=== PATIENT | male | born 1955 | race Caucasian/White ===

== ENCOUNTER 2017-02-08 18:43 | Emergency (ER) | payer BC ==
[2017-02-08] MEDS ORDERED: hydrALAZINE HCL 20 MG/ML 1 ML VIAL IVP STA ×2 (19:14→20:10)
--- NOTE | 2017-02-08 19:25 | ED ---
General Adult HPI - General Chief complaint: Recheck/Abnormal Lab/Rx Stated complaint: Hypertension Time Seen by Provider: 02/08/17 18:45 Source: patient, RN notes reviewed Mode of arrival: ambulatory Limitations: no limitations - History of Present Illness Initial comments: This is a 61-year-old male who presents emergency Department completely asymptomatic. Patient states he has been noting over the last 3 days that his blood pressures been elevated. Patient states she took an extra Lopressor today and it lowered his blood pressure to systolic of 150s but it went back up today went to the urgent care the urgent care and sent him here because his blood pressure was 178 there. Patient denies any chest pain palpitations difficulty breathing or shortness of breath per patient denies any visual disturbance per patient denies any headache. Patient denies any numbness weakness. Patient denies any abdominal pain patient denies nausea vomiting diarrhea. Patient states he has no symptoms he is just here because he takes his blood pressure and a daily basis and he has noted that it is elevated - Related Data Home Medications Medication Instructions Recorded Confirmed Alfuzosin HCl [Uroxatral] 10 mg PO HS 02/08/17 02/08/17 Guaifen/Phenyleph/Acetaminophn 1 cap PO Q4H PRN 02/08/17 02/08/17 [Mucinex Sinus-Max Severe Cplt] Lisinopril-Hctz 20-25 mg 1 tab PO DAILY 02/08/17 02/08/17 [Zestoretic 20-25] Metoprolol Tartrate [Lopressor] 100 mg PO BID 02/08/17 02/08/17 Simvastatin [Zocor] 20 mg PO HS 02/08/17 02/08/17 guaiFENesin SYRUP 100MG/5ML 100 mg PO Q4H PRN 02/08/17 02/08/17 [Robitussin] Allergies Allergy/AdvReac Type Severity Reaction Status Date / Time No Known Allergies Allergy Verified 02/08/17 19:44 Review of Systems ROS Statement: Those systems with pertinent positive or pertinent negative responses have been documented in the HPI. ROS Other: All systems not noted in ROS Statement are negative. Past Medical History Past Medical History: Hypertension, Prostate Disorder History of Any Multi-Drug Resistant Organisms: None Reported Past Surgical History: Hernia Repair Past Psychological History: No Psychological Hx Reported Smoking Status: Current every day smoker Past Alcohol Use History: None Reported Past Drug Use History: None Reported General Exam - General Exam Comments Initial Comments: GENERAL: Patient is well-developed and well-nourished. Patient is nontoxic and well- hydrated and is in no acute distress. ENT: Neck is soft and supple. No significant lymphadenopathy is noted. Oropharynx is clear. Moist mucous membranes. Neck has full range of motion without eliciting any pain. EYES: The sclera were anicteric and conjunctiva were pink and moist. Extraocular movements were intact and pupils were equal round and reactive to light. Eyelids were unremarkable. PULMONARY: Unlabored respirations. Good breath sounds bilaterally. No audible rales rhonchi or wheezing was noted. CARDIOVASCULAR: There is a regular rate and rhythm without any murmurs gallops or rubs. ABDOMEN: Soft and nontender with normal bowel sounds. No palpable organomegaly was noted. There is no palpable pulsatile mass. SKIN: Skin is clear with no lesions or rashes and otherwise unremarkable. NEUROLOGIC: Patient is alert and oriented x3. Cranial nerves II through XII are grossly intact. Motor and sensory are also intact. Normal speech, volume and content. Symmetrical smile. MUSCULOSKELETAL: Normal extremities with adequate strength and full range of motion. No lower extremity swelling or edema. No calf tenderness. LYMPHATICS: No significant lymphadenopathy is noted PSYCHIATRIC: Normal psychiatric evaluation. Normal interpersonal interactions appears functionally intact in deals appropriately with others. No signs of depression. No signs of anxiety. Limitations: no limitations Course Vital Signs 02/08/17 02/08/17 02/08/17 18:46 19:25 20:20 Temperature 97.5 F L Pulse Rate 60 50 L 52 L Respiratory 18 16 16 Rate Blood Pressure 220/91 200/88 186/89 O2 Sat by Pulse 98 98 97 Oximetry 02/08/17 21:01 Temperature Pulse Rate 58 L Respiratory 16 Rate Blood Pressure 158/77 O2 Sat by Pulse 96 Oximetry Medical Decision Making - Medical Decision Making EKG shows sinus bradycardia at 40 bpm MI interval is 152 QRS is 96 Q-T intervals 4:30 QTC is 384. Patient's EKG shows no ST segment elevation or depression patient does have some T-wave inversions in lead 3 and aVF. The patient received 2 doses hydralazine 10 mg each. Patient also received Vasotec 1.25. Patient's blood pressure came down nicely he remained asymptomatic throughout his ED stay. Patient will follow-up with his primary medical care doctor. - Lab Data Result diagrams: 02/08/17 19:45 02/08/17 19:45 Lab Results 02/08/17 02/08/17 02/08/17 Range/Units 19:45 19:45 19:45 WBC 8.1 (3.8-10.6) k/uL RBC 4.71 (4.30-5.90) m/uL Hgb 15.4 (13.0-17.5) gm/dL Hct 45.0 (39.0-53.0) % MCV 95.7 (80.0-100.0) fL MCH 32.8 (25.0-35.0) pg MCHC 34.3 (31.0-37.0) g/dL RDW 15.4 (11.5-15.5) % Plt Count 148 L (150-450) k/uL Neutrophils % 50 % Lymphocytes % 40 % Monocytes % 5 % Eosinophils % 3 % Basophils % 1 % Neutrophils # 4.1 (1.3-7.7) k/uL Lymphocytes # 3.2 (1.0-4.8) k/uL Monocytes # 0.4 (0-1.0) k/uL Eosinophils # 0.2 (0-0.7) k/uL Basophils # 0.1 (0-0.2) k/uL PT (9.0-12.0) sec INR (<1.2) APTT (22.0-30.0) sec Sodium 137 (137-145) mmol/L Potassium 4.0 (3.5-5.1) mmol/L Chloride 102 (98-107) mmol/L Carbon Dioxide 28 (22-30) mmol/L Anion Gap 7 mmol/L BUN 17 (9-20) mg/dL Creatinine 0.95 (0.66-1.25) mg/dL Est GFR (MDRD) Af Amer >60 (>60 ml/min/1.73 sqM) Est GFR (MDRD) Non-Af >60 (>60 ml/min/1.73 sqM) Glucose 100 H (74-99) mg/dL Calcium 9.9 (8.4-10.2) mg/dL Magnesium 2.2 (1.6-2.3) mg/dL Total Bilirubin 0.3 (0.2-1.3) mg/dL AST 21 (17-59) U/L ALT 39 (21-72) U/L Alkaline Phosphatase 71 (38-126) U/L Total Creatine Kinase 56 (55-170) U/L CK-MB (CK-2) 0.9 (0.0-2.4) ng/mL CK-MB (CK-2) Rel Index 1.6 Troponin I <0.012 (0.000-0.034) ng/mL NT-Pro-B Natriuret Pep pg/mL Total Protein 6.8 (6.3-8.2) g/dL Albumin 4.2 (3.5-5.0) g/dL 02/08/17 02/08/17 Range/Units 19:45 19:45 WBC (3.8-10.6) k/uL RBC (4.30-5.90) m/uL Hgb (13.0-17.5) gm/dL Hct (39.0-53.0) % MCV (80.0-100.0) fL MCH (25.0-35.0) pg MCHC (31.0-37.0) g/dL RDW (11.5-15.5) % Plt Count (150-450) k/uL Neutrophils % % Lymphocytes % % Monocytes % % Eosinophils % % Basophils % % Neutrophils # (1.3-7.7) k/uL Lymphocytes # (1.0-4.8) k/uL Monocytes # (0-1.0) k/uL Eosinophils # (0-0.7) k/uL Basophils # (0-0.2) k/uL PT 10.5 (9.0-12.0) sec INR 1.1 (<1.2) APTT 24.6 (22.0-30.0) sec Sodium (137-145) mmol/L Potassium (3.5-5.1) mmol/L Chloride (98-107) mmol/L Carbon Dioxide (22-30) mmol/L Anion Gap mmol/L BUN (9-20) mg/dL Creatinine (0.66-1.25) mg/dL Est GFR (MDRD) Af Amer (>60 ml/min/1.73 sqM) Est GFR (MDRD) Non-Af (>60 ml/min/1.73 sqM) Glucose (74-99) mg/dL Calcium (8.4-10.2) mg/dL Magnesium (1.6-2.3) mg/dL Total Bilirubin (0.2-1.3) mg/dL AST (17-59) U/L ALT (21-72) U/L Alkaline Phosphatase (38-126) U/L Total Creatine Kinase (55-170) U/L CK-MB (CK-2) (0.0-2.4) ng/mL CK-MB (CK-2) Rel Index Troponin I (0.000-0.034) ng/mL NT-Pro-B Natriuret Pep 179 pg/mL Total Protein (6.3-8.2) g/dL Albumin (3.5-5.0) g/dL Disposition Clinical Impression: Hypertensive urgency Disposition: HOME SELF-CARE Condition: Good Instructions: Hypertension (ED) Additional Instructions: Patient should take an extra 20 mg of lisinopril in the morning and continue monitoring documented his blood pressure. Patient should follow-up with his primary medical care doctor as soon as possible to make any further adjustments to his medications patient should return to the hospital if patient is having any chest pain or difficulty breathing headache or blurred vision. Referrals: Nick Goodwin DO [Primary Care Provider] - 1-2 days Time of Disposition: 21:11
[2017-02-08 19:26] VITALS: RESP 16
[2017-02-08 19:54] LABS: Basophils # (A) 0.1 k/uL (0-0.2); Basophils % (A) 1 %; Eosinophils # (A) 0.2 k/uL (0-0.7); Eosinophils % (A) 3 %; HGB 15.4 gm/dL (13.0-17.5); Lymphocytes # (A) 3.2 k/uL (1.0-4.8); Lymphocytes % (A) 40 %; MCH 32.8 pg (25.0-35.0); MCHC 34.3 g/dL (31.0-37.0); MCV 95.7 fL (80.0-100.0); Mean Platelet Volume 8.6; Monocytes # (A) 0.4 k/uL (0-1.0); Monocytes % (A) 5 %; Neutrophils # (A) 4.1 k/uL (1.3-7.7); Neutrophils % (A) 50 %; Platelet Count 148 k/uL (150-450); RBC 4.71 m/uL (4.30-5.90); RDW 15.4 % (11.5-15.5); WBC 8.1 k/uL (3.8-10.6)
[2017-02-08 20:02] LABS: ALT 39 U/L (21-72); AST 21 U/L (17-59); Albumin 4.2 g/dL (3.5-5.0); Alkaline Phosphatase 71 U/L (38-126); Anion Gap 7 mmol/L; Blood Urea Nitrogen 17 mg/dL (9-20); Calcium 9.9 mg/dL (8.4-10.2); Carbon Dioxide 28 mmol/L (22-30); Chloride 102 mmol/L (98-107); Glucose 100 mg/dL (74-99); Magnesium 2.2 mg/dL (1.6-2.3); Sodium 137 mmol/L (137-145); Total Bilirubin 0.3 mg/dL (0.2-1.3); Total Protein 6.8 g/dL (6.3-8.2)
--- NOTE | 2017-02-08 20:02 | XR ---
EXAMINATION TYPE: XR chest 2V DATE OF EXAM: 02/08/2017 COMPARISON: NONE HISTORY: Chest pain TECHNIQUE: Frontal and lateral views of the chest are obtained. FINDINGS: There is no heart failure nor confluent pneumonic infiltrate. Heart and mediastinum are no rmal. There is no pleural effusion. There are chest leads. Bony thorax is intact. IMPRESSION: Normal chest
[2017-02-08 20:13] LABS: Creatine Kinase 56 U/L (55-170)
[2017-02-08 20:22] LABS: INR 1.1 (<1.2); Partial Thromboplastin Time 24.6 sec (22.0-30.0); Prothrombin Time 10.5 sec (9.0-12.0)
[2017-02-08 20:25] LABS: Creatine Kinase MB 0.9 ng/mL (0.0-2.4); Troponin I <0.012 ng/mL (0.000-0.034)
[2017-02-08] MEDS ORDERED: ENALAPRILAT 1.25 MG/ML 1 ML VIAL IVP STA (20:25)
[2017-02-08 21:31] VITALS: BP 145/77; PULSE 56; TEMP 97.3
== END 2017-02-08 21:31 | disposition home or self-care (01) ==
LOC: EC 18:43
DX: I16.0 Hypertensive urgency (principal); R00.1 Bradycardia, unspecified; N42.9 Disorder of prostate, unspecified; F17.200 Nicotine dependence, unspecified, uncomplicated; Z79.899 Other long term (current) drug therapy
CPT/HCPCS: 36415; 93005; 83880; 80053; 82550; 82553; 83735; 84484; 85025; 85610; 85730; 71020; 99283; 96374; 96375; 96376; J0360

== ENCOUNTER 2017-09-27 15:35 | Emergency (ER) | payer BC, OTHER ==
[2017-09-27 15:56] VITALS: TEMP 98.2
[2017-09-27] MEDS ORDERED: TOPICAL SKIN ADHESIVE 1 EACH AMP TOPICAL ONE (16:09)
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
[2017-09-27 17:22] VITALS: BP 139/65; PULSE 65; RESP 18
== END 2017-09-27 17:46 | disposition home or self-care (01) ==
LOC: EC 15:35
DX: S50.811A Abrasion of right forearm, initial encounter (principal); S00.31XA Abrasion of nose, initial encounter; S00.81XA Abrasion of other part of head, initial encounter; I10 Essential (primary) hypertension; N42.9 Disorder of prostate, unspecified; F17.200 Nicotine dependence, unspecified, uncomplicated; Z79.899 Other long term (current) drug therapy; V43.52XA Car driver injured in collision with other type car in traffic accident, initial encounter; Y92.410 Unspecified street and highway as the place of occurrence of the external cause
CPT/HCPCS: 70450; 72125; 99284

== ENCOUNTER 2018-07-25 13:10 | Emergency (ER) | payer BC, OTHER ==
[2018-07-25 13:19] VITALS: BP 188/94; PULSE 70; RESP 18; TEMP 98.2
--- NOTE | 2018-07-25 13:41 | XR ---
EXAMINATION TYPE: XR knee complete LT , 3 VIEWS DATE OF EXAM ORDERED: 07/25/2018 HISTORY: Pain. COMPARISON: None. FINDINGS: Joint spaces are reasonably well-maintained. No fracture or dislocation is seen. There is no knee joint effusion. There is some curvilinear calcification in the superficial soft tissues which may represent vascular calcification. IMPRESSION: NO ACUTE OSSEOUS LESION.
--- NOTE | 2018-07-25 13:41 | ED ---
Lower Extremity Injury HPI - General Chief Complaint: Extremity Injury, Lower Stated Complaint: Knee injury Time Seen by Provider: 07/25/18 13:20 Source: patient, RN notes reviewed Mode of arrival: ambulatory Limitations: no limitations - History of Present Illness Initial Comments: 62-year-old male presents emergency Department with chief complaint of left knee pain. Patient states he twisted it a few days ago after moving a ladder. Patient states that he she's had some discomfort in that knee. Patient reports she has some injury to the right knee and injections by his PCP which helped. Patient states he follow-up with his current PCP who does not do injections. Patient was given oral steroids. Patient states has not helped much. Patient denies any sensation of his knee given out. He is able to ambulate but states it's sore. Denies swelling, redness. Patient denies any paresthesias. Patient had vein stripping in the past. - Related Data Home Medications Medication Instructions Recorded Confirmed Alfuzosin HCl [Uroxatral] 10 mg PO HS 02/08/17 09/27/17 Guaifen/Phenyleph/Acetaminophn 1 cap PO Q4H PRN 02/08/17 09/27/17 [Mucinex Sinus-Max Severe Cplt] Lisinopril-Hctz 20-25 mg 1 tab PO DAILY 02/08/17 09/27/17 [Zestoretic 20-25] Metoprolol Tartrate [Lopressor] 100 mg PO BID 02/08/17 09/27/17 Simvastatin [Zocor] 20 mg PO HS 02/08/17 09/27/17 guaiFENesin SYRUP 100MG/5ML 100 mg PO Q4H PRN 02/08/17 09/27/17 [Robitussin] Previous Rx's Medication Instructions Recorded Cephalexin [Keflex] 500 mg PO Q8HR #30 cap 09/27/17 Ibuprofen [Motrin] 800 mg PO Q8HR PRN #30 tab 09/27/17 Ibuprofen [Motrin] 600 mg PO Q8HR PRN #30 tab 07/25/18 Allergies Allergy/AdvReac Type Severity Reaction Status Date / Time No Known Allergies Allergy Verified 07/25/18 13:19 Review of Systems ROS Statement: Those systems with pertinent positive or pertinent negative responses have been documented in the HPI. ROS Other: All systems not noted in ROS Statement are negative. Past Medical History Past Medical History: Hypertension, Prostate Disorder History of Any Multi-Drug Resistant Organisms: None Reported Past Surgical History: Hernia Repair Past Psychological History: No Psychological Hx Reported Smoking Status: Current every day smoker Past Alcohol Use History: None Reported Past Drug Use History: None Reported General Exam Limitations: no limitations General appearance: alert, in no apparent distress Head exam: Present: atraumatic, normocephalic, normal inspection Eye exam: Present: normal appearance, PERRL, EOMI. Absent: scleral icterus, conjunctival injection, periorbital swelling ENT exam: Present: normal exam, normal oropharynx, mucous membranes moist Neck exam: Present: normal inspection, full ROM. Absent: tenderness, meningismus, lymphadenopathy Respiratory exam: Present: normal lung sounds bilaterally. Absent: respiratory distress, wheezes, rales, rhonchi, stridor Cardiovascular Exam: Present: regular rate, normal rhythm, normal heart sounds. Absent: systolic murmur, diastolic murmur, rubs, gallop, clicks Extremities exam: Present: normal inspection, full ROM, tenderness (Mild tendern ess to left knee that is nonfocal), normal capillary refill. Absent: pedal edema, joint swelling, calf tenderness Skin exam: Present: warm, dry, intact, normal color. Absent: rash Course Vital Signs 07/25/18 13:16 Temperature 98.2 F Pulse Rate 70 Respiratory 18 Rate Blood Pressure 188/94 O2 Sat by Pulse 98 Oximetry Medical Decision Making - Medical Decision Making 8-year-old male presented for left knee injury. Patient's symptoms are consistent left knee sprain we discussed possible meniscus injury. Patient is requesting injections and I did not feel this is less at this time he may follow-up with orthopedics for this. Patient will be given pain medication return parameters were discussed. Disposition Clinical Impression: Left knee sprain Disposition: HOME SELF-CARE Condition: Stable Instructions (If sedation given, give patient instructions): Knee Sprain (ED) Additional Instructions: Please return to the Emergency Department if symptoms worsen or any other concerns. Prescriptions: Ibuprofen [Motrin] 600 mg PO Q8HR PRN #30 tab PRN Reason: Pain Is patient prescribed a controlled substance at d/c from ED?: No Referrals: Bess Nava MD [Primary Care Provider] - 1-2 days Jc Alexander DO [Medical Doctor] - 1-2 days Time of Disposition: 14:18
[2018-07-25] MEDS ORDERED: ACET/COD 300 MG/30 MG STARTER PACK 6 TAB BTL PO STA (14:19)
== END 2018-07-25 14:40 | disposition home or self-care (01) ==
LOC: EC 13:10
DX: S83.92XA Sprain of unspecified site of left knee, initial encounter (principal); I10 Essential (primary) hypertension; F17.200 Nicotine dependence, unspecified, uncomplicated; N42.9 Disorder of prostate, unspecified; Z79.899 Other long term (current) drug therapy; X50.1XXA Overexertion from prolonged static or awkward postures, initial encounter; Y92.009 Unspecified place in unspecified non-institutional (private) residence as the place of occurrence of the external cause
CPT/HCPCS: 99283

== ENCOUNTER 2020-12-12 14:11 | Inpatient (IN) | payer BC, OTHER ==
--- NOTE | 2020-12-12 14:26 | ED ---
General Adult HPI - General Stated complaint: COLEMAN/Abd normal ekg Time Seen by Provider: 12/12/20 14:11 Source: patient, RN notes reviewed, old records reviewed - History of Present Illness Initial comments: This is a 65-year-old male with a past medical history significant for COPD and chronic edema of the legs. Patient went to the urgent care a few days ago and they were treating him with amoxicillin for a sinus infection. Patient states the last couple days been short of breath and today he went and saw his primary medical care doctor and they were concerned because they did an EKG on the patient and they saw some abnormalities of the symptoms of the emergency department. Patient states he does feel little short of breath and he states it is a little bit worse with lying down. Patient states she's had no fevers or cough. Patient denies any chest pain or palpitations. Patient denies lightheadedness or dizziness. Patient denies any increased swelling to his legs he states is chronic and is unchanged. Patient denies any calf pain. - Related Data Home Medications Medication Instructions Recorded Confirmed Alfuzosin HCl [Uroxatral] 10 mg PO DAILY 02/08/17 12/12/20 Amoxicillin 500 mg PO TID 12/12/20 12/12/20 Carvedilol [Coreg] 25 mg PO BID 12/12/20 12/12/20 Fluticasone Nasal [place] [Flonase 1 spr EA NOSTRIL DAILY 12/12/20 12/12/20 Nasal [place]] Furosemide [Lasix] 40 mg PO DAILY 12/12/20 12/12/20 Ibuprofen [Motrin] 800 mg PO TID PRN 12/12/20 12/12/20 allopurinoL [Zyloprim] 100 mg PO DAILY 12/12/20 12/12/20 cloNIDine HCL 0.1 mg PO TID 12/12/20 12/12/20 lisinopriL [Zestril] 20 mg PO DAILY 12/12/20 12/12/20 Allergies Allergy/AdvReac Type Severity Reaction Status Date / Time No Known Allergies Allergy Verified 07/25/18 13:19 Review of Systems ROS Statement: Those systems with pertinent positive or pertinent negative responses have been documented in the HPI. ROS Other: All systems not noted in ROS Statement are negative. Past Medical History Past Medical History: Hypertension, Prostate Disorder History of Any Multi-Drug Resistant Organisms: None Reported Past Surgical History: Hernia Repair Past Psychological History: No Psychological Hx Reported Past Alcohol Use History: None Reported Past Drug Use History: None Reported General Exam - General Exam Comments Initial Comments: GENERAL: Patient is well-developed and well-nourished. Patient is nontoxic and well- hydrated and is in no acute distress. ENT: Neck is soft and supple. No significant lymphadenopathy is noted. Oropharynx is clear. Moist mucous membranes. Neck has full range of motion without eliciting any pain. EYES: The sclera were anicteric and conjunctiva were pink and moist. Extraocular movements were intact and pupils were equal round and reactive to light. Eyelids were unremarkable. PULMONARY: Unlabored respirations. Good breath sounds bilaterally. No audible rales rhonchi or wheezing was noted. CARDIOVASCULAR: There is a regular rate and rhythm without any murmurs gallops or rubs. ABDOMEN: Soft and nontender with normal bowel sounds. SKIN: Skin is clear with no lesions or rashes and otherwise unremarkable. NEUROLOGIC: Patient is alert and oriented x3. Cranial nerves II through XII are grossly intact. Motor and sensory are also intact. Normal speech, volume and content. Symmetrical smile. MUSCULOSKELETAL: Normal extremities with adequate strength and full range of motion. 2+ edema bilaterally LYMPHATICS: No significant lymphadenopathy is noted PSYCHIATRIC: Normal psychiatric evaluation. Course Vital Signs 12/12/20 12/12/20 14:13 14:30 Temperature 98.3 F Pulse Rate 67 66 Respiratory 18 18 Rate Blood Pressure 143/119 O2 Sat by Pulse 95 Oximetry Medical Decision Making - Medical Decision Making EKG shows normal sinus rhythm at 67 bpm [place] interval 264 QRS is 98 QT interval is 46 QTC is 429. Patient's EKG shows T-wave inversions in leads II, III, and F aVF as well as precordial leads V3 through V6. Patient also has Q waves inferiorly. She also has Q waves in V1 and V2 and V3 Chest x-ray showed bilateral pleural effusions and pulmonary edema. CT of the chest shows no pulmonary embolism and again show signs of pulmonary edema. Patient received Lasix Nitropaste to the emergency department. [facility] the patient and wrote admitting orders I continued Lasix Nitropaste on the f nicol. Patient also had an elevated troponin. - Lab Data Result diagrams: 12/12/20 14:24 12/12/20 14:24 Lab Results 12/12/20 12/12/20 12/12/20 Range/Units 14:24 14:24 14:24 WBC 10.0 (3.8-10.6) k/uL RBC 4.74 (4.30-5.90) m/uL Hgb 16.2 (13.0-17.5) gm/dL Hct 47.3 (39.0-53.0) % MCV 99.8 (80.0-100.0) fL MCH 34.1 (25.0-35.0) pg MCHC 34.2 (31.0-37.0) g/dL RDW 14.0 (11.5-15.5) % Plt Count 129 L (150-450) k/uL MPV 9.3 Neutrophils % 63 % Lymphocytes % 27 % Monocytes % 5 % Eosinophils % 2 % Basophils % 1 % Neutrophils # 6.3 (1.3-7.7) k/uL Lymphocytes # 2.7 (1.0-4.8) k/uL Monocytes # 0.5 (0-1.0) k/uL Eosinophils # 0.2 (0-0.7) k/uL Basophils # 0.1 (0-0.2) k/uL PT 11.6 (9.0-12.0) sec INR 1.1 (<1.2) APTT 25.1 (22.0-30.0) sec D-Dimer 0.64 H (<0.60) mg/L FEU Sodium 138 (137-145) mmol/L Potassium 4.2 (3.5-5.1) mmol/L Chloride 107 (98-107) mmol/L Carbon Dioxide 22 (22-30) mmol/L Anion Gap 9 mmol/L BUN 14 (9-20) mg/dL Creatinine 0.88 (0.66-1.25) mg/dL Est GFR (CKD-EPI)AfAm >90 (>60 ml/min/1.73 sqM) Est GFR (CKD-EPI)NonAf >90 (>60 ml/min/1.73 sqM) Glucose 99 (74-99) mg/dL Plasma Lactic Acid Cheikh (0.7-2.0) mmol/L Calcium 9.9 (8.4-10.2) mg/dL Total Bilirubin 1.0 (0.2-1.3) mg/dL AST 25 (17-59) U/L ALT 27 (4-49) U/L Alkaline Phosphatase 66 (38-126) U/L Troponin I (0.000-0.034) ng/mL NT-Pro-B Natriuret Pep pg/mL Total Protein 7.3 (6.3-8.2) g/dL Albumin 4.6 (3.5-5.0) g/dL Coronavirus (PCR) (Not Detectd) 12/12/20 12/12/20 12/12/20 Range/Units 14:24 14:24 14:24 WBC (3.8-10.6) k/uL RBC (4.30-5.90) m/uL Hgb (13.0-17.5) gm/dL Hct (39.0-53.0) % MCV (80.0-100.0) fL MCH (25.0-35.0) pg MCHC (31.0-37.0) g/dL RDW (11.5-15.5) % Plt Count (150-450) k/uL MPV Neutrophils % % Lymphocytes % % Monocytes % % Eosinophils % % Basophils % % Neutrophils # (1.3-7.7) k/uL Lymphocytes # (1.0-4.8) k/uL Monocytes # (0-1.0) k/uL Eosinophils # (0-0.7) k/uL Basophils # (0-0.2) k/uL PT (9.0-12.0) sec INR (<1.2) APTT (22.0-30.0) sec D-Dimer (<0.60) mg/L FEU Sodium (137-145) mmol/L Potassium (3.5-5.1) mmol/L Chloride (98-107) mmol/L Carbon Dioxide (22-30) mmol/L Anion Gap mmol/L BUN (9-20) mg/dL Creatinine (0.66-1.25) mg/dL Est GFR (CKD-EPI)AfAm (>60 ml/min/1.73 sqM) Est GFR (CKD-EPI)NonAf (>60 ml/min/1.73 sqM) Glucose (74-99) mg/dL Plasma Lactic Acid Cheikh 1.5 (0.7-2.0) mmol/L Calcium (8.4-10.2) mg/dL Total Bilirubin (0.2-1.3) mg/dL AST (17-59) U/L ALT (4-49) U/L Alkaline Phosphatase (38-126) U/L Troponin I 0.043 H* (0.000-0.034) ng/mL NT-Pro-B Natriuret Pep 5310 pg/mL Total Protein (6.3-8.2) g/dL Albumin (3.5-5.0) g/dL Coronavirus (PCR) (Not Detectd) 12/12/20 Range/Units 14:30 WBC (3.8-10.6) k/uL RBC (4.30-5.90) m/uL Hgb (13.0-17.5) gm/dL Hct (39.0-53.0) % MCV (80.0-100.0) fL MCH (25.0-35.0) pg MCHC (31.0-37.0) g/dL RDW (11.5-15.5) % Plt Count (150-450) k/uL MPV Neutrophils % % Lymphocytes % % Monocytes % % Eosinophils % % Basophils % % Neutrophils # (1.3-7.7) k/uL Lymphocytes # (1.0-4.8) k/uL Monocytes # (0-1.0) k/uL Eosinophils # (0-0.7) k/uL Basophils # (0-0.2) k/uL PT (9.0-12.0) sec INR (<1.2) APTT (22.0-30.0) sec D-Dimer (<0.60) mg/L FEU Sodium (137-145) mmol/L Potassium (3.5-5.1) mmol/L Chloride (98-107) mmol/L Carbon Dioxide (22-30) mmol/L Anion Gap mmol/L BUN (9-20) mg/dL Creatinine (0.66-1.25) mg/dL Est GFR (CKD-EPI)AfAm (>60 ml/min/1.73 sqM) Est GFR (CKD-EPI)NonAf (>60 ml/min/1.73 sqM) Glucose (74-99) mg/dL Plasma Lactic Acid Cheikh (0.7-2.0) mmol/L Calcium (8.4-10.2) mg/dL Total Bilirubin (0.2-1.3) mg/dL AST (17-59) U/L ALT (4-49) U/L Alkaline Phosphatase (38-126) U/L Troponin I (0.000-0.034) ng/mL NT-Pro-B Natriuret Pep pg/mL Total Protein (6.3-8.2) g/dL Albumin (3.5-5.0) g/dL Coronavirus (PCR) Not Detected (Not Detectd) Critical Care Time Critical Care Time: Yes Total Critical Care Time: 35 Disposition Clinical Impression: Acute pulmonary edema Disposition: ADMITTED IP TO THIS HOSP Referrals: Bess Nava MD [Primary Care Provider] - 1-2 days Time of Disposition: 16:48
[2020-12-12 14:47] LABS: Basophils # (A) 0.1 k/uL (0-0.2); Basophils % (A) 1 %; Eosinophils # (A) 0.2 k/uL (0-0.7); Eosinophils % (A) 2 %; HCT 47.3 % (39.0-53.0); HGB 16.2 gm/dL (13.0-17.5); Lymphocytes # (A) 2.7 k/uL (1.0-4.8); Lymphocytes % (A) 27 %; MCH 34.1 pg (25.0-35.0); MCHC 34.2 g/dL (31.0-37.0); MCV 99.8 fL (80.0-100.0); Mean Platelet Volume 9.3; Monocytes # (A) 0.5 k/uL (0-1.0); Monocytes % (A) 5 %; Neutrophils # (A) 6.3 k/uL (1.3-7.7); Neutrophils % (A) 63 %; Platelet Count 129 k/uL (150-450); RBC 4.74 m/uL (4.30-5.90)
[2020-12-12 15:02] LABS: INR 1.1 (<1.2); Partial Thromboplastin Time 25.1 sec (22.0-30.0); Prothrombin Time 11.6 sec (9.0-12.0)
[2020-12-12 15:05] LABS: ALT 27 U/L (4-49); AST 25 U/L (17-59); African American GFR (CKD) >90 (>60 ml/min/1.73 sqM); Albumin 4.6 g/dL (3.5-5.0); Alkaline Phosphatase 66 U/L (38-126); Anion Gap 9 mmol/L; Blood Urea Nitrogen 14 mg/dL (9-20); Calcium 9.9 mg/dL (8.4-10.2); Carbon Dioxide 22 mmol/L (22-30); Chloride 107 mmol/L (98-107); Glucose 99 mg/dL (74-99); Non-African American GFR(CKD) >90 (>60 ml/min/1.73 sqM); Potassium 4.2 mmol/L (3.5-5.1); Sodium 138 mmol/L (137-145); Total Protein 7.3 g/dL (6.3-8.2)
--- NOTE | 2020-12-12 15:12 | XR ---
EXAMINATION TYPE: XR chest 2V DATE OF EXAM: 12/12/2020 COMPARISON: Chest x-ray February 08, 2017. HISTORY: Difficulty in breathing. TECHNIQUE: Frontal and lateral views of the chest are obtained. FINDINGS: There are low lung volumes with mild cardiomegaly and mild to moderate interstitial edema along with small bilateral pleural effusions on current study. Underlying scoliosis is redemonstrate d. IMPRESSION: Findings consistent with CHF exacerbation as detailed above. Correlate clinically.
--- NOTE | 2020-12-12 16:30 | CT ---
EXAMINATION TYPE: CT chest angio for PE DATE OF EXAM: 12/12/2020 COMPARISON: Chest x-ray earlier today. HISTORY: Difficulty breathing, elevated d-dimer CT DLP: 852.9 mGycm Automated exposure control for dose reduction was used. CONTRAST: CTA Chest for pulmonary embolism performed with with IV Contrast, patient injected with 100 mL of Iso anju 370. MIP Images are created on CT scanner and reviewed FINDINGS: LUNGS: Mild to moderate underlying emphysematous change is present. There are small to tiny bilateral pleural effusions. Respiratory motion artifact degradation. Mild bibasilar linear scarring and/or at electasis. No suspicious focal consolidation. MEDIASTINUM: There is satisfactory enhancement of the pulmonary artery and its branches, there is no CT evidence for pulmonary embolism. Enlarged main pulmonary artery of 3.7 cm consistent with underlyi ng pulmonary artery hypertension. Moderate to severe three-vessel coronary artery calcification. The re are prominent and slightly enlarged bilateral hilar and subcarinal lymph nodes. No pericardial e ffusion is seen. Mild cardiomegaly. Moderate left ventricular dilatation. OTHER: Slight scoliotic curvature with mild to moderate multilevel spurring in the spine. IMPRESSION: 1. No CT evidence for acute pulmonary embolism. 2. Mild cardiomegaly with small to tiny bilateral pleural effusions. Correlate for underlying CHF exa cerbation. Underlying pulmonary artery hypertension noted. Nonspecific thoracic adenopathy. Consider follow-up.
[2020-12-12] MEDS ORDERED: FUROSEMIDE 10 MG/ML 4 ML VIAL IV STA (16:45)
[2020-12-12] MEDS ORDERED: NITROGLYCERIN OINT 1 INCH/GM PACKET TOPICAL STA (16:46)
[2020-12-12] MEDS ORDERED: ENALAPRILAT 1.25 MG/ML 1 ML VIAL IVP STA (16:54)
[2020-12-12] MEDS: NITROGLYCERIN OINT 1 INCH/GM PACKET TOPICAL SCH (23:15)
[2020-12-13] MEDS: FUROSEMIDE 10 MG/ML 4 ML VIAL IV SCH ×3 (01:53→17:05)
[2020-12-13] MEDS: NITROGLYCERIN OINT 1 INCH/GM PACKET TOPICAL SCH (10:42)
[2020-12-13] MEDS: cloNIDine HCL 0.1 MG TAB PO SCH ×3 (10:42→20:17)
[2020-12-13] MEDS: carvediloL 12.5 MG TAB PO SCH ×2 (10:42→20:17)
[2020-12-13] MEDS: lisinopriL 20 MG TAB PO SCH (10:42)
--- NOTE | 2020-12-13 13:06 | P.CRDCN ---
History of Present Illness Consult date: 12/13/20 History of present illness: HISTORY OF PRESENT ILLNESS: This is a 65-year-old male with a past medical history significant for hypertension. Patient follows with a Dr. Gary out of [place]. We have been asked to see the patient in consultation for congestive heart failure. Patient examined at the bedside. Patient presented to the hospital with a chief complaint of shortness of breath. He states he has been feeling short of breath for approximately one week. He also reports increased lower extremity edema. He states he is having a hard time laying flat in bed at home. He denies any chest pain or pressure. The patient states he saw his regular wire winder about a month ago and had an EKG performed at that time which he states was normal. He does report a history of hypertension and states him and his wire winder has had difficulty controlling his blood pressure. EKG reveals sinus mechanism with diffuse T-wave inversions, new from 2017 Chest xray findings consistent with CHF exacerbation Chest CT: Negative for pulmonary embolism Laboratory data: WBC 10.0. Hemoglobin 16.2. Platelet 129. D-dimer 0.64. Sodium 138. Potassium 4.2. BUN 14. Creatinine 0.88. Lactic acid 1.5. ProBNP 5310. Troponin 0.043. 0.053. 0.054. Current home cardiac medications include lisinopril 20 mg daily, clonidine 0.1 mg 3 times a day, Lasix 40 mg daily, carvedilol 25 mg twice a day REVIEW OF SYSTEMS: At the time of my exam: CONSTITUTIONAL: Denies fever or chills. HEENT: Denies blurred vision, vision changes, or eye pain. Denies hemoptysis CARDIOVASCULAR: Denies chest pain. Denies orthopnea. Denies PND. Denies palpitations RESPIRATORY: + shortness of breath. GASTROINTESTINAL: Denies abdominal pain. Denies nausea or vomiting. HEMATOLOGIC: Denies bleeding disorders. GENITOURINARY: Denies any blood in urine. SKIN: Denies pruitis. Denies rash. PHYSICAL EXAM: VITAL SIGNS: Reviewed. GENERAL: Well-developed in no acute distress. HEENT: Head is normocephalic. Pupils are equal, round. Sclerae anicteric. Mucous membranes of the mouth are moist. Neck supple. No JVD or thyromegaly LUNGS: Respirations even and unlabored. Lungs diminished to auscultation bilaterally. HEART: Regular rate and rhythm. S1 and S2 heard. ABDOMEN: Soft. Nondistended. Nontender. EXTREMITIES: Normal range of motion. No clubbing or cyanosis. Peripheral pulses intact. Bilateral lower extremity edema noted NEUROLOGIC: Awake and alert. Oriented x 3. ASSESSMENT: Shortness of breath Acute congestive heart failure, type unknown, echo pending Hypertension Abnormal troponins, not suggestive of acute coronary syndrome EKG changes, patient without complaints of chest pain/pressure PLAN: Obtain 2-D echo to assess cardiac structure and function Resume home cardiac medications Monitor blood pressure Continue IV Lasix Monitor kidney function Daily weights Accurate I&O Further recommendations pending patient's course Nurse practitioner note has been reviewed by physician. Signing provider agrees with the documented findings, assessment, and plan of care. Past Medical History Past Medical History: Hypertension, Prostate Disorder History of Any Multi-Drug Resistant Organisms: None Reported Past Surgical History: Hernia Repair Past Psychological History: No Psychological Hx Reported Past Alcohol Use History: None Reported Past Drug Use History: None Reported Medications and Allergies Home Medications Medication Instructions Recorded Confirmed Type Alfuzosin HCl [Uroxatral] 10 mg PO DAILY 02/08/17 12/12/20 History Amoxicillin 500 mg PO TID 12/12/20 12/12/20 History Carvedilol [Coreg] 25 mg PO BID 12/12/20 12/12/20 History Fluticasone Nasal [place] [Flonase 1 spr EA NOSTRIL DAILY 12/12/20 12/12/20 History Nasal [place]] Furosemide [Lasix] 40 mg PO DAILY 12/12/20 12/12/20 History Ibuprofen [Motrin] 800 mg PO TID PRN 12/12/20 12/12/20 History allopurinoL [Zyloprim] 100 mg PO DAILY 12/12/20 12/12/20 History cloNIDine HCL 0.1 mg PO TID 12/12/20 12/12/20 History lisinopriL [Zestril] 20 mg PO DAILY 12/12/20 12/12/20 History Allergies Allergy/AdvReac Type Severity Reaction Status Date / Time No Known Allergies Allergy Verified 07/25/18 13:19 Physical Exam Vitals: Vital Signs Temp Pulse Resp BP Pulse Ox 12/13/20 06:42 65 18 154/74 98 12/13/20 04:45 98.5 F 57 L 18 163/81 96 12/13/20 01:54 59 L 18 150/72 95 12/12/20 23:00 59 L 18 147/66 94 L 12/12/20 21:00 62 18 156/77 95 12/12/20 18:20 74 18 157/86 97 12/12/20 14:30 66 18 12/12/20 14:13 98.3 F 67 18 143/119 95 Results 12/12/20 14:24 12/12/20 14:24 Cardiac Enzymes 12/12/20 12/12/20 12/12/20 Range/Units 14:24 14:24 17:44 AST 25 (17-59) U/L Troponin I 0.043 H* 0.053 H* (0.000-0.034) ng/mL 12/12/20 Range/Units 21:30 AST (17-59) U/L Troponin I 0.054 H* (0.000-0.034) ng/mL Coagulation 12/12/20 Range/Units 14:24 PT 11.6 (9.0-12.0) sec APTT 25.1 (22.0-30.0) sec CBC 12/12/20 Range/Units 14:24 WBC 10.0 (3.8-10.6) k/uL RBC 4.74 (4.30-5.90) m/uL Hgb 16.2 (13.0-17.5) gm/dL Hct 47.3 (39.0-53.0) % Plt Count 129 L (150-450) k/uL Comprehensive Metabolic Panel 12/12/20 Range/Units 14:24 Sodium 138 (137-145) mmol/L Potassium 4.2 (3.5-5.1) mmol/L Chloride 107 (98-107) mmol/L Carbon Dioxide 22 (22-30) mmol/L BUN 14 (9-20) mg/dL Creatinine 0.88 (0.66-1.25) mg/dL Glucose 99 (74-99) mg/dL Calcium 9.9 (8.4-10.2) mg/dL AST 25 (17-59) U/L ALT 27 (4-49) U/L Alkaline Phosphatase 66 (38-126) U/L Total Protein 7.3 (6.3-8.2) g/dL Albumin 4.6 (3.5-5.0) g/dL Current Medications Generic Name Dose Route Start Last Admin Trade Name Arleyq PRN Reason Stop Dose Admin Furosemide 40 mg 12/13/20 01:00 12/13/20 01:53 Furosemide 10 Mg/Ml 4 Ml Vial IV 40 mg Q8H [facility] Administration Nitroglycerin 1 inch 12/12/20 22:00 12/12/20 23:15 Nitroglycerin Oint 1 Inch/Gm Packet TOPICAL Not Given QID [facility] 12/12/20 14:24 12/12/20 14:24
--- NOTE | 2020-12-13 15:23 | P.HPIM ---
History of Present Illness Patient given with compensative shortness of breath and lower extremity edema. Patient doesn't have any clear JVD patient is obese patient appears to have chronic edema in bilateral lower extremities. Echocardiac exam is being up and cardiology evaluated the patient patient denied any chest pain EKG showed a diffuse T-wave inversions which aren't new from 2017. Primary doctors send him to ER because of these EKG changes. CT of the chest is negative for pulmonary embolism. Patient denied any significant orthopnea paroxysmal nocturnal dyspnea. Patient chest x-ray and CT angios did show some mild pulmonary edema. The shortness of breath is subacute to chronic. Pedal edema IV is to be chronic. Patient had a sleep study in the past doesn't have any sleep apnea REVIEW OF SYSTEMS: CONSTITUTIONAL: No fever, no malaise, no fatigue. HEENT: No recent visual problems or hearing problems. Denied any sore throat. CARDIOVASCULAR: No orthopnea, PND, no palpitations, no syncope. PULMONARY: No shortness of breath, no cough, no hemoptysis. GASTROINTESTINAL: No diarrhea, no nausea, no vomiting, no abdominal pain. NEUROLOGICAL: No headaches, no weakness, no numbness. HEMATOLOGICAL: Denies any bleeding or petechiae. GENITOURINARY: Denies any burning micturition, frequency, or urgency. MUSCULOSKELETAL/RHEUMATOLOGICAL: Denies any joint pain, swelling, or any muscle pain. ENDOCRINE: Denies any polyuria or polydipsia. The rest of the 14-point review of systems is negative. PHYSICAL EXAMINATION: GENERAL: The patient is alert and oriented x3, not in any acute distress. Well developed, well nourished. HEENT: Pupils are round and equally reacting to light. EOMI. No scleral icterus. No conjunctival pallor. Normocephalic, atraumatic. No pharyngeal erythema. No thyromegaly. CARDIOVASCULAR: S1 and S2 present. No murmurs, rubs, or gallops. PULMONARY: Chest is clear to auscultation, no wheezing or crackles. ABDOMEN: Soft, nontender, nondistended, normoactive bowel sounds. No palpable organomegaly. MUSCULOSKELETAL: No joint swelling or deformity. EXTREMITIES: No cyanosis, clubbing, bilateral lower extremity edema mostly appears to be chronic with chronic venous stasis and venous stasis dermatosis NEUROLOGICAL: Gross neurological examination did not reveal any focal deficits. SKIN: No rashes. Assessment and plan Shortness of breath: Possibility of congestive heart failure and/or pulmonary hy pertension: Echocardiac remiss pending. Patient will be can you done IV Lasix -Chronic venous stasis. Mildly elevated troponins cardiology evaluated the patient in January not believe these are suggestive of acute coronary syndromes. -Obesity -Hypertension -Benign prostatic hypertrophy DVT prophylaxis: Lovenox Past Medical History Past Medical History: Hypertension, Prostate Disorder History of Any Multi-Drug Resistant Organisms: None Reported Past Surgical History: Hernia Repair Past Psychological History: No Psychological Hx Reported Past Alcohol Use History: None Reported Past Drug Use History: None Reported Medications and Allergies Home Medications Medication Instructions Recorded Confirmed Type Alfuzosin HCl [Uroxatral] 10 mg PO DAILY 02/08/17 12/12/20 History Amoxicillin 500 mg PO TID 12/12/20 12/12/20 History Carvedilol [Coreg] 25 mg PO BID 12/12/20 12/12/20 History Fluticasone Nasal [place] [Flonase 1 spr EA NOSTRIL DAILY 12/12/20 12/12/20 History Nasal [place]] Furosemide [Lasix] 40 mg PO DAILY 12/12/20 12/12/20 History Ibuprofen [Motrin] 800 mg PO TID PRN 12/12/20 12/12/20 History allopurinoL [Zyloprim] 100 mg PO DAILY 12/12/20 12/12/20 History cloNIDine HCL 0.1 mg PO TID 12/12/20 12/12/20 History lisinopriL [Zestril] 20 mg PO DAILY 12/12/20 12/12/20 History Allergies Allergy/AdvReac Type Severity Reaction Status Date / Time No Known Allergies Allergy Verified 07/25/18 13:19 Physical Exam Vitals: Vital Signs Temp Pulse Resp BP Pulse Ox 12/13/20 13:10 53 L 16 143/70 95 12/13/20 11:00 67 14 165/83 12/13/20 10:48 165/83 12/13/20 10:42 59 L 18 146/73 98 12/13/20 10:30 64 14 146/73 12/13/20 10:00 57 L 13 153/86 95 12/13/20 09:30 70 19 153/86 94 L 12/13/20 09:00 57 L 20 144/77 96 12/13/20 08:30 55 L 11 L 144/77 97 12/13/20 08:00 51 L 17 141/63 96 12/13/20 07:30 51 L 15 141/63 93 L 12/13/20 07:00 51 L 6 L 154/74 98 12/13/20 06:42 65 18 154/74 98 12/13/20 04:45 98.5 F 57 L 18 163/81 96 12/13/20 01:54 59 L 18 150/72 95 12/12/20 23:00 59 L 18 147/66 94 L 12/12/20 21:00 62 18 156/77 95 12/12/20 18:20 74 18 157/86 97 Results CBC & Chem 7: 12/12/20 14:24 12/12/20 14:24 Labs: Abnormal Lab Results - Last 24 Hours (Table) 12/12/20 12/12/20 12/12/20 Range/Units 14:24 17:44 21:30 Troponin I 0.043 H* 0.053 H* 0.054 H* (0.000-0.034) ng/mL
[2020-12-14 08:37] LABS: Calcium 9.6 mg/dL (8.4-10.2); Potassium 3.7 mmol/L (3.5-5.1)
[2020-12-14] MEDS: ENOXAPARIN 40 MG/0.4 ML SYRINGE SQ SCH (09:01)
[2020-12-14] MEDS: lisinopriL 20 MG TAB PO SCH (09:01)
[2020-12-14] MEDS: carvediloL 12.5 MG TAB PO SCH (09:01)
[2020-12-14] MEDS: cloNIDine HCL 0.1 MG TAB PO SCH ×3 (09:01→20:54)
[2020-12-14] MEDS: FUROSEMIDE 10 MG/ML 4 ML VIAL IV SCH ×2 (09:01)
--- NOTE | 2020-12-14 10:00 | ECHOF ---
Referral Reason:Abnormal EKG- VO per Dr Amador MEASUREMENTS -------- HEIGHT: 182.9 cm WEIGHT: 127.0 kg BP: RVIDd: 3.4 cm (< 3.3) IVSd: 1.4 cm (0.6 - 1.1) LVIDd: 5.3 cm (3.9 - 5.3) LVPWd: 1.4 cm (0.6 - 1.1) IVSs: 1.7 cm LVIDs: 4.3 cm LVPWs: 1.7 cm LA Diam: 4.6 cm (2.7 - 3.8) LAESV Index (A-L): 36.37 ml/m Ao Diam: 3.2 cm (2.0 - 3.7) AV Cusp: 1.8 cm (1.5 - 2.6) LA Diam: 4.3 cm (2.7 - 3.8) MV EXCURSION: 21.171 mm (> 18.000) MV EF SLOPE: 49 mm/s (70 - 150) EPSS: 1.7 cm MV E Get: 0.84 m/s MV DecT: 282 ms MV A Get: 0.81 m/s MV E/A Ratio: 1.04 RAP: 5.00 mmHg RVSP: 25.68 mmHg FINDINGS -------- Sinus rhythm. This was a techncally difficult study with suboptimal views, , Lumason utilized for enhancement of im ages. The left ventricular size is normal. There is moderate concentric left ventricular hypertrophy. O verall left ventricular systolic function is moderately impaired with, an EF between 35 - 40 %. Inf erior Hypokinesis The right ventricle is normal in size. LA is moderately dilated 34-39 ml/m2 The right atrial size is normal. There is mild aortic valve sclerosis. There is no evidence of aortic regurgitation. Mild mitral regurgitation is present. Mild tricuspid regurgitation present. Right ventricular systolic pressure is normal at < 35 mmHg. There is no pulmonic regurgitation present. The aortic root size is normal. Echo free space represents a pericardial fat pad. CONCLUSIONS -------- 1. This was a techncally difficult study with suboptimal views, , Lumason utilized for enhancement of images. 2. The left ventricular size is normal. 3. There is moderate concentric left ventricular hypertrophy. 4. Overall left ventricular systolic function is moderately impaired with, an EF between 35 - 40 %. 5. Inferior Hypokinesis 6. The right ventricle is normal in size. 7. LA is moderately dilated 34-39 ml/m2 8. The right atrial size is normal. 9. There is mild aortic valve sclerosis. 10. Mild mitral regurgitation is present. 11. Mild tricuspid regurgitation present. 12. There is no pulmonic regurgitation present. 13. The aortic root size is normal. 14. Echo free space represents a pericardial fat pad. VENEER LAYER: Ines Mota RDCS
[2020-12-14 11:44] VITALS: BMI 34.4
[2020-12-14] MEDS ORDERED: ALPRAZolam 0.5 MG TAB PO PRN (11:57)
[2020-12-14] MEDS ORDERED: NITROGLYCERIN SL TABS 0.4 MG TAB SUBLINGUAL PRN (11:57)
[2020-12-14] MEDS ORDERED: ALPRAZolam 0.25 MG TAB PO PRN (11:57)
--- NOTE | 2020-12-14 12:00 | P.PN ---
Subjective Progress Note Date: 12/14/20 Patient given with compensative shortness of breath and lower extremity edema. Patient doesn't have any clear JVD patient is obese patient appears to have chronic edema in bilateral lower extremities. Echocardiac exam is being up and cardiology evaluated the patient patient denied any chest pain EKG showed a diffuse T-wave inversions which aren't new from 2017. Primary doctors send him to ER because of these EKG changes. CT of the chest is negative for pulmonary embolism. Patient denied any significant orthopnea paroxysmal nocturnal dyspnea. Patient chest x-ray and CT angios did show some mild pulmonary edema. The shortness of breath is subacute to chronic. Pedal edema IV is to be chronic . Patient had a sleep study in the past doesn't have any sleep apnea 12/14/2020 Patient is seen and evaluated and follow-up this morning currently sitting up in the chair states that shortness of breath is much improved and his lower extremity swelling is almost back to baseline. Patient states she does follow with a electrical systems engineer out of [facility] and unsure of the name. Patient follows with nurse practitioner Tess Almazan out of Dr. Lyle's office. Patient continues on IV Lasix every 8 hours with cardiology following. 2-D echo was done. Labs: Sodium is 139, potassium is 3.7, UN is 18, creatinine is 1.09 Review of systems: Constitutional: No reports of fatigue, fever, or chills Cardiovascular: No reports of chest pain or palpitations Respiratory: No reports of shortness of breath or cough GI: No reports of nausea, vomiting, or diarrhea : No reports of dysuria or retention Neurovascular: No reports of weakness or numbness All medications have been reviewed Active Medications Carvedilol (Carvedilol 12.5 Mg Tab) 25 mg PO BID [facility] Last Admin: 12/14/20 09:01 Dose: 25 mg Documented by: Clonidine (Clonidine Hcl 0.1 Mg Tab) 0.1 mg PO TID [facility] Last Admin: 12/14/20 09:01 Dose: 0.1 mg Documented by: Enoxaparin Sodium (Enoxaparin 40 Mg/0.4 Ml Syringe) 40 mg SQ DAILY [facility] Last Admin: 12/14/20 09:01 Dose: 40 mg Documented by: Furosemide (Furosemide 40 Mg Tab) 40 mg PO DAILY [facility] Lisinopril (Lisinopril 20 Mg Tab) 20 mg PO DAILY [facility] Last Admin: 12/14/20 09:01 Dose: 20 mg Documented by: PHYSICAL EXAMINATION: GENERAL: The patient is alert and oriented x3, not in any acute distress. Well developed, well nourished. HEENT: Pupils are round and equally reacting to light. EOMI. No scleral icterus. No conjunctival pallor. Normocephalic, atraumatic. No pharyngeal erythema. No thyromegaly. CARDIOVASCULAR: S1 and S2 present. No murmurs, rubs, or gallops. PULMONARY: Chest is clear to auscultation, no wheezing or crackles. ABDOMEN: Soft, nontender, nondistended, normoactive bowel sounds. No palpable organomegaly. MUSCULOSKELETAL: No joint swelling or deformity. EXTREMITIES: No cyanosis, clubbing, bilateral lower extremity edema mostly appears to be chronic with chronic venous stasis and venous stasis dermatosis NEUROLOGICAL: Gross neurological examination did not reveal any focal deficits. SKIN: No rashes. Assessment and plan: -Shortness of breath: Possibility of congestive heart failure and/or pulmonary hypertension: Cardiology following and patient was maintained on IV Lasix -Acute congestive heart failure with systolic dysfunction, EF is 35-40% on echo -Chronic venous stasis. -Mildly elevated troponins, acute coronary syndromes ruled out. Cardio following -Obesity -Hypertension -Benign prostatic hypertrophy -DVT prophylaxis: Lovenox Plan: Recommend continue with Lasix and overall improvement in lower extremity swelling and encourage the patient to elevate lower extremities while at rest. Patient did have 2-D echo done showing moderate concentric left ventricular hypertrophy with overall LV systolic function is moderately impaired with an EF of 35-40% with inferior hypokinesis, mild mitral and tricuspid regurgitation present, no pulmonic regurgitation present. Plan is for transition to oral Lasix. Objective - Vital Signs Vital signs: Vital Signs Temp 98.4 F 12/14/20 08:00 Pulse 62 12/14/20 08:00 Resp 16 12/14/20 08:00 BP 151/84 12/14/20 08:00 Pulse Ox 94 L 12/14/20 08:00 Intake & Output 12/13/20 12/14/20 12/14/20 18:59 06:59 18:59 Intake Total 784 Output Total 2400 Balance -1616 Weight 115 kg Intake: IV 47 Invasive Line 1 47 Oral 737 Output: Urine 2400 Other: Voiding Method Urinal # Voids 2 - Labs CBC & Chem 7: 12/12/20 14:24 12/14/20 07:59
--- NOTE | 2020-12-14 13:09 | P.PN ---
Subjective Progress Note Date: 12/14/20 HISTORY OF PRESENT ILLNESS: This is a 65-year-old male with a past medical history significant for hypertension. Patient follows with a Dr. Gary out of [place]. We have been asked to see the patient in consultation for congestive heart failure. Patient examined at the bedside. Patient presented to the hospital with a chief complaint of shortness of breath. He states he has been feeling short of breath for approximately one week. He also reports increased lower extremity edema. He states he is having a hard time laying flat in bed at home. He denies any chest pain or pressure. The patient states he saw his regular cotton dispatcher about a month ago and had an EKG performed at that time which he states was normal. He does report a history of hypertension and states him and his cotton dispatcher has had difficulty controlling his blood pressure. EKG reveals sinus mechanism with diffuse T-wave inversions, new from 2016 Chest xray findings consistent with CHF exacerbation Chest CT: Negative for pulmonary embolism Laboratory data: WBC 10.0. Hemoglobin 16.2. Platelet 129. D-dimer 0.64. Sodium 138. Potassium 4.2. BUN 14. Creatinine 0.88. Lactic acid 1.5. ProBNP 5310. Troponin 0.043. 0.053. 0.054. Current home cardiac medications include lisinopril 20 mg daily, clonidine 0.1 mg 3 times a day, Lasix 40 mg daily, carvedilol 25 mg twice a day 12/14/2020 Patient examined this morning. He is sitting up in the chair. Patient states his shortness of breath has significantly improved. He currently denies any shortness of breath at rest. He states he has not been up and doing much to see if his stress of breath with exertion has resolved. He denies chest pain or pressure. He remains on IV Lasix every 8 hours. Fluid balance over the last 24 hours is -1600 mL. Echocardiogram completed reveals ejection fraction 35-40%, inferior hypokinesis, mild mitral regurgitation, and mild tricuspid regurgitation PHYSICAL EXAM: VITAL SIGNS: Reviewed. GENERAL: Well-developed in no acute distress. HEENT: Head is normocephalic. Pupils are equal, round. Sclerae anicteric. Mucous membranes of the mouth are moist. Neck supple. No JVD or thyromegaly LUNGS: Respirations even and unlabored. Lungs diminished to auscultation bilaterally. HEART: Regular rate and rhythm. S1 and S2 heard. ABDOMEN: Soft. Nondistended. Nontender. EXTREMITIES: Normal range of motion. No clubbing or cyanosis. Peripheral pulses intact. Bilateral lower extremity edema noted, improved from yesterday NEUROLOGIC: Awake and alert. Oriented x 3. ASSESSMENT: Shortness of breath Acute systolic congestive heart failure, EF 35% Hypertension Abnormal troponins, not suggestive of acute coronary syndrome EKG changes, patient without complaints of chest pain/pressure PLAN: Discontinue IV Lasix Begin oral Lasix 40 mg daily Aspirin 81 mg daily Continue carvedilol, clonidine, and lisinopril Check lipid panel Patient to undergo cardiac catheterization tomorrow with Dr. Garner secondary to abnormal echo findings Further recommendations pending patient's course Nurse practitioner note has been reviewed by physician. Signing provider agrees with the documented findings, assessment, and plan of care. Objective - Vital Signs Vital signs: Vital Signs Temp 98.4 F 12/14/20 08:00 Pulse 59 L 12/14/20 12:00 Resp 18 12/14/20 12:00 BP 135/71 12/14/20 12:00 Pulse Ox 95 12/14/20 12:00 Intake & Output 12/13/20 12/14/20 12/14/20 18:59 06:59 18:59 Intake Total 784 360 Output Total 2400 Balance -1616 360 Weight 115 kg 115 kg Intake: IV 47 Invasive Line 1 47 Oral 737 360 Output: Urine 2400 Other: Voiding Method Urinal # Voids 2 - Labs CBC & Chem 7: 12/12/20 14:24 12/14/20 07:59 Labs: Abnormal Lab Results - Last 24 Hours (Table) 12/14/20 Range/Units 07:59 Glucose 125 H (74-99) mg/dL
[2020-12-14] MEDS: ASPIRIN 81 MG PO SCH (15:52)
[2020-12-14 19:34] LABS: Chol/HDL Ratio 7.37 Ratio; HDL Cholesterol 25.1 mg/dL (40.00-60.00); LDL Cholesterol,Calculated 109.3 mg/dL (0.0-131.0); VLDL Calculation 50.6 mg/dL (5.00-40.00)
[2020-12-15] MEDS: carvediloL 12.5 MG TAB PO SCH ×2 (00:10→10:00)
[2020-12-15] MEDS: SODIUM CHLORIDE 0.9% 1,000 ML in EMPTY BAG 1 BAG IV SCH ×3 (05:42→11:00)
[2020-12-15] MEDS: lisinopriL 20 MG TAB PO SCH (06:42)
[2020-12-15] MEDS: cloNIDine HCL 0.1 MG TAB PO SCH (06:42)
[2020-12-15] MEDS: ASPIRIN 81 MG PO SCH (06:43)
[2020-12-15] MEDS: ENOXAPARIN 40 MG/0.4 ML SYRINGE SQ SCH (06:43)
[2020-12-15] MEDS ORDERED: ASPIRIN 325 MG TAB PO ONE (07:00)
[2020-12-15] MEDS ORDERED: ATORVASTATIN 80 MG TAB PO ONE (07:00)
[2020-12-15] MEDS ORDERED: HEPARIN SODIUM,PORCINE 10,000 UNIT in SODIUM CHLORIDE 0.9% 1,000 ML IRRIGATION PRN (07:00)
[2020-12-15] MEDS ORDERED: HEPARIN SODIUM,PORCINE 2,500 UNIT in SODIUM CHLORIDE 0.9% 250 ML IRRIGATION PRN (07:00)
[2020-12-15] MEDS ORDERED: HEPARIN SODIUM 1,000 UN/ML (10ML VL) ONE (08:58)
[2020-12-15] MEDS ORDERED: VERAPAMIL 2.5 MG/ML 2 ML AMP ONE (08:58)
[2020-12-15] MEDS ORDERED: fentaNYL (PF) 50 MCG/ML 2 ML AMP ONE (08:58)
[2020-12-15] MEDS ORDERED: LIDOCAINE 1% INJ 10MG/ML (20 ML MDV) ONE (08:58)
[2020-12-15] MEDS ORDERED: FUROSEMIDE 40 MG TAB PO SCH (09:00)
[2020-12-15] MEDS ORDERED: IV FLUID CONTINUATION 1,000 ML IV ONE (09:00)
[2020-12-15] MEDS ORDERED: MIDAZOLAM 2 MG/2 ML VIAL IV ONE (09:05)
[2020-12-15] MEDS ORDERED: LIDOCAINE 1% INJ 10MG/ML (20 ML MDV) SQ ONE (09:05)
[2020-12-15] MEDS ORDERED: fentaNYL (PF) 50 MCG/ML 2 ML AMP IV ONE (09:05)
[2020-12-15] MEDS ORDERED: VERAPAMIL SYRINGE (5 MG/10 ML) INTRAARTER ONE (09:10)
[2020-12-15] MEDS ORDERED: HEPARIN SODIUM 1,000 UN/ML (10ML VL) IV ONE (09:13)
[2020-12-15] MEDS ORDERED: IOPAMIDOL-370 125ML BTL INJ ONE (09:25)
[2020-12-15 10:00] VITALS: RESP 18; TEMP 97.8
--- NOTE | 2020-12-15 10:59 | P.GSCN ---
History of Present Illness Consult date: 12/15/20 Reason for Consult: Coronary artery disease Requesting physician: José Garner History of present illness: This is a 65-year-old gentleman who follows on an outpatient basis with Dr. Lyle for primary care. He has a previous medical history of hypertension, hyperlipidemia, BPH, obesity, questionable COPD with recent tobacco cessation approximately 6 months ago, previously smoked 1 pack per day for 40 years, lower extremity chronic edema with previous history of varicose veins in bilateral laser surgery, remote history of pneumonia, and family history of coronary artery disease with both parents having undergone CABG. Apparently for the last week or so the patient reports increasing shortness of breath, worse with laying down. Eventually he sought treatment at his primary care office, an EKG was completed demonstrating ST changes and the patient was recommended to report to [facility] emergency room for evaluation and treatment. EKG demonstrated ST depression in leads 2, 3, aVF, and V3 through V6. BNP on admission was 5310, troponins were mildly elevated at 0.04-0.05. Chest x-ray demonstrated pulmonary congestion. The patient was admitted for evaluation and treatment for acute heart failure. Transthoracic echocardiogram was completed demonstrating impaired left ventricular systolic function with EF 35-40%, inferior wall hypokinesis, mild mitral regurgitation as well as mild tricuspid regurgitation. He was recommended to undergo heart catheterization which was completed today and which demonstrated triple-vessel coronary artery disease. The patient reports no chest pain at any time, although he does admit to occasional heartburn. Consultation was placed to cardiothoracic surgery for surgical revascularization recommendations Review of Systems Review of systems was completed and was negative except as noted - Cardiovascular Reports as per HPI, Reports dyspnea on exertion, Reports leg edema, Reports shortness of breath Past Medical History Past Medical History: Hypertension, Prostate Disorder Additional Past Medical History / Comment(s): Chronic lower extremity edema, varicose veins, BPH History of Any Multi-Drug Resistant Organisms: None Reported Past Surgical History: Appendectomy, Hernia Repair, Tonsillectomy Past Psychological History: No Psychological Hx Reported Smoking Status: Former smoker Past Alcohol Use History: None Reported Past Drug Use History: None Reported Additional History: Quit smoking a prostate 6 months ago; previously smoked 1 pack per day for 40 years - Past Family History Mother Family Medical History: Coronary Artery Disease (CAD), Diabetes Mellitus Additional Family Medical History / Comment(s): Underwent CABG Father Family Medical History: Cancer, Congestive Heart Failure (CHF), Coronary Artery Disease (CAD) Additional Family Medical History / Comment(s): Underwent CABG; had lung cancer Medications and Allergies Home Medications Medication Instructions Recorded Confirmed Type Alfuzosin HCl [Uroxatral] 10 mg PO DAILY 02/08/17 12/12/20 History Amoxicillin 500 mg PO TID 12/12/20 12/12/20 History Carvedilol [Coreg] 25 mg PO BID 12/12/20 12/12/20 History Fluticasone Nasal [place] [Flonase 1 spr EA NOSTRIL DAILY 12/12/20 12/12/20 History Nasal [place]] Furosemide [Lasix] 40 mg PO DAILY 12/12/20 12/12/20 History Ibuprofen [Motrin] 800 mg PO TID PRN 12/12/20 12/12/20 History allopurinoL [Zyloprim] 100 mg PO DAILY 12/12/20 12/12/20 History cloNIDine HCL 0.1 mg PO TID 12/12/20 12/12/20 History lisinopriL [Zestril] 20 mg PO DAILY 12/12/20 12/12/20 History Allergies Allergy/AdvReac Type Severity Reaction Status Date / Time No Known Allergies Allergy Verified 07/25/18 13:19 Surgical - Exam Vital Signs Temp Pulse Resp BP Pulse Ox 98.3 F 67 18 143/119 95 12/12/20 14:13 12/12/20 14:13 12/12/20 14:13 12/12/20 14:13 12/12/20 14:13 CONSTITUTIONAL: Awake and alert, appears comfortable, cooperative, well- developed, well-nourished, no pain, no acute distress EYES: Pupils equal, round, reactive to light, normal ocular movement ENT: Moist mucous membranes without oral lesions present NECK: No masses, no bruits, trachea midline RESPIRATORY: Lungs sounds diminished to auscultation bilaterally. Respirations even, nonlabored. Currently on room air with oxygen saturation 96%. Strong cough. No chest wall deformities. No clubbing or cyanosis present CARDIOVASCULAR: S1, S2 present. Regular rate and rhythm, sinus rhythm on telemetry. Palpable peripheral pulses bilaterally. Trace bilateral lower extremity edema present, left greater than right. No calf pain or tenderness noted. Left radial Dung's test less than 8 seconds. GASTROINTESTINAL: Abdomen soft, nontender, nondistended without masses or organomegaly noted. There is no rebound or guarding present. Active bowel sounds present 4 quadrants. GENITOURINARY: Deferred INTEGUMENTARY: Skin is warm and dry with evidence of good perfusion. Ruddiness/evidence of venous insufficiency present to bilateral lower extremities NEUROLOGIC: Cranial nerves II through XII intact, normal coordination, no obvious motor or sensory deficits, speech is normal MUSKULOSKELETAL: Able to move all extremities, strength equal bilaterally, normal posture PSYCHIATRIC: Alert and oriented to person place and time, appropriate affect, intact judgment and insight Results - Labs 12/12/20 14:24 12/14/20 07:59 Abnormal Lab Results - Last 24 Hours (Table) 12/14/20 Range/Units 07:59 Triglycerides 253.00 H (0.00-149.00) mg/dL VLDL Cholesterol, Calc 50.60 H (5.00-40.00) mg/dL HDL Cholesterol 25.10 L (40.00-60.00) mg/dL Diabetes panel 12/14/20 Range/Units 07:59 Triglycerides 253.00 H (0.00-149.00) mg/dL HDL Cholesterol 25.10 L (40.00-60.00) mg/dL - Imaging Chest x-ray: report reviewed, image reviewed CT scan - chest: report reviewed, image reviewed EKG: image reviewed Additional studies: Heart catheterization films reviewed Assessment and Plan Assessment: 1. Triple-vessel coronary artery disease 2. Acute systolic heart failure this admission 3. Shortness of breath secondary to above 4. History of hypertension 5. Hyperlipidemia 6. BPH 7. Obesity 8. Questionable COPD with recent tobacco cessation approximately 6 months ago, previously smoked 1 pack per day for 40 years 9. Lower extremity chronic edema with previous history of varicose veins in bilateral laser surgery 10. Remote history of pneumonia 11. Family history of coronary artery disease with both parents having undergone CABG 12. Remains unvaccinated against Covid Plan: The patient was seen and examined at the bedside, currently he has no chest pain and states he has no shortness of breath, states he feels significantly improved since initiation of diuretics. Chart/diagnostics were reviewed. The case was discussed in detail with Dr. Bond. The case was discussed in detail with Dr. Garner. The usual perioperative course of open-heart surgery was discussed in detail with the patient, risks and benefits were reviewed, all questions were answered. The patient states he is agreeable to what ever treatment plan we feel is appropriate. Preoperative testing was initiated. At this time we recommend continuing aspirin, statin, beta alejandro therapy as well as diuresis and heart failure management. We will make follow-up appointment for Dr. Bond on an outpatient basis to discuss surgical revascularization versus PCI for coronary artery disease. More recommendations to follow. Thank you Dr. Garner for this consult. We look forward to working with you in the care of your patient Time with Patient: Greater than 30
[2020-12-15 12:01] LABS: Basophils # (A) 0.1 k/uL (0-0.2); Basophils % (A) 1 %; Eosinophils # (A) 0.2 k/uL (0-0.7); Eosinophils % (A) 2 %; HCT 49.6 % (39.0-53.0); HGB 16.6 gm/dL (13.0-17.5); Lymphocytes # (A) 2.7 k/uL (1.0-4.8); Lymphocytes % (A) 38 %; MCH 33.2 pg (25.0-35.0); MCHC 33.5 g/dL (31.0-37.0); MCV 99.3 fL (80.0-100.0); Mean Platelet Volume 9.1; Monocytes # (A) 0.3 k/uL (0-1.0); Monocytes % (A) 4 %; Neutrophils # (A) 3.9 k/uL (1.3-7.7); Neutrophils % (A) 53 %; Platelet Count 157 k/uL (150-450); WBC 7.3 k/uL (3.8-10.6)
--- NOTE | 2020-12-15 12:01 | US ---
EXAMINATION TYPE: US carotid duplex BILAT DATE OF EXAM: 12/15/2020 COMPARISON: NONE CLINICAL HISTORY: preop cardiac surgery. Exam done portable EXAM MEASUREMENTS: RIGHT: Peak Systolic Velocity (PSV) cm/sec ----- Right CCA: 84.9 ----- Right ICA: 97.0 ----- Right ECA: 122.0 ICA/CCA ratio: 1.1 RIGHT: End Diastole cm/sec ----- Right CCA: 16.7 ----- Right ICA: 30.3 ----- Right ECA: 8.9 LEFT: Peak Systolic Velocity (PSV) cm/sec ----- Left CCA: 82.9 ----- Left ICA: 74.0 ----- Left ECA: 109.0 ICA/CCA ratio: 0.9 LEFT: End Diastole cm/sec ----- Left CCA: 16.6 ----- Left ICA: 20.4 ----- Left ECA: 1.9 VERTEBRALS (direction of flow): Right Vertebral: Antegrade Left Vertebral: Antegrade Rhythm: Normal Mild atherosclerotic changes IMPRESSION: No significant hemodynamic stenosis bilaterally. Criteria for Assigning % of Stenosis / Diameter reduction (Estimation based on the indirect measurements of the internal carotid artery velocities (ICA PSV). 1. Normal (no stenosis)=ICA PSV < 125 cm/s: ratio < 2.0: ICA EDV<40 cm/s. 2. Less than 50% stenosis=ICA PSV < 125 cm/s: ratio < 2.0: ICA EDV<40 cm/s. 3. 50 to 69% stenosis=ICA PSV of 125 to 230 cm/s: ration 2.0 ? 4.0: ICA EDV 40-100 cm/s. 4. Greater than 70% stenosis to near occlusion= ICA PSV > 230 cm/s: ratio > 4.0: ICA EDV > 100 cm/s. 5. Near occlusion= ICA PSV velocities may be low or undetectable: variable ratio and ICA EDV. 6. Total occlusion=unable to detect flow.
[2020-12-15 12:21] LABS: ALT 30 U/L (4-49); AST 34 U/L (17-59); African American GFR (CKD) >90 (>60 ml/min/1.73 sqM); Albumin 4.3 g/dL (3.5-5.0); Alkaline Phosphatase 59 U/L (38-126); Anion Gap 9 mmol/L; Blood Urea Nitrogen 18 mg/dL (9-20); Calcium 9.6 mg/dL (8.4-10.2); Carbon Dioxide 24 mmol/L (22-30); Chloride 103 mmol/L (98-107); Glucose 105 mg/dL (74-99); Magnesium 2.5 mg/dL (1.6-2.3); Non-African American GFR(CKD) 89 (>60 ml/min/1.73 sqM); Potassium 3.8 mmol/L (3.5-5.1); Sodium 136 mmol/L (137-145); Total Bilirubin 1.3 mg/dL (0.2-1.3)
[2020-12-15 12:53] VITALS: BP 144/79; PULSE 54
[2020-12-15 13:33] LABS: Appearance,Urine Clear (Clear); Bilirubin,Urine Negative (Negative); Blood,Urine Negative (Negative); Color,Urine Light Yellow; Glucose,Urine (UA) Negative (Negative); Ketones,Urine Negative (Negative); Leukocyte Esterase,Urine Negative (Negative); Nitrite,Urine Negative (Negative); Protein,Urine Negative (Negative); Specific Gravity,Urine 1.018 (1.001-1.035); Urobilinogen,Urine <2.0 mg/dL (<2.0)
--- NOTE | 2020-12-15 19:19 | P.CARDCATH ---
Description of Procedure: PROCEDURES PERFORMED: Left heart catheterization, bilateral coronary angiography INDICATION: Cardiomyopathy HISTORY: Patient is a pleasant 65-year-old male with history of hypertension who has been having increased dyspnea over the last 1 week and was found to have new onset cardiomyopathy and therefore heart catheterization was recommended. CONSENT:I have discussed the risks, benefits and alternative therapies for the above-mentioned procedure and for both sedation/analgesia as well as necessary blood product administration, if indicated, as they pertain to this patient. The patient has indicated understanding and acceptance of the risks and procedures discussed. PROCEDURE: After the risks, benefits and alternatives of the above mentioned procedure explained in detail with the patient, informed consent was obtained. Patient was taken to the catheterization lab and prepped and draped in usual f ashion. 1% lidocaine was used to anesthetize the right radial artery. A 6- [place] sheath was placed in the right radial artery using modified Seldinger technique. Left coronary angiography was performed with a 5-[place] JL 3.5 catheter and right coronary angiography was performed with a 5-[place] JR5 catheter in various views. A 5-[place] FR5 catheter was inserted into the left ventricle and pressure measurements were obtained. The right radial sheath was removed and a TR band was placed with hemostasis achieved. The patient tolerated the procedure well. Patient was transported back to the post catheterization holding area in stable condition. Conscious Sedation: Patient was monitored under the direct supervision of vision of myself for conscious sedation using Versed and fentanyl for a total duration of 20 minutes HEMODYNAMICS: Ao: 149/61 LV: 148/1 LVEDP 15 SELECTIVE CORONARY ARTERIOGRAPHY: LEFT MAIN: The left main is a large caliber vessel which bifurcates into the LAD and circumflex. There is no significant stenosis. LEFT ANTERIOR DESCENDING CORONARY ARTERY: LAD is a large caliber vessel which wraps around to the apex. There is a mid LAD 90% stenosis as well as a proximal moderate caliber diagonal branch with 95% stenosis. There are left to right collaterals. LEFT CIRCUMFLEX CORONARY ARTERY: Left circumflex is a moderate caliber vessel with diffuse proximal to mid 30-50% stenosis. RIGHT CORONARY ARTERY: The right coronary artery is a large caliber vessel which gives off a PDA and PLV branch and is the dominant vessel. There is 100% mid RCA stenosis. FINAL IMPRESSION: 1. CAD as described above with 100% RCA with left to right collaterals, 90% mid LAD, 95% moderate caliber diagonal 1 stenosis, 30-50% circumflex stenosis 2. Normal left sided filling pressures PLAN: 1. Aggressive risk factor modification per most recent ACC/AHA guidelines. 2. Evaluate for possible CABG
[2020-12-15 20:46] LABS: Chol/HDL Ratio 7.38 Ratio
--- NOTE | 2020-12-16 11:54 | P.DS ---
Providers Date of admission: 12/12/20 16:48 Expected date of discharge: 12/15/20 Attending physician: Jakob Bishop Consults: 12/12/20 16:48 Consult Physician Routine Consulting Provider: [facility] Consult Reason/Comments: Acute pulmonary edema Do you want consulting provider notified?: Yes 12/15/20 09:36 Consult Physician Routine Consulting Provider: Maximino Emery Consult Reason/Comments: re: possible CABG Do you want consulting provider notified?: Yes Primary care physician: Bess Nava Hospital Course: Final diagnosis -Shortness of breath: Possibility of congestive heart failure and/or pulmonary hypertension -Acute congestive heart failure with systolic dysfunction, EF is 35-40% on echo -CAD with 100% RCA, 90% LAD -Chronic venous stasis. -Mildly elevated troponins, acute coronary syndromes ruled out -Obesity -Hypertension -Benign prostatic hypertrophy -DVT prophylaxis Discharge disposition Patient is being discharged in a stable condition with guarded prognosis to home. Patient will follow-up with Dr. Nava upon discharge. Patient will also be following up with cardiothoracic Dr. Bond and cardiology Dr. Garner on discharge as scheduled. Patient to continue with current medication regimen as prescribed. Total time taken is greater than 35 minutes. Hospital course Patient given with compensative shortness of breath and lower extremity edema. Patient doesn't have any clear JVD patient is obese patient appears to have chronic edema in bilateral lower extremities. Echocardiac exam is being up and cardiology evaluated the patient patient denied any chest pain EKG showed a diffuse T-wave inversions which aren't new from 2017. Primary doctors send him to ER because of these EKG changes. CT of the chest is negative for pulmonary embolism. Patient denied any significant orthopnea paroxysmal nocturnal dyspnea. Patient chest x-ray and CT angios did show some mild pulmonary edema. The shortness of breath is subacute to chronic. Pedal edema IV is to be chronic. Patient had a sleep study in the past doesn't have any sleep apnea 12/14/2020 Patient is seen and evaluated and follow-up this morning currently sitting up in the chair states that shortness of breath is much improved and his lower extremity swelling is almost back to baseline. Patient states she does follow with a quality tester out of [facility] and unsure of the name. Patient follows with nurse practitioner Tess Almazan out of Dr. Nava's office. Patient continues on IV Lasix every 8 hours with cardiology following. 2-D echo was done. 12/15/2020 Patient has been seen and evaluated this morning and follow-up feeling much better and denies any chest pain or further shortness of breath. Patient had an abnormal echo and underwent cardiac catheterization and will need close follow up with cardiology and CT surgery. Appointments have been made. Patient will continue on Lasix 40mg daily and follow cardiac HF diet. Cardiac surgery pre-op screening has begun and will undergo possible bypass. Currently no reports of chest pain, shortness of breath, or palpitations. Patient is afebrile. No reports of nausea or vomiting and patient is tolerating diet. Patient will be discharged home today. Guarded prognosis. Patient is sitting up in the bed comfortably, no acute distress, awake alert and oriented. HEENT: Normocephalic. Neck is supple. Pupils reactive. Nostrils clear. Oral cavity is moist. Neck reveals no JVD, carotid bruits, or thyromegaly. CHEST EXAMINATION: Trachea is central. Symmetrical expansion. No rhonchi or wheezing. Lung ramirez clear to auscultation and percussion. CARDIAC: Normal S1, S2 with no gallops. No murmurs ABDOMEN: Soft. Bowel sounds normal. No organomegaly. No abdominal bruits. Extremities: reveal no edema. No clubbing or cyanosis Neurologically awake, alert, oriented x3 with well-coordinated movements. No focal deficits noted Skin: No rash or skin lesions. Psychiatric: Cooperative. Non-suicidal Musculoskeletal: No joint swelling or deformity. Normal range of motion. Please refer to medication reconciliation sheet for a list of medications. Patient Condition at Discharge: Stable Plan - Discharge Summary New Discharge Prescriptions: New Aspirin 81 mg PO DAILY 30 Days #30 tab Continue Alfuzosin HCl [Uroxatral] 10 mg PO DAILY Ibuprofen [Motrin] 800 mg PO TID PRN PRN Reason: Pain Fluticasone Nasal [place] [Flonase Nasal Stirum] 1 spr EA NOSTRIL DAILY Furosemide [Lasix] 40 mg PO DAILY Carvedilol [Coreg] 25 mg PO BID cloNIDine HCL 0.1 mg PO TID allopurinoL [Zyloprim] 100 mg PO DAILY lisinopriL [Zestril] 20 mg PO DAILY Discontinued Amoxicillin 500 mg PO TID Discharge Medication List Alfuzosin HCl [Uroxatral] 10 mg PO DAILY 02/08/17 [History] Carvedilol [Coreg] 25 mg PO BID 12/12/20 [History] Fluticasone Nasal [place] [Flonase Nasal [place]] 1 spr EA NOSTRIL DAILY 12/12/20 [History] Furosemide [Lasix] 40 mg PO DAILY 12/12/20 [History] Ibuprofen [Motrin] 800 mg PO TID PRN 12/12/20 [History] allopurinoL [Zyloprim] 100 mg PO DAILY 12/12/20 [History] cloNIDine HCL 0.1 mg PO TID 12/12/20 [History] lisinopriL [Zestril] 20 mg PO DAILY 12/12/20 [History] Aspirin 81 mg PO DAILY 30 Days #30 tab 12/15/20 [Rx] Follow up Appointment(s)/Referral(s): Bonilla Bond MD [STAFF PHYSICIAN] - 12/22/20 11:15 am Jsoé Garner DO [STAFF PHYSICIAN] - 12/22/20 9:00 am Bess Nava MD [Primary Care Provider] - 1-2 days Patient Instructions/Handouts: Chest Pain (DC), Heart Catheterization (DC) Activity/Diet/Wound Care/Special Instructions: Activity Limited until follow-up Follow-up with cardiology and cardiothoracic as scheduled Primary care provider in the outpatient setting Continue taking medications as prescribed Continue heart healthy diet Discharge Disposition: HOME SELF-CARE
--- NOTE | 2020-12-18 08:53 | CDI ---
Documentation Clarification Form Date: 12/18/2020 08:09:00 AM From: Medina Valiente Admit Date: 12/12/2020 10:32:00 PM Patient Name: Bianka Nam Visit Number: [id number] Discharge Date: 12/15/2020 12:24:00 PM ATTENTION: The Clinical Documentation Specialists (CDI) and [facility] Coding Staff appreciate your assistance in clarifying documentation. Please respond to the clarification below the line at the bottom and electronically sign. The CDI & [facility] Coding staff will review the response and follow-up if needed. Please note: Queries are made part of the Legal Health Record. If you have any questions, please contact the author of this message via ITS. Dr. Kiran Blake Rhabdomyolysis is documented throughout the chart. Patient was getting out of bed and ended up falling on the ground around 4:45 am and ended up lying on the floor until 8:15 am. Please clarify if patient's rhabdomyolysis is due to trauma or not. Additional clarification regarding the type of rhabdomyolysis is requested. History/Risk Factors: Fall Clinical Indicators: CK 821 Treatment:,1500 mL of IV fluids, decrease to 75 mLh Please clarify the type of rhabdomyolysis, if known: [ ] Traumatic rhabdomyolysis due to fall [ ] Traumatic rhabdomyolysis due to prolonged immobility [ ] Non traumatic rhabdomyolysis due to medication (please specify) [ ] Non traumatic rhabdomyolysis due to infection (please specify) [ ] Other, please specify [ ] Unable to Determine MTDD
== END 2020-12-15 14:57 | disposition home or self-care (01) | DRG 286 ==
LOC: EC 14:11 → 3SCARD 16:48
PROVIDERS: ADMIT Internal Medicine; ATTEND Internal Medicine
PROC: B2111ZZ Fluoroscopy of Multiple Coronary Arteries using Low Osmolar Contrast (ICD-10-PCS; 2020-12-15)
PROC: 4A023N7 Measurement of Cardiac Sampling and Pressure, Left Heart, Percutaneous Approach (ICD-10-PCS; principal; 2020-12-15 09:00)
DX: I11.0 Hypertensive heart disease with heart failure (principal); I50.21 Acute systolic (congestive) heart failure; E66.9 Obesity, unspecified; Z68.34 Body mass index [BMI] 34.0-34.9, adult; E78.5 Hyperlipidemia, unspecified; I25.10 Atherosclerotic heart disease of native coronary artery without angina pectoris; I25.82 Chronic total occlusion of coronary artery; I87.8 Other specified disorders of veins; J44.9 Chronic obstructive pulmonary disease, unspecified; N40.0 Benign prostatic hyperplasia without lower urinary tract symptoms; R77.8 Other specified abnormalities of plasma proteins; Z87.01 Personal history of pneumonia (recurrent); I08.1 Rheumatic disorders of both mitral and tricuspid valves; Z90.89 Acquired absence of other organs; Z20.822 Contact with and (suspected) exposure to COVID-19; I42.9 Cardiomyopathy, unspecified; Z98.890 Other specified postprocedural states; Z79.899 Other long term (current) drug therapy; Z80.1 Family history of malignant neoplasm of trachea, bronchus and lung; Z82.49 Family history of ischemic heart disease and other diseases of the circulatory system; Z83.3 Family history of diabetes mellitus; Z87.891 Personal history of nicotine dependence; Z90.49 Acquired absence of other specified parts of digestive tract
CPT/HCPCS: 36415; 71046; 71275; 80048; 80053; 80061; 81003; 83036; 83605; 83735; 83880; 84443; 84484; 85025; 85379; 85610; 85730; 87070; 87635; 93005; 93306; 93458; 93880; 93970; 94150; 99291

== ENCOUNTER → 2021-01-16 | Outpatient (CLI) | payer BC ==
[2021-01-16 10:02] LABS: HCT 42.6 % (39.0-53.0); HGB 15.6 gm/dL (13.0-17.5); Hyperchromasia Slight; MCH 34.3 pg (25.0-35.0); MCHC 36.5 g/dL (31.0-37.0); Mean Platelet Volume 9.1; Platelet Count 121 k/uL (150-450); RBC 4.54 m/uL (4.30-5.90); RDW 14.4 % (11.5-15.5); WBC 5.4 k/uL (3.8-10.6)
[2021-01-16 10:14] LABS: INR 1.1 (<1.2); Prothrombin Time 11.2 sec (9.0-12.0)
[2021-01-16 10:19] LABS: Albumin 4.3 g/dL (3.5-5.0); Calcium 9.8 mg/dL (8.4-10.2); Total Bilirubin 0.5 mg/dL (0.2-1.3)
[2021-01-16 10:50] LABS: MCV 93.8 fL (80.0-100.0)
--- NOTE | 2021-01-16 10:50 | P.PN ---
Progress Note - Text Progress Note Date: 01/16/21 5 m walk test completed with the patient with time 1: 2.14 seconds, time 2: 2.34 seconds, time 3: 2.56 seconds. An STS risk score was calculated and discussed with the patient.
[2021-01-16 15:57] LABS: Hepatitis B Core IgM Nonreactive (Nonreactive); Hepatitis B Surface Antigen Nonreactive (Nonreactive); Hepatitis C IgG Antibody Nonreactive (Nonreactive)
[2021-01-17 14:35] LABS: Hepatitis A Antibody IgM Nonreactive (Nonreactive)
== END | disposition home or self-care (01) ==
LOC: LABPAT 08:29
PROVIDERS: ATTEND Surgery
DX: Z20.822 Contact with and (suspected) exposure to COVID-19 (principal); I25.10 Atherosclerotic heart disease of native coronary artery without angina pectoris
CPT/HCPCS: 80053; 80074; 85027; 85610; 85730; 87070; 36415; U0003; C9803

== ENCOUNTER 2021-01-22 05:40 | Inpatient (IN) | payer BC, OTHER ==
[~2021-01-22 05:40] MED LIST: ALBUMIN HUMAN 25% 50 ML IV ONE; ALBUMIN HUMAN 5% 500 ML IVPB ONE; ASPIRIN 325 MG TAB PO ONE; ATORVASTATIN 10 MG TAB PO ONE; CALCIUM CHLORIDE 100 MG/ML 10 ML SYRINGE IV ONE; CHLORHEXIDINE GLUCONATE 15 ML CUP MUCOUS MEM ONE; CLEVIDIPINE BUTYRATE 25 MG in EMPTY BAG 1 BAG IV ONE; DILTIAZEM 125 MG in SODIUM CHLORIDE 0.9% 100 ML IV ONE; ELECTROLYTE-A SOLUTION 1,000 ML with POTASSIUM CHLORIDE 100 MEQ, MAGNESIUM SULFATE 16 M... IV ONE; ELECTROLYTE-A SOLUTION 1,000 ML with POTASSIUM CHLORIDE 40 MEQ, MAGNESIUM SULFATE 16 ME... IV ONE; HEPARIN SODIUM 1,000 UN/ML (10ML VL) IV ONE; HEPARIN SODIUM,PORCINE 5,000 UNIT in SODIUM CHLORIDE 0.9% 500 ML 500 ML IV ONE; INSULIN REGULAR 100 UNIT in SODIUM CHLORIDE 0.9% 100 ML IV ONE; LACTATED RINGERS 1,000 ML IV ONE; MAGNESIUM SULFATE 16.24 MEQ in EMPTY SYRINGE 1 SYR IV ONE; MANNITOL 25% 12.5 GM/50 ML VIAL IV ONE; METOPROLOL TARTRATE 12.5 MG TAB PO ONE; NITROGLYCERIN SL TABS 0.4 MG TAB SUBLINGUAL ONE; NITROGLYCERIN-D5W PMX 25 MG/250 ML BTL IV ONE; NITROGLYCERIN-D5W PMX 50 MG in DEXTROSE/WATER 1 250ML.BAG IV ONE; NOREPINEPHRINE 4 MG in SODIUM CHLORIDE 0.9% 250 ML IV ONE; PAPAVERINE 360 MG in SODIUM CHLORIDE 0.9% 90 ML IV ONE; PHENYLEPHRINE 10 MG/ML VIAL IV ONE; PHENYLEPHRINE 40 MG in SODIUM CHLORIDE 0.9% 250 ML IV ONE; PROTAMINE SULFATE 10 MG/ML 25 ML VIAL IV ONE; PROTAMINE SULFATE 250 MG in EMPTY BAG 1 BAG IV ONE; SODIUM BICARB 8.4% 50 ML SYR (1 MEQ/ML) IV ONE; SODIUM CHLORIDE 0.9% 1,000 ML IV ONE; TRANEXAMIC ACID 2,000 MG in SODIUM CHLORIDE 0.9% 80 ML IV ONE; propofoL 1,000 MG/100 ML VIAL IV ONE
[2021-01-22] MEDS ORDERED: MUPIROCIN 2% OINT 22 GM TUBE NASAL ONE (06:00)
[2021-01-22] MEDS ORDERED: ONDANSETRON 4 MG/2 ML VIAL IVP ONE (06:05)
[2021-01-22] MEDS ORDERED: DEXAMETHASONE SOD PHOSPHATE 4 MG/ML 1 ML VIAL IV ONE (06:05)
[2021-01-22] MEDS ORDERED: LIDOCAINE 1% (10MG/ML) FOR IV START INTRADERMA PRN (06:05)
[2021-01-22] MEDS ORDERED: LACTATED RINGERS 1,000 ML IV SCH (06:05)
[2021-01-22 06:36] LABS: Glucose,Whole Blood 114 mg/dL (75-99)
[2021-01-22] MEDS ORDERED: SODIUM CHLORIDE 0.9% 250 ML BAG ONE (08:06)
[2021-01-22] MEDS ORDERED: HEPARIN SODIUM,PORCINE 10,000 UNIT/ML 1 ML VIAL ONE (08:06)
[2021-01-22] MEDS ORDERED: PROTAMINE SULFATE 10 MG/ML 25 ML VIAL IV ONE (08:06)
[2021-01-22] MEDS ORDERED: MIDAZOLAM 2 MG/2 ML VIAL ONE (08:06)
[2021-01-22] MEDS ORDERED: fentaNYL (PF) 50 MCG/ML 50 ML VIAL ONE (08:06)
[2021-01-22] MEDS ORDERED: VECURONIUM 10 MG VIAL IV ONE (08:06)
[2021-01-22] MEDS ORDERED: CALCIUM CHLORIDE 100 MG/ML 10 ML SYRINGE ONE (08:06)
[2021-01-22] MEDS ORDERED: MAGNESIUM SULFATE 4 MEQ/ML 10ML VIAL ONE (08:06)
[2021-01-22] MEDS ORDERED: WATER FOR INJECTION, STERILE 10 ML VIAL IV ONE (08:06)
[2021-01-22] MEDS ORDERED: INSULIN REGULAR 100 UNIT/ML VIAL (IV) ONE (08:06)
[2021-01-22] MEDS ORDERED: SODIUM CHLORIDE 0.9% IRRIG 1,000 ML BTL IRRIGATION ONE (08:06)
[2021-01-22] MEDS ORDERED: TRANEXAMIC ACID 1,000 MG/10 ML VIAL ONE (08:06)
[2021-01-22] MEDS ORDERED: ELECTROLYTE-R (PH 7.4) 1,000 ML IV.SOLN IV ONE (08:06)
[2021-01-22] MEDS ORDERED: PROPOFOL 10 MG/ML 20 ML VIAL IV ONE (08:06)
[2021-01-22] MEDS ORDERED: PHENYLEPHRINE-0.9% NACL SYG 1,000 MCG/10 ML SYRINGE ONE (08:06)
[2021-01-22] MEDS ORDERED: NITROGLYCERIN-D5W PMX 50 MG/250 ML BOTTLE IV ONE (08:06)
[2021-01-22] MEDS ORDERED: LIDOCAINE 2% SYG (PF) 100 MG/5 ML ONE (08:06)
[2021-01-22] MEDS: ceFAZolin 1,000 MG in SODIUM CHLORIDE 0.9% IRRIGATIO 1,000 ML IRRIGATION ONE ×2 (09:57→15:02)
[2021-01-22] MEDS ORDERED: MORPHINE SULFATE 2 MG/ML SYRINGE IVP PRN (14:40)
[2021-01-22] MEDS ORDERED: CLEVIDIPINE BUTYRATE 25 MG in EMPTY BAG 1 BAG IV SCH (14:40)
[2021-01-22] MEDS ORDERED: NITROGLYCERIN-D5W PMX 50 MG in DEXTROSE/WATER 1 250ML.BAG IV SCH (14:40)
[2021-01-22] MEDS ORDERED: BENZOCAINE/MENTHOL LOZENG 1 EACH LOZENGE MUCOUS MEM PRN (14:40)
[2021-01-22] MEDS ORDERED: Phosphorus Replacement Protoco 1 EACH MISC MISCELLANE PRN (14:40)
[2021-01-22] MEDS ORDERED: Potassium Replacement Protocol 1 EACH MISC MISCELLANE PRN (14:40)
[2021-01-22] MEDS ORDERED: IPRATROPIUM-ALBUTEROL 3 ML NEB INHALATION PRN (14:40)
[2021-01-22] MEDS ORDERED: AMIODARONE 450 MG in DEXTROSE 5% IN WATER 250 ML IV PRN ×2 (14:40)
[2021-01-22] MEDS ORDERED: Magnesium Replacement Protocol 1 EACH MISC MISCELLANE PRN (14:40)
[2021-01-22] MEDS ORDERED: DEXMEDETOMIDINE/0.9% NACL(PMX) 400 MCG in EMPTY BAG 1 BAG IV SCH (14:40)
[2021-01-22] MEDS ORDERED: hydrALAZINE HCL 20 MG/ML 1 ML VIAL IVP PRN (14:40)
[2021-01-22] MEDS ORDERED: DILTIAZEM 125 MG in SODIUM CHLORIDE 0.9% 100 ML IV SCH (14:40)
[2021-01-22] MEDS ORDERED: AMIODARONE 360 MG in DEXTROSE 5% IN WATER 200 ML IV PRN ×2 (14:40)
[2021-01-22] MEDS ORDERED: ONDANSETRON 4 MG/2 ML VIAL IVP PRN (14:40)
[2021-01-22] MEDS ORDERED: METOCLOPRAMIDE 5 MG/ML 2 ML VIAL IVP PRN (14:40)
[2021-01-22] MEDS: NOREPINEPHRINE 4 MG in SODIUM CHLORIDE 0.9% 250 ML IV SCH (15:15)
[2021-01-22] MEDS: SODIUM CHLORIDE 0.9% 1,000 ML IV SCH (15:30)
[2021-01-22] MEDS: MILRINONE-D5W PMX 20 MG in DEXTROSE/WATER 1 100ML.BAG IV SCH ×2 (15:45→23:07)
[2021-01-22 15:55] LABS: Glucose,Whole Blood 157 mg/dL (75-99)
[2021-01-22 16:08] LABS: Basophils # (A) 0.1 k/uL (0-0.2); Basophils % (A) 1 %; Eosinophils % (A) 0 %; HCT 32.4 % (39.0-53.0); Lymphocytes # (A) 1.1 k/uL (1.0-4.8); Lymphocytes % (A) 11 %; MCH 33.7 pg (25.0-35.0); MCHC 34.7 g/dL (31.0-37.0); MCV 96.9 fL (80.0-100.0); Mean Platelet Volume 10.8; Monocytes # (A) 0.6 k/uL (0-1.0); Monocytes % (A) 5 %; Neutrophils # (A) 8.6 k/uL (1.3-7.7); Neutrophils % (A) 82 %; RBC 3.35 m/uL (4.30-5.90); WBC 10.5 k/uL (3.8-10.6)
[2021-01-22 16:10] LABS: HGB 11.3 gm/dL (13.0-17.5); Ionized Calcium 5.1 mg/dL (4.5-5.3); Platelet Count 92 k/uL (150-450)
--- NOTE | 2021-01-22 16:11 | XR ---
EXAMINATION TYPE: XR chest 1V portable DATE OF EXAM: 01/22/2021 Comparison: 12/12/2020 Clinical History: 65-year-old male Post Operative Cardiac Surgery Findings: ET tube is satisfactory. Mediastinal drains. Left IJ [place] catheter. This appears to be looped pr obably at the right main pulmonary artery. Basilar left-sided chest tube. No appreciable pneumothorax . Some patchy retrocardiac opacity. Mild interstitial prominence, improved from 12/12/2020. NG tube sa tisfactory. Impression: Interstitial prominence is improved from 12/12/2020. There may be residual mild pulmonary vascular con gestion. Patchy retrocardiac atelectasis.
[2021-01-22 16:20] LABS: ALT 25 U/L (4-49); AST 45 U/L (17-59); African American GFR (CKD) >90 (>60 ml/min/1.73 sqM); Albumin 2.7 g/dL (3.5-5.0); Alkaline Phosphatase 39 U/L (38-126); Anion Gap 5 mmol/L; Blood Urea Nitrogen 18 mg/dL (9-20); Calcium 7.8 mg/dL (8.4-10.2); Carbon Dioxide 25 mmol/L (22-30); Chloride 106 mmol/L (98-107); Glucose 140 mg/dL (74-99); INR 1.1 (<1.2); Magnesium 2.7 mg/dL (1.6-2.3); Non-African American GFR(CKD) 86 (>60 ml/min/1.73 sqM); Potassium 4.5 mmol/L (3.5-5.1); Sodium 136 mmol/L (137-145); Total Bilirubin 1.2 mg/dL (0.2-1.3); Total Protein 4.7 g/dL (6.3-8.2)
[2021-01-22] MEDS: INSULIN REGULAR 100 UNIT in SODIUM CHLORIDE 0.9% 100 ML IV SCH (16:29)
[2021-01-22 16:31] LABS: ABG Base Excess -0.6 mmol/L; ABG HCO3 26 mmol/L (21-25); ABG PCO2 51 mmHg (35-45); ABG PH 7.31 (7.35-7.45); ABG PO2 208 mmHg (83-108); ABG TCO2 27 mmol/L (19-24)
[2021-01-22] MEDS: HEPARIN SODIUM,PORCINE/PF 5,000 UNIT/0.5 ML SYRINGE SQ SCH ×2 (16:31→23:39)
[2021-01-22] MEDS: ALBUMIN HUMAN 5% 250 ML in EMPTY BAG 1 BAG IVPB PRN (16:40)
[2021-01-22 17:08] LABS: Glucose,Whole Blood 165 mg/dL (75-99)
[2021-01-22] MEDS: IPRATROPIUM-ALBUTEROL 3 ML NEB INHALATION SCH ×2 (17:15→20:20)
[2021-01-22 17:58] LABS: Glucose,Whole Blood 161 mg/dL (75-99)
[2021-01-22 18:09] LABS: Basophils % (A) 0 %; Eosinophils % (A) 0 %; HCT 33.1 % (39.0-53.0); Lymphocytes # (A) 0.9 k/uL (1.0-4.8); Lymphocytes % (A) 9 %; MCH 34.4 pg (25.0-35.0); MCHC 35.2 g/dL (31.0-37.0); MCV 97.6 fL (80.0-100.0); Mean Platelet Volume 9.4; Monocytes # (A) 0.5 k/uL (0-1.0); Monocytes % (A) 5 %; Neutrophils # (A) 8.5 k/uL (1.3-7.7); Neutrophils % (A) 85 %; Platelet Count 102 k/uL (150-450); RBC 3.39 m/uL (4.30-5.90)
[2021-01-22 18:20] LABS: HGB 11.6 gm/dL (13.0-17.5)
--- NOTE | 2021-01-22 18:21 | P.CNPUL ---
History of Present Illness Consult date: 01/22/21 Requesting physician: Bonilla Bond Reason for consult: other Chief complaint: Status post bypass grafting, postop day #0. History of present illness: Pulmonary/critical care consultation dated 01/22/2021. 65-year-old male that I'm asked to see, in room 265. The patient is postop day #0, status post three-vessel bypass grafting. The surgery was done by Dr. Bond. Currently, the patient is on the ventilator. He is on the volume assist control mode, rate of 16, tidal volume 500, FiO2 percent, PEEP of 10. Initial blood gases showed a pO2 of 208, pCO2 of 51, and a pH is 7.31. Those bl ood gases were done on a rate of 12, PEEP of 10, and 100% FiO2. I increased her rate up to 16. Currently, the patient's on saline at 50 mL an hour, a nitroglycerin drip at 5 mcg/m, norepinephrine at 2 mcg/m, propofol at 40 mcg/kg/m, insulin at 4 units per hour, and Primacor 0.3 mcg/kg/m. The patient's chest x-ray is currently pending. Lab data includes a white count 10.5, hemoglobin 11.3, hematocrit 32.4, and a platelet count of 92,000. PT was 12, INR 1.1, and PTT was 26. Sodium 136, potassium 4.5, chlorides 106, CO2 25, anion gap 5, BUN 18, and creatinine 0.94. The patient's magnesium was 2.7. The patient's chest x-ray show some pulmonary vascular congestion and post surgical changes. In addition to coronary artery disease, the patient's past medical history appears to include hypertension, and gout. Review of Systems REVIEW OF SYSTEMS: Could not be obtained, as the patient is currently sedated and on the ventilator. CONSTITUTIONAL: [Negative.] NEUROLOGIC: [ Negative.] HEENT: [ Negative.] CARDIAC: [Negative.] PULMONARY: [Negative.] GI: [Negative.] : [Negative.] RHEUMATOLOGIC: [ Negative.] IMMUNOLOGIC: [ Negative.] ENDOCRINE: [Negative. ] DERMATOLOGIC: [Negative.] Past Medical History Past Medical History: Heart Failure, Hearing Disorder / Deafness, Hypertension, Myocardial Infarction ([place]), Prostate Disorder Additional Past Medical History / Comment(s): Chronic lower extremity edema-much improved, varicose veins, BPH Last Myocardial Infarction Date:: unk History of Any Multi-Drug Resistant Organisms: None Reported Past Surgical History: Appendectomy, Hernia Repair, Tonsillectomy Additional Past Surgical History / Comment(s): inguinal hernia repair, umbilical hernia repair x2 w/mesh Past Anesthesia/Blood Transfusion Reactions: No Reported Reaction Smoking Status: Former smoker - Past Family History Mother Family Medical History: Coronary Artery Disease (CAD), Diabetes Mellitus Additional Family Medical History / Comment(s): Underwent CABG Father Family Medical History: Cancer, Congestive Heart Failure (CHF), Coronary Artery Disease (CAD) Additional Family Medical History / Comment(s): Underwent CABG; had lung cancer Medications and Allergies Home Medications Medication Instructions Recorded Confirmed Type Alfuzosin HCl [Uroxatral] 10 mg PO HS 02/08/17 01/22/21 History Carvedilol [Coreg] 25 mg PO BID 12/12/20 01/22/21 History Fluticasone Nasal [place] [Flonase 1 spr EA NOSTRIL DAILY PRN 12/12/20 01/22/21 History Nasal [place]] Furosemide [Lasix] 40 mg PO DAILY 12/12/20 01/22/21 History Ibuprofen [Motrin] 800 mg PO TID PRN 12/12/20 01/22/21 History allopurinoL [Zyloprim] 100 mg PO DAILY 12/12/20 01/22/21 History lisinopriL [Zestril] 40 mg PO DAILY 12/12/20 01/22/21 History Aspirin 81 mg PO DAILY 30 Days #30 tab 12/15/20 01/22/21 Rx Multivitamins, Thera [Multivitamin 1 tab PO DAILY 01/16/21 01/22/21 History (formulary)] Spironolactone [Aldactone] 25 mg PO DAILY 01/16/21 01/22/21 History Allergies Allergy/AdvReac Type Severity Reaction Status Date / Time No Known Allergies Allergy Verified 01/22/21 06:11 Physical Exam Osteopathic Statement: *. No significant issues noted on an osteopathic str uctural exam other than those noted in the History and Physical/Consult. Vitals: Vital Signs Temp Pulse Pulse Pulse Resp BP BP 01/22/21 17:28 80 23 01/22/21 17:16 80 18 01/22/21 17:00 80 17 01/22/21 16:45 80 17 01/22/21 16:30 80 16 01/22/21 16:15 80 15 01/22/21 16:00 84 84 18 01/22/21 15:55 36.4 F L 80 16 01/22/21 06:44 96.9 F L 76 18 128/77 145/84 Pulse Ox 01/22/21 17:28 01/22/21 17:16 01/22/21 17:00 100 01/22/21 16:45 100 01/22/21 16:30 100 01/22/21 16:15 100 01/22/21 16:00 100 01/22/21 15:55 100 01/22/21 06:44 98 Intake and Output 01/22/21 01/22/21 01/22/21 06:59 14:59 22:59 Intake Total 200 103 435.334 Output Total 3565 Balance 200 103 -3129.666 Intake: IV 200 103 354.0 Albumin Human 5% 250 ml 250 In Empty Bag 1 bag @ 250 mls/hr IVPB Q1HR PRN Rx#: [id number] Nitroglycerin-D5w Pmx 50 3.0 mg In Dextrose/Water 1 250ml.bag @ 5 MCG/MIN 1.5 mls/hr IV .Q24H AKASH Rx#: [id number] Sodium Chloride 0.9% 1, 100 000 ml @ 50 mls/hr IV . Q20H AKASH Rx#:[id number] Intake, IV Titration 81.334 Amount Insulin Regular 100 unit 4.410 In Sodium Chloride 0.9% 100 ml @ Per Protocol IV .Q0M AKASH Rx#:[id number] Norepinephrine 4 mg In 21.324 Sodium Chloride 0.9% 250 ml @ 0.05 MCG/KG/MIN 21. 184 mls/hr IV .Q12H AKASH Rx#:[id number] propofoL 1,000 mg In 55.600 Empty Bag 1 bag @ Titrate IV .Q0M AKASH Rx#: [id number] Output: Chest Tube Drainage 310 Chest Tube Bilateral 150 Mediastinal Chest Tube Left Lateral 160 Chest Urine 755 Estimated Blood Loss 2500 Other: Voiding Method Indwelling Catheter Weight 111.2 kg ABP, PAP, CO, CI - Last 8 Hours Arterial Blood Pressure 94/48 Arterial Blood Pressure 98/46 Arterial Blood Pressure 119/52 Arterial Blood Pressure 137/57 Arterial Blood Pressure 127/51 Pulmonary Artery Pressure 23/12 Pulmonary Artery Pressure 23/12 Pulmonary Artery Pressure 25/12 Pulmonary Artery Pressure 28/13 Pulmonary Artery Pressure 49/14 Cardiac Output 5.3 Cardiac Output 7.2 Cardiac Index 2.3 Cardiac Index 3.1 No acute distress, currently sedated on propofol, with an orally placed endotracheal tube and NG tube. HEENT examination is grossly unremarkable. Neck supple. Full range of motion. No adenopathy thyromegaly or neck vein distention. Cardiovascular examination reveals regular rhythm rate. S1-S2 normal. No S3 or S4. No discernible murmur noted. Heart rate 80 bpm. Lungs reveal scattered bilateral rhonchi. No wheezes or crackles. Abdomen soft, without bowel sounds. Extremities are intact. No cyanosis clubbing or edema. Skin is without rash or lesion. Neurologic examination could not be assessed as the patient's currently sedated. Results - Laboratory Findings CBC and BMP: 01/22/21 15:55 01/22/21 15:55 ABG ABG pH 7.31 (7.35-7.45) L 01/22/21 16:28 ABG pCO2 51 mmHg (35-45) H 01/22/21 16:28 ABG pO2 208 mmHg (83-108) H 01/22/21 16:28 ABG O2 Saturation 100.0 % (94-97) H 01/22/21 16:28 PT/INR, D-dimer PT 12.0 sec (9.0-12.0) 01/22/21 15:55 INR 1.1 (<1.2) 01/22/21 15:55 Abnormal lab findings: Abnormal Labs 01/16/21 01/22/21 01/22/21 09:00 06:35 15:54 RBC Hgb Hct Plt Count Neutrophils # ABG pH ABG pCO2 ABG pO2 ABG HCO3 ABG Total CO2 ABG O2 Saturation Sodium Glucose POC Glucose (mg/dL) 114 H 157 H Calcium Magnesium Total Protein Albumin Crossmatch See Detail 01/22/21 01/22/21 01/22/21 15:55 15:55 16:28 RBC 3.35 L Hgb 11.3 L D Hct 32.4 L Plt Count 92 L Neutrophils # 8.6 H ABG pH 7.31 L ABG pCO2 51 H ABG pO2 208 H ABG HCO3 26 H ABG Total CO2 27 H ABG O2 Saturation 100.0 H Sodium 136 L Glucose 140 H POC Glucose (mg/dL) Calcium 7.8 L Magnesium 2.7 H Total Protein 4.7 L Albumin 2.7 L Crossmatch 01/22/21 01/22/21 17:07 17:56 RBC Hgb Hct Plt Count Neutrophils # ABG pH ABG pCO2 ABG pO2 ABG HCO3 ABG Total CO2 ABG O2 Saturation Sodium Glucose POC Glucose (mg/dL) 165 H 161 H Calcium Magnesium Total Protein Albumin Crossmatch - Diagnostic Findings Chest x-ray: image reviewed Assessment and Plan Assessment: Postop day #0, status post three-vessel bypass grafting. Postoperative ventilator management. History of hypertension. History of gout. Plan: Plan dated 01/22/2021. The patient remains on multiple drips including nitroglycerin, norepinephrine, propofol, insulin, and Primacor. The patient's vent settings are appropriate. The rate was increased from 12 up to 16. The patient's FiO2 was dropped from 100% down to 60%. Additional recommendations and suggestions are forthcoming. Hopefully, the patient can be extubated in rapid fashion, within the next 6 hours or so. We will continue to follow make recommendations where appropriate. Prognosis is guarded. Time with Patient: Greater than 30
--- NOTE | 2021-01-22 18:29 | CONS ---
CONSULTATION DATE OF SERVICE: 01/22/2021 REASON FOR CONSULTATION: Advice regarding hypertension and multiple medical issues, requested by Cardiothoracic Surgery. HISTORY OF PRESENT ILLNESS: This 65-year-old gentleman with a past medical history of CHF, possible cardiomyopathy, hypertension, history of myocardial infarction, being followed by Dr. Bess Nava in the outpatient setting, was admitted to the hospital and medically treated. The patient had 100% RCA and 90% LAD. Patient underwent CAD, CABG by Dr. Bond today. The patient is currently mechanically ventilated and sedated, unable to provide any history. Most of the history is taken from my discussion with staff and review of the chart at this time. The blood sugars have been 114. Patient does not have any previous history of diabetes mellitus. Chest tubes and pacemaker are in place. The patient is on 100% FiO2. Dr. Chavez is monitoring the patient vent-menendez. PAST MEDICAL HISTORY: History of CAD, congestive heart failure, ischemic cardiomyopathy, hypertension. Ejection fraction is about 35% to 40% on the previous 2D echo. HOME MEDICATIONS: Reviewed. They include lisinopril, zyloprim, Aldactone, multivitamin, Motrin, Lasix, Flonase, Coreg, aspirin, uro. ALLERGIES: NONE. Family history, social history, review of systems could not be taken because the patient is mechanically ventilated and sedated. PHYSICAL EXAMINATION: Patient is mechanically ventilated and settings are noted. Pulse 80, blood pressure 137/57, respiration 15, temperature normal, pulse ox 100% on mechanical ventilation. HEENT: Conjunctivae normal. NECK: No jugular venous distention. CARDIOVASCULAR: S1, S2 muffled. RESPIRATION: Breath sounds diminished at the bases. A few scattered rhonchi. ABDOMEN: Soft, nontender. NERVOUS SYSTEM: Mechanically ventilated and sedated. SKIN: No ulcer, rash, bleeding. JOINTS: No active deforming arthropathy. LABS: WBC 10.2, hemoglobin 11.3. ABGs noted. Sodium 136. ASSESSMENT: 1. Coronary artery disease, status post coronary artery bypass grafting. 2. History of ischemic cardiomyopathy. 3. History of chronic congestive heart failure with chronic systolic dysfunction, ejection fraction 35% to 40%. 4. History of chronic venostasis. 5. History of hearing defects. 6. Hypertension. 7. History of myocardial infarction. 8. History of prostate disorder. 9. History of benign prostatic hypertrophy. 10.History of hernia surgery. 11.History of gout. 12.History of appendectomy. 13.History of nicotine dependence. 14.FULL CODE. RECOMMENDATIONS AND DISCUSSION: In this 65-year-old gentleman who presented after surgery, at this time I recommend to continue the current medications, continue the mechanical ventilation. Otherwise, monitor the blood pressure with pressor support. Hemoglobin is stable at 11.3. I would also recommend initiating the home medications once the patient is p.o. Will continue to monitor. Blood sugar has been found to be normal. It was 157. If the sugar is elevated, Accu-Cheks before meals and at bedtime and scale may be initiated. Otherwise, we will follow the patient closely with you and patient may be asked to follow up with Dr. Bess Nava closely after discharge. Thank you, Dr. Bond, for letting us participate in the care of this patient. MMNEILL / ADDISONN: [id number] / MTDD
--- NOTE | 2021-01-22 18:35 | CONS ---
CONSULTATION Mr. Pitts is a 65-year-old male who presented today to undergo coronary artery bypass grafting by Dr. Bond. He was in the hospital in early December with acute pulmonary edema, was found to have evidence of cardiomyopathy. By echocardiography his ejection fraction was 35% to 40% with mild mitral and tricuspid regurgitation. Subsequently he underwent cardiac catheterization by Dr. Garner and was found to have 100% RCA occlusion with [id number] collaterals, 90% mid LAD, 95% moderate first diagonal branch and 50% in the circumflex. He underwent a COONEY to the LAD and diagonal branch and radial to the obtuse marginal branch. He is intubated and sedated on Primacor and IV nitroglycerin. The patient is paced, underlying sinus mechanism. There is no evidence of malignant arrhythmia. On admission he was on Zestril, aldactone 25 mg daily, Lasix, Coreg 25 mg twice a day, aspirin and Uroxatral. Review of systems could not be obtained at this time. Past medical history is remarkable for the history of coronary artery disease, as noted, history of hypertension, hyperlipidemia and history of cardiomyopathy. PHYSICAL EXAMINATION: He is a 65-year-old male, intubated, sedated. Blood pressure 119/50 with a heart rate in the 80s. PA pressure 25/12. HEAD: Normocephalic. Eyes sclerae anicteric. Neck with IJ and [place] on the left internal jugular noted. Lungs clear to auscultation anteriorly. HEART: Regular rate and rhythm. S1, S2. No S3. No rub appreciated. Abdomen soft. Hypoactive bowel sounds. No organomegaly. Extremities: Stan wrapping in place. LAB DATA: Lab data revealed a BUN and creatinine of 18 and 0.94, pH 7.31, pCO2 of 51, PO2 of 208, hemoglobin of 11.3. IMPRESSION: 1. Status post coronary artery bypass grafting. 2. Ischemic cardiomyopathy. 3. Hypertension. 4. Hyperlipidemia. RECOMMENDATIONS: From the cardiac standpoint, will continue the present care, hopefully being able to wean and extubate soon, and I will re-initiate treatment with his STAN inhibitor and Aldactone as well as his beta alejandro and statin. Depending on his progress, further recommendations will be made. Thank you for this consult. Will follow with you. MMODL / IJN: [id number] /
[2021-01-22] MEDS: ACETAMINOPHEN IV (For NPO) 1,000 MG in EMPTY BAG 1 BAG IVPB SCH ×2 (18:42→23:38)
[2021-01-22 18:55] LABS: ABG Base Excess -0.4 mmol/L; ABG HCO3 25 mmol/L (21-25); ABG Oxygen Saturation 99.3 % (94-97); ABG PCO2 44 mmHg (35-45); ABG PH 7.36 (7.35-7.45); ABG PO2 128 mmHg (83-108); ABG TCO2 26 mmol/L (19-24)
[2021-01-22 19:03] LABS: Allen Test Performed? no
[2021-01-22 19:06] LABS: Glucose,Whole Blood 149 mg/dL (75-99)
[2021-01-22 19:36] LABS: HCT 30.5 % (39.0-53.0); MCH 34.7 pg (25.0-35.0); MCV 96.3 fL (80.0-100.0); Mean Platelet Volume 10.9; RBC 3.17 m/uL (4.30-5.90); RDW 14.9 % (11.5-15.5)
[2021-01-22 19:59] LABS: Platelet Count 89 k/uL (150-450)
[2021-01-22 20:08] LABS: Glucose,Whole Blood 148 mg/dL (75-99)
--- NOTE | 2021-01-22 20:53 | OP ---
OPERATIVE REPORT DATE OF SURGERY: 01/22/2021 SURGEON: Dr. Bonilla Bond. ASSISTANTS: 1. CHAVEZ Perez. 2. Jaxson Tobin, Nurse Practitioner. PREOPERATIVE DIAGNOSES: 1. Triple-vessel coronary artery disease. 2. Totally occluded right coronary artery. 3. Previous inferior myocardial infarction with moderate left ventricular dysfunction. 4. Congestive heart failure. 5. Hypertension. 6. Hyperlipidemia. 7. Obesity. 8. Ex-smoker up to 6 months ago. 9. Status post laser ablation of both greater saphenous veins. POSTOPERATIVE DIAGNOSES: 1. Triple-vessel coronary artery disease. 2. Totally occluded right coronary artery. 3. Previous inferior myocardial infarction with moderate left ventricular dysfunction. 4. Congestive heart failure. 5. Hypertension. 6. Hyperlipidemia. 7. Obesity. 8. Ex-smoker up to 6 months ago. 9. Status post laser ablation of both greater saphenous veins. PROCEDURE: 1. All arterial triple coronary artery bypass grafting using the left internal mammary artery in a sequential fashion to the diagonal artery, [id number], then to the left anterior descending artery, end-to-side, left radial artery from the aorta to the first obtuse marginal artery. 2. Exclusion of the left atrial appendage using a 35 mm AtriClip. 3. Endoscopic harvesting of the left radial artery. 4. Intraoperative transesophageal echocardiogram and epiaortic scanning. 5. Intraoperative graft flow measurements using the Well[employer]ive system. INDICATION FOR SURGERY: The patient is a 65-year-old gentleman with the above comorbidities who was worked up as an outpatient with sinus symptoms of congestive heart failure. He had a recent admission for that, and a 2D echo showed ejection fraction estimated at 35% to 40% with severe inferior wall hypokinesia and mild mitral valve regurgitation. He underwent cardiac catheterization that showed a totally occluded collateralized right coronary artery and significant disease proximally of the left system. Patient had stopped smoking around 6 months ago. He was brought in today for elective coronary artery bypass surgery. He had previous laser ablation of both lower extremity greater saphenous veins, and we will be using his left internal mammary artery as well as his left radial artery for bypasses. There are no plans to bypass his totally occluded collateralized right coronary artery with old inferior wall [place], especially in view of the paucity of conduits. The STS risk was discussed with him. He understood it and agreed to proceed. DESCRIPTION OF THE PROCEDURE: With the patient in supine position, right internal jugular Sabin-Elver catheter and right radial arterial line were placed. His cardiac index was 2.5. Pressure was 35/17. Subsequently he was brought to the operating room, where general endotracheal anesthesia was induced uneventfully. Grant catheter was inserted. Patient received 2 grams of cefazolin intravenously. The chest, abdomen, both lower extremities and the left upper extremity were prepped and draped using ChloraPrep. Ioban was used to cover the skin. Transesophageal echocardiogram confirmed the preoperative finding of moderate left ventricular dysfunction and mild to moderate mitral valve regurgitation despite high mean arterial pressure as we were performing the ASHLEY. Midline sternotomy was performed and the bone was profusely bleeding. Ostene was used and no bone wax was used. The left hemisternum was elevated and the left internal mammary artery was harvested in a somewhat skeletonized fashion. The left pleura was intentionally opened in this process and was drained with a 19-Turkish Amado drain. The right pleura remained intact. Patient was given 5000 units of heparin and the mammary artery was clipped distally and transected. It had an excellent pulsatile flow in it and was around 2 mm in diameter. In the same setting, the left radial artery was exposed at the wrist and a clamping trial revealed preserved signal in the left index O2 saturation probe. Subsequently the radial artery was harvested endoscopically. Forearm incisions were closed over a Amado drain. The radial artery was prepared by incising the fascia all along its volar aspect and clipping all its branches. It was of excellent quality, around 2.5 mm in diameter. Sheldon retractor was placed. Mediastinal fat was transected between 2 ties and epiaortic scanning confirmed what was seen on CT scan, which was a small plaque in the posterior aspect of the mid ascending aorta. All clamping will be superior to that plaque, although that plaque is not protruding. Pericardium was opened in an inverted T-fashion and a pericardial cradle was created. Findings included a normal soft aorta except for that plaque in the mid aspect of the posterior wall. The heart was fatty and mildly enlarged. After systemic heparinization, after placement of respective pledgeted pursestrings, aortic cannulation in the proximal arch with a 21-Turkish Soft flow cannula and venous cannulation via the right atrial appendage with a 29/37, three-stage cannula was performed. Antegrade as well as retrograde cardioplegia catheters were placed. Cardiopulmonary bypass was initiated, and with the heart empty and beating, we looked at the target. The LAD was totally intramyocardial. I used the epiaortic scanning to identify the LAD, which appeared to be again intramyocardial, and the spot was marked. I was able to dissect right into it, helped by the epiaortic ultrasound, and the intramyocardial segment was evidently very soft and around 1.5 mm in diameter. The diagonal artery was readily identified and was marked. Looking at the mid lateral wall, the first obtuse marginal artery was also readily identified. The inferior wall appeared to be with old fibrotic changes pointing to an old myocardial infarction, and as mentioned above, there would be no plans to bypass the right coronary system. Aorta was clamped higher than that posterior wall plaque and myocardial protection was achieved with initial dose of one liter of antegrade cold blood cardioplegia followed by 500 mL of retrograde cold blood cardioplegia. All subsequent doses were given at 15- to 20-minute intervals. We started by excluding the left atrial appendage by deploying a 35 mm AtriClip at its base. The first distal anastomosis was between the radial artery and the 1.7 mm in diameter thin-walled obtuse marginal artery using Prolene 7-0 in continuous fashion. The second distal anastomosis was between the left internal mammary artery and the diagonal artery in a [id number] parallel fashion using running Prolene 7-0. I placed a 1 mm shunt in the diagonal artery which was retrieved before completing the anastomosis. The third and last distal anastomosis was between the end of the left internal mammary artery and the intramyocardial distal left anterior descending artery which was around 1.5 mm in diameter and thin-walled. A 1 mm shunt was inserted and the anastomosis was completed in an end-to-side fashion using Prolene 7-0 in a continuous fashion. Shunt was removed evidently before completing the anastomosis. The mammary vein was affixed proximal to the first qggm-qs-sdea anastomosis to the epicardium using Prolene 6-0. With that, rewarming was started as we punched out a 4 mm button of the ascending aorta and completed the single proximal anastomosis of the radial artery to the aorta using Prolene 7-0 in a continuous fashion. The patient was half loaded with Primacor. De-airing maneuvers were followed before unclamping the aorta after around 50 minutes of reperfusion. He regained initially a slow junctional rhythm. Two monopolar atrial pacing wires were affixed to the respective pursestrings of the right atrium and then one ventricular pacing wire was driven via the inferior aspect of the right ventricle. We established AV pacing and were able to come off bypass on 0.3 mcg/kg per minute of Primacor and low-dose Levophed. The index initially was around 2.1, then improved to around 2.6. PA pressures were 40/20. ASHLEY showed improved left ventricular function and mild mitral valve regurgitation. With that, all pump suckers were stopped. Then test-dose followed by full-dose protamine was given. Decannulation followed. The venous cannulation site as well as the antegrade cardioplegia site required reinforcement with pledgeted Prolene. Two 19- Turkish Amado drains were left substernally. After ensuring adequate hemostasis and hemodynamics and after correct sponge, instrument and needle counts, the sternum was closed using 5 [id number] pineal cables after interposing Fibrillar between the sternal edges. Thorough irrigation with cefazolin followed. The rest of the closure was treated in layers. Skin glue was applied. The patient did not receive any blood bank product but received 400 mL of Cell Saver blood. He was transferred to the ICU, atrially paced at 80 with first-degree AV block as well as a mean arterial pressure of 72, PA pressure of 30/15 and cardiac index of 2.8 on low-dose Primacor and Levophed. MMODL / IJN: [id number] /
[2021-01-22 21:05] LABS: Glucose,Whole Blood 139 mg/dL (75-99)
[2021-01-22 22:06] LABS: Glucose,Whole Blood 138 mg/dL (75-99)
[2021-01-22 23:03] LABS: Glucose,Whole Blood 144 mg/dL (75-99)
[2021-01-23 00:10] LABS: Glucose,Whole Blood 141 mg/dL (75-99)
[2021-01-23] MEDS: HYDROcodone/APAP 5-325MG 1 EACH TAB PO PRN ×4 (01:01→21:00)
[2021-01-23 01:08] LABS: Glucose,Whole Blood 141 mg/dL (75-99)
[2021-01-23 02:11] LABS: Glucose,Whole Blood 135 mg/dL (75-99)
[2021-01-23 03:02] LABS: Glucose,Whole Blood 133 mg/dL (75-99)
[2021-01-23] MEDS: NOREPINEPHRINE 4 MG in SODIUM CHLORIDE 0.9% 250 ML IV SCH (03:20)
[2021-01-23 03:56] LABS: Glucose,Whole Blood 129 mg/dL (75-99)
[2021-01-23 04:09] LABS: Basophils % (A) 0 %; Eosinophils % (A) 0 %; HCT 28.6 % (39.0-53.0); HGB 10.2 gm/dL (13.0-17.5); Lymphocytes % (A) 12 %; MCH 33.8 pg (25.0-35.0); MCHC 35.5 g/dL (31.0-37.0); MCV 95.1 fL (80.0-100.0); Mean Platelet Volume 11.3; Monocytes # (A) 0.4 k/uL (0-1.0); Monocytes % (A) 6 %; Neutrophils # (A) 6.5 k/uL (1.3-7.7); Neutrophils % (A) 81 %; RBC 3.01 m/uL (4.30-5.90); RDW 14.2 % (11.5-15.5)
[2021-01-23 04:11] LABS: Platelet Count 90 k/uL (150-450)
[2021-01-23 04:15] LABS: Ionized Calcium 4.9 mg/dL (4.5-5.3)
[2021-01-23 04:27] LABS: ALT 23 U/L (4-49); AST 50 U/L (17-59); African American GFR (CKD) >90 (>60 ml/min/1.73 sqM); Albumin 2.8 g/dL (3.5-5.0); Alkaline Phosphatase 44 U/L (38-126); Blood Urea Nitrogen 15 mg/dL (9-20); Carbon Dioxide 24 mmol/L (22-30); Glucose 124 mg/dL (74-99); Magnesium 2.5 mg/dL (1.6-2.3); Non-African American GFR(CKD) >90 (>60 ml/min/1.73 sqM); Total Bilirubin 0.8 mg/dL (0.2-1.3); Total Protein 4.8 g/dL (6.3-8.2)
[2021-01-23 04:48] LABS: Anion Gap 5 mmol/L; Chloride 106 mmol/L (98-107); Potassium 4.1 mmol/L (3.5-5.1); Sodium 135 mmol/L (137-145)
[2021-01-23] MEDS: ALBUMIN HUMAN 5% 250 ML in EMPTY BAG 1 BAG IVPB PRN ×6 (05:22→19:56)
[2021-01-23 05:26] LABS: Glucose,Whole Blood 135 mg/dL (75-99)
[2021-01-23] MEDS: MILRINONE-D5W PMX 20 MG in DEXTROSE/WATER 1 100ML.BAG IV SCH (05:43)
[2021-01-23 07:00] LABS: Glucose,Whole Blood 133 mg/dL (75-99)
[2021-01-23] MEDS: IPRATROPIUM-ALBUTEROL 3 ML NEB INHALATION SCH ×4 (07:34→20:44)
--- NOTE | 2021-01-23 08:08 | XR ---
EXAMINATION TYPE: XR chest 1V portable DATE OF EXAM: 01/23/2021 COMPARISON: 01/22/2021 HISTORY: Postop TECHNIQUE: Single frontal view of the chest is obtained. FINDINGS: ET and NG tube have been removed. [place]-Elver catheter stable. Bilateral areas of infiltrate and small effusion are stable. Limited inspiration. Postsurgical changes. Heart size stable. No siza ble pneumothorax. IMPRESSION: 1. Postoperative change with bilateral infiltrate and small effusion stable.
--- NOTE | 2021-01-23 08:37 | P.PN ---
Subjective Progress Note Date: 01/23/21 Principal diagnosis: Triple-vessel coronary artery disease with totally occluded right coronary artery. Previous medical history of inferior wall myocardial infarction with moderate left ventricular dysfunction, chronic systolic congestive heart failure, hypertension, hyperlipidemia, obesity, previous tobacco dependence, mild restrictive lung disease, lower extremity chronic edema with laser ablation of both greater saphenous veins, BPH, remote history of pneumonia, family history of coronary artery disease, preoperative thrombocytopenia, incomplete vaccination against Covid with first dose Moderna vaccine 01/02/21 POD #1 all arterial triple coronary artery bypass grafting using the left internal mammary artery in a sequential fashion to the diagonal artery side to s caryn, then to the left anterior descending artery end-to-side, left radial artery from the aorta to the first obtuse marginal artery, exclusion of the left atrial appendage using a 35 mm AtriClip, endoscopic harvesting of the left radial artery, intraoperative transesophageal echocardiogram and epi-aortic scanning, intraoperative graft flow measurements using the [employer] system Postoperative acute blood loss anemia and thrombocytopenia, expected given hemodilution and preoperative thrombocytopenia The patient was seen and examined this morning sitting up in a recliner in the intensive care unit in no acute distress. He was successfully extubated last night at 19:07. He does complain of post surgical chest pain which he states is controlled on current medication regimen, denies shortness of breath. Remains atrially paced on telemetry for blood pressure support, underlying rhythm sinus in the low 60s. Currently on low-dose Primacor, has been off Levophed since yesterday evening. Left internal jugular [place] Luz/Cordis, right radial arterial line, mediastinal/left pleural chest tubes all remain present. No new concerns. Objective - Vital Signs Vital signs: Vital Signs Temp 98.4 F 01/22/21 20:00 Pulse 82 01/23/21 07:35 Resp 16 01/23/21 07:35 BP 102/51 01/23/21 07:00 Pulse Ox 95 01/23/21 07:00 Intake & Output 01/22/21 01/23/21 01/23/21 18:59 06:59 18:59 Intake Total 027.839 3491.336 300 Output Total 3685 1095 70 Balance -3090.554 188.336 230 Weight 115.5 kg Intake: IV 512.0 1105 300 Albumin Human 5% 250 ml 250 500 250 In Empty Bag 1 bag @ 250 mls/hr IVPB Q1HR PRN Rx#: [id number] Nitroglycerin-D5w Pmx 50 8.0 5 mg In Dextrose/Water 1 250ml.bag @ 5 MCG/MIN 1.5 mls/hr IV .Q24H AKASH Rx#: [id number] Sodium Chloride 0.9% 1, 150 600 50 000 ml @ 50 mls/hr IV . Q20H AKASH Rx#:[id number] Intake, IV Titration 82.446 178.336 Amount Insulin Regular 100 unit 4.410 38.557 In Sodium Chloride 0.9% 100 ml @ Per Protocol IV .Q0M AKASH Rx#:[id number] Milrinone-D5w Pmx 20 mg 139.779 In Dextrose/Water 1 100ml .bag @ 0.3 MCG/KG/MIN 10. 008 mls/hr IV .Q10H AKASH Rx#:[id number] Norepinephrine 4 mg In 21.324 Sodium Chloride 0.9% 250 ml @ 0.05 MCG/KG/MIN 21. 184 mls/hr IV .Q12H AKASH Rx#:[id number] propofoL 1,000 mg In 56.712 Empty Bag 1 bag @ Titrate IV .Q0M AKASH Rx#: [id number] Output: Chest Tube Drainage 350 325 40 Chest Tube Bilateral 180 210 10 Mediastinal Chest Tube Left Lateral 170 115 30 Chest Drainage 30 Left Arm 30 Urine 835 740 30 Estimated Blood Loss 2500 Other: Voiding Method Indwelling Catheter Indwelling Catheter ABP, PAP, CO, CI - Last Documented Arterial Blood Pressure 96/35 Pulmonary Artery Pressure 22/12 Cardiac Output 5.6 Cardiac Index 2.4 - Exam CONSTITUTIONAL: Appears comfortable, cooperative, no acute distress RESPIRATORY: Lungs sounds diminished bilaterally. Respirations even, nonlabored. Currently on room air with oxygen saturation 95%. Able to achieve 1000 mL on incentive spirometry. Strong productive cough. CARDIOVASCULAR: S1, S2 present. Regular rate and rhythm, atrially paced on telemetry at 80 bpm, underlying rhythm sinus in the 60s. Sternum stable. Palpable peripheral pulses bilaterally. Trace bilateral lower extremity edema present. No calf pain or tenderness noted. Heart hugger in place with patient demonstrating appropriate use. Antiembolism stockings, SCDs present. GASTROINTESTINAL: Abdomen soft, nontender, nondistended. Hypoactive bowel sounds present 4 quadrants. Tolerating clear liquid diet. Denies flatus GENITOURINARY: Grant present draining clear, yellow urine. Output overnight 40-60 mL per hour INTEGUMENTARY: Skin is warm and dry with evidence of good perfusion. Anterior chest incision well approximated and covered with dry intact dressing. Left radial artery harvest site well approximated without redness, CHOCO drain present with minimal drainage. NEUROLOGIC: Cranial nerves II through XII intact MUSKULOSKELETAL: Able to move all extremities, strength equal bilaterally PSYCHIATRIC: Alert and oriented to person place and time, appropriate affect, intact judgment and insight INVASIVE LINES AND TUBES: Mediastinal/left pleural chest tubes present and connected to wall suction, no air leaks present. Mediastinal tube with 110 mL serosanguineous drainage overnight, 410 mL since surgery. Left pleural chest tube with 130 mL serosanguineous drainage overnight, 310 mL since surgery. A/V epicardial pacemaker wires present, connected to generator, AAI mode with rate 80 bpm. left internal jugular [place] Luz/Cordis, right radial arterial line present. Last CO/CI 5.6/2.4, PA 29/12, CVP 3-5. - Allied health notes Allied health notes reviewed: nursing - Labs CBC & Chem 7: 01/23/21 03:55 01/23/21 03:55 Labs: Abnormal Lab Results - Last 24 Hours (Table) 01/16/21 01/22/21 01/22/21 Range/Units 09:00 12:47 15:54 RBC 3.39 L (4.30-5.90) m/uL Hgb 11.6 L D (13.0-17.5) gm/dL Hct 33.1 L (39.0-53.0) % Plt Count 102 L (150-450) k/uL Neutrophils # 8.5 H (1.3-7.7) k/uL Lymphocytes # 0.9 L (1.0-4.8) k/uL ABG pH (7.35-7.45) ABG pCO2 (35-45) mmHg ABG pO2 (83-108) mmHg ABG HCO3 (21-25) mmol/L ABG Total CO2 (19-24) mmol/L ABG O2 Saturation (94-97) % Sodium (137-145) mmol/L Glucose (74-99) mg/dL POC Glucose (mg/dL) 157 H (75-99) mg/dL Calcium (8.4-10.2) mg/dL Magnesium (1.6-2.3) mg/dL Total Protein (6.3-8.2) g/dL Albumin (3.5-5.0) g/dL Crossmatch See Detail 01/22/21 01/22/21 01/22/21 Range/Units 15:55 15:55 16:28 RBC 3.35 L (4.30-5.90) m/uL Hgb 11.3 L (13.0-17.5) gm/dL Hct 32.4 L (39.0-53.0) % Plt Count 92 L (150-450) k/uL Neutrophils # 8.6 H (1.3-7.7) k/uL Lymphocytes # (1.0-4.8) k/uL ABG pH 7.31 L (7.35-7.45) ABG pCO2 51 H (35-45) mmHg ABG pO2 208 H (83-108) mmHg ABG HCO3 26 H (21-25) mmol/L ABG Total CO2 27 H (19-24) mmol/L ABG O2 Saturation 100.0 H (94-97) % Sodium 136 L (137-145) mmol/L Glucose 140 H (74-99) mg/dL POC Glucose (mg/dL) (75-99) mg/dL Calcium 7.8 L (8.4-10.2) mg/dL Magnesium 2.7 H (1.6-2.3) mg/dL Total Protein 4.7 L (6.3-8.2) g/dL Albumin 2.7 L (3.5-5.0) g/dL Crossmatch 01/22/21 01/22/21 01/22/21 Range/Units 17:07 17:56 18:46 RBC (4.30-5.90) m/uL Hgb (13.0-17.5) gm/dL Hct (39.0-53.0) % Plt Count (150-450) k/uL Neutrophils # (1.3-7.7) k/uL Lymphocytes # (1.0-4.8) k/uL ABG pH (7.35-7.45) ABG pCO2 (35-45) mmHg ABG pO2 128 H (83-108) mmHg ABG HCO3 (21-25) mmol/L ABG Total CO2 26 H (19-24) mmol/L ABG O2 Saturation 99.3 H (94-97) % Sodium (137-145) mmol/L Glucose (74-99) mg/dL POC Glucose (mg/dL) 165 H 161 H (75-99) mg/dL Calcium (8.4-10.2) mg/dL Magnesium (1.6-2.3) mg/dL Total Protein (6.3-8.2) g/dL Albumin (3.5-5.0) g/dL Crossmatch 01/22/21 01/22/21 01/22/21 Range/Units 18:55 19:30 20:01 RBC 3.17 L (4.30-5.90) m/uL Hgb 11.0 L (13.0-17.5) gm/dL Hct 30.5 L (39.0-53.0) % Plt Count 89 L (150-450) k/uL Neutrophils # (1.3-7.7) k/uL Lymphocytes # (1.0-4.8) k/uL ABG pH (7.35-7.45) ABG pCO2 (35-45) mmHg ABG pO2 (83-108) mmHg ABG HCO3 (21-25) mmol/L ABG Total CO2 (19-24) mmol/L ABG O2 Saturation (94-97) % Sodium (137-145) mmol/L Glucose (74-99) mg/dL POC Glucose (mg/dL) 149 H 148 H (75-99) mg/dL Calcium (8.4-10.2) mg/dL Magnesium (1.6-2.3) mg/dL Total Protein (6.3-8.2) g/dL Albumin (3.5-5.0) g/dL Crossmatch 01/22/21 01/22/21 01/22/21 Range/Units 21:04 22:04 22:54 RBC (4.30-5.90) m/uL Hgb (13.0-17.5) gm/dL Hct (39.0-53.0) % Plt Count (150-450) k/uL Neutrophils # (1.3-7.7) k/uL Lymphocytes # (1.0-4.8) k/uL ABG pH (7.35-7.45) ABG pCO2 (35-45) mmHg ABG pO2 (83-108) mmHg ABG HCO3 (21-25) mmol/L ABG Total CO2 (19-24) mmol/L ABG O2 Saturation (94-97) % Sodium (137-145) mmol/L Glucose (74-99) mg/dL POC Glucose (mg/dL) 139 H 138 H 144 H (75-99) mg/dL Calcium (8.4-10.2) mg/dL Magnesium (1.6-2.3) mg/dL Total Protein (6.3-8.2) g/dL Albumin (3.5-5.0) g/dL Crossmatch 01/23/21 01/23/21 01/23/21 Range/Units 00:08 01:06 02:09 RBC (4.30-5.90) m/uL Hgb (13.0-17.5) gm/dL Hct (39.0-53.0) % Plt Count (150-450) k/uL Neutrophils # (1.3-7.7) k/uL Lymphocytes # (1.0-4.8) k/uL ABG pH (7.35-7.45) ABG pCO2 (35-45) mmHg ABG pO2 (83-108) mmHg ABG HCO3 (21-25) mmol/L ABG Total CO2 (19-24) mmol/L ABG O2 Saturation (94-97) % Sodium (137-145) mmol/L Glucose (74-99) mg/dL POC Glucose (mg/dL) 141 H 141 H 135 H (75-99) mg/dL Calcium (8.4-10.2) mg/dL Magnesium (1.6-2.3) mg/dL Total Protein (6.3-8.2) g/dL Albumin (3.5-5.0) g/dL Crossmatch 01/23/21 01/23/21 01/23/21 Range/Units 03:00 03:54 03:55 RBC 3.01 L (4.30-5.90) m/uL Hgb 10.2 L (13.0-17.5) gm/dL Hct 28.6 L (39.0-53.0) % Plt Count 90 L (150-450) k/uL Neutrophils # (1.3-7.7) k/uL Lymphocytes # (1.0-4.8) k/uL ABG pH (7.35-7.45) ABG pCO2 (35-45) mmHg ABG pO2 (83-108) mmHg ABG HCO3 (21-25) mmol/L ABG Total CO2 (19-24) mmol/L ABG O2 Saturation (94-97) % Sodium (137-145) mmol/L Glucose (74-99) mg/dL POC Glucose (mg/dL) 133 H 129 H (75-99) mg/dL Calcium (8.4-10.2) mg/dL Magnesium (1.6-2.3) mg/dL Total Protein (6.3-8.2) g/dL Albumin (3.5-5.0) g/dL Crossmatch 01/23/21 01/23/21 01/23/21 Range/Units 03:55 05:25 06:58 RBC (4.30-5.90) m/uL Hgb (13.0-17.5) gm/dL Hct (39.0-53.0) % Plt Count (150-450) k/uL Neutrophils # (1.3-7.7) k/uL Lymphocytes # (1.0-4.8) k/uL ABG pH (7.35-7.45) ABG pCO2 (35-45) mmHg ABG pO2 (83-108) mmHg ABG HCO3 (21-25) mmol/L ABG Total CO2 (19-24) mmol/L ABG O2 Saturation (94-97) % Sodium 135 L (137-145) mmol/L Glucose 124 H (74-99) mg/dL POC Glucose (mg/dL) 135 H 133 H (75-99) mg/dL Calcium 8.0 L (8.4-10.2) mg/dL Magnesium 2.5 H (1.6-2.3) mg/dL Total Protein 4.8 L (6.3-8.2) g/dL Albumin 2.8 L (3.5-5.0) g/dL Crossmatch - Imaging and Cardiology Chest x-ray: report reviewed, image reviewed Assessment and Plan Assessment: 1. Triple-vessel coronary artery disease with totally occluded right coronary artery, status post three-vessel all arterial CABG 2. History of inferior wall myocardial infarction with moderate left ventricular dysfunction 3. Chronic systolic congestive heart failure, preoperative EF 40% 4. History of hypertension 5. Hyperlipidemia, cholesterol 180, LDL 100 6. Obesity 7. Previous tobacco dependence 8. Mild restrictive lung disease, preoperative FEV1 60% of predicted 9. Lower extremity chronic edema with laser ablation of both greater saphenous veins 10. BPH, on alfuzosin outpatient 11. Remote history of pneumonia 12. Family history of coronary artery disease 13. Preoperative thrombocytopenia 14. Incomplete vaccination against Covid with first dose Moderna vaccine 01/02/21 15. Postoperative acute blood loss anemia and thrombocytopenia, expected Plan: 1. Continue aspirin, statin, Plavix, low-dose beta alejandro therapy. D iscontinue IV nitro. 2. Will wean IV Primacor. Will discontinue [place] Luz once Primacor is off. Connect Cordis to continue CVP monitoring. No calcium channel alejandro until off Primacor 3. Encourage incentive spirometry use 10 times every hour while awake. Bronchodilators per pulmonology 4. Increase activity, ambulate as tolerated. PT/OT/cardiac rehab consulted 5. Will monitor daily labs and x-rays. Electrolyte replacement per protocol. Will give 1 g calcium gluconate over 2 hours today. No Lasix today 6. Insulin drip per primary care service. Patient is not diabetic, preoperative hemoglobin A1c 5.5%, patient will need tight blood sugar control to prevent infection and promote sternal healing 7. Continue to atrially pace patient at 80 bpm for now 8. Pain control current medication regimen. No Toradol secondary to thrombocytopenia 9. Continue mediastinal/left pleural chest tubes for another 24 hours 10. Continue Grant catheter for another 24 hours for strict accurate intake and output. Daily weights 11. Will discontinue CHOCO drain 12. More recommendations to follow as patient progresses Time with Patient: Greater than 30
[2021-01-23] MEDS ORDERED: CALCIUM GLUCONATE 1 GM in SODIUM CHLORIDE 0.9% 100 ML IVPB ONE (09:00)
[2021-01-23] MEDS ORDERED: bisacodyL 10 MG SUPP RECTAL PRN (09:00)
[2021-01-23] MEDS ORDERED: METOPROLOL TARTRATE 12.5 MG TAB PO SCH (09:00)
[2021-01-23] MEDS ORDERED: PANTOPRAZOLE 40 MG/10 ML VIAL IVP SCH (09:00)
[2021-01-23] MEDS ORDERED: ASPIRIN 325 MG TAB PO SCH (09:00)
[2021-01-23] MEDS ORDERED: MAGNESIUM HYDROXIDE 2,400 MG/10 ML CUP PO PRN (09:00)
[2021-01-23 09:03] LABS: Glucose,Whole Blood 125 mg/dL (75-99)
--- NOTE | 2021-01-23 09:49 | P.PN ---
Subjective Progress Note Date: 01/23/21 Principal diagnosis: Coronary artery disease, status post coronary artery bypass grafting 65-year-old male in room 265. The patient is postop day #0, status post three- vessel bypass grafting. The surgery was done by Dr. Bond. Currently, the patient is on the ventilator. He is on the volume assist control mode, rate of 16, tidal volume 500, FiO2 percent, PEEP of 10. Initial blood gases showed a pO2 of 208, pCO2 of 51, and a pH is 7.31. Those blood gases were done on a rate of 12, PEEP of 10, and 100% FiO2. I increased her rate up to 16. Currently, the patient's on saline at 50 mL an hour, a nitroglycerin drip at 5 mcg/m, norepinephrine at 2 mcg/m, propofol at 40 mcg/kg/m, insulin at 4 units per hour, and Primacor 0.3 mcg/kg/m. The patient's chest x-ray is currently pending. Lab data includes a white count 10.5, hemoglobin 11.3, hematocrit 32.4, and a plat elet count of 92,000. PT was 12, INR 1.1, and PTT was 26. Sodium 136, potassium 4.5, chlorides 106, CO2 25, anion gap 5, BUN 18, and creatinine 0.94. The patient's magnesium was 2.7. The patient's chest x-ray show some pulmonary vascular congestion and post surgical changes. In addition to coronary artery disease, the patient's past medical history appears to include hypertension, and gout. The patient is seen today 01/23/2021 in follow-up in the intensive care unit. He did undergo coronary artery bypass grafting utilizing a COONEY sequentially to the LAD and diagonal artery, left radial artery to the first obtuse marginal artery. Postoperative day #1. He was successfully extubated 3 hours and 20 minutes following surgery. He is currently sitting up in a chair at the bedside. Awake and alert in no acute distress. He is maintaining good O2 saturation in low 90s on 3 L/m per nasal cannula. His 0.9 normal saline at 40 ML's per hour. Insulin drip at 3 units per hour. He is still on Primacor at 0.2 mcg/kg/m. Cardiac output 5.6. Cardiac index 2.4. PA pressure 20/12. White count 8.0. Hemoglobin 10.2. Platelet count 90,000. Sodium 135. Potassium 4.1. Creatinine 0.83. Glucose 129. AST is 50. ALT 23. Albumin 2.8. Chest x-ray reveals bilateral infiltrates and small effusions. Mediastinal chest tubes 2 with 110 mL serosanguineous drainage overnight, left pleural chest tube in place with 130 ML serosanguineous drainage overnight. He is working well with the in [employer]ve spirometer. Left IJ [place] catheter in place. Right radial arterial line in place. He remains on DuoNeb inhalations. Heparin for DVT prophylaxis. Objective - Vital Signs Vital signs: Vital Signs Temp 37.3 F L 01/23/21 08:00 Pulse 80 01/23/21 08:00 Resp 23 01/23/21 08:00 BP 102/51 01/23/21 08:00 Pulse Ox 97 01/23/21 08:00 Intake & Output 01/22/21 01/23/21 01/23/21 18:59 06:59 18:59 Intake Total 060.203 1274.336 350 Output Total 3685 1095 140 Balance -3090.554 188.336 210 Weight 115.5 kg Intake: IV 512.0 1105 350 Albumin Human 5% 250 ml 250 500 250 In Empty Bag 1 bag @ 250 mls/hr IVPB Q1HR PRN Rx#: [id number] Nitroglycerin-D5w Pmx 50 8.0 5 mg In Dextrose/Water 1 250ml.bag @ 5 MCG/MIN 1.5 mls/hr IV .Q24H AKASH Rx#: [id number] Sodium Chloride 0.9% 1, 150 600 100 000 ml @ 50 mls/hr IV . Q20H AKASH Rx#:[id number] Intake, IV Titration 82.446 178.336 Amount Insulin Regular 100 unit 4.410 38.557 In Sodium Chloride 0.9% 100 ml @ Per Protocol IV .Q0M AKASH Rx#:[id number] Milrinone-D5w Pmx 20 mg 139.779 In Dextrose/Water 1 100ml .bag @ 0.15 MCG/KG/MIN 5. 004 mls/hr IV .Q20H AKASH Rx#:[id number] Norepinephrine 4 mg In 21.324 Sodium Chloride 0.9% 250 ml @ 0.05 MCG/KG/MIN 21. 184 mls/hr IV .Q12H AKASH Rx#:[id number] propofoL 1,000 mg In 56.712 Empty Bag 1 bag @ Titrate IV .Q0M AKASH Rx#: [id number] Output: Chest Tube Drainage 350 325 70 Chest Tube Bilateral 180 210 20 Mediastinal Chest Tube Left Lateral 170 115 50 Chest Drainage 30 Left Arm 30 Urine 835 740 70 Estimated Blood Loss 2500 Other: Voiding Method Indwelling Catheter Indwelling Catheter ABP, PAP, CO, CI - Last Documented Arterial Blood Pressure 101/37 Pulmonary Artery Pressure 20/12 Cardiac Output 5.6 Cardiac Index 2.4 - Exam GENERAL EXAM: Alert, very pleasant 65-year-old gentleman, on 3 L nasal cannula, comfortable in no apparent distress. HEAD: Normocephalic. EYES: Normal reaction of pupils, equal size. NOSE: Clear with pink turbinates. THROAT: No erythema or exudates. NECK: IJ [place] catheter in place. No masses, no JVD. CHEST: Sternal dressing dry and intact. Heart however in place. Mediastinal chest tubes and left pleural chest tube in place LUNGS: Equal air entry with crackles in bilateral bases. CVS: S1 and S2 normal with no audible murmur, regular rhythm. ABDOMEN: No hepatosplenomegaly, normal bowel sounds, no guarding or rigidity. SPINE: No scoliosis or deformity SKIN: No rashes CENTRAL NERVOUS SYSTEM: Alert and oriented 3. No focal deficits, tone is normal in all 4 extremities. EXTREMITIES: Right radial arterial line in place. There is peripheral edema. No clubbing, no cyanosis. Peripheral pulses are intact. - Labs CBC & Chem 7: 01/23/21 03:55 01/23/21 03:55 Labs: Abnormal Lab Results - Last 24 Hours (Table) 01/16/21 01/22/21 01/22/21 Range/Units 09:00 12:47 15:54 RBC 3.39 L (4.30-5.90) m/uL Hgb 11.6 L D (13.0-17.5) gm/dL Hct 33.1 L (39.0-53.0) % Plt Count 102 L (150-450) k/uL Neutrophils # 8.5 H (1.3-7.7) k/uL Lymphocytes # 0.9 L (1.0-4.8) k/uL ABG pH (7.35-7.45) ABG pCO2 (35-45) mmHg ABG pO2 (83-108) mmHg ABG HCO3 (21-25) mmol/L ABG Total CO2 (19-24) mmol/L ABG O2 Saturation (94-97) % Sodium (137-145) mmol/L Glucose (74-99) mg/dL POC Glucose (mg/dL) 157 H (75-99) mg/dL Calcium (8.4-10.2) mg/dL Magnesium (1.6-2.3) mg/dL Total Protein (6.3-8.2) g/dL Albumin (3.5-5.0) g/dL Crossmatch See Detail 01/22/21 01/22/21 01/22/21 Range/Units 15:55 15:55 16:28 RBC 3.35 L (4.30-5.90) m/uL Hgb 11.3 L (13.0-17.5) gm/dL Hct 32.4 L (39.0-53.0) % Plt Count 92 L (150-450) k/uL Neutrophils # 8.6 H (1.3-7.7) k/uL Lymphocytes # (1.0-4.8) k/uL ABG pH 7.31 L (7.35-7.45) ABG pCO2 51 H (35-45) mmHg ABG pO2 208 H (83-108) mmHg ABG HCO3 26 H (21-25) mmol/L ABG Total CO2 27 H (19-24) mmol/L ABG O2 Saturation 100.0 H (94-97) % Sodium 136 L (137-145) mmol/L Glucose 140 H (74-99) mg/dL POC Glucose (mg/dL) (75-99) mg/dL Calcium 7.8 L (8.4-10.2) mg/dL Magnesium 2.7 H (1.6-2.3) mg/dL Total Protein 4.7 L (6.3-8.2) g/dL Albumin 2.7 L (3.5-5.0) g/dL Crossmatch 01/22/21 01/22/21 01/22/21 Range/Units 17:07 17:56 18:46 RBC (4.30-5.90) m/uL Hgb (13.0-17.5) gm/dL Hct (39.0-53.0) % Plt Count (150-450) k/uL Neutrophils # (1.3-7.7) k/uL Lymphocytes # (1.0-4.8) k/uL ABG pH (7.35-7.45) ABG pCO2 (35-45) mmHg ABG pO2 128 H (83-108) mmHg ABG HCO3 (21-25) mmol/L ABG Total CO2 26 H (19-24) mmol/L ABG O2 Saturation 99.3 H (94-97) % Sodium (137-145) mmol/L Glucose (74-99) mg/dL POC Glucose (mg/dL) 165 H 161 H (75-99) mg/dL Calcium (8.4-10.2) mg/dL Magnesium (1.6-2.3) mg/dL Total Protein (6.3-8.2) g/dL Albumin (3.5-5.0) g/dL Crossmatch 01/22/21 01/22/21 01/22/21 Range/Units 18:55 19:30 20:01 RBC 3.17 L (4.30-5.90) m/uL Hgb 11.0 L (13.0-17.5) gm/dL Hct 30.5 L (39.0-53.0) % Plt Count 89 L (150-450) k/uL Neutrophils # (1.3-7.7) k/uL Lymphocytes # (1.0-4.8) k/uL ABG pH (7.35-7.45) ABG pCO2 (35-45) mmHg ABG pO2 (83-108) mmHg ABG HCO3 (21-25) mmol/L ABG Total CO2 (19-24) mmol/L ABG O2 Saturation (94-97) % Sodium (137-145) mmol/L Glucose (74-99) mg/dL POC Glucose (mg/dL) 149 H 148 H (75-99) mg/dL Calcium (8.4-10.2) mg/dL Magnesium (1.6-2.3) mg/dL Total Protein (6.3-8.2) g/dL Albumin (3.5-5.0) g/dL Crossmatch 01/22/21 01/22/21 01/22/21 Range/Units 21:04 22:04 22:54 RBC (4.30-5.90) m/uL Hgb (13.0-17.5) gm/dL Hct (39.0-53.0) % Plt Count (150-450) k/uL Neutrophils # (1.3-7.7) k/uL Lymphocytes # (1.0-4.8) k/uL ABG pH (7.35-7.45) ABG pCO2 (35-45) mmHg ABG pO2 (83-108) mmHg ABG HCO3 (21-25) mmol/L ABG Total CO2 (19-24) mmol/L ABG O2 Saturation (94-97) % Sodium (137-145) mmol/L Glucose (74-99) mg/dL POC Glucose (mg/dL) 139 H 138 H 144 H (75-99) mg/dL Calcium (8.4-10.2) mg/dL Magnesium (1.6-2.3) mg/dL Total Protein (6.3-8.2) g/dL Albumin (3.5-5.0) g/dL Crossmatch 01/23/21 01/23/21 01/23/21 Range/Units 00:08 01:06 02:09 RBC (4.30-5.90) m/uL Hgb (13.0-17.5) gm/dL Hct (39.0-53.0) % Plt Count (150-450) k/uL Neutrophils # (1.3-7.7) k/uL Lymphocytes # (1.0-4.8) k/uL ABG pH (7.35-7.45) ABG pCO2 (35-45) mmHg ABG pO2 (83-108) mmHg ABG HCO3 (21-25) mmol/L ABG Total CO2 (19-24) mmol/L ABG O2 Saturation (94-97) % Sodium (137-145) mmol/L Glucose (74-99) mg/dL POC Glucose (mg/dL) 141 H 141 H 135 H (75-99) mg/dL Calcium (8.4-10.2) mg/dL Magnesium (1.6-2.3) mg/dL Total Protein (6.3-8.2) g/dL Albumin (3.5-5.0) g/dL Crossmatch 01/23/21 01/23/21 01/23/21 Range/Units 03:00 03:54 03:55 RBC 3.01 L (4.30-5.90) m/uL Hgb 10.2 L (13.0-17.5) gm/dL Hct 28.6 L (39.0-53.0) % Plt Count 90 L (150-450) k/uL Neutrophils # (1.3-7.7) k/uL Lymphocytes # (1.0-4.8) k/uL ABG pH (7.35-7.45) ABG pCO2 (35-45) mmHg ABG pO2 (83-108) mmHg ABG HCO3 (21-25) mmol/L ABG Total CO2 (19-24) mmol/L ABG O2 Saturation (94-97) % Sodium (137-145) mmol/L Glucose (74-99) mg/dL POC Glucose (mg/dL) 133 H 129 H (75-99) mg/dL Calcium (8.4-10.2) mg/dL Magnesium (1.6-2.3) mg/dL Total Protein (6.3-8.2) g/dL Albumin (3.5-5.0) g/dL Crossmatch 01/23/21 01/23/21 01/23/21 Range/Units 03:55 05:25 06:58 RBC (4.30-5.90) m/uL Hgb (13.0-17.5) gm/dL Hct (39.0-53.0) % Plt Count (150-450) k/uL Neutrophils # (1.3-7.7) k/uL Lymphocytes # (1.0-4.8) k/uL ABG pH (7.35-7.45) ABG pCO2 (35-45) mmHg ABG pO2 (83-108) mmHg ABG HCO3 (21-25) mmol/L ABG Total CO2 (19-24) mmol/L ABG O2 Saturation (94-97) % Sodium 135 L (137-145) mmol/L Glucose 124 H (74-99) mg/dL POC Glucose (mg/dL) 135 H 133 H (75-99) mg/dL Calcium 8.0 L (8.4-10.2) mg/dL Magnesium 2.5 H (1.6-2.3) mg/dL Total Protein 4.8 L (6.3-8.2) g/dL Albumin 2.8 L (3.5-5.0) g/dL Crossmatch 01/23/21 Range/Units 09:02 RBC (4.30-5.90) m/uL Hgb (13.0-17.5) gm/dL Hct (39.0-53.0) % Plt Count (150-450) k/uL Neutrophils # (1.3-7.7) k/uL Lymphocytes # (1.0-4.8) k/uL ABG pH (7.35-7.45) ABG pCO2 (35-45) mmHg ABG pO2 (83-108) mmHg ABG HCO3 (21-25) mmol/L ABG Total CO2 (19-24) mmol/L ABG O2 Saturation (94-97) % Sodium (137-145) mmol/L Glucose (74-99) mg/dL POC Glucose (mg/dL) 125 H (75-99) mg/dL Calcium (8.4-10.2) mg/dL Magnesium (1.6-2.3) mg/dL Total Protein (6.3-8.2) g/dL Albumin (3.5-5.0) g/dL Crossmatch Assessment and Plan Assessment: 1 Coronary artery disease status post coronary artery bypass grafting 3 utilizing a COONEY sequentially to the LAD and diagonal, left radial artery to the first obtuse marginal. Postoperative day #1 2 Previous history of myocardial infarction with moderate left ventricular systolic dysfunction 3 History of systolic congestive heart failure 4 Hypertension 5 Hyperlipidemia 6 Obesity 7 History of chronic tobacco dependence up to 6 months ago Plan: The patient was seen and evaluated Chest x-ray and labs reviewed Encourage increased use of the incentive spirometer Titrate the FiO2 as tolerated Increase his activity as tolerated Titrate the insulin drip and Primacor as tolerated Follow-up chest x-ray in the a.m. We will continue to follow and make further recommendations based on his clinical status I, the cosigning physician, performed a history & physical examination of the patient. Lungs sounds with crackles in the posterior bases. Maintaining good O2 saturations in the 90s on 3 liters per minute per nasal cannula. I discussed the assessment and plan of care with my nurse practitioner, Shalini Gordon. I attest to the above note as dictated by her.
[2021-01-23] MEDS: ASPIRIN 81 MG PO SCH (09:52)
[2021-01-23] MEDS: ATORVASTATIN 40 MG TAB PO SCH (09:52)
[2021-01-23] MEDS: HEPARIN SODIUM,PORCINE/PF 5,000 UNIT/0.5 ML SYRINGE SQ SCH ×2 (09:52→16:44)
[2021-01-23] MEDS: CLOPIDOGREL 75 MG TAB PO SCH (09:52)
[2021-01-23] MEDS: MULTIVITAMINS, THERA 1 EACH TAB PO SCH (09:52)
[2021-01-23] MEDS: carvediloL 3.125 MG TAB PO SCH ×2 (09:55→17:36)
[2021-01-23 11:22] LABS: Glucose,Whole Blood 124 mg/dL (75-99)
[2021-01-23] MEDS ORDERED: amLODIPine 2.5 MG TAB PO SCH (11:45)
--- NOTE | 2021-01-23 11:46 | PN ---
PROGRESS NOTE Mr. Pitts is a 65-year-old male who underwent coronary artery bypass grafting yesterday. He is extubated, sitting up in the chair, in sinus mechanism with underlying sinus bradycardia, being paced. Hemodynamically there is no evidence of malignant arrhythmia. He has good urine output. He continues to be on aspirin once a day, Lipitor 40 mg daily, Plavix 75 mg daily, metoprolol tartrate 12.5 mg twice a day. PHYSICAL EXAMINATION: Blood pressure is running in the low 100s with a heart rate in the 70s. Lungs with mild crackles at the bases. HEART: Regular rate and rhythm. S1, S2. No S3, with a rub appreciated. No gallop. Abdomen soft, non-tender. Positive bowel sounds. Extremities: Stan wrapping in place. Extremities: No significant edema. LAB DATA: Lab data revealed a hemoglobin 10.2, BUN and creatinine of 15 and 0.83, potassium 4.1. IMPRESSION: 1. Status post coronary bypass grafting, stable. 2. Sinus bradycardia, being paced. 3. History of cardiomyopathy. RECOMMENDATIONS: From the cardiac standpoint, will continue present therapy, increase his activity gradually depending on his blood pressure, then I will add his STAN inhibitor. Depending on his progress, further recommendations will be made. MMODL / IJN: [id number] /
[2021-01-23 12:51] LABS: Glucose,Whole Blood 136 mg/dL (75-99)
[2021-01-23 13:41] VITALS: BMI 34.5
[2021-01-23 14:05] LABS: Glucose,Whole Blood 128 mg/dL (75-99)
--- NOTE | 2021-01-23 14:38 | P.PN ---
Subjective Progress Note Date: 01/23/21 This is a pleasant 65-year-old male who was recently admitted with coronary artery disease and underwent coronary artery bypass grafting with Dr. Bond. Patient continues to be closely monitored in the ICU and continues with chest tubes and pacemaker in place. Patient was successfully extubated yesterday and maintained on 3 L of oxygen via nasal cannula. Incentive spirometer at the bedside and instructed and encouraged the patient to use at least 10 times every hour while awake. Patient also continues on insulin drip per protocol and once tolerating more diet we'll transition to sliding scale and Accu-Cheks. Patient also continues on amiodarone and cardiology following closely as well. Patient is currently sitting up in the chair and will continue to work with physical therapy daily. Heart hugger noted. Review of systems: Constitutional: reports of fatigue, no reports of fever, or chills Cardiovascular:reports of chest wall pain and tenderness Respiratory: reports of mild shortness of breath and dry cough GI: No reports of nausea, vomiting, or diarrhea : No reports of dysuria or retention, currently with indwelling Grant catheter Neurovascular: Reports of generalized weakness All medications have been reviewed Active Medications Hydrocodone Bitart/Acetaminophen (Hydrocodone/Apap 5-325mg 1 Each Tab) 2 each PO Q4HR PRN PRN Reason: Severe Pain Last Admin: 01/23/21 11:03 Dose: 2 each Documented by: Hydrocodone Bitart/Acetaminophen (Hydrocodone/Apap 5-325mg 1 Each Tab) 1 each PO Q4HR PRN PRN Reason: Moderate Pain Albuterol/Ipratropium (Ipratropium-Albuterol 3 Ml Neb) 3 ml INHALATION RT-Q2H PRN PRN Reason: Shortness Of Breath Or Wheezing Albuterol/Ipratropium (Ipratropium-Albuterol 3 Ml Neb) 3 ml INHALATION RT-QID [facility] Last Admin: 01/23/21 11:29 Dose: 3 ml Documented by: Amlodipine Besylate (Amlodipine 2.5 Mg Tab) 2.5 mg PO DAILY [facility] Last Admin: 01/23/21 12:41 Dose: 2.5 mg Documented by: Aspirin (Aspirin 81 Mg) 81 mg PO DAILY [facility] Last Admin: 01/23/21 09:52 Dose: 81 mg Documented by: Atorvastatin Calcium (Atorvastatin 40 Mg Tab) 40 mg PO DAILY [facility] Last Admin: 01/23/21 09:52 Dose: 40 mg Documented by: Benzocaine/Menthol (Benzocaine/Menthol Lozeng 1 Each Lozenge) 1 each MUCOUS MEM Q2H PRN PRN Reason: Sore Throat Bisacodyl (Bisacodyl 10 Mg Supp) 10 mg RECTAL DAILY PRN PRN Reason: Constipation Carvedilol (Carvedilol 3.125 Mg Tab) 3.125 mg PO BID-W/MEALS [facility] Last Admin: 01/23/21 09:55 Dose: 3.125 mg Documented by: Clopidogrel Bisulfate (Clopidogrel 75 Mg Tab) 75 mg PO DAILY [facility] Last Admin: 01/23/21 09:52 Dose: 75 mg Documented by: Heparin Sodium (Porcine) (Heparin Sodium,Porcine/Pf 5,000 Unit/0.5 Ml Syringe) 5,000 unit SQ Q8HR [facility] Last Admin: 01/23/21 09:52 Dose: 5,000 unit Documented by: Amiodarone HCl 150 mg/ (Dextrose/Water) 103 mls @ 618 mls/hr IV .Q10M PRN; Protocol PRN Reason: A.FIB/FLUTTER Amiodarone HCl 360 mg/ (Dextrose/Water) 207.2 mls @ 34.533 mls/hr IV .Q6H PRN; Protocol PRN Reason: A.FIB/FLUTTER Amiodarone HCl 450 mg/ (Dextrose/Water) 250 mls @ 16.667 mls/hr IV .Q15H PRN; Protocol PRN Reason: A.FIB/FLUTTER Albumin Human 250 ml/ IV (Solution) 250 mls @ 250 mls/hr IVPB Q1HR PRN; Protocol PRN Reason: For Volume Stop: 01/24/21 14:41 Last Admin: 01/23/21 07:09 Dose: 250 mls/hr Documented by: Insulin Human Regular 100 unit (/ Sodium Chloride) 101 mls @ 0 mls/hr IV .Q0M [facility]; Protocol Last Titration: 01/23/21 03:59 Dose: 3 unit/hr, 3.03 mls/hr Documented by: Sodium Chloride (Saline 0.9%) 1,000 mls @ 20 mls/hr IV .Q24H [facility] Last Admin: 01/22/21 15:30 Dose: 50 mls/hr Documented by: Magnesium Hydroxide (Magnesium Hydroxide 2,400 Mg/10 Ml Cup) 2,400 mg PO BID PRN PRN Reason: Constipation Metoclopramide HCl (Metoclopramide 5 Mg/Ml 2 Ml Vial) 10 mg IVP Q4H PRN PRN Reason: Nausea And Vomiting Miscellaneous Information (Potassium Replacement Protocol 1 Each Misc) 1 each MISCELLANE DAILY PRN; Protocol PRN Reason: Per Protocol Miscellaneous Information (Magnesium Replacement Protocol 1 Each Misc) 1 each MISCELLANE DAILY PRN; Protocol PRN Reason: Per Protocol Miscellaneous Information (Phosphorus Replacement Protoco 1 Each Misc) 1 each MISCELLANE DAILY PRN; Protocol PRN Reason: Per Protocol Multivitamins (Multivitamins, Thera 1 Each Tab) 1 each PO DAILY [facility] Last Admin: 01/23/21 09:52 Dose: 1 each Documented by: Ondansetron HCl (Ondansetron 4 Mg/2 Ml Vial) 4 mg IVP Q6HR PRN PRN Reason: Nausea And Vomiting Last Admin: 01/23/21 02:00 Dose: 4 mg Documented by: Pantoprazole Sodium (Pantoprazole 40 Mg Tablet) 40 mg PO AC-BRKFST [facility] Senna/Docusate Sodium (Sennosides-Docusate Sodium 1 Each Tab) 2 each PO HS [facility] Sodium Chloride (Sodium Chloride 0.9% Flush 10 Ml Syringe) 10 ml IV BID [facility] Last Admin: 01/23/21 09:56 Dose: 10 ml Documented by: Physical Exam: Gen: This is a 65-year-old male currently sitting up in the chair awake, alert and oriented 3, well-developed, well-nourished. Pulse is 80, respirations are 23, blood pressure is 102/51, arterial blood pressure is 101/37, oxygen is 97% on 3 L via nasal cannula HEENT: Head is atraumatic, normocephalic. Pupils equal, round. Sclerae is anicteric. NECK: Supple. No JVD. No lymphadenopathy. No thyromegaly. LUNGS: Diminished breath sounds with some scattered rhonchi noted, no wheezing noted. No intercostal retractions noted HEART: S1, S2 are muffled ABDOMEN: Soft. Obese. Bowel sounds are present. No masses. No tenderness. EXTREMITIES: No pedal edema. No calf tenderness. Bilateral SCDs noted NEUROLOGICAL: Patient is awake, alert and oriented x3. Cranial nerves 2 through 12 are grossly intact. Diffusely weak Assessment: Coronary artery disease, status post coronary artery bypass grafting History of ischemic cardiomyopathy History of chronic congestive heart failure with chronic systolic dysfunction, EF 35-40% History of chronic venostasis History of hearing defects hypertension history of myocardial infarction History of prostate disorder History of benign prostatic hypertrophy history of hernia repair surgery History of gout History of appendectomy history of nicotine dependence Full code Plan: reCommend to continue current medications, management, and symptomatic treatment. Patient continues on insulin drip per protocol and recommend continuing with Accu-Cheks and sliding scale once transitioned off insulin drip. Patient is tolerating diet although prefers soup and soft meals. Patient denies any history of diabetes and states there is a strong familial history of this, most recent hemoglobin A1c is 5.5. Patient states he feels exhausted and will continue working with physical therapy. Patient currently sitting up in the chair and encourage the patient to elevate lower extremities while at rest. Encourage increase activity as tolerated and also strongly encouraged incentive spirometer use at least 10 times every hour while awake. Recommend repeat labs in the morning and will continue to follow along closely. Due to multiple complex medical issues, prognosis is guarded. Thank you for this consultation. Objective - Vital Signs Vital signs: Vital Signs Temp 37.3 F L 01/23/21 08:00 Pulse 80 01/23/21 09:00 Resp 21 01/23/21 09:00 BP 102/51 01/23/21 09:00 Pulse Ox 95 01/23/21 09:00 Intake & Output 01/22/21 01/23/21 01/23/21 18:59 06:59 18:59 Intake Total 173.834 0558.336 400 Output Total 3685 1095 180 Balance -3090.554 188.336 220 Weight 115.5 kg Intake: IV 512.0 1105 400 Albumin Human 5% 250 ml 250 500 250 In Empty Bag 1 bag @ 250 mls/hr IVPB Q1HR PRN Rx#: [id number] Nitroglycerin-D5w Pmx 50 8.0 5 mg In Dextrose/Water 1 250ml.bag @ 5 MCG/MIN 1.5 mls/hr IV .Q24H [facility] Rx#: [id number] Sodium Chloride 0.9% 1, 150 600 150 000 ml @ 50 mls/hr IV . Q20H [facility] Rx#:[id number] Intake, IV Titration 82.446 178.336 Amount Insulin Regular 100 unit 4.410 38.557 In Sodium Chloride 0.9% 100 ml @ Per Protocol IV .Q0M [facility] Rx#:[id number] Milrinone-D5w Pmx 20 mg 139.779 In Dextrose/Water 1 100ml .bag @ 0.15 MCG/KG/MIN 5. 004 mls/hr IV .Q20H [facility] Rx#:[id number] Norepinephrine 4 mg In 21.324 Sodium Chloride 0.9% 250 ml @ 0.05 MCG/KG/MIN 21. 184 mls/hr IV .Q12H [facility] Rx#:[id number] propofoL 1,000 mg In 56.712 Empty Bag 1 bag @ Titrate IV .Q0M [facility] Rx#: [id number] Output: Chest Tube Drainage 350 325 110 Chest Tube Bilateral 180 210 40 Mediastinal Chest Tube Left Lateral 170 115 70 Chest Drainage 30 Left Arm 30 Urine 835 740 70 Estimated Blood Loss 2500 Other: Voiding Method Indwelling Catheter Indwelling Catheter ABP, PAP, CO, CI - Last Documented Arterial Blood Pressure 101/37 Pulmonary Artery Pressure 20/12 Cardiac Output 5.6 Cardiac Index 2.4 - Labs CBC & Chem 7: 01/23/21 03:55 01/23/21 03:55 Labs: Abnormal Lab Results - Last 24 Hours (Table) 01/16/21 01/22/21 01/22/21 Range/Units 09:00 12:47 15:54 RBC 3.39 L (4.30-5.90) m/uL Hgb 11.6 L D (13.0-17.5) gm/dL Hct 33.1 L (39.0-53.0) % Plt Count 102 L (150-450) k/uL Neutrophils # 8.5 H (1.3-7.7) k/uL Lymphocytes # 0.9 L (1.0-4.8) k/uL ABG pH (7.35-7.45) ABG pCO2 (35-45) mmHg ABG pO2 (83-108) mmHg ABG HCO3 (21-25) mmol/L ABG Total CO2 (19-24) mmol/L ABG O2 Saturation (94-97) % Sodium (137-145) mmol/L Glucose (74-99) mg/dL POC Glucose (mg/dL) 157 H (75-99) mg/dL Calcium (8.4-10.2) mg/dL Magnesium (1.6-2.3) mg/dL Total Protein (6.3-8.2) g/dL Albumin (3.5-5.0) g/dL Crossmatch See Detail 01/22/21 01/22/21 01/22/21 Range/Units 15:55 15:55 16:28 RBC 3.35 L (4.30-5.90) m/uL Hgb 11.3 L (13.0-17.5) gm/dL Hct 32.4 L (39.0-53.0) % Plt Count 92 L (150-450) k/uL Neutrophils # 8.6 H (1.3-7.7) k/uL Lymphocytes # (1.0-4.8) k/uL ABG pH 7.31 L (7.35-7.45) ABG pCO2 51 H (35-45) mmHg ABG pO2 208 H (83-108) mmHg ABG HCO3 26 H (21-25) mmol/L ABG Total CO2 27 H (19-24) mmol/L ABG O2 Saturation 100.0 H (94-97) % Sodium 136 L (137-145) mmol/L Glucose 140 H (74-99) mg/dL POC Glucose (mg/dL) (75-99) mg/dL Calcium 7.8 L (8.4-10.2) mg/dL Magnesium 2.7 H (1.6-2.3) mg/dL Total Protein 4.7 L (6.3-8.2) g/dL Albumin 2.7 L (3.5-5.0) g/dL Crossmatch 01/22/21 01/22/21 01/22/21 Range/Units 17:07 17:56 18:46 RBC (4.30-5.90) m/uL Hgb (13.0-17.5) gm/dL Hct (39.0-53.0) % Plt Count (150-450) k/uL Neutrophils # (1.3-7.7) k/uL Lymphocytes # (1.0-4.8) k/uL ABG pH (7.35-7.45) ABG pCO2 (35-45) mmHg ABG pO2 128 H (83-108) mmHg ABG HCO3 (21-25) mmol/L ABG Total CO2 26 H (19-24) mmol/L ABG O2 Saturation 99.3 H (94-97) % Sodium (137-145) mmol/L Glucose (74-99) mg/dL POC Glucose (mg/dL) 165 H 161 H (75-99) mg/dL Calcium (8.4-10.2) mg/dL Magnesium (1.6-2.3) mg/dL Total Protein (6.3-8.2) g/dL Albumin (3.5-5.0) g/dL Crossmatch 01/22/21 01/22/21 01/22/21 Range/Units 18:55 19:30 20:01 RBC 3.17 L (4.30-5.90) m/uL Hgb 11.0 L (13.0-17.5) gm/dL Hct 30.5 L (39.0-53.0) % Plt Count 89 L (150-450) k/uL Neutrophils # (1.3-7.7) k/uL Lymphocytes # (1.0-4.8) k/uL ABG pH (7.35-7.45) ABG pCO2 (35-45) mmHg ABG pO2 (83-108) mmHg ABG HCO3 (21-25) mmol/L ABG Total CO2 (19-24) mmol/L ABG O2 Saturation (94-97) % Sodium (137-145) mmol/L Glucose (74-99) mg/dL POC Glucose (mg/dL) 149 H 148 H (75-99) mg/dL Calcium (8.4-10.2) mg/dL Magnesium (1.6-2.3) mg/dL Total Protein (6.3-8.2) g/dL Albumin (3.5-5.0) g/dL Crossmatch 01/22/21 01/22/21 01/22/21 Range/Units 21:04 22:04 22:54 RBC (4.30-5.90) m/uL Hgb (13.0-17.5) gm/dL Hct (39.0-53.0) % Plt Count (150-450) k/uL Neutrophils # (1.3-7.7) k/uL Lymphocytes # (1.0-4.8) k/uL ABG pH (7.35-7.45) ABG pCO2 (35-45) mmHg ABG pO2 (83-108) mmHg ABG HCO3 (21-25) mmol/L ABG Total CO2 (19-24) mmol/L ABG O2 Saturation (94-97) % Sodium (137-145) mmol/L Glucose (74-99) mg/dL POC Glucose (mg/dL) 139 H 138 H 144 H (75-99) mg/dL Calcium (8.4-10.2) mg/dL Magnesium (1.6-2.3) mg/dL Total Protein (6.3-8.2) g/dL Albumin (3.5-5.0) g/dL Crossmatch 01/23/21 01/23/21 01/23/21 Range/Units 00:08 01:06 02:09 RBC (4.30-5.90) m/uL Hgb (13.0-17.5) gm/dL Hct (39.0-53.0) % Plt Count (150-450) k/uL Neutrophils # (1.3-7.7) k/uL Lymphocytes # (1.0-4.8) k/uL ABG pH (7.35-7.45) ABG pCO2 (35-45) mmHg ABG pO2 (83-108) mmHg ABG HCO3 (21-25) mmol/L ABG Total CO2 (19-24) mmol/L ABG O2 Saturation (94-97) % Sodium (137-145) mmol/L Glucose (74-99) mg/dL POC Glucose (mg/dL) 141 H 141 H 135 H (75-99) mg/dL Calcium (8.4-10.2) mg/dL Magnesium (1.6-2.3) mg/dL Total Protein (6.3-8.2) g/dL Albumin (3.5-5.0) g/dL Crossmatch 01/23/21 01/23/21 01/23/21 Range/Units 03:00 03:54 03:55 RBC 3.01 L (4.30-5.90) m/uL Hgb 10.2 L (13.0-17.5) gm/dL Hct 28.6 L (39.0-53.0) % Plt Count 90 L (150-450) k/uL Neutrophils # (1.3-7.7) k/uL Lymphocytes # (1.0-4.8) k/uL ABG pH (7.35-7.45) ABG pCO2 (35-45) mmHg ABG pO2 (83-108) mmHg ABG HCO3 (21-25) mmol/L ABG Total CO2 (19-24) mmol/L ABG O2 Saturation (94-97) % Sodium (137-145) mmol/L Glucose (74-99) mg/dL POC Glucose (mg/dL) 133 H 129 H (75-99) mg/dL Calcium (8.4-10.2) mg/dL Magnesium (1.6-2.3) mg/dL Total Protein (6.3-8.2) g/dL Albumin (3.5-5.0) g/dL Crossmatch 01/23/21 01/23/21 01/23/21 Range/Units 03:55 05:25 06:58 RBC (4.30-5.90) m/uL Hgb (13.0-17.5) gm/dL Hct (39.0-53.0) % Plt Count (150-450) k/uL Neutrophils # (1.3-7.7) k/uL Lymphocytes # (1.0-4.8) k/uL ABG pH (7.35-7.45) ABG pCO2 (35-45) mmHg ABG pO2 (83-108) mmHg ABG HCO3 (21-25) mmol/L ABG Total CO2 (19-24) mmol/L ABG O2 Saturation (94-97) % Sodium 135 L (137-145) mmol/L Glucose 124 H (74-99) mg/dL POC Glucose (mg/dL) 135 H 133 H (75-99) mg/dL Calcium 8.0 L (8.4-10.2) mg/dL Magnesium 2.5 H (1.6-2.3) mg/dL Total Protein 4.8 L (6.3-8.2) g/dL Albumin 2.8 L (3.5-5.0) g/dL Crossmatch 01/23/21 Range/Units 09:02 RBC (4.30-5.90) m/uL Hgb (13.0-17.5) gm/dL Hct (39.0-53.0) % Plt Count (150-450) k/uL Neutrophils # (1.3-7.7) k/uL Lymphocytes # (1.0-4.8) k/uL ABG pH (7.35-7.45) ABG pCO2 (35-45) mmHg ABG pO2 (83-108) mmHg ABG HCO3 (21-25) mmol/L ABG Total CO2 (19-24) mmol/L ABG O2 Saturation (94-97) % Sodium (137-145) mmol/L Glucose (74-99) mg/dL POC Glucose (mg/dL) 125 H (75-99) mg/dL Calcium (8.4-10.2) mg/dL Magnesium (1.6-2.3) mg/dL Total Protein (6.3-8.2) g/dL Albumin (3.5-5.0) g/dL Crossmatch
[2021-01-23] MEDS: INSULIN REGULAR 100 UNIT in SODIUM CHLORIDE 0.9% 100 ML IV SCH (15:10)
[2021-01-23 16:47] LABS: Glucose,Whole Blood 133 mg/dL (75-99)
[2021-01-23] MEDS: DEXTROSE 5% IN WATER 100 ML with AMIODARONE 150 MG IV PRN ×4 (17:17→19:57)
[2021-01-23 18:37] LABS: Glucose,Whole Blood 182 mg/dL (75-99)
[2021-01-23 19:26] LABS: Glucose,Whole Blood 173 mg/dL (75-99)
[2021-01-23] MEDS ORDERED: DIGOXIN 250 MCG/ML 2 ML AMP IVP STA (20:04)
[2021-01-23] MEDS ORDERED: PHENYLEPHRINE 40 MG in SODIUM CHLORIDE 0.9% 250 ML IV SCH (20:15)
[2021-01-23] MEDS: SENNOSIDES-DOCUSATE SODIUM 1 EACH TAB PO SCH (20:37)
[2021-01-23 20:50] LABS: Glucose,Whole Blood 166 mg/dL (75-99)
[2021-01-23 22:04] LABS: Glucose,Whole Blood 147 mg/dL (75-99)
[2021-01-23 22:59] LABS: Glucose,Whole Blood 140 mg/dL (75-99)
[2021-01-24 00:12] LABS: Glucose,Whole Blood 128 mg/dL (75-99)
[2021-01-24] MEDS: HEPARIN SODIUM,PORCINE/PF 5,000 UNIT/0.5 ML SYRINGE SQ SCH ×3 (00:54→17:00)
[2021-01-24 01:09] LABS: Glucose,Whole Blood 124 mg/dL (75-99)
[2021-01-24 02:09] LABS: Glucose,Whole Blood 124 mg/dL (75-99)
[2021-01-24 03:04] LABS: Glucose,Whole Blood 130 mg/dL (75-99)
[2021-01-24 04:01] LABS: Glucose,Whole Blood 126 mg/dL (75-99)
[2021-01-24 04:17] LABS: Basophils % (A) 0 %; Eosinophils % (A) 0 %; HCT 27.5 % (39.0-53.0); HGB 9.9 gm/dL (13.0-17.5); Lymphocytes # (A) 1.3 k/uL (1.0-4.8); Lymphocytes % (A) 13 %; MCH 34.4 pg (25.0-35.0); MCHC 35.8 g/dL (31.0-37.0); Monocytes # (A) 0.6 k/uL (0-1.0); Monocytes % (A) 6 %; Neutrophils % (A) 79 %; RBC 2.86 m/uL (4.30-5.90); RDW 14.8 % (11.5-15.5); WBC 10.1 k/uL (3.8-10.6)
[2021-01-24 04:20] LABS: Platelet Count 91 k/uL (150-450)
[2021-01-24] MEDS: SODIUM CHLORIDE 0.9% 1,000 ML IV SCH (04:33)
[2021-01-24 04:53] LABS: Ionized Calcium 4.8 mg/dL (4.5-5.3)
[2021-01-24 05:02] LABS: ALT 70 U/L (4-49); AST 123 U/L (17-59); African American GFR (CKD) >90 (>60 ml/min/1.73 sqM); Albumin 3.7 g/dL (3.5-5.0); Alkaline Phosphatase 36 U/L (38-126); Anion Gap 8 mmol/L; Blood Urea Nitrogen 20 mg/dL (9-20); Calcium 8.5 mg/dL (8.4-10.2); Carbon Dioxide 21 mmol/L (22-30); Chloride 102 mmol/L (98-107); Glucose 121 mg/dL (74-99); Non-African American GFR(CKD) 80 (>60 ml/min/1.73 sqM); Sodium 131 mmol/L (137-145); Total Bilirubin 1.3 mg/dL (0.2-1.3); Total Protein 5.7 g/dL (6.3-8.2)
[2021-01-24 05:07] LABS: Glucose,Whole Blood 123 mg/dL (75-99)
[2021-01-24] MEDS: HYDROcodone/APAP 5-325MG 1 EACH TAB PO PRN (05:46)
[2021-01-24 06:20] LABS: Glucose,Whole Blood 125 mg/dL (75-99)
--- NOTE | 2021-01-24 07:00 | XR ---
EXAMINATION TYPE: XR chest 1V portable DATE OF EXAM: 01/24/2021 CLINICAL HISTORY: Postoperative cardiac surgery. TECHNIQUE: Single AP portable semiupright view of the chest is obtained. COMPARISON: Chest x-ray from one day earlier and older studies. FINDINGS: Interval removal of left internal jugular [place] catheter. Cordis sheath remains presen t. Persistent left basilar chest tube. There are 2 mediastinal drainage catheters redemonstrated. Ove rlying sternal wires and mediastinal clips along with left atrial appendage clip all redemonstrated. Persistent low lung volumes with increasing central vascular congestion and bibasilar opacities. Back ground cardiomegaly. No visualized pneumothorax. Osseous structures are intact. IMPRESSION: Worsening central vascular congestion and likely small to tiny bilateral pleural effusion s on background low lung volumes.
[2021-01-24 07:24] LABS: Glucose,Whole Blood 116 mg/dL (75-99)
[2021-01-24] MEDS: PANTOPRAZOLE 40 MG TABLET PO SCH (07:41)
--- NOTE | 2021-01-24 07:55 | P.PN ---
Subjective Progress Note Date: 01/24/21 Principal diagnosis: Triple-vessel coronary artery disease with totally occluded right coronary artery. Previous medical history of inferior wall myocardial infarction with moderate left ventricular dysfunction, chronic systolic congestive heart failure, hypertension, hyperlipidemia, obesity, previous tobacco dependence, mild restrictive lung disease, lower extremity chronic edema with laser ablation of both greater saphenous veins, BPH, remote history of pneumonia, family history of coronary artery disease, preoperative thrombocytopenia, incomplete vaccination against Covid with first dose Moderna vaccine 01/02/21 POD #2 all arterial triple coronary artery bypass grafting using the left internal mammary artery in a sequential fashion to the diagonal artery side to s caryn, then to the left anterior descending artery end-to-side, left radial artery from the aorta to the first obtuse marginal artery, exclusion of the left atrial appendage using a 35 mm AtriClip, endoscopic harvesting of the left radial artery, intraoperative transesophageal echocardiogram and epi-aortic scanning, intraoperative graft flow measurements using the [employer] system Postoperative acute blood loss anemia and thrombocytopenia, expected given hemodilution and preoperative thrombocytopenia Postoperative atrial fibrillation, known common occurrence after open heart surgery The patient was seen and examined this morning sitting up in a recliner in the intensive care unit in no acute distress. States post surgical pain is controlled on current medication regimen, denies shortness of breath. Currently in NSR, went into afib RVR yesterday with hypotension, received fluid bolus, a miodarone, IV digoxin and started on IV henrik. Currently normotensive off henrik. Left internal jugular Cordis, right radial arterial line, mediastinal/left pleural chest tubes all remain present. Ambulated in the hallway yesterday without difficulty Objective - Vital Signs Vital signs: Vital Signs Temp 98.4 F 01/24/21 04:00 Pulse 75 01/24/21 07:30 Resp 25 H 01/24/21 07:30 BP 122/64 01/24/21 07:30 Pulse Ox 96 01/24/21 07:30 Intake & Output 01/23/21 01/24/21 01/24/21 18:59 06:59 18:59 Intake Total 3610.133 4540.372 57.692 Output Total 565 478 65 Balance 1048.156 910.372 -7.308 Weight 115.5 kg 117.4 kg Intake: IV 1020 1267.4 52.6 Albumin Human 5% 250 ml 500 500 In Empty Bag 1 bag @ 250 mls/hr IVPB Q1HR PRN Rx#: [id number] Amiodarone 0.5mg 116.2 16.6 Amiodarone 1mg 133.2 Amiodarone Bolus 150 Calcium Gluconate 1 gm In 100 Sodium Chloride 0.9% 100 ml @ 100 mls/hr IVPB ONCE ONE Rx#:[id number] Pressure bag 48 6 Sodium Chloride 0.9% 1, 420 320 30 000 ml @ 20 mls/hr IV . Q24H [facility] Rx#:[id number] Intake, IV Titration 93.156 120.972 5.092 Amount Insulin Regular 100 unit 43.227 70.659 5.092 In Sodium Chloride 0.9% 100 ml @ Per Protocol IV .Q0M [facility] Rx#:[id number] Milrinone-D5w Pmx 20 mg 49.929 In Dextrose/Water 1 100ml .bag @ 0.15 MCG/KG/MIN 5. 004 mls/hr IV .Q20H [facility] Rx#:[id number] Phenylephrine 40 mg In 50.313 Sodium Chloride 0.9% 250 ml @ 0.1 MCG/KG/MIN 4.401 mls/hr IV .Q24H [facility] Rx#: [id number] Oral 500 Output: Chest Tube Drainage 290 130 50 Chest Tube Bilateral 130 70 10 Mediastinal Chest Tube Left Lateral 160 60 40 Chest Urine 275 348 15 Other: Voiding Method Indwelling Catheter Indwelling Catheter ABP, PAP, CO, CI - Last Documented Arterial Blood Pressure 124/53 Pulmonary Artery Pressure 22/16 Cardiac Output 4.9 Cardiac Index 2.1 - Exam CONSTITUTIONAL: Appears comfortable, cooperative, no acute distress RESPIRATORY: Lungs sounds diminished bilaterally. Respirations even, nonlabored. Currently on 4LPM NC with oxygen saturation 95%. Able to achieve 750 mL on incentive spirometry. Strong productive cough. CARDIOVASCULAR: S1, S2 present. Regular rate and rhythm, sinus rhythm on telemetry. Sternum stable. Palpable peripheral pulses bilaterally. Trace bilateral lower extremity edema present. No calf pain or tenderness noted. Heart hugger in place with patient demonstrating appropriate use. Antiembolism stockings, SCDs present. GASTROINTESTINAL: Abdomen soft, nontender, nondistended. Active bowel sounds present 4 quadrants. Tolerating diet. Denies flatus GENITOURINARY: Grant present draining clear, yellow urine. Output overnight 25-50 mL per hour INTEGUMENTARY: Skin is warm and dry with evidence of good perfusion. Anterior chest incision well approximated and covered with dry intact dressing. Left radial artery harvest site well approximated without redness or drainage. NEUROLOGIC: Cranial nerves II through XII intact MUSKULOSKELETAL: Able to move all extremities, strength equal bilaterally PSYCHIATRIC: Alert and oriented to person place and time, appropriate affect, intact judgment and insight INVASIVE LINES AND TUBES: Mediastinal/left pleural chest tubes present and connected to wall suction, no air leaks present. Mediastinal tube with 50 mL serosanguineous drainage overnight, 180 mL in the last 24 hours. Left pleural chest tube with 50 mL serosanguineous drainage overnight, 200 mL since surgery. A/V epicardial pacemaker wires present, connected to generator, AAI mode with backup rate 50 bpm. left internal jugular Cordis, right radial arterial line present. - Allied health notes Allied health notes reviewed: nursing - Labs CBC & Chem 7: 01/24/21 03:57 01/24/21 03:57 Labs: Abnormal Lab Results - Last 24 Hours (Table) 01/23/21 01/23/21 01/23/21 Range/Units 09:02 11:18 12:48 RBC (4.30-5.90) m/uL Hgb (13.0-17.5) gm/dL Hct (39.0-53.0) % Plt Count (150-450) k/uL Neutrophils # (1.3-7.7) k/uL Sodium (137-145) mmol/L Carbon Dioxide (22-30) mmol/L Glucose (74-99) mg/dL POC Glucose (mg/dL) 125 H 124 H 136 H (75-99) mg/dL AST (17-59) U/L ALT (4-49) U/L Alkaline Phosphatase (38-126) U/L Total Protein (6.3-8.2) g/dL 01/23/21 01/23/21 01/23/21 Range/Units 14:02 16:46 18:36 RBC (4.30-5.90) m/uL Hgb (13.0-17.5) gm/dL Hct (39.0-53.0) % Plt Count (150-450) k/uL Neutrophils # (1.3-7.7) k/uL Sodium (137-145) mmol/L Carbon Dioxide (22-30) mmol/L Glucose (74-99) mg/dL POC Glucose (mg/dL) 128 H 133 H 182 H (75-99) mg/dL AST (17-59) U/L ALT (4-49) U/L Alkaline Phosphatase (38-126) U/L Total Protein (6.3-8.2) g/dL 01/23/21 01/23/21 01/23/21 Range/Units 19:25 20:47 22:03 RBC (4.30-5.90) m/uL Hgb (13.0-17.5) gm/dL Hct (39.0-53.0) % Plt Count (150-450) k/uL Neutrophils # (1.3-7.7) k/uL Sodium (137-145) mmol/L Carbon Dioxide (22-30) mmol/L Glucose (74-99) mg/dL POC Glucose (mg/dL) 173 H 166 H 147 H (75-99) mg/dL AST (17-59) U/L ALT (4-49) U/L Alkaline Phosphatase (38-126) U/L Total Protein (6.3-8.2) g/dL 01/23/21 01/24/21 01/24/21 Range/Units 22:56 00:10 01:07 RBC (4.30-5.90) m/uL Hgb (13.0-17.5) gm/dL Hct (39.0-53.0) % Plt Count (150-450) k/uL Neutrophils # (1.3-7.7) k/uL Sodium (137-145) mmol/L Carbon Dioxide (22-30) mmol/L Glucose (74-99) mg/dL POC Glucose (mg/dL) 140 H 128 H 124 H (75-99) mg/dL AST (17-59) U/L ALT (4-49) U/L Alkaline Phosphatase (38-126) U/L Total Protein (6.3-8.2) g/dL 01/24/21 01/24/21 01/24/21 Range/Units 02:07 03:01 03:57 RBC 2.86 L (4.30-5.90) m/uL Hgb 9.9 L (13.0-17.5) gm/dL Hct 27.5 L (39.0-53.0) % Plt Count 91 L (150-450) k/uL Neutrophils # 8.0 H (1.3-7.7) k/uL Sodium (137-145) mmol/L Carbon Dioxide (22-30) mmol/L Glucose (74-99) mg/dL POC Glucose (mg/dL) 124 H 130 H (75-99) mg/dL AST (17-59) U/L ALT (4-49) U/L Alkaline Phosphatase (38-126) U/L Total Protein (6.3-8.2) g/dL 01/24/21 01/24/21 01/24/21 Range/Units 03:57 03:57 05:05 RBC (4.30-5.90) m/uL Hgb (13.0-17.5) gm/dL Hct (39.0-53.0) % Plt Count (150-450) k/uL Neutrophils # (1.3-7.7) k/uL Sodium 131 L (137-145) mmol/L Carbon Dioxide 21 L (22-30) mmol/L Glucose 121 H (74-99) mg/dL POC Glucose (mg/dL) 126 H 123 H (75-99) mg/dL AST 123 H (17-59) U/L ALT 70 H (4-49) U/L Alkaline Phosphatase 36 L (38-126) U/L Total Protein 5.7 L (6.3-8.2) g/dL 01/24/21 01/24/21 Range/Units 06:17 07:19 RBC (4.30-5.90) m/uL Hgb (13.0-17.5) gm/dL Hct (39.0-53.0) % Plt Count (150-450) k/uL Neutrophils # (1.3-7.7) k/uL Sodium (137-145) mmol/L Carbon Dioxide (22-30) mmol/L Glucose (74-99) mg/dL POC Glucose (mg/dL) 125 H 116 H (75-99) mg/dL AST (17-59) U/L ALT (4-49) U/L Alkaline Phosphatase (38-126) U/L Total Protein (6.3-8.2) g/dL - Imaging and Cardiology Chest x-ray: image reviewed Assessment and Plan Assessment: 1. Triple-vessel coronary artery disease with totally occluded right coronary artery, status post three-vessel all arterial CABG 2. History of inferior wall myocardial infarction with moderate left ventricular dysfunction 3. Chronic systolic congestive heart failure, preoperative EF 40% 4. History of hypertension 5. Hyperlipidemia, cholesterol 180, LDL 100 6. Obesity 7. Previous tobacco dependence 8. Mild restrictive lung disease, preoperative FEV1 60% of predicted 9. Lower extremity chronic edema with laser ablation of both greater saphenous veins 10. BPH, on alfuzosin outpatient 11. Remote history of pneumonia 12. Family history of coronary artery disease 13. Preoperative thrombocytopenia 14. Incomplete vaccination against Covid with first dose Moderna vaccine 01/02/21 15. Postoperative acute blood loss anemia and thrombocytopenia, expected 16. Postoperative atrial fibrillation, expected Plan: 1. Continue aspirin, statin, Plavix, low-dose beta alejandro therapy. Will switch beta alejandro to lopressor with hold parameters. Continue low dose calcium channel alejandro for radial artery spasm prophylaxis 2. Continue amiodarone for afib prophylaxis, will transition to oral. No anticoagulation unless in going in and out of afib 3. Wean oxygen as tolerated. Encourage incentive spirometry use 10 times every hour while awake. Bronchodilators per pulmonology 4. Increase activity, ambulate as tolerated. PT/OT/cardiac rehab following 5. Will monitor daily labs and x-rays. Electrolyte replacement per protocol. No lasix today 6. Insulin drip per primary care service. Patient is not diabetic, preoperative hemoglobin A1c 5.5%, patient will need tight blood sugar control to prevent infection and promote sternal healing 7. Pain control current medication regimen. No Toradol secondary to thrombocytopenia 8. Will discontinue mediastinal chest tube, leave left pleural chest tubes for another 24 hours 9. Discontinue Grant catheter, may bladder scan and straight cath for >300 mL residual 10. Discontinue cordis, arterial line 11. Strict accurate intake and output. Daily weights 12. More recommendations to follow as patient progresses Time with Patient: Greater than 30
[2021-01-24] MEDS: IPRATROPIUM-ALBUTEROL 3 ML NEB INHALATION SCH ×4 (08:06→19:22)
[2021-01-24 08:43] LABS: Glucose,Whole Blood 135 mg/dL (75-99)
[2021-01-24] MEDS ORDERED: AMIODARONE 200 MG TAB PO SCH (09:00)
[2021-01-24] MEDS: ASPIRIN 81 MG PO SCH (09:47)
[2021-01-24] MEDS: ATORVASTATIN 40 MG TAB PO SCH (09:47)
[2021-01-24] MEDS: CLOPIDOGREL 75 MG TAB PO SCH (09:48)
[2021-01-24] MEDS: MULTIVITAMINS, THERA 1 EACH TAB PO SCH (09:48)
[2021-01-24] MEDS: METOPROLOL TARTRATE 12.5 MG TAB PO SCH ×2 (09:48→22:05)
[2021-01-24] MEDS ORDERED: ACETAMINOPHEN TAB 325 MG TAB PO PRN (09:59)
--- NOTE | 2021-01-24 10:50 | PN ---
PROGRESS NOTE Mr. Pitts is a 65-year-old male who underwent coronary artery bypass grafting. He has a history of ischemic cardiomyopathy. He is feeling reasonably well this morning. He has chest soreness. He had an episode of atrial fibrillation, but he is back in sinus mechanism. Hemodynamically he is stable. He is not requiring vasopressor. He was given IV amiodarone. He continues to be on Norvasc 2.5 mg daily, aspirin once a day, Coreg 3.125 mg twice a day, Plavix 75 mg daily. PHYSICAL EXAMINATION: Blood pressure 122/60 with a heart rate in the 70s. Lungs clear. Heart: Regular rate and rhythm. S1, S2. No S3. No rub. Abdomen soft, non-tender. Extremities show Stan wrapping in place. LAB DATA: Lab data revealed a BUN and creatinine of 20 and 1.0, potassium 4.0, hemoglobin of 9.9. IMPRESSION: 1. Status post coronary artery bypass grafting. 2. Ischemic cardiomyopathy. 3. Paroxysmal atrial fibrillation; back in sinus mechanism. 4. Hyperlipidemia. RECOMMENDATIONS: From the cardiac standpoint, we will continue present therapy. Continue to increase his level of activity. Continue incentive spirometry. If he has further episodes of atrial fibrillation, then he may be a candidate for anticoagulation. Depending on his blood pressure, the dose of his beta alejandro will be adjusted, and if his pressure is stable, then I will add an STAN inhibitor because of the prior cardiomyopathy. MMODL / IJN: [id number] /
[2021-01-24] MEDS: AMIODARONE 200 MG TAB PO SCH ×2 (11:23→22:08)
[2021-01-24 11:57] LABS: Glucose,Whole Blood 104 mg/dL (75-99)
--- NOTE | 2021-01-24 12:04 | P.PN ---
Subjective Progress Note Date: 01/24/21 Principal diagnosis: Coronary artery disease, status post coronary artery bypass grafting 65-year-old male in room 265. The patient is postop day #0, status post three- vessel bypass grafting. The surgery was done by Dr. Bond. Currently, the patient is on the ventilator. He is on the volume assist control mode, rate of 16, tidal volume 500, FiO2 percent, PEEP of 10. Initial blood gases showed a pO2 of 208, pCO2 of 51, and a pH is 7.31. Those blood gases were done on a rate of 12, PEEP of 10, and 100% FiO2. I increased her rate up to 16. Currently, the patient's on saline at 50 mL an hour, a nitroglycerin drip at 5 mcg/m, norepinephrine at 2 mcg/m, propofol at 40 mcg/kg/m, insulin at 4 units per hour, and Primacor 0.3 mcg/kg/m. The patient's chest x-ray is currently pending. Lab data includes a white count 10.5, hemoglobin 11.3, hematocrit 32.4, and a plat elet count of 92,000. PT was 12, INR 1.1, and PTT was 26. Sodium 136, potassium 4.5, chlorides 106, CO2 25, anion gap 5, BUN 18, and creatinine 0.94. The patient's magnesium was 2.7. The patient's chest x-ray show some pulmonary vascular congestion and post surgical changes. In addition to coronary artery disease, the patient's past medical history appears to include hypertension, and gout. The patient is seen today 01/23/2021 in follow-up in the intensive care unit. He did undergo coronary artery bypass grafting utilizing a COONEY sequentially to the LAD and diagonal artery, left radial artery to the first obtuse marginal artery. Postoperative day #1. He was successfully extubated 3 hours and 20 minutes following surgery. He is currently sitting up in a chair at the bedside. Awake and alert in no acute distress. He is maintaining good O2 saturation in low 90s on 3 L/m per nasal cannula. His 0.9 normal saline at 40 ML's per hour. Insulin drip at 3 units per hour. He is still on Primacor at 0.2 mcg/kg/m. Cardiac output 5.6. Cardiac index 2.4. PA pressure 20/12. White count 8.0. Hemoglobin 10.2. Platelet count 90,000. Sodium 135. Potassium 4.1. Creatinine 0.83. Glucose 129. AST is 50. ALT 23. Albumin 2.8. Chest x-ray reveals bilateral infiltrates and small effusions. Mediastinal chest tubes 2 with 110 mL serosanguineous drainage overnight, left pleural chest tube in place with 130 ML serosanguineous drainage overnight. He is working well with the in centive spirometer. Left IJ [place] catheter in place. Right radial arterial line in place. He remains on DuoNeb inhalations. Heparin for DVT prophylaxis. The patient is seen today 01/24/2021 in follow-up in the intensive care unit. This is postoperative day #2. He is currently sitting up in a recliner at the bedside. Awake and alert in no acute distress. No worsening shortness of breat h, cough or congestion. He is maintaining good O2 saturations in the 90s on 3 L/m per nasal cannula. He did have an episode of atrial fibrillation with a rapid ventricular response and hypotension and is currently on amiodarone drip at 0.5 mg/m. Robbi-Synephrine is off. Currently in normal sinus rhythm. He is on a insulin drip at 5 units per hour. Normal saline at 20 ML's per hour. Chest x-ray reveals worsening central vascular congestion and tiny bilateral pleural effusions. He remains on bronchodilators. Working well with the incentive spirometer. Heparin for DVT prophylaxis. Mediastinal chest tubes removed. Left pleural chest tube remains in place. White count 10.1. Hemoglobin 9.9. Platelets 91,000. Sodium 131. Potassium 4.0. Bicarb 21. Creatinine 1.0. Glucose 121. AST 123. ALT 70. Albumin 3.7. Objective - Vital Signs Vital signs: Vital Signs Temp 99.1 F 01/24/21 08:00 Pulse 75 01/24/21 09:00 Resp 16 01/24/21 09:00 BP 111/61 01/24/21 09:00 Pulse Ox 95 01/24/21 09:00 Intake & Output 01/23/21 01/24/21 01/24/21 18:59 06:59 18:59 Intake Total 1669.892 4122.372 765.692 Output Total 565 478 195 Balance 1048.156 910.372 570.692 Weight 115.5 kg 117.4 kg Intake: IV 1020 1267.4 160.6 Albumin Human 5% 250 ml 500 500 In Empty Bag 1 bag @ 250 mls/hr IVPB Q1HR PRN Rx#: [id number] Amiodarone 0.5mg 116.2 16.6 Amiodarone 1mg 133.2 Amiodarone Bolus 150 Calcium Gluconate 1 gm In 100 Sodium Chloride 0.9% 100 ml @ 100 mls/hr IVPB ONCE ONE Rx#:[id number] Pressure bag 48 24 Sodium Chloride 0.9% 1, 420 320 120 000 ml @ 20 mls/hr IV . Q24H [facility] Rx#:[id number] Intake, IV Titration 93.156 120.972 5.092 Amount Insulin Regular 100 unit 43.227 70.659 5.092 In Sodium Chloride 0.9% 100 ml @ Per Protocol IV .Q0M [facility] Rx#:[id number] Milrinone-D5w Pmx 20 mg 49.929 In Dextrose/Water 1 100ml .bag @ 0.15 MCG/KG/MIN 5. 004 mls/hr IV .Q20H [facility] Rx#:[id number] Phenylephrine 40 mg In 50.313 Sodium Chloride 0.9% 250 ml @ 0.1 MCG/KG/MIN 4.401 mls/hr IV .Q24H [facility] Rx#: [id number] Oral 500 600 Output: Chest Tube Drainage 290 130 90 Chest Tube Bilateral 130 70 10 Mediastinal Chest Tube Left Lateral 160 60 80 Chest Urine 275 348 105 Other: Voiding Method Indwelling Catheter Indwelling Catheter Indwelling Catheter ABP, PAP, CO, CI - Last Documented Arterial Blood Pressure 101/36 Pulmonary Artery Pressure 22/16 Cardiac Output 4.9 Cardiac Index 2.1 - Exam GENERAL EXAM: Alert, very pleasant 65-year-old gentleman, on 3 L nasal cannula, up in a recliner, comfortable in no apparent distress. HEAD: Normocephalic. EYES: Normal reaction of pupils, equal size. NOSE: Clear with pink turbinates. THROAT: No erythema or exudates. NECK: IJ [place] catheter in place. No masses, no JVD. CHEST: Sternal dressing dry and intact. Heart however in place. Mediastinal chest tubes removed and left pleural chest tube in place LUNGS: Equal air entry with crackles in bilateral bases. CVS: S1 and S2 normal with no audible murmur, regular rhythm. ABDOMEN: No hepatosplenomegaly, normal bowel sounds, no guarding or rigidity. SPINE: No scoliosis or deformity SKIN: No rashes CENTRAL NERVOUS SYSTEM: Alert and oriented 3. No focal deficits, tone is normal in all 4 extremities. EXTREMITIES: Right radial arterial line in place. There is peripheral edema. No clubbing, no cyanosis. Peripheral pulses are intact. - Labs CBC & Chem 7: 01/24/21 03:57 01/24/21 03:57 Labs: Abnormal Lab Results - Last 24 Hours (Table) 01/23/21 01/23/21 01/23/21 Range/Units 12:48 14:02 16:46 RBC (4.30-5.90) m/uL Hgb (13.0-17.5) gm/dL Hct (39.0-53.0) % Plt Count (150-450) k/uL Neutrophils # (1.3-7.7) k/uL Sodium (137-145) mmol/L Carbon Dioxide (22-30) mmol/L Glucose (74-99) mg/dL POC Glucose (mg/dL) 136 H 128 H 133 H (75-99) mg/dL AST (17-59) U/L ALT (4-49) U/L Alkaline Phosphatase (38-126) U/L Total Protein (6.3-8.2) g/dL 01/23/21 01/23/21 01/23/21 Range/Units 18:36 19:25 20:47 RBC (4.30-5.90) m/uL Hgb (13.0-17.5) gm/dL Hct (39.0-53.0) % Plt Count (150-450) k/uL Neutrophils # (1.3-7.7) k/uL Sodium (137-145) mmol/L Carbon Dioxide (22-30) mmol/L Glucose (74-99) mg/dL POC Glucose (mg/dL) 182 H 173 H 166 H (75-99) mg/dL AST (17-59) U/L ALT (4-49) U/L Alkaline Phosphatase (38-126) U/L Total Protein (6.3-8.2) g/dL 01/23/21 01/23/21 01/24/21 Range/Units 22:03 22:56 00:10 RBC (4.30-5.90) m/uL Hgb (13.0-17.5) gm/dL Hct (39.0-53.0) % Plt Count (150-450) k/uL Neutrophils # (1.3-7.7) k/uL Sodium (137-145) mmol/L Carbon Dioxide (22-30) mmol/L Glucose (74-99) mg/dL POC Glucose (mg/dL) 147 H 140 H 128 H (75-99) mg/dL AST (17-59) U/L ALT (4-49) U/L Alkaline Phosphatase (38-126) U/L Total Protein (6.3-8.2) g/dL 01/24/21 01/24/21 01/24/21 Range/Units 01:07 02:07 03:01 RBC (4.30-5.90) m/uL Hgb (13.0-17.5) gm/dL Hct (39.0-53.0) % Plt Count (150-450) k/uL Neutrophils # (1.3-7.7) k/uL Sodium (137-145) mmol/L Carbon Dioxide (22-30) mmol/L Glucose (74-99) mg/dL POC Glucose (mg/dL) 124 H 124 H 130 H (75-99) mg/dL AST (17-59) U/L ALT (4-49) U/L Alkaline Phosphatase (38-126) U/L Total Protein (6.3-8.2) g/dL 01/24/21 01/24/21 01/24/21 Range/Units 03:57 03:57 03:57 RBC 2.86 L (4.30-5.90) m/uL Hgb 9.9 L (13.0-17.5) gm/dL Hct 27.5 L (39.0-53.0) % Plt Count 91 L (150-450) k/uL Neutrophils # 8.0 H (1.3-7.7) k/uL Sodium 131 L (137-145) mmol/L Carbon Dioxide 21 L (22-30) mmol/L Glucose 121 H (74-99) mg/dL POC Glucose (mg/dL) 126 H (75-99) mg/dL AST 123 H (17-59) U/L ALT 70 H (4-49) U/L Alkaline Phosphatase 36 L (38-126) U/L Total Protein 5.7 L (6.3-8.2) g/dL 01/24/21 01/24/21 01/24/21 Range/Units 05:05 06:17 07:19 RBC (4.30-5.90) m/uL Hgb (13.0-17.5) gm/dL Hct (39.0-53.0) % Plt Count (150-450) k/uL Neutrophils # (1.3-7.7) k/uL Sodium (137-145) mmol/L Carbon Dioxide (22-30) mmol/L Glucose (74-99) mg/dL POC Glucose (mg/dL) 123 H 125 H 116 H (75-99) mg/dL AST (17-59) U/L ALT (4-49) U/L Alkaline Phosphatase (38-126) U/L Total Protein (6.3-8.2) g/dL 01/24/21 01/24/21 Range/Units 08:42 11:56 RBC (4.30-5.90) m/uL Hgb (13.0-17.5) gm/dL Hct (39.0-53.0) % Plt Count (150-450) k/uL Neutrophils # (1.3-7.7) k/uL Sodium (137-145) mmol/L Carbon Dioxide (22-30) mmol/L Glucose (74-99) mg/dL POC Glucose (mg/dL) 135 H 104 H (75-99) mg/dL AST (17-59) U/L ALT (4-49) U/L Alkaline Phosphatase (38-126) U/L Total Protein (6.3-8.2) g/dL Assessment and Plan Assessment: 1 Coronary artery disease status post coronary artery bypass grafting 3 utilizing a COONEY sequentially to the LAD and diagonal, left radial artery to the first obtuse marginal. Postoperative day #2 2 Previous history of myocardial infarction with moderate left ventricular systolic dysfunction 3 History of systolic congestive heart failure 4 Hypertension 5 Hyperlipidemia 6 Obesity 7 History of chronic tobacco dependence up to 6 months ago 8 Episode of atrial fibrillation with rapid ventricular response, on amiodarone drip, currently in sinus rhythm Plan: The patient was seen and evaluated Chest x-ray and labs reviewed Encourage increased use of the incentive spirometer Titrate the FiO2 as tolerated Continue amiodarone drip for now Titrate the insulin drip as needed Increase his activity as tolerated Follow-up chest x-ray in the a.m. We will continue to follow I, the cosigning physician, performed a history & physical examination of the patient. Lungs sounds with crackles in the posterior bases. Maintaining good O2 saturations in the 90s on 3 liters per minute per nasal cannula. I discussed the assessment and plan of care with my nurse practitioner, Shalini Gordon. I attest to the above note as dictated by her.
[2021-01-24 12:24] LABS: Glucose,Whole Blood 109 mg/dL (75-99)
[2021-01-24] MEDS: amLODIPine 2.5 MG TAB PO SCH (13:00)
[2021-01-24 17:20] LABS: Glucose,Whole Blood 123 mg/dL (75-99)
[2021-01-24] MEDS: INSULIN ASPART (NovoLOG) 100 UNIT/ML VIAL SQ SCH ×2 (19:24→22:04)
[2021-01-24 20:52] LABS: Glucose,Whole Blood 129 mg/dL (75-99)
--- NOTE | 2021-01-24 22:02 | P.PN ---
Subjective Progress Note Date: 01/24/21 This is a pleasant 65-year-old male who was recently admitted with coronary artery disease and underwent coronary artery bypass grafting with Dr. Bond. Patient continues to be closely monitored in the ICU and continues with chest tubes and pacemaker in place. Patient was successfully extubated yesterday and maintained on 3 L of oxygen via nasal cannula. Incentive spirometer at the bedside and instructed and encouraged the patient to use at least 10 times every hour while awake. Patient also continues on insulin drip per protocol and once tolerating more diet we'll transition to sliding scale and Accu-Cheks. Patient also continues on amiodarone and cardiology following closely as well. Patient is currently sitting up in the chair and will continue to work with physical therapy daily. Heart hugger noted. 01/24/2021 Patient is seen and evaluated in follow-up this morning and is being closely monitored in the ICU. Patient continues with cordis and chest tube. Patient has been transitioned to oral amiodarone and cardiology following closely. Patient continues on 3L via NC and continues with some shortness of breath with exertion. Patient also currently receiving breathing inhalational treatments. Insulin drip has been discontinued and patient will continue on sliding scale as needed. Patient denies any worsening chest pain, shortness of breath. Patient is afebrile. Labs: WBC is 10.1, hemoglobin is 9.9, platelets are 91, sodium is 131, potassium is 4.0, BUN is 20, creatinine is 1.00, calcium is 8.5, total bilirubin is 1.3, AST is 123, ALT is 70 Review of systems: Constitutional: reports of fatigue, no reports of fever, or chills Cardiovascular:reports of chest wall pain and tenderness Respiratory: reports of mild shortness of breath and dry cough GI: No reports of nausea, vomiting, or diarrhea : No reports of dysuria or retention, currently with indwelling Grant catheter Neurovascular: Reports of generalized weakness, but states walked in the halls today All medications have been reviewed Active Medications Acetaminophen (Acetaminophen Tab 325 Mg Tab) 650 mg PO Q4HR PRN PRN Reason: Fever and/ or Pain Hydrocodone Bitart/Acetaminophen (Hydrocodone/Apap 5-325mg 1 Each Tab) 2 each PO Q4HR PRN PRN Reason: Severe Pain Last Admin: 01/24/21 05:46 Dose: 2 each Documented by: Hydrocodone Bitart/Acetaminophen (Hydrocodone/Apap 5-325mg 1 Each Tab) 1 each PO Q4HR PRN PRN Reason: Moderate Pain Albuterol/Ipratropium (Ipratropium-Albuterol 3 Ml Neb) 3 ml INHALATION RT-Q2H PRN PRN Reason: Shortness Of Breath Or Wheezing Albuterol/Ipratropium (Ipratropium-Albuterol 3 Ml Neb) 3 ml INHALATION RT-QID [facility] Last Admin: 01/24/21 15:39 Dose: 3 ml Documented by: Amiodarone HCl (Amiodarone 200 Mg Tab) 400 mg PO BID@1000,2200 [facility] Last Admin: 01/24/21 11:23 Dose: 400 mg Documented by: Amlodipine Besylate (Amlodipine 2.5 Mg Tab) 2.5 mg PO DAILY@1200 [facility] Aspirin (Aspirin 81 Mg) 81 mg PO DAILY [facility] Last Admin: 01/24/21 09:47 Dose: 81 mg Documented by: Atorvastatin Calcium (Atorvastatin 40 Mg Tab) 40 mg PO DAILY [facility] Last Admin: 01/24/21 09:47 Dose: 40 mg Documented by: Benzocaine/Menthol (Benzocaine/Menthol Lozeng 1 Each Lozenge) 1 each MUCOUS MEM Q2H PRN PRN Reason: Sore Throat Bisacodyl (Bisacodyl 10 Mg Supp) 10 mg RECTAL DAILY PRN PRN Reason: Constipation Clopidogrel Bisulfate (Clopidogrel 75 Mg Tab) 75 mg PO DAILY [facility] Last Admin: 01/24/21 09:48 Dose: 75 mg Documented by: Heparin Sodium (Porcine) (Heparin Sodium,Porcine/Pf 5,000 Unit/0.5 Ml Syringe) 5,000 unit SQ Q8HR [facility] Last Admin: 01/24/21 09:42 Dose: 5,000 unit Documented by: Amiodarone HCl 150 mg/ (Dextrose/Water) 103 mls @ 618 mls/hr IV .Q10M PRN; Protocol PRN Reason: A.FIB/FLUTTER Last Admin: 01/23/21 19:57 Dose: 618 mls/hr Documented by: Amiodarone HCl 450 mg/ (Dextrose/Water) 250 mls @ 16.667 mls/hr IV .Q15H PRN; Protocol PRN Reason: A.FIB/FLUTTER Insulin Human Regular 100 unit (/ Sodium Chloride) 101 mls @ 0 mls/hr IV .Q0M [facility]; Protocol Last Titration: 01/24/21 07:23 Dose: 5 unit/hr, 5.05 mls/hr Documented by: Magnesium Hydroxide (Magnesium Hydroxide 2,400 Mg/10 Ml Cup) 2,400 mg PO BID PRN PRN Reason: Constipation Metoclopramide HCl (Metoclopramide 5 Mg/Ml 2 Ml Vial) 10 mg IVP Q4H PRN PRN Reason: Nausea And Vomiting Metoprolol Tartrate (Metoprolol Tartrate 12.5 Mg Tab) 12.5 mg PO BID [facility] Last Admin: 01/24/21 09:48 Dose: 12.5 mg Documented by: Miscellaneous Information (Potassium Replacement Protocol 1 Each Misc) 1 each MISCELLANE DAILY PRN; Protocol PRN Reason: Per Protocol Miscellaneous Information (Magnesium Replacement Protocol 1 Each Misc) 1 each MISCELLANE DAILY PRN; Protocol PRN Reason: Per Protocol Miscellaneous Information (Phosphorus Replacement Protoco 1 Each Misc) 1 each MISCELLANE DAILY PRN; Protocol PRN Reason: Per Protocol Multivitamins (Multivitamins, Thera 1 Each Tab) 1 each PO DAILY [facility] Last Admin: 01/24/21 09:48 Dose: 1 each Documented by: Ondansetron HCl (Ondansetron 4 Mg/2 Ml Vial) 4 mg IVP Q6HR PRN PRN Reason: Nausea And Vomiting Last Admin: 01/23/21 02:00 Dose: 4 mg Documented by: Pantoprazole Sodium (Pantoprazole 40 Mg Tablet) 40 mg PO -BRKFST [facility] Last Admin: 01/24/21 07:41 Dose: 40 mg Documented by: Senna/Docusate Sodium (Sennosides-Docusate Sodium 1 Each Tab) 2 each PO HS [facility] Last Admin: 01/23/21 20:37 Dose: 2 each Documented by: Sodium Chloride (Sodium Chloride 0.9% Flush 10 Ml Syringe) 10 ml IV BID [facility] Last Admin: 01/24/21 11:19 Dose: Not Given Documented by: Tamsulosin HCl (Tamsulosin 0.4 Mg Cap.Er.24h) 0.4 mg PO [facility] Physical Exam: Gen: This is a 65-year-old male currently sitting up in the chair awake, alert and oriented 3, well-developed, well-nourished. Temp is 99.1F Pulse is 71, respirations are 23, blood pressure is 118/66, arterial blood pressure is 120/50, oxygen is 96% on 4 L via nasal cannula HEENT: Head is atraumatic, normocephalic. Pupils equal, round. Sclerae is anicteric. NECK: Supple. No JVD. No lymphadenopathy. No thyromegaly. LUNGS: Diminished breath sounds with some scattered rhonchi noted, no wheezing noted. No intercostal retractions noted HEART: S1, S2 are muffled ABDOMEN: Soft. Obese. Bowel sounds are present. No masses. No tenderness. EXTREMITIES: No pedal edema. No calf tenderness. Bilateral SCDs noted NEUROLOGICAL: Patient is awake, alert and oriented x3. Cranial nerves 2 through 12 are grossly intact. Diffusely weak Assessment: Coronary artery disease, status post coronary artery bypass grafting History of ischemic cardiomyopathy History of chronic congestive heart failure with chronic systolic dysfunction, EF 35-40% History of chronic venostasis History of hearing defects mild hyponatremia hypertension history of myocardial infarction History of prostate disorder History of benign prostatic hypertrophy history of hernia repair surgery History of gout History of appendectomy history of nicotine dependence Full code Plan: Recommend to continue current medications, management, and symptomatic treatment. Patient continues on sliding scale as needed and insulin drip has been discontinued. Patient is tolerating diet with no reported nausea or vomiting. Patient states he feels exhausted and will continue working with physical therapy and was able to walk the halls today. Patient currently sitting up in the chair and encouraged the patient to elevate lower extremities while at rest. Encourage increase activity as tolerated and also strongly encouraged incentive spirometer use at least 10 times every hour while awake. Recommend repeat labs in the morning and will continue to follow along closely. Due to multiple complex medical issues, prognosis is guarded. Thank you for this consultation. Objective - Vital Signs Vital signs: Vital Signs Temp 99.1 F 01/24/21 08:00 Pulse 84 01/24/21 08:20 Resp 19 01/24/21 08:15 BP 119/64 01/24/21 08:15 Pulse Ox 95 01/24/21 08:15 Intake & Output 01/23/21 01/24/21 01/24/21 18:59 06:59 18:59 Intake Total 6990.211 9226.372 333.692 Output Total 565 478 85 Balance 1048.156 910.372 248.692 Weight 115.5 kg 117.4 kg Intake: IV 1020 1267.4 88.6 Albumin Human 5% 250 ml 500 500 In Empty Bag 1 bag @ 250 mls/hr IVPB Q1HR PRN Rx#: [id number] Amiodarone 0.5mg 116.2 16.6 Amiodarone 1mg 133.2 Amiodarone Bolus 150 Calcium Gluconate 1 gm In 100 Sodium Chloride 0.9% 100 ml @ 100 mls/hr IVPB ONCE ONE Rx#:[id number] Pressure bag 48 12 Sodium Chloride 0.9% 1, 420 320 60 000 ml @ 20 mls/hr IV . Q24H [facility] Rx#:[id number] Intake, IV Titration 93.156 120.972 5.092 Amount Insulin Regular 100 unit 43.227 70.659 5.092 In Sodium Chloride 0.9% 100 ml @ Per Protocol IV .Q0M [facility] Rx#:[id number] Milrinone-D5w Pmx 20 mg 49.929 In Dextrose/Water 1 100ml .bag @ 0.15 MCG/KG/MIN 5. 004 mls/hr IV .Q20H [facility] Rx#:[id number] Phenylephrine 40 mg In 50.313 Sodium Chloride 0.9% 250 ml @ 0.1 MCG/KG/MIN 4.401 mls/hr IV .Q24H [facility] Rx#: [id number] Oral 500 240 Output: Chest Tube Drainage 290 130 50 Chest Tube Bilateral 130 70 10 Mediastinal Chest Tube Left Lateral 160 60 40 Chest Urine 275 348 35 Other: Voiding Method Indwelling Catheter Indwelling Catheter ABP, PAP, CO, CI - Last Documented Arterial Blood Pressure 84/57 Pulmonary Artery Pressure 22/16 Cardiac Output 4.9 Cardiac Index 2.1 - Labs CBC & Chem 7: 01/24/21 03:57 01/24/21 03:57 Labs: Abnormal Lab Results - Last 24 Hours (Table) 01/23/21 01/23/21 01/23/21 Range/Units 09:02 11:18 12:48 RBC (4.30-5.90) m/uL Hgb (13.0-17.5) gm/dL Hct (39.0-53.0) % Plt Count (150-450) k/uL Neutrophils # (1.3-7.7) k/uL Sodium (137-145) mmol/L Carbon Dioxide (22-30) mmol/L Glucose (74-99) mg/dL POC Glucose (mg/dL) 125 H 124 H 136 H (75-99) mg/dL AST (17-59) U/L ALT (4-49) U/L Alkaline Phosphatase (38-126) U/L Total Protein (6.3-8.2) g/dL 01/23/21 01/23/21 01/23/21 Range/Units 14:02 16:46 18:36 RBC (4.30-5.90) m/uL Hgb (13.0-17.5) gm/dL Hct (39.0-53.0) % Plt Count (150-450) k/uL Neutrophils # (1.3-7.7) k/uL Sodium (137-145) mmol/L Carbon Dioxide (22-30) mmol/L Glucose (74-99) mg/dL POC Glucose (mg/dL) 128 H 133 H 182 H (75-99) mg/dL AST (17-59) U/L ALT (4-49) U/L Alkaline Phosphatase (38-126) U/L Total Protein (6.3-8.2) g/dL 01/23/21 01/23/21 01/23/21 Range/Units 19:25 20:47 22:03 RBC (4.30-5.90) m/uL Hgb (13.0-17.5) gm/dL Hct (39.0-53.0) % Plt Count (150-450) k/uL Neutrophils # (1.3-7.7) k/uL Sodium (137-145) mmol/L Carbon Dioxide (22-30) mmol/L Glucose (74-99) mg/dL POC Glucose (mg/dL) 173 H 166 H 147 H (75-99) mg/dL AST (17-59) U/L ALT (4-49) U/L Alkaline Phosphatase (38-126) U/L Total Protein (6.3-8.2) g/dL 01/23/21 01/24/21 01/24/21 Range/Units 22:56 00:10 01:07 RBC (4.30-5.90) m/uL Hgb (13.0-17.5) gm/dL Hct (39.0-53.0) % Plt Count (150-450) k/uL Neutrophils # (1.3-7.7) k/uL Sodium (137-145) mmol/L Carbon Dioxide (22-30) mmol/L Glucose (74-99) mg/dL POC Glucose (mg/dL) 140 H 128 H 124 H (75-99) mg/dL AST (17-59) U/L ALT (4-49) U/L Alkaline Phosphatase (38-126) U/L Total Protein (6.3-8.2) g/dL 01/24/21 01/24/21 01/24/21 Range/Units 02:07 03:01 03:57 RBC 2.86 L (4.30-5.90) m/uL Hgb 9.9 L (13.0-17.5) gm/dL Hct 27.5 L (39.0-53.0) % Plt Count 91 L (150-450) k/uL Neutrophils # 8.0 H (1.3-7.7) k/uL Sodium (137-145) mmol/L Carbon Dioxide (22-30) mmol/L Glucose (74-99) mg/dL POC Glucose (mg/dL) 124 H 130 H (75-99) mg/dL AST (17-59) U/L ALT (4-49) U/L Alkaline Phosphatase (38-126) U/L Total Protein (6.3-8.2) g/dL 01/24/21 01/24/21 01/24/21 Range/Units 03:57 03:57 05:05 RBC (4.30-5.90) m/uL Hgb (13.0-17.5) gm/dL Hct (39.0-53.0) % Plt Count (150-450) k/uL Neutrophils # (1.3-7.7) k/uL Sodium 131 L (137-145) mmol/L Carbon Dioxide 21 L (22-30) mmol/L Glucose 121 H (74-99) mg/dL POC Glucose (mg/dL) 126 H 123 H (75-99) mg/dL AST 123 H (17-59) U/L ALT 70 H (4-49) U/L Alkaline Phosphatase 36 L (38-126) U/L Total Protein 5.7 L (6.3-8.2) g/dL 01/24/21 01/24/21 01/24/21 Range/Units 06:17 07:19 08:42 RBC (4.30-5.90) m/uL Hgb (13.0-17.5) gm/dL Hct (39.0-53.0) % Plt Count (150-450) k/uL Neutrophils # (1.3-7.7) k/uL Sodium (137-145) mmol/L Carbon Dioxide (22-30) mmol/L Glucose (74-99) mg/dL POC Glucose (mg/dL) 125 H 116 H 135 H (75-99) mg/dL AST (17-59) U/L ALT (4-49) U/L Alkaline Phosphatase (38-126) U/L Total Protein (6.3-8.2) g/dL
[2021-01-24] MEDS: SENNOSIDES-DOCUSATE SODIUM 1 EACH TAB PO SCH (22:06)
[2021-01-24] MEDS: TAMSULOSIN 0.4 MG CAP.ER.24H PO SCH (22:06)
[2021-01-25] MEDS: HEPARIN SODIUM,PORCINE/PF 5,000 UNIT/0.5 ML SYRINGE SQ SCH ×3 (00:27→17:55)
[2021-01-25] MEDS: HYDROcodone/APAP 5-325MG 1 EACH TAB PO PRN ×3 (00:31→21:46)
[2021-01-25 04:07] LABS: Basophils % (A) 0 %; Eosinophils % (A) 0 %; HCT 26.1 % (39.0-53.0); HGB 9.2 gm/dL (13.0-17.5); Lymphocytes # (A) 2.5 k/uL (1.0-4.8); Lymphocytes % (A) 24 %; MCH 34.2 pg (25.0-35.0); MCHC 35.3 g/dL (31.0-37.0); MCV 96.9 fL (80.0-100.0); Monocytes # (A) 0.5 k/uL (0-1.0); Monocytes % (A) 5 %; Neutrophils # (A) 7.2 k/uL (1.3-7.7); Neutrophils % (A) 69 %; Platelet Count 94 k/uL (150-450); RBC 2.69 m/uL (4.30-5.90); RDW 14.9 % (11.5-15.5); WBC 10.4 k/uL (3.8-10.6)
[2021-01-25 04:19] LABS: ALT 70 U/L (4-49); AST 90 U/L (17-59); African American GFR (CKD) >90 (>60 ml/min/1.73 sqM); Albumin 3.2 g/dL (3.5-5.0); Alkaline Phosphatase 45 U/L (38-126); Anion Gap 8 mmol/L; Blood Urea Nitrogen 17 mg/dL (9-20); Calcium 8.4 mg/dL (8.4-10.2); Carbon Dioxide 22 mmol/L (22-30); Chloride 101 mmol/L (98-107); Glucose 130 mg/dL (74-99); Non-African American GFR(CKD) 83 (>60 ml/min/1.73 sqM); Sodium 131 mmol/L (137-145); Total Bilirubin 1.2 mg/dL (0.2-1.3); Total Protein 5.4 g/dL (6.3-8.2)
[2021-01-25 06:00] LABS: Glucose,Whole Blood 134 mg/dL (75-99)
--- NOTE | 2021-01-25 07:01 | XR ---
EXAMINATION TYPE: XR chest 1V portable DATE OF EXAM: 01/25/2021 CLINICAL HISTORY: Difficulty breathing progress study. Postopen cardiac surgery. TECHNIQUE: Single AP portable upright view of the chest is obtained. COMPARISON: Chest x-ray from one day earlier and older studies. FINDINGS: Interval removal of left internal jugular Cordis sheath. Persistent left basilar chest tub e. Interval removal of mediastinal drainage catheters. Overlying sternal wires and mediastinal clips along with left atrial appendage clip are all redemonstrated. Persistent low lung volumes with central vascular congestion and bibasilar opacities. Background card iomegaly. No visualized pneumothorax. Underlying scoliotic curvature noted. IMPRESSION: Mild central vascular congestion and cardiomegaly with bibasilar acute infiltrate and/or atelectasis on background low lung volumes all redemonstrated. No significant change from one day ear lier.
[2021-01-25] MEDS: MULTIVITAMINS, THERA 1 EACH TAB PO SCH (09:06)
[2021-01-25] MEDS: CLOPIDOGREL 75 MG TAB PO SCH (09:06)
[2021-01-25] MEDS: PANTOPRAZOLE 40 MG TABLET PO SCH (09:06)
[2021-01-25] MEDS: ATORVASTATIN 40 MG TAB PO SCH (09:06)
[2021-01-25] MEDS: METOPROLOL TARTRATE 12.5 MG TAB PO SCH (09:06)
[2021-01-25] MEDS: ASPIRIN 81 MG PO SCH (09:06)
[2021-01-25] MEDS: AMIODARONE 200 MG TAB PO SCH ×2 (09:06→21:44)
[2021-01-25] MEDS: IPRATROPIUM-ALBUTEROL 3 ML NEB INHALATION SCH ×4 (09:09→20:29)
--- NOTE | 2021-01-25 09:59 | P.PN ---
Subjective Progress Note Date: 01/25/21 Principal diagnosis: Coronary artery disease, status post coronary artery bypass grafting 65-year-old male in room 265. The patient is postop day #0, status post three- vessel bypass grafting. The surgery was done by Dr. Bond. Currently, the patient is on the ventilator. He is on the volume assist control mode, rate of 16, tidal volume 500, FiO2 percent, PEEP of 10. Initial blood gases showed a pO2 of 208, pCO2 of 51, and a pH is 7.31. Those blood gases were done on a rate of 12, PEEP of 10, and 100% FiO2. I increased her rate up to 16. Currently, the patient's on saline at 50 mL an hour, a nitroglycerin drip at 5 mcg/m, norepinephrine at 2 mcg/m, propofol at 40 mcg/kg/m, insulin at 4 units per hour, and Primacor 0.3 mcg/kg/m. The patient's chest x-ray is currently pending. Lab data includes a white count 10.5, hemoglobin 11.3, hematocrit 32.4, and a plat elet count of 92,000. PT was 12, INR 1.1, and PTT was 26. Sodium 136, potassium 4.5, chlorides 106, CO2 25, anion gap 5, BUN 18, and creatinine 0.94. The patient's magnesium was 2.7. The patient's chest x-ray show some pulmonary vascular congestion and post surgical changes. In addition to coronary artery disease, the patient's past medical history appears to include hypertension, and gout. The patient is seen today 01/23/2021 in follow-up in the intensive care unit. He did undergo coronary artery bypass grafting utilizing a COONEY sequentially to the LAD and diagonal artery, left radial artery to the first obtuse marginal artery. Postoperative day #1. He was successfully extubated 3 hours and 20 minutes following surgery. He is currently sitting up in a chair at the bedside. Awake and alert in no acute distress. He is maintaining good O2 saturation in low 90s on 3 L/m per nasal cannula. His 0.9 normal saline at 40 ML's per hour. Insulin drip at 3 units per hour. He is still on Primacor at 0.2 mcg/kg/m. Cardiac output 5.6. Cardiac index 2.4. PA pressure 20/12. White count 8.0. Hemoglobin 10.2. Platelet count 90,000. Sodium 135. Potassium 4.1. Creatinine 0.83. Glucose 129. AST is 50. ALT 23. Albumin 2.8. Chest x-ray reveals bilateral infiltrates and small effusions. Mediastinal chest tubes 2 with 110 mL serosanguineous drainage overnight, left pleural chest tube in place with 130 ML serosanguineous drainage overnight. He is working well with the in centive spirometer. Left IJ [place] catheter in place. Right radial arterial line in place. He remains on DuoNeb inhalations. Heparin for DVT prophylaxis. The patient is seen today 01/24/2021 in follow-up in the intensive care unit. This is postoperative day #2. He is currently sitting up in a recliner at the bedside. Awake and alert in no acute distress. No worsening shortness of breat h, cough or congestion. He is maintaining good O2 saturations in the 90s on 3 L/m per nasal cannula. He did have an episode of atrial fibrillation with a rapid ventricular response and hypotension and is currently on amiodarone drip at 0.5 mg/m. Robbi-Synephrine is off. Currently in normal sinus rhythm. He is on a insulin drip at 5 units per hour. Normal saline at 20 ML's per hour. Chest x-ray reveals worsening central vascular congestion and tiny bilateral pleural effusions. He remains on bronchodilators. Working well with the incentive spirometer. Heparin for DVT prophylaxis. Mediastinal chest tubes removed. Left pleural chest tube remains in place. White count 10.1. Hemoglobin 9.9. Platelets 91,000. Sodium 131. Potassium 4.0. Bicarb 21. Creatinine 1.0. Glucose 121. AST 123. ALT 70. Albumin 3.7. The patient is seen today 01/25/2021 in follow-up in the intensive care unit. Postoperative day #3. He is awake and alert in no acute distress. Currently sitting up in a recliner. He is on 2 L nasal cannula to maintain O2 saturations in the 90s. He was 89% on room air. Chest x-ray continues to show mild central vascular congestion and cardiomegaly with bibasilar infiltrates/atelectasis. Going about 750 MLS on his incentive spirometer. Left-sided chest tube remains in place. He's currently in normal sinus rhythm. White count 10.4. Hemoglobin 9.2. Platelet count 94,000. Sodium 131 potassium 4.0. Creatinine 0.97. Glucose 1:30. AST 90. ALT 70. He is continued on DuoNeb inhalations heparin for DVT prophylaxis. Remains on oral amiodarone and beta blockers. Objective - Vital Signs Vital signs: Vital Signs Temp 98.2 F 01/25/21 04:00 Pulse 77 01/25/21 07:00 Resp 21 01/25/21 07:00 BP 124/69 01/25/21 07:00 Pulse Ox 93 L 01/25/21 07:00 Intake & Output 01/24/21 01/25/21 01/25/21 18:59 06:59 18:59 Intake Total 1178.692 850 Output Total 640 1015 20 Balance 538.692 -165 -20 Weight 117.7 kg Intake: IV 183.6 Amiodarone 0.5mg 16.6 Pressure bag 27 Sodium Chloride 0.9% 1, 140 000 ml @ 20 mls/hr IV . Q24H [facility] Rx#:[id number] Intake, IV Titration 5.092 Amount Insulin Regular 100 unit 5.092 In Sodium Chloride 0.9% 100 ml @ Per Protocol IV .Q0M [facility] Rx#:[id number] Oral 990 850 Output: Chest Tube Drainage 250 130 20 Chest Tube Bilateral 10 Mediastinal Chest Tube Left Lateral 240 130 20 Chest Urine 390 885 0 Other: Voiding Method Indwelling Catheter Urinal ABP, PAP, CO, CI - Last Documented Arterial Blood Pressure 101/36 Pulmonary Artery Pressure 22/16 Cardiac Output 4.9 Cardiac Index 2.1 - Exam GENERAL EXAM: Alert, very pleasant 65-year-old gentleman, on 2 L nasal cannula, up in a recliner, comfortable in no apparent distress. HEAD: Normocephalic. EYES: Normal reaction of pupils, equal size. NOSE: Clear with pink turbinates. THROAT: No erythema or exudates. NECK: IJ [place]-Elver catheter in place. No masses, no JVD. CHEST: Sternal dressing dry and intact. Heart hugger in place. Mediastinal chest tubes removed and left pleural chest tube in place LUNGS: Equal air entry with crackles in bilateral bases. CVS: S1 and S2 normal with no audible murmur, regular rhythm. ABDOMEN: No hepatosplenomegaly, normal bowel sounds, no guarding or rigidity. SPINE: No scoliosis or deformity SKIN: No rashes CENTRAL NERVOUS SYSTEM: Alert and oriented 3. No focal deficits, tone is normal in all 4 extremities. EXTREMITIES:There is peripheral edema. No clubbing, no cyanosis. Peripheral pulses are intact. - Labs CBC & Chem 7: 01/25/21 03:42 01/25/21 03:42 Labs: Abnormal Lab Results - Last 24 Hours (Table) 01/24/21 01/24/21 01/24/21 Range/Units 11:56 12:23 17:19 RBC (4.30-5.90) m/uL Hgb (13.0-17.5) gm/dL Hct (39.0-53.0) % Plt Count (150-450) k/uL Sodium (137-145) mmol/L Glucose (74-99) mg/dL POC Glucose (mg/dL) 104 H 109 H 123 H (75-99) mg/dL AST (17-59) U/L ALT (4-49) U/L Total Protein (6.3-8.2) g/dL Albumin (3.5-5.0) g/dL 01/24/21 01/25/21 01/25/21 Range/Units 20:50 03:42 03:42 RBC 2.69 L (4.30-5.90) m/uL Hgb 9.2 L (13.0-17.5) gm/dL Hct 26.1 L (39.0-53.0) % Plt Count 94 L (150-450) k/uL Sodium 131 L (137-145) mmol/L Glucose 130 H (74-99) mg/dL POC Glucose (mg/dL) 129 H (75-99) mg/dL AST 90 H (17-59) U/L ALT 70 H (4-49) U/L Total Protein 5.4 L (6.3-8.2) g/dL Albumin 3.2 L (3.5-5.0) g/dL 01/25/21 Range/Units 05:58 RBC (4.30-5.90) m/uL Hgb (13.0-17.5) gm/dL Hct (39.0-53.0) % Plt Count (150-450) k/uL Sodium (137-145) mmol/L Glucose (74-99) mg/dL POC Glucose (mg/dL) 134 H (75-99) mg/dL AST (17-59) U/L ALT (4-49) U/L Total Protein (6.3-8.2) g/dL Albumin (3.5-5.0) g/dL Assessment and Plan Assessment: 1 Coronary artery disease status post coronary artery bypass grafting 3 utilizing a COONEY sequentially to the LAD and diagonal, left radial artery to the first obtuse marginal. Postoperative day #3 2 Previous history of myocardial infarction with moderate left ventricular systolic dysfunction 3 History of systolic congestive heart failure 4 Hypertension 5 Hyperlipidemia 6 Obesity 7 History of chronic tobacco dependence up to 6 months ago 8 Episode of atrial fibrillation with rapid ventricular response, on amiodarone drip, currently in sinus rhythm Plan: The patient was seen and evaluated Chest x-ray and labs reviewed Encourage increased use of the incentive spirometer Titrate the FiO2 as tolerated Increase his activity as tolerated Follow-up chest x-ray in the a.m. We will continue to follow I, the cosigning physician, performed a history & physical examination of the patient. Lungs sounds with crackles in the posterior bases. Maintaining good O2 saturations in the 90s on 2 liters per minute per nasal cannula. I discussed the assessment and plan of care with my nurse practitioner, Shalini Gordon. I attest to the above note as dictated by her.
[2021-01-25] MEDS: INSULIN ASPART (NovoLOG) 100 UNIT/ML VIAL SQ SCH ×4 (10:06→21:43)
[2021-01-25] MEDS ORDERED: METOPROLOL TARTRATE 12.5 MG TAB PO STA (10:08)
[2021-01-25] MEDS ORDERED: FUROSEMIDE 10 MG/ML 2 ML VIAL IV STA (10:13)
--- NOTE | 2021-01-25 10:23 | P.PN ---
Subjective Progress Note Date: 01/25/21 Principal diagnosis: Triple-vessel coronary artery disease with totally occluded right coronary artery. Past medical history significant for inferior wall myocardial infarction with moderate left ventricular dysfunction, chronic systolic congestive heart failure, hypertension, hyperlipidemia, obesity, past history of tobacco dependence, mild restrictive lung disease, lower extremity chronic edema with laser ablation of both greater saphenous veins, BPH, remote history of pneumonia, family history of coronary artery disease, preoperative thrombocytopenia with platelets preoperatively 121, incomplete vaccination against Covid-19 with first dose Moderna vaccine 01/02/21 POD #3 all arterial triple coronary artery bypass grafting using the left internal mammary artery in a sequential fashion to the diagonal artery side to side, then to the left anterior descending artery end-to-side, left radial artery from the aorta to the first obtuse marginal artery, exclusion of the left atrial appendage using a 35 mm AtriClip, endoscopic harvesting of the left radial artery, intraoperative transesophageal echocardiogram and epi-aortic scanning, intraoperative graft flow measurements using the [employer] system Postoperative acute blood loss anemia and thrombocytopenia, expected given hemodilution and preoperative thrombocytopenia. Postoperative atrial fibrillation, known common occurrence after open heart surgery. The patient was seen in follow-up today 01/25/2021 at his bedside in the intensive care unit. Currently he is sitting up to the bedside chair, is awake, alert and oriented 3 and is in no acute apparent distress. He denies any complaints of shortness of breath at this time although is complaining of some surgical type pain to his left chest tube insertion site with taking a deep breath. Bedside telemetry showing normal sinus rhythm heart rate 79 BPM. No further reported episodes of atrial fibrillation. Oxygen saturations are 95% on 2 L nasal cannula and he is achieving 750 mL on his incentive spirometry with encouragement. Left pleural chest tube remains in place to low continuous wall suction -20 cm H2O. No air leak is present. Draining thin serosanguineous drainage with 60 mL output in the last 8 hours and 340 mL output in the last 24 hours. Atrial and ventricular epicardial pacemaker wires remain in place and are grounded. The patient reports he has been up ambulating in the intensive care unit hallway with minimal assistance from nursing and physical therapy staff. He remains afebrile the last 24 hours. His Grant catheter was discontinued yesterday and his urine output has been 885 mL output in the last 8 hours. Objective - Vital Signs Vital signs: Vital Signs Temp 98.2 F 01/25/21 04:00 Pulse 77 01/25/21 07:00 Resp 21 01/25/21 07:00 BP 124/69 01/25/21 07:00 Pulse Ox 93 L 01/25/21 07:00 Intake & Output 01/24/21 01/25/21 01/25/21 18:59 06:59 18:59 Intake Total 1178.692 850 Output Total 640 1015 20 Balance 538.692 -165 -20 Weight 117.7 kg Intake: IV 183.6 Amiodarone 0.5mg 16.6 Pressure bag 27 Sodium Chloride 0.9% 1, 140 000 ml @ 20 mls/hr IV . Q24H [facility] Rx#:[id number] Intake, IV Titration 5.092 Amount Insulin Regular 100 unit 5.092 In Sodium Chloride 0.9% 100 ml @ Per Protocol IV .Q0M [facility] Rx#:[id number] Oral 990 850 Output: Chest Tube Drainage 250 130 20 Chest Tube Bilateral 10 Mediastinal Chest Tube Left Lateral 240 130 20 Chest Urine 390 885 0 Other: Voiding Method Indwelling Catheter Urinal ABP, PAP, CO, CI - Last Documented Arterial Blood Pressure 101/36 Pulmonary Artery Pressure 22/16 Cardiac Output 4.9 Cardiac Index 2.1 - Exam CONSTITUTIONAL: Sitting up to the bedside chair in the intensive care unit, appears comfortable, cooperative, no apparent acute distress. HEENT: Neck is supple, no JVD, no lymphadenopathy. RESPIRATORY: Lungs sounds essentially clear throughout, diminished to his bilateral bases. Respirations are symmetrical and nonlabored. Currently on 2 L nasal cannula with oxygen saturations 95%. Able to achieve 750 mL on his incentive spirometry. Strong cough. CARDIOVASCULAR: Regular rhythm and rate. S1 and S2 present, negative for S3, gallop or murmur. Sternum is stable. Palpable peripheral pulses bilaterally, +1 edema to his bilateral lower extremities. No calf pain or tenderness noted. Heart hugger in place with patient demonstrating appropriate use. Knee-high JEAN hose and sequential compression devices in place to his bilateral lower extremities. GASTROINTESTINAL: Abdomen soft, nontender, nondistended. Active bowel sounds present 4 quadrants. Tolerating diet. Denies passing any flatus. No guarding or rigidity. GENITOURINARY: Continues to void. Urine Output 885 mL in the last 8 hours. INTEGUMENTARY: Skin is warm and dry with no evidence of clubbing or cyanosis. Midline sternal incision clean dry and well approximated, covered with dry intact dressing. Left arm radial artery harvest sites clean, dry and appr oximated. No drainage or redness is present. NEUROLOGIC: Cranial nerves II through XII intact. No focal deficits. MUSKULOSKELETAL: Able to move all extremities, strength equal bilaterally, generalized weakness. PSYCHIATRIC: Alert and oriented to person place and time, appropriate affect, intact judgment and insight. INVASIVE LINES AND TUBES: Left pleural chest tube present and connected to low continuous wall suction -20 cm H2O, no air leak present. Left pleural tube with 60 mL of thin serosanguineous drainage in the last 8 hours, 340 mL output in the last 24 hours. Atrial and ventricular epicardial pacemaker wires present and are grounded. - Allied health notes Allied health notes reviewed: nursing - Labs CBC & Chem 7: 01/25/21 03:42 01/25/21 03:42 Labs: Abnormal Lab Results - Last 24 Hours (Table) 01/24/21 01/24/21 01/24/21 Range/Units 08:42 11:56 12:23 RBC (4.30-5.90) m/uL Hgb (13.0-17.5) gm/dL Hct (39.0-53.0) % Plt Count (150-450) k/uL Sodium (137-145) mmol/L Glucose (74-99) mg/dL POC Glucose (mg/dL) 135 H 104 H 109 H (75-99) mg/dL AST (17-59) U/L ALT (4-49) U/L Total Protein (6.3-8.2) g/dL Albumin (3.5-5.0) g/dL 01/24/21 01/24/21 01/25/21 Range/Units 17:19 20:50 03:42 RBC 2.69 L (4.30-5.90) m/uL Hgb 9.2 L (13.0-17.5) gm/dL Hct 26.1 L (39.0-53.0) % Plt Count 94 L (150-450) k/uL Sodium (137-145) mmol/L Glucose (74-99) mg/dL POC Glucose (mg/dL) 123 H 129 H (75-99) mg/dL AST (17-59) U/L ALT (4-49) U/L Total Protein (6.3-8.2) g/dL Albumin (3.5-5.0) g/dL 01/25/21 01/25/21 Range/Units 03:42 05:58 RBC (4.30-5.90) m/uL Hgb (13.0-17.5) gm/dL Hct (39.0-53.0) % Plt Count (150-450) k/uL Sodium 131 L (137-145) mmol/L Glucose 130 H (74-99) mg/dL POC Glucose (mg/dL) 134 H (75-99) mg/dL AST 90 H (17-59) U/L ALT 70 H (4-49) U/L Total Protein 5.4 L (6.3-8.2) g/dL Albumin 3.2 L (3.5-5.0) g/dL - Imaging and Cardiology Chest x-ray: report reviewed, image reviewed Assessment and Plan Assessment: 1. Triple-vessel coronary artery disease with totally occluded right coronary artery, status post three-vessel all arterial CABG 2. History of inferior wall myocardial infarction with moderate left ventricular dysfunction 3. Chronic systolic congestive heart failure, preoperative EF 35-40% 4. History of hypertension 5. Hyperlipidemia, cholesterol 180, LDL 100 6. Obesity 7. Previous tobacco dependence 8. Mild restrictive lung disease, preoperative FEV1 60% of predicted 9. Lower extremity chronic edema with laser ablation of both greater saphenous veins 10. BPH, on alfuzosin as an outpatient 11. Remote history of pneumonia 12. Family history of coronary artery disease 13. Preoperative thrombocytopenia with platelets of 121 14. Incomplete vaccination against Covid with first dose Moderna vaccine 01/02/21 15. Postoperative acute blood loss anemia and thrombocytopenia, expected 16. Postoperative atrial fibrillation, expected Plan: 1. Continue aspirin, statin, Plavix, beta alejandro. Will increase metoprolol tartrate to 25 mg by mouth twice a day. Continue amlodipine 2.5 mg by mouth daily at noon for radial artery spasm prophylaxis. 2. Continue amiodarone 400 mg by mouth twice a day for atrial fibrillation prophylaxis. No anticoagulation unless in going in and out of afib 3. Wean oxygen as tolerated. Encourage incentive spirometry use 10 times every hour while awake. Bronchodilators per pulmonology/critical care management. 4. Increase activity, ambulate as tolerated. PT/OT/cardiac rehab following. 5. Will monitor daily labs and chest x-rays. Electrolyte replacement per protocol. Lasix 20 mg IV 1 now. 6. Insulin management per primary care service. Patient is not diabetic, preoperative hemoglobin A1c 5.5%, patient will need tight blood sugar control to prevent infection and promote sternal healing. 7. Pain control current medication regimen. No Toradol secondary to thrombocytopenia 8. Will discontinue left pleural chest tube. 9. Continue to monitor strict accurate I's and O's, may bladder scan and straight cath for >300 mL residual. 10. Keep atrial and ventricular epicardial pacemaker wires in place and grounded. 11. Continue daily weights. 12. More recommendations to follow based on patient's clinical course. Time with Patient: Greater than 30
--- NOTE | 2021-01-25 11:30 | PN ---
PROGRESS NOTE Mr. Pitts is a 65-year-old male, status post coronary artery bypass grafting. He is doing well this morning. He is feeling better. He continues to be in sinus mechanism. He has no evidence of malignant arrhythmia or recurrent atrial fibrillation. He is using his incentive spirometry and ambulating. He denies any dizziness or palpitations. He continues to be on amiodarone 400 mg twice a day, amlodipine 2.5 mg daily, aspirin once a day, Lipitor 40 mg daily, Plavix 75 mg daily, metoprolol tartrate 12.5 mg twice a day in addition to Flomax 0.4 mg daily. Blood pressure 124/60 with a heart in 70s. Lungs with mild decrease in breath sounds at the bases. No wheezes. HEART: Regular rate and rhythm. S1, S2. No S3. early systolic murmur. No rub. Abdomen soft, nontender. EXTREMITIES: Stan wrapping in place. Chest x-ray revealed an effusion with no significant infiltrate. Lab data revealed BUN and creatinine of 17 and 0.97, IMPRESSION: 1. Status post coronary bypass grafting, stable. 2. Paroxysmal atrial fibrillation, back in sinus mechanism. 3. Prior history of ischemic cardiomyopathy, back in sinus mechanism. 4. Hyperlipidemia. RECOMMENDATIONS: From the cardiac standpoint, I will initiate treatment with a low dose of STAN inhibitor because of his cardiomyopathy. Increase his level of activity. Depending on his progress, further recommendations will be made. MMNEILL / MARY: [id number] / MTDD
[2021-01-25] MEDS: amLODIPine 2.5 MG TAB PO SCH (11:58)
[2021-01-25 12:01] LABS: Glucose,Whole Blood 137 mg/dL (75-99)
--- NOTE | 2021-01-25 16:46 | P.PN ---
Subjective Progress Note Date: 01/25/21 This is a pleasant 65-year-old male who was recently admitted with coronary artery disease and underwent coronary artery bypass grafting with Dr. Bond. Patient continues to be closely monitored in the ICU and continues with chest tubes and pacemaker in place. Patient was successfully extubated yesterday and maintained on 3 L of oxygen via nasal cannula. Incentive spirometer at the bedside and instructed and encouraged the patient to use at least 10 times every hour while awake. Patient also continues on insulin drip per protocol and once tolerating more diet we'll transition to sliding scale and Accu-Cheks. Patient also continues on amiodarone and cardiology following closely as well. Patient is currently sitting up in the chair and will continue to work with physical therapy daily. Heart hugger noted. 01/24/2021 Patient is seen and evaluated in follow-up this morning and is being closely monitored in the ICU. Patient continues with cordis and chest tube. Patient has been transitioned to oral amiodarone and cardiology following closely. Patient continues on 3L via NC and continues with some shortness of breath with exertion. Patient also currently receiving breathing inhalational treatments. Insulin drip has been discontinued and patient will continue on sliding scale as needed. Patient denies any worsening chest pain, shortness of breath. Patient is afebrile. 01/25/2021 Patient is seen this morning in follow-up continues to be closely monitored in the ICU and chest tubes have been removed. Patient has continued to work with physical therapy and being closely followed by cardiothoracic surgery along with cardiology. Chest x-ray today shows mild central vascular congestion and cardiomegaly with by basilar acute infiltrate and/or atelectasis on background low lung volumes all redemonstrated with no significant change from one day previously. Continue to encourage incentive spirometer and increased activity as tolerated. Patient reports to tolerating diet with no reports of nausea or vomiting noted. Labs: WBC is 10.4, hemoglobin is 9.2, platelets are 94, sodium is 131, potassium is 4.0, BUN is 17, creatinine is 0.97, calcium is 8.4, total bilirubin is 1.2, AST is 90, ALT is 70 Review of systems: Constitutional: No reports of fatigue, no reports of fever, or chills Cardiovascular: reports of chest wall pain and tenderness Respiratory: reports of mild shortness of breath and dry cough although feels is improved GI: No reports of nausea, vomiting, or diarrhea : No reports of dysuria or retention Neurovascular: Reports of generalized weakness, but states walked in the halls again today All medications have been reviewed Active Medications Acetaminophen (Acetaminophen Tab 325 Mg Tab) 650 mg PO Q4HR PRN PRN Reason: Fever and/ or Pain Hydrocodone Bitart/Acetaminophen (Hydrocodone/Apap 5-325mg 1 Each Tab) 2 each PO Q4HR PRN PRN Reason: Severe Pain Last Admin: 01/25/21 09:12 Dose: 2 each Documented by: Hydrocodone Bitart/Acetaminophen (Hydrocodone/Apap 5-325mg 1 Each Tab) 1 each PO Q4HR PRN PRN Reason: Moderate Pain Last Admin: 01/25/21 00:31 Dose: 1 each Documented by: Albuterol/Ipratropium (Ipratropium-Albuterol 3 Ml Neb) 3 ml INHALATION RT-Q2H PRN PRN Reason: Shortness Of Breath Or Wheezing Albuterol/Ipratropium (Ipratropium-Albuterol 3 Ml Neb) 3 ml INHALATION RT-QID [facility] Last Admin: 01/25/21 14:43 Dose: Not Given Documented by: Amiodarone HCl (Amiodarone 200 Mg Tab) 400 mg PO BID@1000,2200 [facility] Last Admin: 01/25/21 09:06 Dose: 400 mg Documented by: Amlodipine Besylate (Amlodipine 2.5 Mg Tab) 2.5 mg PO DAILY@1200 [facility] Last Admin: 01/25/21 11:58 Dose: 2.5 mg Documented by: Aspirin (Aspirin 81 Mg) 81 mg PO DAILY [facility] Last Admin: 01/25/21 09:06 Dose: 81 mg Documented by: Atorvastatin Calcium (Atorvastatin 40 Mg Tab) 40 mg PO DAILY [facility] Last Admin: 01/25/21 09:06 Dose: 40 mg Documented by: Benzocaine/Menthol (Benzocaine/Menthol Lozeng 1 Each Lozenge) 1 each MUCOUS MEM Q2H PRN PRN Reason: Sore Throat Bisacodyl (Bisacodyl 10 Mg Supp) 10 mg RECTAL DAILY PRN PRN Reason: Constipation Clopidogrel Bisulfate (Clopidogrel 75 Mg Tab) 75 mg PO DAILY [facility] Last Admin: 01/25/21 09:06 Dose: 75 mg Documented by: Heparin Sodium (Porcine) (Heparin Sodium,Porcine/Pf 5,000 Unit/0.5 Ml Syringe) 5,000 unit SQ Q8HR [facility] Last Admin: 01/25/21 09:06 Dose: 5,000 unit Documented by: Amiodarone HCl 150 mg/ (Dextrose/Water) 103 mls @ 618 mls/hr IV .Q10M PRN; Protocol PRN Reason: A.FIB/FLUTTER Last Admin: 01/23/21 19:57 Dose: 618 mls/hr Documented by: Amiodarone HCl 450 mg/ (Dextrose/Water) 250 mls @ 16.667 mls/hr IV .Q15H PRN; Protocol PRN Reason: A.FIB/FLUTTER Insulin Aspart (Insulin Aspart (Novolog) 100 Unit/Ml Vial) 0 unit SQ ACHS [facility]; Protocol Last Admin: 01/25/21 12:35 Dose: 1 unit Documented by: Lisinopril (Lisinopril 2.5 Mg Tab) 2.5 mg PO DAILY [facility] Last Admin: 01/25/21 09:06 Dose: 2.5 mg Documented by: Magnesium Hydroxide (Magnesium Hydroxide 2,400 Mg/10 Ml Cup) 2,400 mg PO BID PRN PRN Reason: Constipation Metoclopramide HCl (Metoclopramide 5 Mg/Ml 2 Ml Vial) 10 mg IVP Q4H PRN PRN Reason: Nausea And Vomiting Metoprolol Tartrate (Metoprolol Tartrate 25 Mg Tab) 25 mg PO BID [facility] Miscellaneous Information (Potassium Replacement Protocol 1 Each Misc) 1 each MISCELLANE DAILY PRN; Protocol PRN Reason: Per Protocol Miscellaneous Information (Magnesium Replacement Protocol 1 Each Misc) 1 each MISCELLANE DAILY PRN; Protocol PRN Reason: Per Protocol Miscellaneous Information (Phosphorus Replacement Protoco 1 Each Misc) 1 each MISCELLANE DAILY PRN; Protocol PRN Reason: Per Protocol Multivitamins (Multivitamins, Thera 1 Each Tab) 1 each PO DAILY [facility] Last Admin: 01/25/21 09:06 Dose: 1 each Documented by: Ondansetron HCl (Ondansetron 4 Mg/2 Ml Vial) 4 mg IVP Q6HR PRN PRN Reason: Nausea And Vomiting Last Admin: 01/23/21 02:00 Dose: 4 mg Documented by: Pantoprazole Sodium (Pantoprazole 40 Mg Tablet) 40 mg PO AC-BRKFST [facility] Last Admin: 01/25/21 09:06 Dose: 40 mg Documented by: Senna/Docusate Sodium (Sennosides-Docusate Sodium 1 Each Tab) 2 each PO [facility] Last Admin: 01/24/21 22:06 Dose: 2 each Documented by: Sodium Chloride (Sodium Chloride 0.9% Flush 10 Ml Syringe) 10 ml IV BID [facility] Last Admin: 01/25/21 09:07 Dose: 10 ml Documented by: Tamsulosin HCl (Tamsulosin 0.4 Mg Cap.Er.24h) 0.4 mg PO [facility] Last Admin: 01/24/21 22:06 Dose: 0.4 mg Documented by: Physical Exam: Gen: This is a 65-year-old male currently sitting up in the chair awake, alert and oriented 3, well-developed, well-nourished. Temp is 99.1F Pulse is 77, respirations are 29, blood pressure is 121/61, oxygen is 96% on 2 L via nasal cannula HEENT: Head is atraumatic, normocephalic. Pupils equal, round. Sclerae is anicteric. NECK: Supple. No JVD. No lymphadenopathy. No thyromegaly. LUNGS: Diminished breath sounds with some scattered rhonchi noted, no wheezing noted. No intercostal retractions noted HEART: S1, S2 are muffled ABDOMEN: Soft. Obese. Bowel sounds are present. No masses. No tenderness. EXTREMITIES: No pedal edema. No calf tenderness. Bilateral SCDs noted NEUROLOGICAL: Patient is awake, alert and oriented x3. Cranial nerves 2 through 12 are grossly intact. Diffusely weak Assessment: Coronary artery disease, status post coronary artery bypass grafting History of ischemic cardiomyopathy History of chronic congestive heart failure with chronic systolic dysfunction, EF 35-40% History of chronic venostasis History of hearing defects mild hyponatremia hypertension history of myocardial infarction History of prostate disorder History of benign prostatic hypertrophy history of hernia repair surgery History of gout History of appendectomy history of nicotine dependence Full code Plan: Recommend to continue current medications, management, and symptomatic treatment. Patient continues on sliding scale as needed and recommend continue with Accu-Cheks before meals and at bedtime. Patient is tolerating diet with no reported nausea or vomiting. Patient working with physical therapy again today and feels is improving slowly daily. Patient currently on 2-3 L of oxygen via nasal cannula and denies any worsening shortness of breath. Encourage increase activity as tolerated and also strongly encouraged incentive spirometer use at least 10 times every hour while awake. Recommend repeat labs in the morning and will continue to follow along closely. Due to multiple complex medical issues, prognosis is guarded. Thank you for this consultation. Objective - Vital Signs Vital signs: Vital Signs Temp 98.2 F 01/25/21 04:00 Pulse 77 01/25/21 07:00 Resp 21 01/25/21 07:00 BP 124/69 01/25/21 07:00 Pulse Ox 93 L 01/25/21 07:00 Intake & Output 01/24/21 01/25/21 01/25/21 18:59 06:59 18:59 Intake Total 1178.692 850 Output Total 640 1015 20 Balance 538.692 -165 -20 Weight 117.7 kg Intake: IV 183.6 Amiodarone 0.5mg 16.6 Pressure bag 27 Sodium Chloride 0.9% 1, 140 000 ml @ 20 mls/hr IV . Q24H [facility] Rx#:[id number] Intake, IV Titration 5.092 Amount Insulin Regular 100 unit 5.092 In Sodium Chloride 0.9% 100 ml @ Per Protocol IV .Q0M [facility] Rx#:[id number] Oral 990 850 Output: Chest Tube Drainage 250 130 20 Chest Tube Bilateral 10 Mediastinal Chest Tube Left Lateral 240 130 20 Chest Urine 390 885 0 Other: Voiding Method Indwelling Catheter Urinal ABP, PAP, CO, CI - Last Documented Arterial Blood Pressure 101/36 Pulmonary Artery Pressure 22/16 Cardiac Output 4.9 Cardiac Index 2.1 - Labs CBC & Chem 7: 01/25/21 03:42 01/25/21 03:42 Labs: Abnormal Lab Results - Last 24 Hours (Table) 01/24/21 01/24/21 01/24/21 Range/Units 11:56 12:23 17:19 RBC (4.30-5.90) m/uL Hgb (13.0-17.5) gm/dL Hct (39.0-53.0) % Plt Count (150-450) k/uL Sodium (137-145) mmol/L Glucose (74-99) mg/dL POC Glucose (mg/dL) 104 H 109 H 123 H (75-99) mg/dL AST (17-59) U/L ALT (4-49) U/L Total Protein (6.3-8.2) g/dL Albumin (3.5-5.0) g/dL 01/24/21 01/25/21 01/25/21 Range/Units 20:50 03:42 03:42 RBC 2.69 L (4.30-5.90) m/uL Hgb 9.2 L (13.0-17.5) gm/dL Hct 26.1 L (39.0-53.0) % Plt Count 94 L (150-450) k/uL Sodium 131 L (137-145) mmol/L Glucose 130 H (74-99) mg/dL POC Glucose (mg/dL) 129 H (75-99) mg/dL AST 90 H (17-59) U/L ALT 70 H (4-49) U/L Total Protein 5.4 L (6.3-8.2) g/dL Albumin 3.2 L (3.5-5.0) g/dL 01/25/21 Range/Units 05:58 RBC (4.30-5.90) m/uL Hgb (13.0-17.5) gm/dL Hct (39.0-53.0) % Plt Count (150-450) k/uL Sodium (137-145) mmol/L Glucose (74-99) mg/dL POC Glucose (mg/dL) 134 H (75-99) mg/dL AST (17-59) U/L ALT (4-49) U/L Total Protein (6.3-8.2) g/dL Albumin (3.5-5.0) g/dL
[2021-01-25 17:55] LABS: Glucose,Whole Blood 121 mg/dL (75-99)
[2021-01-25 21:16] LABS: Glucose,Whole Blood 117 mg/dL (75-99)
[2021-01-25] MEDS: SENNOSIDES-DOCUSATE SODIUM 1 EACH TAB PO SCH (21:43)
[2021-01-25] MEDS: METOPROLOL TARTRATE 25 MG TAB PO SCH (21:44)
[2021-01-25] MEDS: TAMSULOSIN 0.4 MG CAP.ER.24H PO SCH (21:44)
[2021-01-26] MEDS: HEPARIN SODIUM,PORCINE/PF 5,000 UNIT/0.5 ML SYRINGE SQ SCH ×2 (00:03→09:19)
[2021-01-26 05:47] LABS: Glucose,Whole Blood 106 mg/dL (75-99)
[2021-01-26] MEDS: INSULIN ASPART (NovoLOG) 100 UNIT/ML VIAL SQ SCH ×2 (05:49→12:32)
[2021-01-26] MEDS: PANTOPRAZOLE 40 MG TABLET PO SCH (05:53)
[2021-01-26] MEDS: IPRATROPIUM-ALBUTEROL 3 ML NEB INHALATION SCH ×2 (07:18→12:06)
--- NOTE | 2021-01-26 08:19 | XR ---
EXAMINATION TYPE: XR chest 2V DATE OF EXAM: 01/26/2021 COMPARISON: Chest x-ray from yesterday. Chest tube removal. HISTORY: Postop cardiac surgery. TECHNIQUE: Frontal and lateral views of the chest are obtained. FINDINGS: Interval removal of left basilar chest tube. No pneumothorax seen. Overlying sternal wires and mediastinal clips along with left atrial appendage clip are all redemonst rated. Improved inspiration. Central vascular congestion and left greater than right bibasilar opacities red emonstrated. Background cardiomegaly. No visualized pneumothorax. Small left pleural effusion. Underl denny scoliotic curvature noted. IMPRESSION: No pneumothorax after left basilar chest tube removal. Other findings fairly stable.
[2021-01-26 08:53] LABS: HCT 26.7 % (39.0-53.0); HGB 9.2 gm/dL (13.0-17.5); MCH 34.1 pg (25.0-35.0); MCHC 34.5 g/dL (31.0-37.0); MCV 98.8 fL (80.0-100.0); Macrocytosis Slight; Mean Platelet Volume 10.6; Platelet Count 122 k/uL (150-450); Poikilocytosis Slight; RBC 2.71 m/uL (4.30-5.90); RDW 15.2 % (11.5-15.5); WBC 8.1 k/uL (3.8-10.6)
[2021-01-26] MEDS ORDERED: lisinopriL 5 MG TAB PO SCH (09:00)
[2021-01-26 09:09] LABS: ALT 94 U/L (4-49); AST 72 U/L (17-59); African American GFR (CKD) >90 (>60 ml/min/1.73 sqM); Albumin 3.3 g/dL (3.5-5.0); Alkaline Phosphatase 63 U/L (38-126); Anion Gap 10 mmol/L; Blood Urea Nitrogen 22 mg/dL (9-20); Calcium 8.3 mg/dL (8.4-10.2); Carbon Dioxide 24 mmol/L (22-30); Chloride 99 mmol/L (98-107); Glucose 109 mg/dL (74-99); Non-African American GFR(CKD) 81 (>60 ml/min/1.73 sqM); Potassium 3.9 mmol/L (3.5-5.1); Sodium 133 mmol/L (137-145); Total Bilirubin 0.9 mg/dL (0.2-1.3); Total Protein 5.6 g/dL (6.3-8.2)
--- NOTE | 2021-01-26 09:13 | PN ---
PROGRESS NOTE Mr. Pitts is a 65-year-old male who presented to undergo coronary bypass grafting. He is doing well this morning. He maintains sinus mechanism. He is ambulating. He is denying any chest pain. He denies any dizziness or palpitations. He denies any nausea. He is using his incentive spirometry and feeling well overall. He continues to be on amiodarone 400 mg twice a day, amlodipine 2.5 mg daily, aspirin once a day, Plavix 75 mg daily, lisinopril 2.5 mg daily, metoprolol tartrate 25 mg twice a day and Flomax 0.4 mg daily. PHYSICAL EXAMINATION: Blood pressure 124/70 with a heart rate in the 70s. Lungs: Clear. Heart: Regular rate and rhythm S1, S2. No S3, with systolic murmur. No diastolic murmur. Abdomen: Soft, nontender. Extremities: Stan wrapping in place. LAB DATA: None available today. IMPRESSION: 1. Status post coronary artery bypass grafting, stable with no evidence of recurrent ischemia. 2. Paroxysmal atrial fibrillation remains in sinus mechanism. 3. Ischemic cardiomyopathy preoperatively. 4. History of hypertension. 5. Hyperlipidemia. RECOMMENDATIONS: I will increase the dose of his STAN inhibitor. Continue rest of his medical regimen. I would expect he should be able to be discharged home soon and followed as an outpatient and depending on his progress, the dose of his beta alejandro and STAN inhibitor will be further adjusted. MMNEILL / ADDISONN: [id number] /
[2021-01-26] MEDS: MULTIVITAMINS, THERA 1 EACH TAB PO SCH (09:19)
[2021-01-26] MEDS: ASPIRIN 81 MG PO SCH (09:19)
[2021-01-26] MEDS: METOPROLOL TARTRATE 25 MG TAB PO SCH (09:19)
[2021-01-26] MEDS: ATORVASTATIN 40 MG TAB PO SCH (09:19)
[2021-01-26] MEDS: CLOPIDOGREL 75 MG TAB PO SCH (09:19)
[2021-01-26] MEDS: AMIODARONE 200 MG TAB PO SCH (09:19)
[2021-01-26] MEDS ORDERED: POTASSIUM CHLORIDE ER 20 MEQ TAB.ER PO ONE (09:58)
[2021-01-26] MEDS ORDERED: FUROSEMIDE 10 MG/ML 2 ML VIAL IV STA (09:58)
[2021-01-26 11:53] LABS: Glucose,Whole Blood 158 mg/dL (75-99)
[2021-01-26] MEDS ORDERED: amLODIPine 5 MG TAB PO SCH (12:00)
[2021-01-26 12:08] VITALS: RESP 16
--- NOTE | 2021-01-26 12:12 | P.PN ---
Subjective Progress Note Date: 01/26/21 Principal diagnosis: Triple-vessel coronary artery disease with totally occluded right coronary artery. Past medical history significant for inferior wall myocardial infarction with moderate left ventricular dysfunction, chronic systolic congestive heart failure, hypertension, hyperlipidemia, obesity, past history of tobacco dependence, mild restrictive lung disease, lower extremity chronic edema with laser ablation of both greater saphenous veins, BPH, remote history of pneumonia, family history of coronary artery disease, preoperative thrombocytopenia with platelets preoperatively 121, incomplete vaccination against Covid-19 with first dose Moderna vaccine 01/02/21 POD #4 all arterial triple coronary artery bypass grafting using the left internal mammary artery in a sequential fashion to the diagonal artery side to side, then to the left anterior descending artery end-to-side, left radial artery from the aorta to the first obtuse marginal artery, exclusion of the left atrial appendage using a 35 mm AtriClip, endoscopic harvesting of the left radial artery, intraoperative transesophageal echocardiogram and epi-aortic scanning, intraoperative graft flow measurements using the [employer] system Postoperative acute blood loss anemia and thrombocytopenia, expected given hemodilution and preoperative thrombocytopenia. Postoperative atrial fibrillation, known common occurrence after open heart surgery. The patient was seen in follow-up today 01/26/2021 at his bedside on the cardiac stepdown unit. Currently sitting up to the bedside chair, is awake, alert and oriented 3 and is in no acute apparent distress. He reports his pain is well controlled on his current pain medication regimen and denies any complaints of shortness of breath. Oxygen saturations are 97% on 2 L nasal cannula and he is achieving 1500 mL on his incentive spirometry with encouragement. Remote telemetry showing normal sinus rhythm heart rate 71 BPM. No further episodes of atrial fibrillation reported. The patient reports he has been up ambulating in the cardiac stepdown unit hallway with minimal assistance from nursing and therapy staff. Atrial and ventricular epicardial pacemaker wires removed this morning at 9:30 AM without incident. He continues to void and he remains afebrile the last 24 hours. Objective - Vital Signs Vital signs: Vital Signs Temp 98 F 01/26/21 08:55 Pulse 79 01/26/21 08:55 Resp 18 01/26/21 08:55 BP 119/74 01/26/21 08:55 Pulse Ox 97 01/26/21 08:55 Intake & Output 01/25/21 01/26/21 01/26/21 18:59 06:59 18:59 Intake Total 480 200 240 Output Total 840 550 Balance -360 -350 240 Weight 120 kg Intake: Oral 480 200 240 Output: Chest Tube Drainage 40 Chest Tube Left Lateral 40 Chest Urine 800 550 Other: Voiding Method Urinal Urinal Urinal # Voids 1 ABP, PAP, CO, CI - Last Documented Arterial Blood Pressure 101/36 Pulmonary Artery Pressure 22/16 Cardiac Output 4.9 Cardiac Index 2.1 - Exam CONSTITUTIONAL: Sitting up to the bedside chair on the cardiac stepdown unit, appears comfortable, cooperative, no apparent acute distress. HEENT: Neck is supple, no JVD, no lymphadenopathy. RESPIRATORY: Lungs sounds essentially clear throughout, diminished to his bilateral bases. Respirations are symmetrical and nonlabored. Currently on 2 L nasal cannula with oxygen saturations 97%. Able to achieve 1500 mL on his incentive spirometry. Strong cough. CARDIOVASCULAR: Regular rhythm and rate. S1 and S2 present, negative for S3, gallop or murmur. Sternum is stable. Palpable peripheral pulses bilaterally, +1 edema to his bilateral lower extremities. No calf pain or tenderness noted. Heart hugger in place with patient demonstrating appropriate use. Knee-high JEAN hose and sequential compression devices in place to his bilateral lower extremities. GASTROINTESTINAL: Abdomen soft, nontender, nondistended. Active bowel sounds present 4 quadrants. Tolerating diet. Bowel movement yesterday 01/25/2021. No guarding or rigidity. GENITOURINARY: Continues to void. INTEGUMENTARY: Skin is warm and dry with no evidence of clubbing or cyanosis. Midline sternal incision clean dry and well approximated, covered with dry intact dressing. Left arm radial artery harvest sites clean, dry and appr oximated. No drainage or redness is present. NEUROLOGIC: Cranial nerves II through XII intact. No focal deficits. MUSKULOSKELETAL: Able to move all extremities, strength equal bilaterally, generalized weakness. PSYCHIATRIC: Alert and oriented to person place and time, appropriate affect, intact judgment and insight. - Allied health notes Allied health notes reviewed: nursing - Labs CBC & Chem 7: 01/26/21 08:21 01/26/21 08:21 Labs: Abnormal Lab Results - Last 24 Hours (Table) 01/25/21 01/25/21 01/26/21 Range/Units 17:53 21:14 05:46 RBC (4.30-5.90) m/uL Hgb (13.0-17.5) gm/dL Hct (39.0-53.0) % Plt Count (150-450) k/uL Sodium (137-145) mmol/L BUN (9-20) mg/dL Glucose (74-99) mg/dL POC Glucose (mg/dL) 121 H 117 H 106 H (75-99) mg/dL Calcium (8.4-10.2) mg/dL AST (17-59) U/L ALT (4-49) U/L Total Protein (6.3-8.2) g/dL Albumin (3.5-5.0) g/dL 01/26/21 01/26/21 01/26/21 Range/Units 08:21 08:21 11:51 RBC 2.71 L (4.30-5.90) m/uL Hgb 9.2 L (13.0-17.5) gm/dL Hct 26.7 L (39.0-53.0) % Plt Count 122 L (150-450) k/uL Sodium 133 L (137-145) mmol/L BUN 22 H (9-20) mg/dL Glucose 109 H (74-99) mg/dL POC Glucose (mg/dL) 158 H (75-99) mg/dL Calcium 8.3 L (8.4-10.2) mg/dL AST 72 H (17-59) U/L ALT 94 H (4-49) U/L Total Protein 5.6 L (6.3-8.2) g/dL Albumin 3.3 L (3.5-5.0) g/dL - Imaging and Cardiology Chest x-ray: report reviewed, image reviewed Assessment and Plan Assessment: 1. Triple-vessel coronary artery disease with totally occluded right coronary artery, status post three-vessel all arterial CABG 2. History of inferior wall myocardial infarction with moderate left ventricular dysfunction 3. Chronic systolic congestive heart failure, preoperative EF 35-40% 4. History of hypertension 5. Hyperlipidemia, cholesterol 180, LDL 100 6. Obesity 7. Previous tobacco dependence 8. Mild restrictive lung disease, preoperative FEV1 60% of predicted 9. Lower extremity chronic edema with laser ablation of both greater saphenous veins 10. BPH, on alfuzosin as an outpatient 11. Remote history of pneumonia 12. Family history of coronary artery disease 13. Preoperative thrombocytopenia with platelets of 121 14. Incomplete vaccination against Covid with first dose Moderna vaccine 01/02/21 15. Postoperative acute blood loss anemia and thrombocytopenia, expected 16. Postoperative atrial fibrillation, expected Plan: 1. Continue aspirin, statin, Plavix, beta alejandro. Will increase metoprolol tartrate as tolerated. 2. Continue amiodarone 400 mg by mouth twice a day for atrial fibrillation prophylaxis. No anticoagulation unless in going in and out of afib 3. Wean oxygen as tolerated. Encourage incentive spirometry use 10 times every hour while awake. Bronchodilators per pulmonology/critical care management. 4. Increase activity, ambulate as tolerated. PT/OT/cardiac rehab following. 5. Will monitor daily labs and chest x-rays. Electrolyte replacement per protocol. 6. Insulin management per primary care service. Patient is not diabetic, preoperative hemoglobin A1c 5.5%, patient will need tight blood sugar control to prevent infection and promote sternal healing. 7. Pain control current medication regimen. No Toradol secondary to thrombocytopenia 8. Continue amlodipine for radial artery spasm prophylaxis. Amlodipine increased to 5 mg by mouth daily at noon. 9. Continue to monitor strict accurate I's and O's, may bladder scan and straight cath for >300 mL residual. 10. Atrial and ventricular epicardial pacemaker wires removed without incident. 11. Continue daily weights. 12. Anticipate discharge home within the next 24 hours with [facility] care. 13. Lasix 20 mg IV 1 now and potassium chloride 20 mg by mouth 1 now. 14. More recommendations to follow based on patient's clinical course. Time with Patient: Greater than 30
--- NOTE | 2021-01-26 12:36 | P.PN ---
Subjective Progress Note Date: 01/26/21 Principal diagnosis: Status post bypass grafting. Coronary artery disease, status post coronary artery bypass grafting 65-year-old male in room 265. The patient is postop day #0, status post three- vessel bypass grafting. The surgery was done by Dr. Bond. Currently, the pa luis is on the ventilator. He is on the volume assist control mode, rate of 16, tidal volume 500, FiO2 percent, PEEP of 10. Initial blood gases showed a pO2 of 208, pCO2 of 51, and a pH is 7.31. Those blood gases were done on a rate of 12, PEEP of 10, and 100% FiO2. I increased her rate up to 16. Currently, the patient's on saline at 50 mL an hour, a nitroglycerin drip at 5 mcg/m, norepinephrine at 2 mcg/m, propofol at 40 mcg/kg/m, insulin at 4 units per hour, and Primacor 0.3 mcg/kg/m. The patient's chest x-ray is currently pending. Lab data includes a white count 10.5, hemoglobin 11.3, hematocrit 32.4, and a platelet count of 92,000. PT was 12, INR 1.1, and PTT was 26. Sodium 136, potassium 4.5, chlorides 106, CO2 25, anion gap 5, BUN 18, and creatinine 0.94. The patient's magnesium was 2.7. The patient's chest x-ray show some pulmonary vascular congestion and post surgical changes. In addition to coronary artery disease, the patient's past medical history appears to include hypertension, and gout. The patient is seen today 01/23/2021 in follow-up in the intensive care unit. He did undergo coronary artery bypass grafting utilizing a COONEY sequentially to the LAD and diagonal artery, left radial artery to the first obtuse marginal artery. Postoperative day #1. He was successfully extubated 3 hours and 20 minutes following surgery. He is currently sitting up in a chair at the bedside. Awake and alert in no acute distress. He is maintaining good O2 saturation in low 90s on 3 L/m per nasal cannula. His 0.9 normal saline at 40 ML's per hour. Insulin drip at 3 units per hour. He is still on Primacor at 0.2 mcg/kg/m. Cardiac output 5.6. Cardiac index 2.4. PA pressure 20/12. White count 8.0. Hemoglobin 10.2. Platelet count 90,000. Sodium 135. Potassium 4.1. Creatinine 0.83. Glucose 129. AST is 50. ALT 23. Albumin 2.8. Chest x-ray reveals bilateral infiltrates and small effusions. Mediastinal chest tubes 2 with 110 mL serosanguineous drainage overnight, left pleural chest tube in place with 130 ML serosanguineous drainage overnight. He is working well with the incentive spirometer. Left IJ Quemado-Elver catheter in place. Right radial arterial line in place. He remains on DuoNeb inhalations. Heparin for DVT prophylaxis. The patient is seen today 01/24/2021 in follow-up in the intensive care unit. This is postoperative day #2. He is currently sitting up in a recliner at the bedside. Awake and alert in no acute distress. No worsening shortness of breath, cough or congestion. He is maintaining good O2 saturations in the 90s on 3 L/m per nasal cannula. He did have an episode of atrial fibrillation with a rapid ventricular response and hypotension and is currently on amiodarone drip at 0.5 mg/m. Robbi-Synephrine is off. Currently in normal sinus rhythm. He is on a insulin drip at 5 units per hour. Normal saline at 20 ML's per hour. Chest x-ray reveals worsening central vascular congestion and tiny bilateral ple ural effusions. He remains on bronchodilators. Working well with the incentive spirometer. Heparin for DVT prophylaxis. Mediastinal chest tubes removed. Left pleural chest tube remains in place. White count 10.1. Hemoglobin 9.9. Platelets 91,000. Sodium 131. Potassium 4.0. Bicarb 21. Creatinine 1.0. Glucose 121. AST 123. ALT 70. Albumin 3.7. The patient is seen today 01/25/2021 in follow-up in the intensive care unit. Postoperative day #3. He is awake and alert in no acute distress. Currently sitting up in a recliner. He is on 2 L nasal cannula to maintain O2 saturations in the 90s. He was 89% on room air. Chest x-ray continues to show mild central vascular congestion and cardiomegaly with bibasilar infiltrates/atelectasis. Going about 750 MLS on his incentive spirometer. Left-sided chest tube remains in place. He's currently in normal sinus rhythm. White count 10.4. Hemoglobin 9.2. Platelet count 94,000. Sodium 131 potassium 4.0. Creatinine 0.97. Glucose 1:30. AST 90. ALT 70. He is continued on DuoNeb inhalations heparin for DVT prophylaxis. Remains on oral amiodarone and beta blockers. Progress note dated 01/26/2021. The patient is seen today in room 385. Currently, he sent receiving any IV fluids or any supplemental oxygen. He's postop day #4. He's feeling very well. He denies any chest pain, chest discomfort, palpitations, skipped beats, cough, wheezing, shortness of breath, or phlegm production. He also denies any fever or chills. He denies any nausea, vomiting, or diarrhea. White count 8.1, hemoglobin 9.2, hematocrit 26.7, and platelet count 122,000. Sodium 133, potassium 3.9, chlorides 99, CO2 24, anion gap 10, BUN 22, creatinine 0.99. Chest x-ray shows postoperative findings, without pneumothorax. Objective - Vital Signs Vital signs: Vital Signs Temp 98 F 01/26/21 08:55 Pulse 78 01/26/21 12:16 Resp 16 01/26/21 12:16 BP 119/74 01/26/21 08:55 Pulse Ox 97 01/26/21 08:55 Intake & Output 01/25/21 01/26/21 01/26/21 18:59 06:59 18:59 Intake Total 480 200 240 Output Total 840 550 Balance -360 -350 240 Weight 120 kg Intake: Oral 480 200 240 Output: Chest Tube Drainage 40 Chest Tube Left Lateral 40 Chest Urine 800 550 Other: Voiding Method Urinal Urinal Urinal # Voids 1 ABP, PAP, CO, CI - Last Documented Arterial Blood Pressure 101/36 Pulmonary Artery Pressure 22/16 Cardiac Output 4.9 Cardiac Index 2.1 - Exam No acute distress, oriented 3. Currently on room air. HEENT examination is grossly unremarkable. Neck supple. Full range of motion. No adenopathy thyromegaly or neck vein distention. Cardiovascular examination reveals regular rhythm rate. S1-S2 normal. No S3 or S4. No discernible murmur noted. Heart rate 79 bpm. Lungs reveal scattered bilateral rhonchi. No wheezes or crackles. Breath sounds equal bilaterally. Abdomen soft bowel sounds are heard. No masses or tenderness. Extremities are intact. No cyanosis clubbing or edema. Skin is without rash or lesion. Neurologic examination is brief but nonfocal. - Labs CBC & Chem 7: 01/26/21 08:21 01/26/21 08:21 Labs: Abnormal Lab Results - Last 24 Hours (Table) 01/25/21 01/25/21 01/26/21 Range/Units 17:53 21:14 05:46 RBC (4.30-5.90) m/uL Hgb (13.0-17.5) gm/dL Hct (39.0-53.0) % Plt Count (150-450) k/uL Sodium (137-145) mmol/L BUN (9-20) mg/dL Glucose (74-99) mg/dL POC Glucose (mg/dL) 121 H 117 H 106 H (75-99) mg/dL Calcium (8.4-10.2) mg/dL AST (17-59) U/L ALT (4-49) U/L Total Protein (6.3-8.2) g/dL Albumin (3.5-5.0) g/dL 01/26/21 01/26/21 01/26/21 Range/Units 08:21 08:21 11:51 RBC 2.71 L (4.30-5.90) m/uL Hgb 9.2 L (13.0-17.5) gm/dL Hct 26.7 L (39.0-53.0) % Plt Count 122 L (150-450) k/uL Sodium 133 L (137-145) mmol/L BUN 22 H (9-20) mg/dL Glucose 109 H (74-99) mg/dL POC Glucose (mg/dL) 158 H (75-99) mg/dL Calcium 8.3 L (8.4-10.2) mg/dL AST 72 H (17-59) U/L ALT 94 H (4-49) U/L Total Protein 5.6 L (6.3-8.2) g/dL Albumin 3.3 L (3.5-5.0) g/dL Assessment and Plan Assessment: Postop day #4, status post three-vessel bypass grafting. Postoperative ventilator management. History of hypertension. History of gout. Plan: Plan dated 01/22/2021. The patient remains on multiple drips including nitroglycerin, norepinephrine, propofol, insulin, and Primacor. The patient's vent settings are appropriate. The rate was increased from 12 up to 16. The patient's FiO2 was dropped from 100% down to 60%. Additional recommendations and suggestions are forthcoming. Hopefully, the patient can be extubated in rapid fashion, within the next 6 hours or so. We will continue to follow make recommendations where appropriate. Prognosis is guarded. Plan dated 01/26/2021. The patient appears to be doing very well. He apparently is being considered for possible discharge by cardiothoracic surgery. He's not receiving any IV fluids. No supplemental oxygen. Additional recommendations and suggestions are forthcoming. Prognosis is guarded. Time with Patient: Less than 30
[2021-01-26 13:27] VITALS: BP 99/64; PULSE 69; TEMP 98.5
--- NOTE | 2021-01-26 13:36 | P.DS ---
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 Triple-vessel coronary artery disease with totally occluded right coronary artery, status post three-vessel all arterial CABG 2. History of inferior wall myocardial infarction with moderate left ventr icular dysfunction 3. Chronic systolic congestive heart failure, preoperative EF 35-40% 4. History of hypertension 5. Hyperlipidemia, cholesterol 180, LDL 100 6. Obesity 7. Previous tobacco dependence 8. Mild restrictive lung disease, preoperative FEV1 60% of predicted 9. Lower extremity chronic edema with laser ablation of both greater saphenous veins 10. BPH, on alfuzosin as an outpatient 11. Remote history of pneumonia 12. Family history of coronary artery disease 13. Preoperative thrombocytopenia with platelets of 121 14. Incomplete vaccination against Covid with first dose Moderna vaccine 01/02/21 15. Postoperative acute blood loss anemia and thrombocytopenia, expected 16. Postoperative paroxysmal atrial fibrillation, a known common occurrence after cardiac surgery PRINCIPAL PROCEDURE: 1. All arterial triple coronary artery bypass grafting using the left internal mammary artery in a sequential fashion to the diagonal coronary artery [id number], then to the left anterior descending coronary artery and decide, and the left radial artery from the aorta to the first obtuse marginal coronary artery. 2. Exclusion of the left atrial appendage using a 35 mm Atriclip. 3. Endoscopic harvesting of the left radial artery. 4. Intraoperative transesophageal echocardiogram. 5. Intraoperative epi-aortic scanning. 6. Intraoperative graft flow measurements using the [employer] system. HISTORY OF PRESENT ILLNESS: This is a 65-year-old gentleman who follows on an outpatient basis with Dr. Tao Matta for his primary care service. Recently, the patient has had complaints of progressive shortness of breath which is worse when lying flat. Due to the shortness of breath he sought treatment from his primary care physician and an 12-lead EKG was completed demonstrating ST changes and the patient was recommended to report [facility] emergency room for further evaluation and treatment recommendations. The EKG demonstrated ST depression in leads 23 and aVF and also V3 through V6. Troponins were mildly elevated at that time at 0.04 to 0.05. A chest x-ray showed some pulmonary congestion. During that admission he was treated for acute heart failure. A transthoracic 2-D echocardiogram was completed demonstrating an impaired left ventricular systolic function with an ejection fraction of 35-40%, inferior wall hypokinesis, mild mitral valve regurgitation as well as mild tricuspid valve regurgitation. For follow-up a heart catheterization was completed which showed triple-vessel coronary artery disease. During that admission a consult was placed to Dr. Bonilla Bond from cardiothoracic surgery for further evaluation and treatment recommendations including myocardial revascularization surgery. Dr. Bond met with the patient, discussed treatment options with the patient including myocardial revascularization surgery, risks and benefits of surgery were discussed including the STS risk score and knowing and understanding these risks the patient opted for myocardial revascularization surgery. He was discharged home and scheduled for elective coronary artery bypass grafting surgery. HOSPITAL COURSE: The patient was brought to the hospital on 01/22/2021, consent was obtained and the patient was taken to the preoperative area, prepared in the usual fashion and subsequently taken to the operating room where Dr. Bonilla Bond performed an all arterial triple coronary artery bypass grafting using the left internal mammary artery in a sequential fashion to the diagonal coronary artery [id number], then to the left anterior descending coronary artery and decide, and the left radial artery from the aorta to the first obtuse marginal coronary artery, exclusion of the left atrial appendage using a 35 mm Atriclip, intraoperative transesophageal echocardiogram, intraoperative epi- aortic scanning and intraoperative graft flow measurements using the [employer] system. Upon completion of the surgery the patient was transferred to the cardiovascular intensive care unit where he was recovered and monitored hemodynamically. He was extubated, all lines, tubes and supportive drips were discontinued when appropriate and he was subsequently transferred to the third floor cardiac stepdown unit for further monitoring and rehabilitation. His auction was titrated down, he continued to work with physical and occupational therapy, he was tolerating an oral diet, his pain was well-controlled and he was ready to be discharged home with [id number] on postoperative day #4. He has received written and verbal instructions regarding his medications, activity restrictions, signs and symptoms requiring physician notification and his follow-up appointments. Plan - Discharge Summary Discharge Rx Participant: Yes New Discharge Prescriptions: New Potassium Chloride ER [K-Dur 10] 10 meq PO DAILY #7 tab Atorvastatin [Lipitor] 40 mg PO DAILY #30 tab amLODIPine [Norvasc] 5 mg PO DAILY@1200 #30 tab Clopidogrel [Plavix] 75 mg PO DAILY #30 tab Acetaminophen Tab [Tylenol] 650 mg PO Q4HR PRN tab PRN Reason: Fever And/ Or Pain Amiodarone [Cordarone] 400 mg PO BID@1000,2200 #43 tab Furosemide [Lasix] 20 mg PO DAILY #7 tab Metoprolol Tartrate [Lopressor] 25 mg PO BID #60 tab Pantoprazole [Protonix] 40 mg PO AC-BRKFST #30 tab lisinopriL [Zestril] 5 mg PO DAILY #30 tab Continue Alfuzosin HCl [Uroxatral] 10 mg PO HS Ibuprofen [Motrin] 800 mg PO TID PRN PRN Reason: Pain Fluticasone Nasal [place] [Flonase Nasal [place]] 1 spr EA NOSTRIL DAILY PRN PRN Reason: allergies allopurinoL [Zyloprim] 100 mg PO DAILY Aspirin 81 mg PO DAILY 30 Days #30 tab Multivitamins, Thera [Multivitamin (formulary)] 1 tab PO DAILY Discontinued Furosemide [Lasix] 40 mg PO DAILY Carvedilol [Coreg] 25 mg PO BID Spironolactone [Aldactone] 25 mg PO DAILY lisinopriL [Zestril] 40 mg PO DAILY Discharge Medication List Alfuzosin HCl [Uroxatral] 10 mg PO HS 02/08/17 [History] Fluticasone Nasal [place] [Flonase Nasal [place]] 1 spr EA NOSTRIL DAILY PRN 12/12/20 [History] Ibuprofen [Motrin] 800 mg PO TID PRN 12/12/20 [History] allopurinoL [Zyloprim] 100 mg PO DAILY 12/12/20 [History] Aspirin 81 mg PO DAILY 30 Days #30 tab 12/15/20 [Rx] Multivitamins, Thera [Multivitamin (formulary)] 1 tab PO DAILY 01/16/21 [History] Acetaminophen Tab [Tylenol] 650 mg PO Q4HR PRN tab 01/26/21 [Rx] Amiodarone [Cordarone] 400 mg PO BID@1000,2200 #43 tab 01/26/21 [Rx] Atorvastatin [Lipitor] 40 mg PO DAILY #30 tab 01/26/21 [Rx] Clopidogrel [Plavix] 75 mg PO DAILY #30 tab 01/26/21 [Rx] Furosemide [Lasix] 20 mg PO DAILY #7 tab 01/26/21 [Rx] Metoprolol Tartrate [Lopressor] 25 mg PO BID #60 tab 01/26/21 [Rx] Pantoprazole [Protonix] 40 mg PO AC-BRKFST #30 tab 01/26/21 [Rx] Potassium Chloride ER [K-Dur 10] 10 meq PO DAILY #7 tab 01/26/21 [Rx] amLODIPine [Norvasc] 5 mg PO DAILY@1200 #30 tab 01/26/21 [Rx] lisinopriL [Zestril] 5 mg PO DAILY #30 tab 01/26/21 [Rx] Follow up Appointment(s)/Referral(s): Rehab [facility],Cardiac [NON-STAFF] - 4 Weeks (You will be called for evaluation for cardiac rehab approximately 4-6 weeks after surgery) Bonilla Bond MD [STAFF PHYSICIAN] - 02/23/21 10:00 am José Garner DO [STAFF PHYSICIAN] - 2 Weeks Dany Chavez DO [Doctor of Osteopathic Medicine] - 2 Weeks [facility], [NON-STAFF] - 1-2 Days Bess Nava MD [Primary Care Provider] - 2 Weeks [facility] [NON-STAFF] - As Needed (Contact if needed for shower chair) Ambulatory/Diagnostic Orders: Complete Blood Count w/diff [LAB.AMB] Time Frame: 01/29/21, Facility: [facility], [facility] Comprehensive Metabolic Panel [LAB.AMB] Time Frame: 01/29/21, Facility: [facility], [facility] Activity/Diet/Wound Care/Special Instructions: DISCHARGE INSTRUCTIONS: 1. No driving for 4 weeks, or until physician gives their ok. 2. The patient should sleep in their own bed, no medical bed needed. 3. Stairs are not an issue. If the bedroom is upstairs, it is advised that the patient go up at night and down in the morning for the first week. Go slowly, using handrail and take 1 step at a time. 4. JEAN hose are to be worn for 30 days or until physician discontinues. 5. Heart hugger is to be worn 100% of the time until physician discontinues.(except when showering) 6. No lifting, pushing, or pulling more than 10 pounds for 12 weeks. The physician will advise of any restriction changes. 7. The patient is expected to continue the prescribed walking program. 8. Continue pain control per as needed orders. 9. Continue with incentive spirometry and splinting/heart hugger until otherwise directed by the physician. 10. Must shower daily using liquid antibacterial soap and a separate white washcloth for each individual incision. 11. Routine sternal incision care. No powders, lotions, ointments on incisions. No dressings are necessary on incisions unless they are draining. Dermabond tape is to remain on sternal incision until surgeon follow-up. 12. Please call surgeon/NURSE AIDE for temp greater than 101 F or purulent drainage from incisions. 13. Narcotic medications were discussed with the patient, including the potential for misuse, addiction, and abuse. Opiod Start Talking form was reviewed with the patient. 14. All prescriptions given by surgeon for 30 days. Refills need to be filled through computer repairer/primary care physician. 15. A Red armband has been placed on the patient. It should be worn for 30 days post surgery and will be removed by the cardiac surgeons. If an ER visit is necessary, please make sure the number on the Red armband is called. 16. You have been referred to and are expected to begin Cardiac Rehab in approximately 4-6 weeks. HOME HEALTH SERVICES TO PROVIDE: RN SKILLED HOME CARE SERVICES FOR POST-OP SURGICAL PATIENTS WITH THE FOLLOWING: Coronary Artery Bypass Surgery (CABG), Mitral Valve Replacement/Repair ( MVR), Aortic Valve Replacement/Repair (AVR) RN TO CONTINUE EDUCATION FROM ``ROAD TO A HEALTH HEART PATIENT EDUCATION MANUAL (GIVEN TO PATIENT IN THE HOSPITAL) MEDICATION RECONCILIATION WITH EDUCATION NEEDED ON FIRST HOME VISIT EMPHASIZE IMPORTANCE OF WEARING BREAST SUPPORT/HEART HUGGER ENCOURAGE USE OF INCENTIVE SPIROMETER 10 X EVERY HOUR WHILE AWAKE ENCOURAGE UTILIZATION OF LOWER EXTREMITY COMPRESSION STOCKINGS/JEAN HOSE and ELEVATE LEGS ABOVE LEVEL OF HEART WHILE AT REST. ENCOURAGE AMBULATION 3-5x/day INCREASING TOLERATES, WHILE AVOIDING EXTREMES IN TEMPERATURE FREQUENCY: RN TO OPEN THE PATIENT WITHIN 24 HOURS OF DISCHARGE FROM THE HOSPITAL WITH TELEHEALTH INSTALLED AT [facility], RN TO VISIT 2-3 X A WEEK FOR 4 WEEKS ESTABLISHED BY PATIENT NEEDS. LABORATORY: CBC, CMP TO BE DRAWN ON THE THIRD DAY HOME, (RAN STAT) FAX RESULTS TO [phone]. TELEHEALTH PARAMETERS: WEIGHT: NOTIFY MD OF WEIGHT GAIN OF 2 LBS IN 24 HOURS OR 5 LBS IN ONE WEEK HR: NOTIFY MD OF HR <55 BPM OR HR>100 BPM BP: NOTIFY MD IF BP <90/55 OR BP>140/100 O2 SAT: NOTIFY MD IF PO2<93% ON ROOM AIR SEND TELEHEALTH REPORT TO CATERING DIRECTOR AND CARDIOVASCULAR SURGEON THE FIRST WEEK OF CARE AND THEN BI-WEEKLY. PLEASE ADDITIONALLY COMMUNICATE ANY ABNORMALS AND NEW FINDINGS TO THE SURGEONS OFFICE. Discharge Disposition: HOME WITH HOME HEALTH SERVICES
--- NOTE | 2021-01-27 02:30 | P.PN ---
Subjective Progress Note Date: 01/26/21 This is a pleasant 65-year-old male who was recently admitted with coronary artery disease and underwent coronary artery bypass grafting with Dr. Bond. Patient continues to be closely monitored in the ICU and continues with chest tubes and pacemaker in place. Patient was successfully extubated yesterday and maintained on 3 L of oxygen via nasal cannula. Incentive spirometer at the bedside and instructed and encouraged the patient to use at least 10 times every hour while awake. Patient also continues on insulin drip per protocol and once tolerating more diet we'll transition to sliding scale and Accu-Cheks. Patient also continues on amiodarone and cardiology following closely as well. Patient is currently sitting up in the chair and will continue to work with physical therapy daily. Heart hugger noted. 01/24/2021 Patient is seen and evaluated in follow-up this morning and is being closely monitored in the ICU. Patient continues with cordis and chest tube. Patient has been transitioned to oral amiodarone and cardiology following closely. Patient continues on 3L via NC and continues with some shortness of breath with exertion. Patient also currently receiving breathing inhalational treatments. Insulin drip has been discontinued and patient will continue on sliding scale as needed. Patient denies any worsening chest pain, shortness of breath. Patient is afebrile. 01/25/2021 Patient is seen this morning in follow-up continues to be closely monitored in the ICU and chest tubes have been removed. Patient has continued to work with physical therapy and being closely followed by cardiothoracic surgery along with cardiology. Chest x-ray today shows mild central vascular congestion and cardiomegaly with by basilar acute infiltrate and/or atelectasis on background low lung volumes all redemonstrated with no significant change from one day previously. Continue to encourage incentive spirometer and increased activity as tolerated. Patient reports to tolerating diet with no reports of nausea or vomiting noted. 01/26/2021 Patient is seen this morning and has been transferred out of the ICU to selected unit and being closely monitored. Patient is currently sitting up in the chair on room air and tolerating. Patient states he is anticipating discharge and awaiting case management for discharge planning and per at the bedside, arranging for home care. INcentive spirometer encouraged and discussed with the patient about continuing to use outpatient as well. Patient instructed to follow up in the outpatient setting as hemoglobin a1c was 5.5 and has a strong family history of diabetes. Labs: WBC is 8.1, hemoglobin is 9.2, platelets are 122, sodium is 133, potassium is 3.9, BUN is 22, creatinine is 0.99, calcium is 8.3, total bilirubin is 0.9, AST is 72, ALT is 94 Review of systems: Constitutional: No reports of fatigue, no reports of fever, or chills Cardiovascular: reports of chest wall pain and tenderness Respiratory: reports of mild shortness of breath and dry cough although feels is improved GI: No reports of nausea, vomiting, or diarrhea : No reports of dysuria or retention Neurovascular: Reports of generalized weakness, but states walked in the halls again today All medications have been reviewed Active Medications Acetaminophen (Acetaminophen Tab 325 Mg Tab) 650 mg PO Q4HR PRN PRN Reason: Fever and/ or Pain Albuterol/Ipratropium (Ipratropium-Albuterol 3 Ml Neb) 3 ml INHALATION RT-Q2H PRN PRN Reason: Shortness Of Breath Or Wheezing Albuterol/Ipratropium (Ipratropium-Albuterol 3 Ml Neb) 3 ml INHALATION RT-QID [facility] Last Admin: 01/26/21 07:18 Dose: 3 ml Documented by: Amiodarone HCl (Amiodarone 200 Mg Tab) 400 mg PO BID@1000,2200 [facility] Last Admin: 01/26/21 09:19 Dose: 400 mg Documented by: Amlodipine Besylate (Amlodipine 5 Mg Tab) 5 mg PO DAILY@1200 AKASH Aspirin (Aspirin 81 Mg) 81 mg PO DAILY [facility] Last Admin: 01/26/21 09:19 Dose: 81 mg Documented by: Atorvastatin Calcium (Atorvastatin 40 Mg Tab) 40 mg PO DAILY [facility] Last Admin: 01/26/21 09:19 Dose: 40 mg Documented by: Benzocaine/Menthol (Benzocaine/Menthol Lozeng 1 Each Lozenge) 1 each MUCOUS MEM Q2H PRN PRN Reason: Sore Throat Bisacodyl (Bisacodyl 10 Mg Supp) 10 mg RECTAL DAILY PRN PRN Reason: Constipation Clopidogrel Bisulfate (Clopidogrel 75 Mg Tab) 75 mg PO DAILY [facility] Last Admin: 01/26/21 09:19 Dose: 75 mg Documented by: Heparin Sodium (Porcine) (Heparin Sodium,Porcine/Pf 5,000 Unit/0.5 Ml Syringe) 5,000 unit SQ Q8HR [facility] Last Admin: 01/26/21 09:19 Dose: 5,000 unit Documented by: Amiodarone HCl 150 mg/ (Dextrose/Water) 103 mls @ 618 mls/hr IV .Q10M PRN; Protocol PRN Reason: A.FIB/FLUTTER Last Admin: 01/23/21 19:57 Dose: 618 mls/hr Documented by: Amiodarone HCl 450 mg/ (Dextrose/Water) 250 mls @ 16.667 mls/hr IV .Q15H PRN; Protocol PRN Reason: A.FIB/FLUTTER Insulin Aspart (Insulin Aspart (Novolog) 100 Unit/Ml Vial) 0 unit SQ ACHS [facility]; Protocol Last Admin: 01/26/21 05:49 Dose: Not Given Documented by: Lisinopril (Lisinopril 5 Mg Tab) 5 mg PO DAILY [facility] Last Admin: 01/26/21 09:19 Dose: 5 mg Documented by: Magnesium Hydroxide (Magnesium Hydroxide 2,400 Mg/10 Ml Cup) 2,400 mg PO BID PRN PRN Reason: Constipation Metoclopramide HCl (Metoclopramide 5 Mg/Ml 2 Ml Vial) 10 mg IVP Q4H PRN PRN Reason: Nausea And Vomiting Metoprolol Tartrate (Metoprolol Tartrate 25 Mg Tab) 25 mg PO BID [facility] Last Admin: 01/26/21 09:19 Dose: 25 mg Documented by: Miscellaneous Information (Potassium Replacement Protocol 1 Each Misc) 1 each MISCELLANE DAILY PRN; Protocol PRN Reason: Per Protocol Miscellaneous Information (Magnesium Replacement Protocol 1 Each Misc) 1 each MISCELLANE DAILY PRN; Protocol PRN Reason: Per Protocol Miscellaneous Information (Phosphorus Replacement Protoco 1 Each Misc) 1 each MISCELLANE DAILY PRN; Protocol PRN Reason: Per Protocol Multivitamins (Multivitamins, Thera 1 Each Tab) 1 each PO DAILY [facility] Last Admin: 01/26/21 09:19 Dose: 1 each Documented by: Ondansetron HCl (Ondansetron 4 Mg/2 Ml Vial) 4 mg IVP Q6HR PRN PRN Reason: Nausea And Vomiting Last Admin: 01/23/21 02:00 Dose: 4 mg Documented by: Pantoprazole Sodium (Pantoprazole 40 Mg Tablet) 40 mg PO AC-BRKFST [facility] Last Admin: 01/26/21 05:53 Dose: 40 mg Documented by: Senna/Docusate Sodium (Sennosides-Docusate Sodium 1 Each Tab) 2 each PO [facility] Last Admin: 01/25/21 21:43 Dose: 2 each Documented by: Sodium Chloride (Sodium Chloride 0.9% Flush 10 Ml Syringe) 10 ml IV BID [facility] Last Admin: 01/26/21 09:23 Dose: 10 ml Documented by: Tamsulosin HCl (Tamsulosin 0.4 Mg Cap.Er.24h) 0.4 mg PO [facility] Last Admin: 01/25/21 21:44 Dose: 0.4 mg Documented by: Physical Exam: Gen: This is a 65-year-old male currently sitting up in the chair awake, alert and oriented 3, well-developed, well-nourished. Temp is 98.2F Pulse is 70, respirations are 18, blood pressure is 124/74, oxygen is 97% on 2 L via nasal cannula HEENT: Head is atraumatic, normocephalic. Pupils equal, round. Sclerae is anicteric. NECK: Supple. No JVD. No lymphadenopathy. No thyromegaly. LUNGS: Diminished breath sounds with some scattered rhonchi noted, no wheezing noted. No intercostal retractions noted HEART: S1, S2 are muffled ABDOMEN: Soft. Obese. Bowel sounds are present. No masses. No tenderness. EXTREMITIES: No pedal edema. No calf tenderness. Bilateral SCDs noted NEUROLOGICAL: Patient is awake, alert and oriented x3. Cranial nerves 2 through 12 are grossly intact. Diffusely weak Assessment: Coronary artery disease, status post coronary artery bypass grafting History of ischemic cardiomyopathy History of chronic congestive heart failure with chronic systolic dysfunction, EF 35-40% History of chronic venostasis History of hearing defects mild hyponatremia hypertension history of myocardial infarction History of prostate disorder History of benign prostatic hypertrophy history of hernia repair surgery History of gout History of appendectomy history of nicotine dependence Full code Plan: Recommend to continue current medications, management, and symptomatic treatment. Patient is tolerating diet with no reported nausea or vomiting. Patient working on discharge planning with CT surgery and arranging for home care in the outpatient setting. Patient currently on room air and denies any worsening shortness of breath. Encourage increase activity as tolerated and also strongly encouraged incentive spirometer use at least 10 times every hour while awake. Recommend close outpatient follow up with pcp and cardiology along with CT surgery and appointments have been made. Due to multiple complex medical issues, prognosis is guarded. Will continue to follow during hospitalization. Patient is scheduled to be discharged this afternoon. Objective - Vital Signs Vital signs: Vital Signs Temp 98.2 F 01/26/21 04:00 Pulse 74 01/26/21 07:30 Resp 16 01/26/21 07:30 BP 124/74 01/26/21 04:00 Pulse Ox 97 01/26/21 04:00 Intake & Output 01/25/21 01/26/21 01/26/21 18:59 06:59 18:59 Intake Total 480 200 Output Total 840 550 Balance -360 -350 Weight 120 kg Intake: Oral 480 200 Output: Chest Tube Drainage 40 Chest Tube Left Lateral 40 Chest Urine 800 550 Other: Voiding Method Urinal Urinal # Voids 1 ABP, PAP, CO, CI - Last Documented Arterial Blood Pressure 101/36 Pulmonary Artery Pressure Cardiac Output 4.9 Cardiac Index 2.1 - Labs CBC & Chem 7: 01/26/21 08:21 01/26/21 08:21 Labs: Abnormal Lab Results - Last 24 Hours (Table) 01/25/21 01/25/21 01/25/21 Range/Units 12:00 17:53 21:14 RBC (4.30-5.90) m/uL Hgb (13.0-17.5) gm/dL Hct (39.0-53.0) % Plt Count (150-450) k/uL POC Glucose (mg/dL) 137 H 121 H 117 H (75-99) mg/dL 01/26/21 01/26/21 Range/Units 05:46 08:21 RBC 2.71 L (4.30-5.90) m/uL Hgb 9.2 L (13.0-17.5) gm/dL Hct 26.7 L (39.0-53.0) % Plt Count 122 L (150-450) k/uL POC Glucose (mg/dL) 106 H (75-99) mg/dL
== END 2021-01-26 15:16 | disposition home health service (06) | DRG 236 ==
LOC: 2ORMAIN 05:40 → 2SICU 13:33 → 3SCARD 01-25 23:15
PROVIDERS: ADMIT Surgery; ATTEND Surgery
PROC: 03BC4ZZ Excision of Left Radial Artery, Percutaneous Endoscopic Approach (ICD-10-PCS; 2021-01-22)
PROC: 02L70CK Occlusion of Left Atrial Appendage with Extraluminal Device, Open Approach (ICD-10-PCS; 2021-01-22)
PROC: B24BZZ4 Ultrasonography of Heart with Aorta, Transesophageal (ICD-10-PCS; 2021-01-22)
PROC: 5A1221Z Performance of Cardiac Output, Continuous (ICD-10-PCS; 2021-01-22)
PROC: 02110Z9 Bypass Coronary Artery, Two Arteries from Left Internal Mammary, Open Approach (ICD-10-PCS; principal; 2021-01-22 08:00)
PROC: 02100AW Bypass Coronary Artery, One Artery from Aorta with Autologous Arterial Tissue, Open Approach (ICD-10-PCS; 2021-01-22 08:00)
DX: I25.10 Atherosclerotic heart disease of native coronary artery without angina pectoris (principal); D62 Acute posthemorrhagic anemia; E87.1 Hypo-osmolality and hyponatremia; I50.22 Chronic systolic (congestive) heart failure; J98.11 Atelectasis; D69.6 Thrombocytopenia, unspecified; E66.9 Obesity, unspecified; Z68.35 Body mass index [BMI] 35.0-35.9, adult; E78.5 Hyperlipidemia, unspecified; H91.90 Unspecified hearing loss, unspecified ear; I11.0 Hypertensive heart disease with heart failure; I25.2 Old myocardial infarction; I25.5 Ischemic cardiomyopathy; I25.82 Chronic total occlusion of coronary artery; I48.0 Paroxysmal atrial fibrillation; J98.4 Other disorders of lung; Z20.822 Contact with and (suspected) exposure to COVID-19; N40.0 Benign prostatic hyperplasia without lower urinary tract symptoms; I95.9 Hypotension, unspecified; Z79.02 Long term (current) use of antithrombotics/antiplatelets; Z79.82 Long term (current) use of aspirin; Z79.899 Other long term (current) drug therapy; Z80.1 Family history of malignant neoplasm of trachea, bronchus and lung; Z82.49 Family history of ischemic heart disease and other diseases of the circulatory system; Z83.3 Family history of diabetes mellitus; Z87.01 Personal history of pneumonia (recurrent); Z87.891 Personal history of nicotine dependence; Z90.49 Acquired absence of other specified parts of digestive tract; Z95.0 Presence of cardiac pacemaker
CPT/HCPCS: 71045; 71046; 80053; 82330; 82805; 83735; 85025; 85027; 85520; 85610; 85730; 86850; 86891; 86900; 86901; 86920; 87635; 94002; 94640

== ENCOUNTER 2022-08-12 15:52 | Inpatient (IN) | payer MEDICARE, OTHER ==
--- NOTE | 2022-08-12 17:35 | ED ---
General Adult HPI - General Source: patient, RN notes reviewed Mode of arrival: wheelchair Limitations: no limitations <Jolie Gamez - Last Filed: 08/12/22 17:34> <Jose Du - Last Filed: 08/12/22 20:13> - General Chief complaint: Altered Mental Status Stated complaint: dizziness,blood pressure issues Time Seen by Provider: 08/12/22 17:34 - History of Present Illness Initial comments: 66-year-old male with no significant past medical history presents the emergency department with a chief complaint of generalized weakness and fatigue. Patient's reports increased agitation (Jolie Gamez) Dictation was produced using [email or web address] dictation software. please excuse any grammatical, word or spelling errors. Chief Complaint: 66-year-old male presents emergency department for altered mental status G and cough History of Present Illness: She is 66-year-old male multiple comorbidities. History of present illness obtained from was at the bedside. Patient has been lethargic for the last 2-3 days. He has been having a nonproductive cough. Patient has a history of coronary artery bypass grafting his symptoms considerably started after he had a stress test over the weekend. Patient denies any chest pain. Denies any production of sputum. Does complain of some shortness of breath. The ROS documented in this emergency department record has been reviewed and confirmed by me. Those systems with pertinent positive or negative responses have been documented in the HPI. All other systems are other negative and/or noncontributory. (Jose Du) - Related Data Home Medications Medication Instructions Recorded Confirmed Alfuzosin HCl [Uroxatral] 10 mg PO HS 02/08/17 01/22/21 Fluticasone Nasal [place] [Flonase 1 spr EA NOSTRIL DAILY PRN 12/12/20 01/22/21 Nasal [place]] Ibuprofen [Motrin] 800 mg PO TID PRN 12/12/20 01/22/21 allopurinoL [Zyloprim] 100 mg PO DAILY 12/12/20 01/22/21 Multivitamins, Thera [Multivitamin 1 tab PO DAILY 01/16/21 01/22/21 (formulary)] Previous Rx's Medication Instructions Recorded Aspirin 81 mg PO DAILY 30 Days #30 tab 12/15/20 Acetaminophen Tab [Tylenol] 650 mg PO Q4HR PRN tab 01/26/21 Amiodarone [Cordarone] 400 mg PO BID@1000,2200 #43 tab 01/26/21 Atorvastatin [Lipitor] 40 mg PO DAILY #30 tab 01/26/21 Clopidogrel [Plavix] 75 mg PO DAILY #30 tab 01/26/21 Furosemide [Lasix] 20 mg PO DAILY #7 tab 01/26/21 Metoprolol Tartrate [Lopressor] 25 mg PO BID #60 tab 01/26/21 Pantoprazole [Protonix] 40 mg PO AC-BRKFST #30 tab 01/26/21 Potassium Chloride ER [K-Dur 10] 10 meq PO DAILY #7 tab 01/26/21 amLODIPine [Norvasc] 5 mg PO DAILY@1200 #30 tab 01/26/21 lisinopriL [Zestril] 5 mg PO DAILY #30 tab 01/26/21 Allergies Allergy/AdvReac Type Severity Reaction Status Date / Time No Known Allergies Allergy Verified 01/22/21 06:11 Review of Systems ROS Other: All systems not noted in ROS Statement are negative. <Jolie Gamez - Last Filed: 08/12/22 17:34> ROS Other: All systems not noted in ROS Statement are negative. <Jose Du - Last Filed: 08/12/22 20:13> ROS Statement: Those systems with pertinent positive or pertinent negative responses have been documented in the HPI. Past Medical History Past Medical History: Hypertension, Prostate Disorder Additional Past Medical History / Comment(s): Chronic lower extremity edema, varicose veins, BPH Last Myocardial Infarction Date:: unk History of Any Multi-Drug Resistant Organisms: None Reported Past Surgical History: Appendectomy, Hernia Repair, Tonsillectomy Additional Past Surgical History / Comment(s): inguinal hernia repair, umbilical hernia repair x2 w/mesh Past Anesthesia/Blood Transfusion Reactions: No Reported Reaction Past Psychological History: No Psychological Hx Reported Smoking Status: Former smoker Past Alcohol Use History: None Reported Past Drug Use History: None Reported - Past Family History Mother Family Medical History: Coronary Artery Disease (CAD), Diabetes Mellitus Additional Family Medical History / Comment(s): Underwent CABG Father Family Medical History: Cancer, Congestive Heart Failure (CHF), Coronary Artery Disease (CAD) Additional Family Medical History / Comment(s): Underwent CABG; had lung cancer <Jolie Gamez - Last Filed: 08/12/22 17:34> General Exam Limitations: no limitations <Jolie Gamez - Last Filed: 08/12/22 17:34> <Jose Du - Last Filed: 08/12/22 20:13> - General Exam Comments Initial Comments: Visual Physical Exam Vital signs reviewed General: Well-appearing, nontoxic, no acute distress. Head: Normocephalic, atraumatic Eyes: PERRLA, EOMI ENT: Airway patent Chest: Nonlabored breathing Skin: No visual rash, normal skin tone Neuro: Alert and oriented 3 Musculoskeletal: No gross abnormalities (Jolie Gamez) PHYSICAL EXAM: General Impression: Alert and oriented x3, not in acute distress HEENT: Normocephalic atraumatic, extra-ocular movements intact, pupils equal and reactive to light bilaterally, mucous membranes moist. Cardiovascular: Heart regular rate and rhythm Chest: Able to complete full sentences, no retractions, no tachypnea, crackles to the left posterior lung ramirez Abdomen: abdomen soft, non-tender, non-distended, no organomegaly Musculoskeletal: Pulses present and equal in all extremities, no peripheral edema Motor: no focal deficits noted Neurological: CN II-XII grossly intact, no focal motor or sensory deficits noted Skin: Intact with no visualized rashes Psych: Normal affect and mood (Jose Du) Course Vital Signs 08/12/22 08/12/22 08/12/22 15:57 19:03 19:30 Temperature 100.9 F H Pulse Rate 89 78 82 Respiratory 18 32 H Rate Blood Pressure 165/84 156/86 156/86 O2 Sat by Pulse 92 L 91 L 91 L Oximetry 08/12/22 08/12/22 19:44 19:47 Temperature Pulse Rate 76 Respiratory 16 Rate Blood Pressure 172/71 179/84 O2 Sat by Pulse 91 L Oximetry Procedures - Sepsis Sepsis Focused Exam #1 Time Sepsis Criteria Met: 20:13 Sepsis Focused Exam Date: 08/12/22 Sepsis Focused Exam Time: 20:13 Sepsis Focused Exam Complete: Yes Vital Signs & RN Notes Reviewed: Yes Capillary Refill: < 2 Seconds: Fingers, Toes Peripheral Pulses: Normal: Radial (R), Radial (L), Posterior Tibialis (R), Posterior Tibialis (L), Dorsalis Pedis (R), Dorsalis Pedis (L) Skin Color: Normal for Patient Respiratory Exam: normal lung sounds (crackles), other Cardiovascular Exam: regular rate <Jose Du - Last Filed: 08/12/22 20:13> Medical Decision Making - Lab Data Result diagrams: 08/12/22 17:52 08/12/22 17:52 <Jose Du - Last Filed: 08/12/22 20:13> - Medical Decision Making Was pt. sent in by a medical professional or institution (, PA, SLURRY PLANT OPERATOR, urgent care, hospital, or retirement...) When possible be specific @ -No Did you speak to anyone other than the patient for history (EMS, parent, family, police, friend...)? What history was obtained from this source @ -No Did you review nursing and triage notes (agree or disagree)? Why? @ -I reviewed and agree with nursing and triage notes Were old charts reviewed (outside hosp., previous admission, EMS record, old EKG, old radiological studies, urgent care reports/EKG's, retirement records)? Report findings @ -No old charts were reviewed Differential Diagnosis (chest pain, altered mental status, abdominal pain women, abdominal pain men, vaginal bleeding, musculoskeletal, weakness, fever, dyspnea, syncope, headache, dizziness, GI bleed, back pain, seizure, CVA, palpatations, mental health)? @ -Differential Dyspnea: Coronary syndrome, arrhythmia, tamponade, asthma, COPD, pulmonary embolism, pneumonia, pneumothorax, pulmonary effusion, anaphylaxis, diabetic ketoacidosis, flailed chest, pulmonary contusion, diaphragmatic rupture, anemia, neuromuscular, this is not meant to be an all-inclusive list. EKG interpreted by me (3pts min.). @ -None done X-rays interpreted by me (1pt min.). @ -Chest x-ray Shows left lower lobe infiltrate CT interpreted by me (1pt min.). @ -None done U/S interpreted by me (1pt. min.). @ -None done What testing was considered but not performed or refused? (CT, X-rays, U/S, labs)? Why? @ -None What meds were considered but not given or refused? Why? @ -None Did you discuss the management of the patient with other professionals (professionals i.e. , PA, SLURRY PLANT OPERATOR, lab, RT, psych nurse, social work lecturer, automation sales manager, teacher, contract officer, ed case manager)? Give summary @ -No Was smoking cessation discussed for >3mins.? @ -No Was critical care preformed (if so, how long)? @ -No Were there social determinants of health that impacted care today? How? (Homelessness, low income, unemployed, alcoholism, drug addiction, transportation, low edu. Level, literacy, decrease access to med. care, fdc, rehab)? @ -No Was there de-escalation of care discussed even if they declined (Discuss DNR or withdrawal of care, Hospice)? DNR status @ -No What co-morbidities impacted this encounter? (DM, HTN, Smoking, COPD, CAD, Cancer, CVA, ARF, Chemo, Hep., AIDS, mental health diagnosis, sleep apnea, morbid obesity)? @ -None Was patient admitted / discharged? Hospital course, mention meds given and route, prescriptions, significant lab abnormalities, going to OR and other pertinent info. @ -66-year-old male presents emergency Department with cough, altered mental status and shortness of breath. Vital signs upon arrival shows low-grade temperature 100.9. Again low oxygen levels in the low-normal range. Patient denies any history of lung disease. Laboratory evaluation shows mild leukocytosis of 13.8. Rest of labs are within acceptable limits. Pending lactic acid level. Viral testing is negative. Chest x-ray shows left lobe infiltrate. Clinical presentation consistent with bacterial pneumonia. Patient given antibiotics. Patient be admitted for further care. Undiagnosed new problem with uncertain prognosis? @ -No Drug Therapy requiring intensive monitoring for toxicity (Heparin, Nitro, Insulin, Cardizem)? @ -No Were any procedures done? @ -No Diagnosis/symptom? Acute, or Chronic, or Acute on Chronic? Uncomplicated (wit hout systemic symptoms) or Complicated (systemic symptoms)? @ -1. Acquired pneumonia, sepsis Side effects of treatment? @ -No Exacerbation, Progression, or Severe Exacerbation? @ -No Poses a threat to life or bodily function? How? (Chest pain, [place], [place], pneumonia, PE, COPD, DKA, ARF, appy, cholecystitis, CVA, Diverticulitis, Homicidal, Suicidal, threat to staff... and all critical care pts) @ -yes (Jose Du) - Lab Data Lab Results 08/12/22 08/12/22 08/12/22 Range/Units 17:52 17:52 17:52 WBC 13.8 H (3.8-10.6) k/uL RBC 5.05 (4.30-5.90) m/uL Hgb 17.3 (13.0-17.5) gm/dL Hct 49.4 (39.0-53.0) % MCV 97.9 (80.0-100.0) fL MCH 34.3 (25.0-35.0) pg MCHC 35.0 (31.0-37.0) g/dL RDW 14.0 (11.5-15.5) % Plt Count 96 L (150-450) k/uL MPV 10.0 Neutrophils % 83 % Lymphocytes % 11 % Monocytes % 5 % Eosinophils % 1 % Basophils % 0 % Neutrophils # 11.4 H (1.3-7.7) k/uL Lymphocytes # 1.5 (1.0-4.8) k/uL Monocytes # 0.6 (0-1.0) k/uL Eosinophils # 0.1 (0-0.7) k/uL Basophils # 0.1 (0-0.2) k/uL Manual Slide Review Perf Large Platelets Present Polychromasia Present PT 12.3 H (9.0-12.0) sec INR 1.2 H (<1.2) APTT 25.7 (22.0-30.0) sec Sodium 133 L (137-145) mmol/L Potassium 4.1 (3.5-5.1) mmol/L Chloride 100 (98-107) mmol/L Carbon Dioxide 23 (22-30) mmol/L Anion Gap 10 mmol/L BUN 13 (9-20) mg/dL Creatinine 0.86 (0.66-1.25) mg/dL Est GFR (CKD-EPI)AfAm >90 (>60 ml/min/1.73 sqM) Est GFR (CKD-EPI)NonAf >90 (>60 ml/min/1.73 sqM) Glucose 130 H (74-99) mg/dL Calcium 9.0 (8.4-10.2) mg/dL Total Bilirubin 2.3 H (0.2-1.3) mg/dL AST 28 (17-59) U/L ALT 22 (4-49) U/L Alkaline Phosphatase 88 (38-126) U/L Ammonia (<30) umol/L Troponin I (0.000-0.034) ng/mL Total Protein 7.2 (6.3-8.2) g/dL Albumin 4.5 (3.5-5.0) g/dL Urine Color Urine Appearance (Clear) Urine pH (5.0-8.0) Ur Specific [place] (1.001-1.035) Urine Protein (Negative) Urine Glucose (UA) (Negative) Urine Ketones (Negative) Urine Blood (Negative) Urine Nitrite (Negative) Urine Bilirubin (Negative) Urine Urobilinogen (<2.0) mg/dL Ur Leukocyte Esterase (Negative) Urine RBC (0-5) /hpf Urine WBC (0-5) /hpf Urine Mucus (None) /hpf Influenza Type A (PCR) (Not Detectd) Influenza Type B (PCR) (Not Detectd) RSV (PCR) (Not Detectd) SARS-CoV-2 (PCR) (Not Detectd) 08/12/22 08/12/22 08/12/22 Range/Units 17:52 17:52 18:48 WBC (3.8-10.6) k/uL RBC (4.30-5.90) m/uL Hgb (13.0-17.5) gm/dL Hct (39.0-53.0) % MCV (80.0-100.0) fL MCH (25.0-35.0) pg MCHC (31.0-37.0) g/dL RDW (11.5-15.5) % Plt Count (150-450) k/uL MPV Neutrophils % % Lymphocytes % % Monocytes % % Eosinophils % % Basophils % % Neutrophils # (1.3-7.7) k/uL Lymphocytes # (1.0-4.8) k/uL Monocytes # (0-1.0) k/uL Eosinophils # (0-0.7) k/uL Basophils # (0-0.2) k/uL Manual Slide Review Large Platelets Polychromasia PT (9.0-12.0) sec INR (<1.2) APTT (22.0-30.0) sec Sodium (137-145) mmol/L Potassium (3.5-5.1) mmol/L Chloride (98-107) mmol/L Carbon Dioxide (22-30) mmol/L Anion Gap mmol/L BUN (9-20) mg/dL Creatinine (0.66-1.25) mg/dL Est GFR (CKD-EPI)AfAm (>60 ml/min/1.73 sqM) Est GFR (CKD-EPI)NonAf (>60 ml/min/1.73 sqM) Glucose (74-99) mg/dL Calcium (8.4-10.2) mg/dL Total Bilirubin (0.2-1.3) mg/dL AST (17-59) U/L ALT (4-49) U/L Alkaline Phosphatase (38-126) U/L Ammonia <9 (<30) umol/L Troponin I 0.024 (0.000-0.034) ng/mL Total Protein (6.3-8.2) g/dL Albumin (3.5-5.0) g/dL Urine Color Urine Appearance (Clear) Urine pH (5.0-8.0) Ur Specific [place] (1.001-1.035) Urine Protein (Negative) Urine Glucose (UA) (Negative) Urine Ketones (Negative) Urine Blood (Negative) Urine Nitrite (Negative) Urine Bilirubin (Negative) Urine Urobilinogen (<2.0) mg/dL Ur Leukocyte Esterase (Negative) Urine RBC (0-5) /hpf Urine WBC (0-5) /hpf Urine Mucus (None) /hpf Influenza Type A (PCR) Not Detected (Not Detectd) Influenza Type B (PCR) Not Detected (Not Detectd) RSV (PCR) Not Detected (Not Detectd) SARS-CoV-2 (PCR) Not Detected (Not Detectd) 08/12/22 Range/Units 19:08 WBC (3.8-10.6) k/uL RBC (4.30-5.90) m/uL Hgb (13.0-17.5) gm/dL Hct (39.0-53.0) % MCV (80.0-100.0) fL MCH (25.0-35.0) pg MCHC (31.0-37.0) g/dL RDW (11.5-15.5) % Plt Count (150-450) k/uL MPV Neutrophils % % Lymphocytes % % Monocytes % % Eosinophils % % Basophils % % Neutrophils # (1.3-7.7) k/uL Lymphocytes # (1.0-4.8) k/uL Monocytes # (0-1.0) k/uL Eosinophils # (0-0.7) k/uL Basophils # (0-0.2) k/uL Manual Slide Review Large Platelets Polychromasia PT (9.0-12.0) sec INR (<1.2) APTT (22.0-30.0) sec Sodium (137-145) mmol/L Potassium (3.5-5.1) mmol/L Chloride (98-107) mmol/L Carbon Dioxide (22-30) mmol/L Anion Gap mmol/L BUN (9-20) mg/dL Creatinine (0.66-1.25) mg/dL Est GFR (CKD-EPI)AfAm (>60 ml/min/1.73 sqM) Est GFR (CKD-EPI)NonAf (>60 ml/min/1.73 sqM) Glucose (74-99) mg/dL Calcium (8.4-10.2) mg/dL Total Bilirubin (0.2-1.3) mg/dL AST (17-59) U/L ALT (4-49) U/L Alkaline Phosphatase (38-126) U/L Ammonia (<30) umol/L Troponin I (0.000-0.034) ng/mL Total Protein (6.3-8.2) g/dL Albumin (3.5-5.0) g/dL Urine Color Yellow Urine Appearance Clear (Clear) Urine pH 6.0 (5.0-8.0) Ur Specific [place] 1.025 (1.001-1.035) Urine Protein 1+ H (Negative) Urine Glucose (UA) Negative (Negative) Urine Ketones Trace H (Negative) Urine Blood Moderate H (Negative) Urine Nitrite Negative (Negative) Urine Bilirubin Negative (Negative) Urine Urobilinogen <2.0 (<2.0) mg/dL Ur Leukocyte Esterase Negative (Negative) Urine RBC 9 H (0-5) /hpf Urine WBC <1 (0-5) /hpf Urine Mucus Rare H (None) /hpf Influenza Type A (PCR) (Not Detectd) Influenza Type B (PCR) (Not Detectd) RSV (PCR) (Not Detectd) SARS-CoV-2 (PCR) (Not Detectd) Disposition <Jolie Gamez - Last Filed: 08/12/22 17:34> Decision Time: 20:13 <Jose Du - Last Filed: 08/12/22 20:13> Clinical Impression: Pneumonia Disposition: ADMITTED IP TO THIS HOSP Condition: Fair Referrals: None,Stated [Primary Care Provider] - 1-2 days
--- NOTE | 2022-08-12 17:55 | XR ---
EXAMINATION TYPE: XR chest 2V DATE OF EXAM: 08/12/2022 5:25 PM COMPARISON: Chest radiographs from 01/26/2021 TECHNIQUE: XR chest 2V Frontal and lateral views of the chest. CLINICAL INDICATION:Male, 66 years old with history of altered mental status; FINDINGS: Lungs/Pleura: New left upper lobe airspace opacities There is no evidence of pleural effusion, focal consolidation, or pneumothorax. Pulmonary vascularity: Unremarkable. Heart/mediastinum: Cardiomediastinal silhouette is enlarged and stable. Musculoskeletal: No acute osseous pathology. IMPRESSION: Left upper lobe airspace opacities correlate for pneumonia.
[2022-08-12 18:19] LABS: Basophils # (A) 0.1 k/uL (0-0.2); Basophils % (A) 0 %; Eosinophils # (A) 0.1 k/uL (0-0.7); Eosinophils % (A) 1 %; HCT 49.4 % (39.0-53.0); HGB 17.3 gm/dL (13.0-17.5); Lymphocytes # (A) 1.5 k/uL (1.0-4.8); Lymphocytes % (A) 11 %; MCH 34.3 pg (25.0-35.0); MCV 97.9 fL (80.0-100.0); Monocytes # (A) 0.6 k/uL (0-1.0); Monocytes % (A) 5 %; Neutrophils # (A) 11.4 k/uL (1.3-7.7); Neutrophils % (A) 83 %; RBC 5.05 m/uL (4.30-5.90); WBC 13.8 k/uL (3.8-10.6)
[2022-08-12 18:27] LABS: INR 1.2 (<1.2); Partial Thromboplastin Time 25.7 sec (22.0-30.0); Prothrombin Time 12.3 sec (9.0-12.0)
[2022-08-12 18:31] LABS: ALT 22 U/L (4-49); AST 28 U/L (17-59); African American GFR (CKD) >90 (>60 ml/min/1.73 sqM); Albumin 4.5 g/dL (3.5-5.0); Alkaline Phosphatase 88 U/L (38-126); Anion Gap 10 mmol/L; Blood Urea Nitrogen 13 mg/dL (9-20); Carbon Dioxide 23 mmol/L (22-30); Chloride 100 mmol/L (98-107); Non-African American GFR(CKD) >90 (>60 ml/min/1.73 sqM); Potassium 4.1 mmol/L (3.5-5.1); Sodium 133 mmol/L (137-145); Total Bilirubin 2.3 mg/dL (0.2-1.3); Total Protein 7.2 g/dL (6.3-8.2)
[2022-08-12 18:32] LABS: Large Platelets Present; Polychromasia Present
[2022-08-12 18:33] LABS: Platelet Count 96 k/uL (150-450)
[2022-08-12 18:54] LABS: Glucose 130 mg/dL (74-99)
[2022-08-12 19:51] LABS: Appearance,Urine Clear (Clear); Bilirubin,Urine Negative (Negative); Blood,Urine Moderate (Negative); Color,Urine Yellow; Glucose,Urine (UA) Negative (Negative); Ketones,Urine Trace (Negative); Leukocyte Esterase,Urine Negative (Negative); Mucus,Urine Rare /hpf; Nitrite,Urine Negative (Negative); Protein,Urine 1+ (Negative); RBC,Urine 9 /hpf (0-5); Specific Gravity,Urine 1.025 (1.001-1.035); Urobilinogen,Urine <2.0 mg/dL (<2.0); WBC,Urine <1 /hpf (0-5)
[2022-08-12] MEDS ORDERED: AZITHROMYCIN 500 MG in SODIUM CHLORIDE 0.9% 250 ML IVPB STA (19:58)
[2022-08-12] MEDS ORDERED: cefTRIAXone IN SWFI 1,000 MG/10 ML SYRINGE IVP STA (19:58)
[2022-08-12] MEDS ORDERED: SODIUM CHLORIDE 0.9% 1,000 ML IV STA (19:59)
[2022-08-12] MEDS ORDERED: NALOXONE 0.4 MG/ML 1 ML VIAL IV PRN (23:08)
[2022-08-12] MEDS ORDERED: ACETAMINOPHEN TAB 325 MG TAB PO STA (23:52)
[2022-08-13] MEDS ORDERED: IBUPROFEN 400 MG TAB PO STA (01:07)
[2022-08-13] MEDS ORDERED: CEFEPIME 2 GM in SODIUM CHLORIDE 0.9% 100 ML IVPB SCH ×2 (01:30→02:00)
--- NOTE | 2022-08-13 01:34 | P.HPIM ---
History of Present Illness H&P Date: 08/12/22 The patient is a 66-year-old male with a PMH of systolic CHF to 40%, CAD, hypertension, BPH, and hyperlipidemia who presents to the emergency room with complaints of fever and feeling ill. The patient reports that he is experiencing gradually worsening cough over the past 3-4 days which has been pr oductive of yellow-green phlegm particularly in the morning. He also reports that this morning upon waking, he just felt not like himself and had a fever. He denied experiencing chest discomfort or shortness of breath. Also denies nausea, vomiting, abdominal pain, diarrhea. In the emergency room, a chest x-ray revealed findings consistent with a left upper lobe pneumonia. EKG had revealed sinus rhythm with PVCs at 88 bpm with inferior lead Q waves noted. Laboratory evaluation was remarkable for leukocytosis of 13.8, platelet count 96, lactic acid 1.3, unremarkable UA, and influenza, RSV, and coronavirus PCR negative. ED documentation reviewed and case discussed with ED provider. Review of systems: Pertinent positives and negatives as discussed in HPI, a complete review of systems was performed and all other systems are negative. Physical examination: Vital signs reviewed General: non toxic, no distress, appears at stated age, obese Derm: no unusual rashes/lesions, warm Head: atraumatic, normocephalic, symmetric Eyes: EOMI, no lid lag, anicteric sclera, pupils equal round reactive to light ENT: Nose and ears atraumatic Neck: No cervical lymphadenopathy, trachea midline, supple Mouth: no lip lesion, mucus membranes moist Cardiovascular: S1S2 reg, no murmur, positive dorsalis pedis pulse bilateral, Lungs: CTA bilateral, no rhonchi, no rales, no accessory muscle use Abdominal: soft, nontender to palpation, no guarding Ext: muscle strength 5 out of 5 in all 4 extremities grossly, no gross muscle atrophy, no contractures, Neuro: CN II-XI grossly intact, no gross focal neuro deficits Psych: Alert, oriented, appropriate affect Assessment: Sepsis secondary to community-acquired pneumonia Chronic conditions: Chronic systolic CHF, hypertension, BPH Imaging: In the emergency room, a chest x-ray revealed findings consistent with a left upper lobe pneumonia. EKG had revealed sinus rhythm with PVCs at 88 bpm with inferior lead Q waves noted. Data Review: Laboratory evaluation was remarkable for leukocytosis of 13.8, platelet count 96, lactic acid 1.3, unremarkable UA, and influenza, RSV, and coronavirus PCR negative. Plan: Continue with azithromycin and ceftriaxone Follow-up blood cultures Status post 1 L IV fluid normal saline Judicious use of IV fluids in setting of chronic CHF DVT prophylaxis: Heparin subcu The patient is admitted with an anticipated greater than 2 midnight stay for evaluation of sepsis CODE STATUS: Full Code Discussed with: Patient Anticipated discharge place: Home Past Medical History Past Medical History: Hypertension, Prostate Disorder Additional Past Medical History / Comment(s): Chronic lower extremity edema, varicose veins, BPH Last Myocardial Infarction Date:: unk History of Any Multi-Drug Resistant Organisms: None Reported Past Surgical History: Appendectomy, Hernia Repair, Tonsillectomy Additional Past Surgical History / Comment(s): inguinal hernia repair, umbilical hernia repair x2 w/mesh Past Anesthesia/Blood Transfusion Reactions: No Reported Reaction Past Psychological History: No Psychological Hx Reported Smoking Status: Former smoker Past Alcohol Use History: None Reported Past Drug Use History: None Reported - Past Family History Mother Family Medical History: Coronary Artery Disease (CAD), Diabetes Mellitus Additional Family Medical History / Comment(s): Underwent CABG Father Family Medical History: Cancer, Congestive Heart Failure (CHF), Coronary Artery Disease (CAD) Additional Family Medical History / Comment(s): Underwent CABG; had lung cancer Medications and Allergies Home Medications Medication Instructions Recorded Confirmed Type Fluticasone Nasal [place] [Flonase 1 spr EA NOSTRIL DAILY PRN 12/12/20 08/12/22 History Nasal [place]] allopurinoL [Zyloprim] 100 mg PO DAILY 12/12/20 08/12/22 History Aspirin 81 mg PO DAILY 30 Days #30 tab 12/15/20 08/12/22 Rx Atorvastatin [Lipitor] 40 mg PO DAILY #30 tab 01/26/21 08/12/22 Rx Furosemide [Lasix] 20 mg PO DAILY #7 tab 01/26/21 08/12/22 Rx Tamsulosin [Flomax] 0.4 mg PO DAILY 08/12/22 08/12/22 History lisinopriL 40 mg PO DAILY 08/12/22 08/12/22 History Allergies Allergy/AdvReac Type Severity Reaction Status Date / Time No Known Allergies Allergy Verified 08/12/22 21:07 Physical Exam Vitals: Vital Signs Temp Pulse Resp BP Pulse Ox 07/04/23 01:13 154/89 08/13/22 01:12 75 20 95 08/13/22 00:53 102.1 F H 08/12/22 23:47 136/78 08/12/22 23:33 102.8 F H 86 16 08/12/22 21:45 80 32 H 179/84 08/12/22 21:30 92 21 179/84 08/12/22 21:15 80 25 H 179/84 08/12/22 20:00 81 24 179/84 94 L 08/12/22 19:47 179/84 08/12/22 19:45 81 24 172/71 94 L 08/12/22 19:44 76 16 172/71 91 L 08/12/22 19:30 82 32 H 156/86 91 L 08/12/22 19:03 78 156/86 91 L 08/12/22 15:57 100.9 F H 89 18 165/84 92 L Intake and Output 08/12/22 08/12/22 08/13/22 14:59 22:59 06:59 Other: Weight 103.419 kg Results CBC & Chem 7: 08/12/22 17:52 08/12/22 17:52 Labs: Abnormal Lab Results - Last 24 Hours (Table) 08/12/22 08/12/22 08/12/22 Range/Units 17:52 17:52 17:52 WBC 13.8 H (3.8-10.6) k/uL Plt Count 96 L (150-450) k/uL Neutrophils # 11.4 H (1.3-7.7) k/uL PT 12.3 H (9.0-12.0) sec INR 1.2 H (<1.2) Sodium 133 L (137-145) mmol/L Glucose 130 H (74-99) mg/dL Total Bilirubin 2.3 H (0.2-1.3) mg/dL Urine Protein (Negative) Urine Ketones (Negative) Urine Blood (Negative) Urine RBC (0-5) /hpf Urine Mucus (None) /hpf 08/12/22 Range/Units 19:08 WBC (3.8-10.6) k/uL Plt Count (150-450) k/uL Neutrophils # (1.3-7.7) k/uL PT (9.0-12.0) sec INR (<1.2) Sodium (137-145) mmol/L Glucose (74-99) mg/dL Total Bilirubin (0.2-1.3) mg/dL Urine Protein 1+ H (Negative) Urine Ketones Trace H (Negative) Urine Blood Moderate H (Negative) Urine RBC 9 H (0-5) /hpf Urine Mucus Rare H (None) /hpf
[2022-08-13] MEDS ORDERED: ALBUTEROL NEBULIZED 2.5 MG/3 ML INHALATION PRN (08:37)
[2022-08-13] MEDS ORDERED: FLUTICASONE 50MCG/SPRAY NASAL 16GM EA NOSTRIL PRN (09:00)
[2022-08-13] MEDS: HEPARIN SODIUM,PORCINE/PF 5,000 UNIT/0.5 ML SYRINGE SQ SCH ×3 (09:39→23:21)
[2022-08-13] MEDS: TAMSULOSIN 0.4 MG CAP.ER.24H PO SCH (09:39)
[2022-08-13] MEDS: ATORVASTATIN 40 MG TAB PO SCH (09:39)
[2022-08-13] MEDS: lisinopriL 20 MG TAB PO SCH (09:39)
[2022-08-13] MEDS: ASPIRIN 81 MG PO SCH (09:39)
[2022-08-13] MEDS: allopurinoL 100 MG TAB PO SCH (09:39)
[2022-08-13] MEDS: guaiFENesin 600 MG TABLET.ER PO SCH ×2 (09:41→20:37)
--- NOTE | 2022-08-13 11:27 | P.PN ---
Subjective Progress Note Date: 08/13/22 The patient is a 66-year-old male with a PMH of systolic CHF to 40%, CAD, hypertension, BPH, and hyperlipidemia who presents to the emergency room with complaints of fever and feeling ill. The patient reports that he is experiencing gradually worsening cough over the past 3-4 days which has been productive of yellow-green phlegm particularly in the morning. In the emergency room, a chest x-ray revealed findings consistent with a left upper lobe pneumonia. EKG had revealed sinus rhythm with PVCs at 88 bpm with inferior lead Q waves noted. Laboratory evaluation was remarkable for leukocytosis of 13.8, platelet count 96, lactic acid 1.3, unremarkable UA, and influenza, RSV, and coronavirus PCR negative. 08/13 Patient was seen and examined. He reports no changes in his breathing. Most recent BP 185/67 with pulse 76. Tmax 102.4F. 96% on 3L NC. General: non toxic, no distress, appears at stated age Derm: warm, dry Head: atraumatic, normocephalic, symmetric Eyes: EOMI, no lid lag, anicteric sclera Cardiovascular: S1S2 reg, Tachycardic, no murmur Lungs: Decreased BS bilateral, no rhonchi, no rales , no accessory muscle use Abdominal: soft, nontender to palpation, no guarding, no appreciable organomegaly Ext: no gross muscle atrophy, 1+ BL LE pitting edema, no contractures Neuro: no focal neuro deficits Psych: Alert, oriented, appropriate affect Sepsis secondary to community-acquired pneumonia Thrombocytopenia, likely reactive Hyponatremia Elevated total bilirubin Chronic conditions: Chronic systolic CHF, hypertension, BPH Based on my assessment of this patient, this patient meets a moderate complexity level of care. Patient has an acute diagnosis of sepsis related to CAP that poses a threat to life or bodily function. He met sepsis criteria with leukocytosis, tachycardia, and positive source of infection on admission. Bronchodilators: Albuterol neb 2.5 mg INH as needed for SOB and wheezing. Antibiotics: Rocephin 1 g IV daily. Azithromycin 500 mg PO QD. Expectorants: Mucinex 1200 mg PO BID. Supplemental oxygen to maintain O2 > 92%. Continue Telemetry monitoring. Thrombocytopenia likely reactive, trend since patient is on Heparin. Elevated total bilirubin but non obstructive LFTs. Continue to monitor. Heparin SQ for DVT prophylaxis. FULL CODE. I have reviewed the following splunk consultant notes: I have reviewed the results of the following tests: I have ordered the following tests: Repeat CBC and BMP tomorrow morning. Procalcitonin and sputum culture ordered. Pending: Blood culture, sputum culture, BNP. I have discussed the care of this patient with the following independent historian: I have independently interpreted the following test below: I have discussed the management of this patient with the following physician: This patient has a moderate risk of morbidity due to the following reasons: Patient has an acute diagnosis of sepsis related to CAP that poses a threat to life or bodily function. Objective - Vital Signs Vital signs: Vital Signs Temp 102.4 F H 08/13/22 08:07 Pulse 76 08/13/22 08:07 Resp 18 08/13/22 08:07 BP 185/67 08/13/22 08:07 Pulse Ox 96 08/13/22 08:07 FiO2 Intake & Output 08/12/22 08/13/22 08/13/22 18:59 06:59 18:59 Weight 103.419 kg 103.419 kg Other: # Voids 1 - Labs CBC & Chem 7: 08/12/22 17:52 08/12/22 17:52 Labs: Abnormal Lab Results - Last 24 Hours (Table) 08/12/22 08/12/22 08/12/22 Range/Units 17:52 17:52 17:52 WBC 13.8 H (3.8-10.6) k/uL Plt Count 96 L (150-450) k/uL Neutrophils # 11.4 H (1.3-7.7) k/uL PT 12.3 H (9.0-12.0) sec INR 1.2 H (<1.2) Sodium 133 L (137-145) mmol/L Glucose 130 H (74-99) mg/dL Total Bilirubin 2.3 H (0.2-1.3) mg/dL Urine Protein (Negative) Urine Ketones (Negative) Urine Blood (Negative) Urine RBC (0-5) /hpf Urine Mucus (None) /hpf 08/12/22 Range/Units 19:08 WBC (3.8-10.6) k/uL Plt Count (150-450) k/uL Neutrophils # (1.3-7.7) k/uL PT (9.0-12.0) sec INR (<1.2) Sodium (137-145) mmol/L Glucose (74-99) mg/dL Total Bilirubin (0.2-1.3) mg/dL Urine Protein 1+ H (Negative) Urine Ketones Trace H (Negative) Urine Blood Moderate H (Negative) Urine RBC 9 H (0-5) /hpf Urine Mucus Rare H (None) /hpf
--- NOTE | 2022-08-13 11:58 | P.CNPUL ---
History of Present Illness Consult date: 08/13/22 Requesting physician: Rajinder Gan Reason for consult: dyspnea, pneumonia, abnormal CXR/CT Chief complaint: Generalized weakness, fatigue History of present illness: This is a very pleasant 66-year-old male patient with a known history of hypertension, benign prosthetic hyperplasia, former smoker hyperlipidemia, coronary artery disease with previous coronary artery bypass grafting in 2020 with ischemic cardiomyopathy and ejection fraction of 40%. He presented here to the emergency room yesterday with a 2 day history of progressive weakness, fatigue, unable to get out of bed. He had been having issues with a nonproductive cough. Chest x-ray reveals a left upper lobe airspace opacity. H e's been afebrile with a T-max of 102.8. White count 13.8. Hemoglobin 17.3. Platelets 96. Sodium 133. Potassium 4.1. Bicarb 23. BUN 13. Creatinine 0.86. Glucose 1:30. Lactic acid 1.3. Troponin 0.024. Urinalysis with 1+ protein. Trace ketones. Influenza screen negative. RSV screen negative. COVID-19 screen negative. He is seen today in consultation on the regular medical floor. He is currently sitting up in bed. Awake and alert in no acute distress. Continues with a dry nonproductive cough. To better 102.4. Maintaining O2 saturations in the 90s on 3 L/m per nasal cannula. Normal saline at 10 MLS per hour. He is currently on azithromycin and cefepime. Review of Systems REVIEW OF SYSTEMS: CONSTITUTIONAL: Refer., Weakness. Denies any recent significant weight loss or weight gain. EYES: Denies change in vision. EARS, NOSE, MOUTH, THROAT: Denies headaches, denies sore throat. CARDIOVASCULAR: Denies chest pain, palpitations or syncopal episodes. RESPIRATORY: Positive for shortness of breath, cough, congestion no hemoptysis. GASTROINTESTINAL: Denies change in appetite, denies abdominal pain GENITOURINARY: Denies hematuria, denies infections. MUSKULOSKELETAL: Denies pain, denies swelling. INTEGUMENTARY: Denies rash, denies eczema. NEUROLOGICAL: Denies recent memory loss, no recent seizure activity. PSYCHIATRIC: Denies anxiety, denies depression. HEMATOLOGIC/LYMPHATIC: Denies anemia, denies enlarged lymph nodes. Past Medical History Past Medical History: Hypertension, Prostate Disorder Additional Past Medical History / Comment(s): Chronic lower extremity edema, v aricose veins, BPH Last Myocardial Infarction Date:: unk History of Any Multi-Drug Resistant Organisms: None Reported Past Surgical History: Appendectomy, Hernia Repair, Tonsillectomy Additional Past Surgical History / Comment(s): inguinal hernia repair, umbilical hernia repair x2 w/mesh Past Anesthesia/Blood Transfusion Reactions: No Reported Reaction Past Psychological History: No Psychological Hx Reported Smoking Status: Former smoker Past Alcohol Use History: None Reported Additional Past Alcohol Use History / Comment(s): quit smoking 6 months ago, smoked for 40 yrs. almost 1ppd Past Drug Use History: None Reported - Past Family History Mother Family Medical History: Coronary Artery Disease (CAD), Diabetes Mellitus Additional Family Medical History / Comment(s): CABG Father Family Medical History: Cancer, Congestive Heart Failure (CHF), Coronary Artery Disease (CAD) Additional Family Medical History / Comment(s): Underwent CABG; had lung cancer Medications and Allergies Home Medications Medication Instructions Recorded Confirmed Type Fluticasone Nasal [place] [Flonase 1 spr EA NOSTRIL DAILY PRN 12/12/20 08/12/22 History Nasal [place]] allopurinoL [Zyloprim] 100 mg PO DAILY 12/12/20 08/12/22 History Aspirin 81 mg PO DAILY 30 Days #30 tab 12/15/20 08/12/22 Rx Atorvastatin [Lipitor] 40 mg PO DAILY #30 tab 01/26/21 08/12/22 Rx Furosemide [Lasix] 20 mg PO DAILY #7 tab 01/26/21 08/12/22 Rx Tamsulosin [Flomax] 0.4 mg PO DAILY 08/12/22 08/12/22 History lisinopriL 40 mg PO DAILY 08/12/22 08/12/22 History Allergies Allergy/AdvReac Type Severity Reaction Status Date / Time No Known Allergies Allergy Verified 08/12/22 21:07 Physical Exam Vitals: Vital Signs Temp Pulse Pulse Resp BP BP Pulse Ox 08/13/22 08:07 102.4 F H 76 18 185/67 96 08/13/22 03:40 18 08/13/22 03:22 98.5 F 56 L 18 121/62 96 08/13/22 02:39 98.2 F 08/13/22 01:13 154/89 08/13/22 01:12 75 20 95 08/13/22 00:53 102.1 F H 08/12/22 23:47 136/78 08/12/22 23:33 102.8 F H 86 16 08/12/22 21:45 80 32 H 179/84 08/12/22 21:30 92 21 179/84 08/12/22 21:15 80 25 H 179/84 08/12/22 20:00 81 24 179/84 94 L 08/12/22 19:47 179/84 08/12/22 19:45 81 24 172/71 94 L 08/12/22 19:44 76 16 172/71 91 L 08/12/22 19:30 82 32 H 156/86 91 L 08/12/22 19:03 78 156/86 91 L 08/12/22 15:57 100.9 F H 89 18 165/84 92 L Intake and Output 08/12/22 08/13/22 08/13/22 22:59 06:59 14:59 Other: Voiding Method Toilet # Voids 1 Weight 103.419 kg 103.419 kg GENERAL EXAM: Alert, very pleasant 66-year-old male patient, on 3 L nasal cannula, comfortable in no apparent distress. HEAD: Normocephalic. EYES: Normal reaction of pupils, equal size. NOSE: Clear with pink turbinates. THROAT: No erythema or exudates. NECK: No masses, no JVD. CHEST: No chest wall deformity. LUNGS: Equal air entry with few scattered rhonchi. CVS: S1 and S2 normal with no audible murmur, regular rhythm. ABDOMEN: No hepatosplenomegaly, normal bowel sounds, no guarding or rigidity. SPINE: No scoliosis or deformity SKIN: No rashes CENTRAL NERVOUS SYSTEM: No focal deficits, tone is normal in all 4 extremities. EXTREMITIES: There is no peripheral edema. No clubbing, no cyanosis. Perip heral pulses are intact. Results - Laboratory Findings CBC and BMP: 08/12/22 17:52 08/12/22 17:52 PT/INR, D-dimer PT 12.3 sec (9.0-12.0) H 08/12/22 17:52 INR 1.2 (<1.2) H 08/12/22 17:52 Abnormal lab findings: Abnormal Labs 08/12/22 08/12/2208/12/23 17:52 17:52 17:52 WBC 13.8 H Plt Count 96 L Neutrophils # 11.4 H PT 12.3 H INR 1.2 H Sodium 133 L Glucose 130 H Total Bilirubin 2.3 H Urine Protein Urine Ketones Urine Blood Urine RBC Urine Mucus 08/12/22 19:08 WBC Plt Count Neutrophils # PT INR Sodium Glucose Total Bilirubin Urine Protein 1+ H Urine Ketones Trace H Urine Blood Moderate H Urine RBC 9 H Urine Mucus Rare H - Diagnostic Findings Chest x-ray: image reviewed Assessment and Plan Assessment: Acute hypoxemic respiratory failure secondary to community-acquired left lung pneumonia Generalized fatigue and weakness secondary to above Febrile illness secondary to above Leukocytosis Coronary artery disease with previous bypass surgery in 2020 Ischemic cardiomyopathy with ejection fraction 40% Hypertension Hyperlipidemia Former smoker Plan: The patient was seen and evaluated Chest x-ray, labs and medications reviewed Discontinue cefepime Add ceftriaxone Continue azithromycin Check a pro calcitonin Check a proBNP Heparin for DVT prophylaxis Follow-up chest x-ray in a.m. We will continue to follow and make further recommendations based on his clinical status
[2022-08-13] MEDS: ACETAMINOPHEN TAB 325 MG TAB PO PRN ×2 (13:11→20:37)
[2022-08-14] MEDS: ACETAMINOPHEN TAB 325 MG TAB PO PRN ×4 (02:25→19:34)
[2022-08-14 07:37] LABS: HCT 40.5 % (39.0-53.0); MCH 33.1 pg (25.0-35.0); MCV 94.4 fL (80.0-100.0); Mean Platelet Volume 10.9; RBC 4.29 m/uL (4.30-5.90); RDW 14.2 % (11.5-15.5)
[2022-08-14 07:43] LABS: African American GFR (CKD) >90 (>60 ml/min/1.73 sqM); Anion Gap 5 mmol/L; Blood Urea Nitrogen 12 mg/dL (9-20); Calcium 8.9 mg/dL (8.4-10.2); Carbon Dioxide 27 mmol/L (22-30); Chloride 101 mmol/L (98-107); Glucose 129 mg/dL (74-99); Non-African American GFR(CKD) >90 (>60 ml/min/1.73 sqM); Potassium 3.3 mmol/L (3.5-5.1); Sodium 133 mmol/L (137-145)
[2022-08-14 07:44] LABS: HGB 14.2 gm/dL (13.0-17.5); Platelet Count 98 k/uL (150-450)
--- NOTE | 2022-08-14 08:17 | XR ---
EXAMINATION TYPE: XR chest 1V portable DATE OF EXAM: 08/14/2022 7:05 AM COMPARISON: Chest radiographs from 08/12/2022 TECHNIQUE: XR chest 1V portable Portable AP radiograph of the chest. CLINICAL INDICATION:Male, 66 years old with history of Pneumonia; FINDINGS: Lungs/Pleura: No pleural effusion or pneumothorax. Slightly increased left upper lung patchy airspace opacities. Pulmonary vascularity: Unremarkable. Heart/mediastinum: Cardiomediastinal silhouette is enlarged and stable. Atherosclerotic calcificatio ns are seen in the aorta. Left atrial appendage occlusion devices present. Musculoskeletal: No acute osseous pathology. Midline sternotomy wires are noted and stable. IMPRESSION: Slightly increased left upper lung patchy airspace opacities concerning for pneumonia.
[2022-08-14] MEDS: guaiFENesin 600 MG TABLET.ER PO SCH ×2 (08:30→21:48)
[2022-08-14] MEDS: HEPARIN SODIUM,PORCINE/PF 5,000 UNIT/0.5 ML SYRINGE SQ SCH ×2 (08:30→16:19)
[2022-08-14] MEDS: lisinopriL 20 MG TAB PO SCH (08:30)
[2022-08-14] MEDS: AZITHROMYCIN 500 MG TAB PO SCH (08:30)
[2022-08-14] MEDS: ASPIRIN 81 MG PO SCH (08:30)
[2022-08-14] MEDS: allopurinoL 100 MG TAB PO SCH (08:30)
[2022-08-14] MEDS: ATORVASTATIN 40 MG TAB PO SCH (08:30)
[2022-08-14] MEDS: TAMSULOSIN 0.4 MG CAP.ER.24H PO SCH (08:31)
--- NOTE | 2022-08-14 12:00 | P.PN ---
Subjective Progress Note Date: 08/14/22 This is a very pleasant 66-year-old male patient with a known history of hypertension, benign prosthetic hyperplasia, former smoker hyperlipidemia, coronary artery disease with previous coronary artery bypass grafting in 2020 with ischemic cardiomyopathy and ejection fraction of 40%. He presented here to the emergency room yesterday with a 2 day history of progressive weakness, fatigue, unable to get out of bed. He had been having issues with a nonproductive cough. Chest x-ray reveals a left upper lobe airspace opacity. He's been afebrile with a T-max of 102.8. White count 13.8. Hemoglobin 17.3. Platelets 96. Sodium 133. Potassium 4.1. Bicarb 23. BUN 13. Creatinine 0.86. Glucose 1:30. Lactic acid 1.3. Troponin 0.024. Urinalysis with 1+ protein. Trace ketones. Influenza screen negative. RSV screen negative. COVID-19 screen negative. He is seen today in consultation on the regular medical floor. He is currently sitting up in bed. Awake and alert in no acute distress. Continues with a dry nonproductive cough. To better 102.4. Maintaining O2 saturations in the 90s on 3 L/m per nasal cannula. Normal saline at 10 MLS per hour. He is currently on azithromycin and cefepime. The patient is seen today 08/14/2022 in follow-up on the regular medical floor. He is resting comfortably in bed. Awake and alert in no acute distress. He is maintaining O2 saturations in the 90s on 3 L/m per nasal cannula. No IV fluids. He did have another temp of 102.7 at 2 AM. Currently afebrile. X-ray continues to show a left upper lung patchy airspace opacity. White count 8.0. Hemoglobin 14.2. Platelets 98,000. Sodium 133. Potassium 3.3. Bicarb 27. BUN 12. Creatinine 0.86. Pro-calcitonin 0.15. ProBNP 3150. He is continued on ceftriaxone and azithromycin. Heparin for DVT prophylaxis. Objective - Vital Signs Vital signs: Vital Signs Temp 97.9 F 08/14/22 08:10 Pulse 73 08/14/22 08:10 Resp 15 08/14/22 08:10 BP 121/68 08/14/22 08:10 Pulse Ox 95 08/14/22 08:10 FiO2 Intake & Output 08/13/22 08/14/22 08/14/22 18:59 06:59 18:59 Other: Voiding Method Toilet Urinal Toilet Urinal Incontinent # Voids 1 3 - Exam GENERAL EXAM: Alert, pleasant 66-year-old male patient, on 3 L nasal cannula, comfortable in no apparent distress. HEAD: Normocephalic. EYES: Normal reaction of pupils, equal size. NOSE: Clear with pink turbinates. THROAT: No erythema or exudates. NECK: No masses, no JVD. CHEST: No chest wall deformity. LUNGS: Equal air entry with scattered rhonchi in the left lung. CVS: S1 and S2 normal with no audible murmur, regular rhythm. ABDOMEN: No hepatosplenomegaly, normal bowel sounds, no guarding or rigidity. SPINE: No scoliosis or deformity SKIN: No rashes CENTRAL NERVOUS SYSTEM: No focal deficits, tone is normal in all 4 extremities. EXTREMITIES: There is no peripheral edema. No clubbing, no cyanosis. Peripheral pulses are intact. - Labs CBC & Chem 7: 08/14/22 06:51 08/14/22 06:51 Labs: Abnormal Lab Results - Last 24 Hours (Table) 08/13/22 08/14/22 08/14/22 Range/Units 11:57 06:51 06:51 RBC 4.29 L (4.30-5.90) m/uL Plt Count 98 L (150-450) k/uL Sodium 133 L (137-145) mmol/L Potassium 3.3 L (3.5-5.1) mmol/L Glucose 129 H (74-99) mg/dL Procalcitonin 0.15 H (0.02-0.09) ng/mL Microbiology - Last 24 Hours (Table) 08/12/22 21:00 Blood Culture - Preliminary Blood 08/12/22 20:45 Blood Culture - Preliminary Blood Assessment and Plan Assessment: Acute hypoxemic respiratory failure secondary to community-acquired left lung pneumonia progressed on 0.15. Generalized fatigue and weakness secondary to above Febrile illness secondary to above Leukocytosis Coronary artery disease with previous bypass surgery in 2020 Ischemic cardiomyopathy with ejection fraction 40% Hypertension Hyperlipidemia Former smoker Plan: The patient was seen and evaluated Chest x-ray, labs and medications reviewed Continue ceftriaxone and azithromycin Heparin for DVT prophylaxis Resume patient's home Lasix We will continue to follow I have personally seen and examined the patient, performed the documentation and the assessment and plan as written. Number of minutes spent on the visit: 10.
[2022-08-14] MEDS: FUROSEMIDE 20 MG TAB PO SCH (13:29)
--- NOTE | 2022-08-14 14:04 | P.PN ---
Subjective Progress Note Date: 08/14/22 The patient is a 66-year-old male with a PMH of systolic CHF to 40%, CAD, hypertension, BPH, and hyperlipidemia who presents to the emergency room with complaints of fever and feeling ill. The patient reports that he is experiencing gradually worsening cough over the past 3-4 days which has been productive of yellow-green phlegm particularly in the morning. In the emergency room, a chest x-ray revealed findings consistent with a left upper lobe pneumonia. EKG had revealed sinus rhythm with PVCs at 88 bpm with inferior lead Q waves noted. Laboratory evaluation was remarkable for leukocytosis of 13.8, platelet count 96, lactic acid 1.3, unremarkable UA, and influenza, RSV, and coronavirus PCR negative. 08/13 Patient was seen and examined. He reports no changes in his breathing. Most recent BP 185/67 with pulse 76. Tmax 102.4F. 96% on 3L NC. 08/14 Patient was seen and examined. Patient reports improvement in his breathing. Currently on room air. Tmax 102.7F overnight. CBC shows plt count of 98. BMP shows Na 133, K 3.3, glucose 129. Procalcitonin is 0.15. BNP is 3150. Blood Cx prelim negative at 24H. CXR shows persistent left sided infiltrate. General: non toxic, no distress, appears at stated age Derm: warm, dry Head: atraumatic, normocephalic, symmetric Eyes: EOMI, no lid lag, anicteric sclera Cardiovascular: S1S2 reg, no murmur Lungs: Decreased BS bilateral, no rhonchi, no rales , no accessory muscle use Abdominal: soft, nontender to palpation, no guarding, no appreciable organom egaly Ext: no gross muscle atrophy, 1+ BL LE pitting edema, no contractures Neuro: no focal neuro deficits Psych: Alert, oriented, appropriate affect Sepsis secondary to community-acquired pneumonia Thrombocytopenia, likely reactive Hyponatremia Hypokalemia Elevated total bilirubin Chronic conditions: Chronic systolic CHF, hypertension, BPH Based on my assessment of this patient, this patient meets a moderate complexity level of care. Patient has an acute diagnosis of sepsis related to CAP that poses a threat to life or bodily function. He met sepsis criteria with leukocytosis, tachycardia, and positive source of infection on admission. Bronchodilators: Albuterol neb 2.5 mg INH as needed for SOB and wheezing. Antibiotics: Rocephin 1 g IV daily. Azithromycin 500 mg PO QD. Expectorants: Mucinex 1200 mg PO BID. Supplemental oxygen to maintain O2 > 92%. Continue Telemetry monitoring. Thrombocytopenia likely reactive, trend since patient is on Heparin. Elevated total bilirubin but non obstructive LFTs. Continue to monitor. Heparin SQ for DVT prophylaxis. FULL CODE. I have reviewed the following executive search consultant notes: Pulmonology note reviewed. I have reviewed the results of the following tests: CBC, BMP, procalcitonin, blood culture. I have ordered the following tests: Repeat CBC and BMP tomorrow morning. Pending: Blood culture, sputum culture I have discussed the care of this patient with the following independent historian: I have independently interpreted the following test below: CXR as above. I have discussed the management of this patient with the following physician: This patient has a moderate risk of morbidity due to the following reasons: Patient has an acute diagnosis of sepsis related to CAP that poses a threat to life or bodily function. Objective - Vital Signs Vital signs: Vital Signs Temp 97.9 F 08/14/22 08:10 Pulse 73 08/14/22 08:10 Resp 15 08/14/22 08:10 BP 121/68 08/14/22 08:10 Pulse Ox 95 08/14/22 08:10 FiO2 Intake & Output 08/13/22 08/14/22 08/14/22 18:59 06:59 18:59 Other: Voiding Method Toilet Urinal Toilet Urinal Incontinent # Voids 1 3 - Labs CBC & Chem 7: 08/14/22 06:51 08/14/22 06:51 Labs: Abnormal Lab Results - Last 24 Hours (Table) 08/13/22 08/14/22 08/14/22 Range/Units 11:57 06:51 06:51 RBC 4.29 L (4.30-5.90) m/uL Plt Count 98 L (150-450) k/uL Sodium 133 L (137-145) mmol/L Potassium 3.3 L (3.5-5.1) mmol/L Glucose 129 H (74-99) mg/dL Procalcitonin 0.15 H (0.02-0.09) ng/mL Microbiology - Last 24 Hours (Table) 08/12/22 21:00 Blood Culture - Preliminary Blood 08/12/22 20:45 Blood Culture - Preliminary Blood
[2022-08-14] MEDS: POTASSIUM CHLORIDE 10 MEQ in WATER FOR INJECTION 1 100ML.BAG IVPB SCH ×2 (14:45→16:33)
[2022-08-14] MEDS: POTASSIUM CHLORIDE ER 20 MEQ TAB.ER PO SCH ×3 (16:38→21:48)
--- NOTE | 2022-08-14 22:52 | P.CONS ---
History of Present Illness - Reason for Consult Consult date: 08/14/22 - History of Present Illness Patient is a 66-year-old male with a past medical history significant for hypertension coronary artery disease BPH hyperlipidemia CHF EF of 40% presenting to the hospital 2 days ago for evaluation of fever and not feeling well patient also complaining of cough which has been moderate intensity productive of some yellow-green sputum patient's symptom has been going on for 3 to 4 days before presentation to the hospital. Denies any hemoptysis or any pleuritic chest pain. Denies any nausea vomiting or choking on the food abdominal pain or any diarrhea patient on presentation to the hospital did have a fever of 102.8 degree for night and the patient did spike a fever yesterday a fternoon and after midnight patient did have elevated white count 13.8 kidney function has been normal lactic acid was normal limits of the normal procalcitonin 0.15 urine is negative influenza RSV and COVID testing was negative blood cultures obtained currently pending patient did have a chest x-ra y left upper lobe airspace opacity correlate for pneumonia repeat x-ray slightly increased left lower lobe patchy airspace opacity concerning for pneumonia patient has been on Rocephin and Zithromax infectious disease was consulted today for further management of antibiotic therapy Past Medical History Past Medical History: Hypertension, Prostate Disorder Additional Past Medical History / Comment(s): Chronic lower extremity edema, varicose veins, BPH Last Myocardial Infarction Date:: unk History of Any Multi-Drug Resistant Organisms: None Reported Past Surgical History: Appendectomy, Hernia Repair, Tonsillectomy Additional Past Surgical History / Comment(s): inguinal hernia repair, umbilical hernia repair x2 w/mesh Past Anesthesia/Blood Transfusion Reactions: No Reported Reaction Past Psychological History: No Psychological Hx Reported Smoking Status: Former smoker Past Alcohol Use History: None Reported Additional Past Alcohol Use History / Comment(s): quit smoking 6 months ago, smoked for 40 yrs. almost 1ppd Past Drug Use History: None Reported - Past Family History Mother Family Medical History: Coronary Artery Disease (CAD), Diabetes Mellitus Additional Family Medical History / Comment(s): CABG Father Family Medical History: Cancer, Congestive Heart Failure (CHF), Coronary Artery Disease (CAD) Additional Family Medical History / Comment(s): Underwent CABG; had lung cancer Medications and Allergies Home Medications Medication Instructions Recorded Confirmed Type Fluticasone Nasal [place] [Flonase 1 spr EA NOSTRIL DAILY PRN 12/12/20 08/12/22 History Nasal [place]] allopurinoL [Zyloprim] 100 mg PO DAILY 12/12/20 08/12/22 History Aspirin 81 mg PO DAILY 30 Days #30 tab 12/15/20 08/12/22 Rx Atorvastatin [Lipitor] 40 mg PO DAILY #30 tab 01/26/21 08/12/22 Rx Furosemide [Lasix] 20 mg PO DAILY #7 tab 01/26/21 08/12/22 Rx Tamsulosin [Flomax] 0.4 mg PO DAILY 08/12/22 08/12/22 History lisinopriL 40 mg PO DAILY 08/12/22 08/12/22 History Allergies Allergy/AdvReac Type Severity Reaction Status Date / Time No Known Allergies Allergy Verified 08/12/22 21:07 Physical Exam Vitals: Vital Signs Temp Pulse Pulse Resp BP Pulse Ox 08/14/22 08:10 97.9 F 73 15 121/68 95 08/14/22 05:40 98.3 F 61 18 144/69 94 L 08/14/22 02:13 102.7 F H 75 17 188/86 96 08/13/22 22:31 98.6 F 75 18 158/76 92 L 08/13/22 20:40 93 18 194/86 93 L 08/13/22 20:26 86 08/13/22 20:12 88 08/13/22 19:27 102.9 F H 94 18 219/79 08/13/22 12:29 102.9 F H 85 18 185/84 94 L Intake and Output 08/13/22 08/14/22 08/14/22 22:59 06:59 14:59 Other: Voiding Method Urinal Toilet Urinal Incontinent # Voids 1 3 Results CBC & Chem 7: 08/14/22 06:51 08/14/22 06:51 Labs: Abnormal Lab Results - Last 24 Hours (Table) 08/13/22 08/14/22 08/14/22 Range/Units 11:57 06:51 06:51 RBC 4.29 L (4.30-5.90) m/uL Plt Count 98 L (150-450) k/uL Sodium 133 L (137-145) mmol/L Potassium 3.3 L (3.5-5.1) mmol/L Glucose 129 H (74-99) mg/dL Procalcitonin 0.15 H (0.02-0.09) ng/mL Microbiology - Last 24 Hours (Table) 08/12/22 21:00 Blood Culture - Preliminary Blood 08/12/22 20:45 Blood Culture - Preliminary Blood Assessment and Plan Plan: Patient presented to hospital with fever cough and yellow sputum production with left upper lobe pneumonia likely community-acquired less likely gram-negative or aspiration pneumonia 2-we will obtain sputum for Gram stain culture await for urine for Legionella antigen 3-patient to continue Rocephin and Zithromax at this point We will follow on clinical condition and cultures to further adjust medication if needed Thank you for this consultation we will follow the patient along with you Time with Patient: Greater than 30
[2022-08-15] MEDS: HEPARIN SODIUM,PORCINE/PF 5,000 UNIT/0.5 ML SYRINGE SQ SCH ×3 (00:04→16:22)
[2022-08-15] MEDS: ACETAMINOPHEN TAB 325 MG TAB PO PRN (06:30)
[2022-08-15] MEDS: ASPIRIN 81 MG PO SCH (09:23)
[2022-08-15] MEDS: FUROSEMIDE 20 MG TAB PO SCH (09:23)
[2022-08-15] MEDS: AZITHROMYCIN 500 MG TAB PO SCH (09:23)
[2022-08-15] MEDS: allopurinoL 100 MG TAB PO SCH (09:23)
[2022-08-15] MEDS: TAMSULOSIN 0.4 MG CAP.ER.24H PO SCH (09:23)
[2022-08-15] MEDS: ATORVASTATIN 40 MG TAB PO SCH (09:23)
[2022-08-15] MEDS: lisinopriL 20 MG TAB PO SCH (09:23)
[2022-08-15] MEDS: guaiFENesin 600 MG TABLET.ER PO SCH ×2 (09:23→21:57)
[2022-08-15 09:25] LABS: Basophils # (A) 0.05 X 10*3/uL (0.00-0.10); Basophils % (A) 0.9 %; Eosinophils # (A) 0.18 X 10*3/uL (0.04-0.35); Eosinophils % (A) 3.3 %; HCT 40.3 % (39.6-50.0); HGB 13.4 d/dL (12.0-15.0); Lymphocytes # (A) 1.55 X 10*3/uL (0.90-5.00); Lymphocytes % (A) 28.4 %; MCH 31.9 pg (27.0-32.0); MCHC 33.3 d/dL (32.0-37.0); Mean Platelet Volume 12.1 FL (9.5-12.2); NRBC Per 100 WBC 0 X 10*3/uL (0.00-0.01); Neutrophils # (A) 3.06 X 10*3/uL (1.80-7.70); Platelet Count 104 X 10*3/uL (140-440); RDW 14.3 % (11.5-14.5); WBC 5.46 X 10*3/uL (4.50-10.00)
[2022-08-15 11:42] LABS: ALT 78 U/L (10-49); AST 76 U/L (14-35); Albumin 3.5 d/dL (3.8-4.9); Albumin/Globulin Ratio 1.84 Ratio (1.60-3.17); Alkaline Phosphatase 78 U/L (41-126); Blood Urea Nitrogen 15.3 mg/dL (9.0-27.0); Calcium 8.9 mg/dL (8.7-10.3); Chloride 103 mmol/L (96-109); Globulin 1.9 d/dL (1.6-3.3); Glucose 106 mg/dL (70-110); Potassium 3.5 mmol/L (3.5-5.5); Sodium 138 mmol/L (135-145); Total Bilirubin 0.7 mg/dL (0.3-1.2); Total Protein 5.4 d/dL (6.2-8.2)
--- NOTE | 2022-08-15 12:33 | P.PN ---
Subjective Progress Note Date: 08/15/22 This is a very pleasant 66-year-old male patient with a known history of hypertension, benign prosthetic hyperplasia, former smoker hyperlipidemia, coronary artery disease with previous coronary artery bypass grafting in 2020 with ischemic cardiomyopathy and ejection fraction of 40%. He presented here to the emergency room yesterday with a 2 day history of progressive weakness, fatigue, unable to get out of bed. He had been having issues with a nonproductive cough. Chest x-ray reveals a left upper lobe airspace opacity. He's been afebrile with a T-max of 102.8. White count 13.8. Hemoglobin 17.3. Platelets 96. Sodium 133. Potassium 4.1. Bicarb 23. BUN 13. Creatinine 0.86. Glucose 1:30. Lactic acid 1.3. Troponin 0.024. Urinalysis with 1+ protein. Trace ketones. Influenza screen negative. RSV screen negative. COVID-19 screen negative. He is seen today in consultation on the regular medical floor. He is currently sitting up in bed. Awake and alert in no acute distress. Continues with a dry nonproductive cough. To better 102.4. Maintaining O2 saturations in the 90s on 3 L/m per nasal cannula. Normal saline at 10 MLS per hour. He is currently on azithromycin and cefepime. The patient is seen today 08/14/2022 in follow-up on the regular medical floor. He is resting comfortably in bed. Awake and alert in no acute distress. He is maintaining O2 saturations in the 90s on 3 L/m per nasal cannula. No IV fluids. He did have another temp of 102.7 at 2 AM. Currently afebrile. X-ray continues to show a left upper lung patchy airspace opacity. White count 8.0. Hemoglobin 14.2. Platelets 98,000. Sodium 133. Potassium 3.3. Bicarb 27. BUN 12. Creatinine 0.86. Pro-calcitonin 0.15. ProBNP 3150. He is continued on ceftriaxone and azithromycin. Heparin for DVT prophylaxis. The patient is seen today 08/15/2022 in follow-up on the regular medical floor. He is currently sitting up in a chair at the bedside. Awake and alert in no acute distress. Feeling better today compared to yesterday. Chest x-ray continues to show a left upper lobe infiltrate. Procalcitonin was 0.15. He is continued on Rocephin and azithromycin. Maintaining good O2 saturations in the 90s on 2 L/m per nasal cannula. Continue on his heparin for DVT prophylaxis. Continued on oral diuretics. White count 5.4. Hemoglobin 13.4. Platelets 104. Sodium 138. Potassium 3.5. Bicarb 25. BUN 15. Creatinine 0.9. AST 76. ALT 70. Legionella antigen was negative. Objective - Vital Signs Vital signs: Vital Signs Temp 98.6 F 08/15/22 07:11 Pulse 69 08/15/22 07:11 Resp 18 08/15/22 07:11 BP 151/82 08/15/22 07:11 Pulse Ox 92 L 08/15/22 07:11 FiO2 Intake & Output 08/14/22 08/15/22 08/15/22 18:59 06:59 18:59 Intake Total 150 300 Balance 150 300 Intake: Intake, IV Titration 150 Amount Potassium Chloride 10 meq 100 In Water For Injection 1 100ml.bag @ 100 mls/hr IVPB Q1HR AKASH Rx#: [id number] cefTRIAXone 1 gm In 50 Sodium Chloride 0.9% 50 ml @ 100 mls/hr IVPB Q24HR AKASH Rx#:[id number] Oral 300 Other: Voiding Method Toilet Toilet Toilet Urinal Urinal Urinal Incontinent Incontinent Incontinent # Voids 2 - Exam GENERAL EXAM: Alert, 66-year-old male patient, on 2 L nasal cannula, comfortable in no apparent distress. HEAD: Normocephalic. EYES: Normal reaction of pupils, equal size. NOSE: Clear with pink turbinates. THROAT: No erythema or exudates. NECK: No masses, no JVD. CHEST: No chest wall deformity. LUNGS: Equal air entry with scattered rhonchi in the left lung. CVS: S1 and S2 normal with no audible murmur, regular rhythm. ABDOMEN: No hepatosplenomegaly, normal bowel sounds, no guarding or rigidity. SPINE: No scoliosis or deformity SKIN: No rashes CENTRAL NERVOUS SYSTEM: No focal deficits, tone is normal in all 4 extremities. EXTREMITIES: There is no peripheral edema. No clubbing, no cyanosis. Pe ripheral pulses are intact. - Labs CBC & Chem 7: 08/15/22 06:19 08/15/22 06:19 Labs: Abnormal Lab Results - Last 24 Hours (Table) 08/15/22 08/15/22 Range/Units 06:19 06:19 RBC 4.20 L (4.40-5.60) X 10*6/uL Plt Count 104 L (140-440) X 10*3/uL AST 76 H (14-35) U/L ALT 78 H (10-49) U/L Total Protein 5.4 L (6.2-8.2) d/dL Albumin 3.5 L (3.8-4.9) d/dL Microbiology - Last 24 Hours (Table) 08/12/22 21:00 Blood Culture - Preliminary Blood 08/12/22 20:45 Blood Culture - Preliminary Blood Assessment and Plan Assessment: Acute hypoxemic respiratory failure secondary to community-acquired left lung pneumonia progressed on 0.15. Generalized fatigue and weakness secondary to above Febrile illness secondary to above Leukocytosis Coronary artery disease with previous bypass surgery in 2020 Ischemic cardiomyopathy with ejection fraction 40% Hypertension Hyperlipidemia Former smoker Plan: The patient was seen and evaluated Labs and medications reviewed Continue ceftriaxone and azithromycin Heparin for DVT prophylaxis Follow-up chest x-ray in the a.m. We will continue to follow I have personally seen and examined the patient, performed the documentation and the assessment and plan as written. Number of minutes spent on the visit: 10.
--- NOTE | 2022-08-15 13:10 | P.PN ---
Subjective Progress Note Date: 08/15/22 The patient is a 66-year-old male with a PMH of systolic CHF to 40%, CAD, hypertension, BPH, and hyperlipidemia who presents to the emergency room with complaints of fever and feeling ill. The patient reports that he is experiencing gradually worsening cough over the past 3-4 days which has been productive of yellow-green phlegm particularly in the morning. In the emergency room, a chest x-ray revealed findings consistent with a left upper lobe pneumonia. EKG had revealed sinus rhythm with PVCs at 88 bpm with inferior lead Q waves noted. Laboratory evaluation was remarkable for leukocytosis of 13.8, platelet count 96, lactic acid 1.3, unremarkable UA, and influenza, RSV, and coronavirus PCR negative. 08/13 Patient was seen and examined. He reports no changes in his breathing. Most recent BP 185/67 with pulse 76. Tmax 102.4F. 96% on 3L NC. 08/14 Patient was seen and examined. Patient reports improvement in his breathing. Currently on room air. Tmax 102.7F overnight. CBC shows plt count of 98. BMP shows Na 133, K 3.3, glucose 129. Procalcitonin is 0.15. BNP is 3150. Blood Cx prelim negative at 24H. CXR shows persistent left sided infiltrate. 08/15 Patient was seen and examined. He reports improvement in his breathing. Currently on 2L NC saturating 95%. CBC shows plt count of 104. CMP shows AST 76, ALT 78. Legionella negative. General: non toxic, no distress, appears at stated age Derm: warm, dry Head: atraumatic, normocephalic, symmetric Eyes: EOMI, no lid lag, anicteric sclera Cardiovascular: S1S2 reg, no murmur Lungs: Decreased BS bilateral, no rhonchi, no rales , no accessory muscle use Abdominal: soft, nontender to palpation, no guarding, no appreciable organomegaly Ext: no gross muscle atrophy, 1+ BL LE pitting edema, no contractures Neuro: no focal neuro deficits Psych: Alert, oriented, appropriate affect Sepsis secondary to community-acquired pneumonia Thrombocytopenia, likely reactive Elevated total bilirubin Chronic conditions: Chronic systolic CHF, hypertension, BPH Resolved: HypoNa, HypoK Based on my assessment of this patient, this patient meets a moderate complexity level of care. Patient has an acute diagnosis of sepsis related to CAP that poses a threat to life or bodily function. He met sepsis criteria with leukocytosis, tachycardia, and positive source of infection on admission. Bronchodilators: Albuterol neb 2.5 mg INH as needed for SOB and wheezing. Antibiotics: Rocephin 1 g IV daily. Azithromycin 500 mg PO QD. Expectorants: Mucinex 1200 mg PO BID. Supplemental oxygen to maintain O2 > 92%. Continue Telemetry monitoring. Thrombocytopenia likely reactive, trend since patient is on Heparin. Elevated total bilirubin but non obstructive LFTs. Continue to monitor. Heparin SQ for DVT prophylaxis. FULL CODE. I have reviewed the following [facility] consultant notes: Pulmonology and Infectious disease note reviewed. I have reviewed the results of the following tests: CBC, CMP, Legionella. I have ordered the following tests: Agree with CXR ordered for tomorrow. Pending: Blood culture, sputum culture I have discussed the care of this patient with the following independent historian: I have independently interpreted the following test below: I have discussed the management of this patient with the following physician: This patient has a moderate risk of morbidity due to the following reasons: Patient has an acute diagnosis of sepsis related to CAP that poses a threat to life or bodily function. Objective - Vital Signs Vital signs: Vital Signs Temp 98.1 F 08/15/22 12:26 Pulse 73 08/15/22 12:26 Resp 18 08/15/22 12:26 BP 115/71 08/15/22 12:26 Pulse Ox 95 08/15/22 12:26 FiO2 Intake & Output 08/14/22 08/15/22 08/15/22 18:59 06:59 18:59 Intake Total 150 300 Balance 150 300 Intake: Intake, IV Titration 150 Amount Potassium Chloride 10 meq 100 In Water For Injection 1 100ml.bag @ 100 mls/hr IVPB Q1HR AKASH Rx#: [id number] cefTRIAXone 1 gm In 50 Sodium Chloride 0.9% 50 ml @ 100 mls/hr IVPB Q24HR AKASH Rx#:[id number] Oral 300 Other: Voiding Method Toilet Toilet Toilet Urinal Urinal Urinal Incontinent Incontinent Incontinent # Voids 2 - Labs CBC & Chem 7: 08/15/22 06:19 08/15/22 06:19 Labs: Abnormal Lab Results - Last 24 Hours (Table) 08/15/22 08/15/22 Range/Units 06:19 06:19 RBC 4.20 L (4.40-5.60) X 10*6/uL Plt Count 104 L (140-440) X 10*3/uL AST 76 H (14-35) U/L ALT 78 H (10-49) U/L Total Protein 5.4 L (6.2-8.2) d/dL Albumin 3.5 L (3.8-4.9) d/dL Microbiology - Last 24 Hours (Table) 08/12/22 21:00 Blood Culture - Preliminary Blood 08/12/22 20:45 Blood Culture - Preliminary Blood
[2022-08-15] MEDS ORDERED: POTASSIUM CHLORIDE ER 20 MEQ TAB.ER PO STA (18:05)
[2022-08-16] MEDS: HEPARIN SODIUM,PORCINE/PF 5,000 UNIT/0.5 ML SYRINGE SQ SCH ×2 (00:33→09:07)
[2022-08-16] MEDS ORDERED: AMOXIC-POT CLAV 875-125MG 1 EACH TAB PO SCH (09:00)
[2022-08-16] MEDS: lisinopriL 20 MG TAB PO SCH (09:06)
[2022-08-16] MEDS: TAMSULOSIN 0.4 MG CAP.ER.24H PO SCH (09:07)
[2022-08-16] MEDS: ASPIRIN 81 MG PO SCH (09:07)
[2022-08-16] MEDS: guaiFENesin 600 MG TABLET.ER PO SCH (09:07)
[2022-08-16] MEDS: allopurinoL 100 MG TAB PO SCH (09:07)
[2022-08-16] MEDS: ATORVASTATIN 40 MG TAB PO SCH (09:07)
[2022-08-16] MEDS: FUROSEMIDE 20 MG TAB PO SCH (09:07)
[2022-08-16] MEDS ORDERED: METOPROLOL SUCCINATE (ER) 25 MG TAB.ER.24H PO SCH (09:15)
--- NOTE | 2022-08-16 11:46 | XR ---
EXAMINATION TYPE: XR chest 1V portable DATE OF EXAM: 08/16/2022 COMPARISON: 08/14/2022 INDICATION: Left upper lobe pneumonia TECHNIQUE: Single frontal view of the chest is obtained. FINDINGS: The heart size is mildly prominent. The pulmonary vasculature is normal. There is left upper lobe infiltrate. Correlate for atelectasis and pneumonia. Findings are improving from comparison. IMPRESSION: 1. Left upper lobe infiltrate. Improving Atelectasis and pneumonia should be considered.
--- NOTE | 2022-08-16 13:16 | P.DS ---
Providers Date of admission: 08/12/22 23:08 Expected date of discharge: 08/16/22 Attending physician: Rajinder Gan MD Consults: 08/13/22 08:37 Consult Physician Routine Consulting Provider: Josy Boyer Consult Reason/Comments: PNA Do you want consulting provider notified?: Yes 08/13/22 21:19 Consult Physician Urgent Consulting Provider: Andrew Carmichael Consult Reason/Comments: Severe sepsis Do you want consulting provider notified?: Yes Primary care physician: [facility] Course: The patient is a 66-year-old male with a PMH of systolic CHF to 40%, CAD, hypertension, BPH, and hyperlipidemia who presents to the emergency room with complaints of fever and feeling ill. The patient reports that he is experiencing gradually worsening cough over the past 3-4 days which has been productive of yellow-green phlegm particularly in the morning. In the emergency room, a chest x-ray revealed findings consistent with a left upper lobe pneumonia. EKG had revealed sinus rhythm with PVCs at 88 bpm with inferior lead Q waves noted. Laboratory evaluation was remarkable for leukocytosis of 13.8, platelet count 96, lactic acid 1.3, unremarkable UA, and influenza, RSV, and coronavirus PCR negative. 08/13 Patient was seen and examined. He reports no changes in his breathing. Most recent BP 185/67 with pulse 76. Tmax 102.4F. 96% on 3L NC. 08/14 Patient was seen and examined. Patient reports improvement in his breathing. Currently on room air. Tmax 102.7F overnight. CBC shows plt count of 98. BMP shows Na 133, K 3.3, glucose 129. Procalcitonin is 0.15. BNP is 3150. Blood Cx prelim negative at 24H. CXR shows persistent left sided infiltrate. 08/15 Patient was seen and examined. He reports improvement in his breathing. Currently on 2L NC saturating 95%. CBC shows plt count of 104. CMP shows AST 76, ALT 78. Legionella negative. 08/16 Patient was seen and examined. Passed home O2 eval. He reports significant improvement in his breathing. Cleared by pulmonology for discharge. Advised to take 3 days of Augmentin. Apparently he is on Metoprolol at home which was not on his home list, advised to continue. Telemetry showed PVCs. His potassium was replaced. Pertinent studies as above. General: non toxic, no distress, appears at stated age Derm: warm, dry Head: atraumatic, normocephalic, symmetric Eyes: EOMI, no lid lag, anicteric sclera Cardiovascular: S1S2 reg, no murmur Lungs: Decreased BS bilateral, no rhonchi, no rales , no accessory muscle use Abdominal: soft, nontender to palpation, no guarding, no appreciable organomegaly Ext: no gross muscle atrophy, 1+ BL LE pitting edema, no contractures Neuro: no focal neuro deficits Psych: Alert, oriented, appropriate affect Discharge Diagnosis: Sepsis secondary to community-acquired pneumonia Thrombocytopenia, likely reactive Elevated total bilirubin Chronic conditions: Chronic systolic CHF, hypertension, BPH Resolved: HypoNa, HypoK This complex discharge took 35 minutes to complete. Patient Condition at Discharge: Fair Plan - Discharge Summary Discharge Rx Participant: No New Discharge Prescriptions: New Amoxic-Pot Clav 875-125Mg [Augmentin 875-125] 1 each PO Q12HR #6 tab Albuterol Inhaler [Ventolin Hfa Inhaler] 1 puff INHALATION QID #8 gm Continue Fluticasone Nasal [place] [Flonase Nasal [place]] 1 spr EA NOSTRIL DAILY PRN PRN Reason: allergies Atorvastatin [Lipitor] 40 mg PO DAILY #30 tab Tamsulosin [Flomax] 0.4 mg PO DAILY lisinopriL 40 mg PO DAILY allopurinoL [Zyloprim] 100 mg PO DAILY Aspirin 81 mg PO DAILY 30 Days #30 tab Furosemide [Lasix] 20 mg PO DAILY #7 tab Discharge Medication List Fluticasone Nasal [place] [Flonase Nasal [place]] 1 spr EA NOSTRIL DAILY PRN 12/12/20 [History] allopurinoL [Zyloprim] 100 mg PO DAILY 12/12/20 [History] Aspirin 81 mg PO DAILY 30 Days #30 tab 12/15/20 [Rx] Atorvastatin [Lipitor] 40 mg PO DAILY #30 tab 01/26/21 [Rx] Furosemide [Lasix] 20 mg PO DAILY #7 tab 01/26/21 [Rx] Tamsulosin [Flomax] 0.4 mg PO DAILY 08/12/22 [History] lisinopriL 40 mg PO DAILY 08/12/22 [History] Albuterol Inhaler [Ventolin Hfa Inhaler] 1 puff INHALATION QID #8 gm 08/16/22 [Rx] Amoxic-Pot Clav 875-125Mg [Augmentin 875-125] 1 each PO Q12HR #6 tab 08/16/22 [Rx] Follow up Appointment(s)/Referral(s): Herber Menchaca DO [Primary Care Provider] - 08/19/22 1:00 pm (Dr Menchaca is unavailable, appointment will be with Dr Hall @ [facility]) Patient Instructions/Handouts: Albuterol (By breathing), Amoxicillin/Clavulanate Potassium (By mouth), Pneumonia (DC) Discharge Disposition: HOME SELF-CARE
[2022-08-16 13:27] VITALS: BP 156/79; PULSE 64; RESP 17; TEMP 97.5
--- NOTE | 2022-08-16 13:36 | P.PN ---
Subjective Progress Note Date: 08/16/22 This is a very pleasant 66-year-old male patient with a known history of hypertension, benign prosthetic hyperplasia, former smoker hyperlipidemia, coronary artery disease with previous coronary artery bypass grafting in 2020 with ischemic cardiomyopathy and ejection fraction of 40%. He presented here to the emergency room yesterday with a 2 day history of progressive weakness, fatigue, unable to get out of bed. He had been having issues with a nonproductive cough. Chest x-ray reveals a left upper lobe airspace opacity. He's been afebrile with a T-max of 102.8. White count 13.8. Hemoglobin 17.3. Platelets 96. Sodium 133. Potassium 4.1. Bicarb 23. BUN 13. Creatinine 0.86. Glucose 1:30. Lactic acid 1.3. Troponin 0.024. Urinalysis with 1+ protein. Trace ketones. Influenza screen negative. RSV screen negative. COVID-19 screen negative. He is seen today in consultation on the regular medical floor. He is currently sitting up in bed. Awake and alert in no acute distress. Continues with a dry nonproductive cough. To better 102.4. Maintaining O2 saturations in the 90s on 3 L/m per nasal cannula. Normal saline at 10 MLS per hour. He is currently on azithromycin and cefepime. The patient is seen today 08/14/2022 in follow-up on the regular medical floor. He is resting comfortably in bed. Awake and alert in no acute distress. He is maintaining O2 saturations in the 90s on 3 L/m per nasal cannula. No IV fluids. He did have another temp of 102.7 at 2 AM. Currently afebrile. X-ray continues to show a left upper lung patchy airspace opacity. White count 8.0. Hemoglobin 14.2. Platelets 98,000. Sodium 133. Potassium 3.3. Bicarb 27. BUN 12. Creatinine 0.86. Pro-calcitonin 0.15. ProBNP 3150. He is continued on ceftriaxone and azithromycin. Heparin for DVT prophylaxis. The patient is seen today 08/15/2022 in follow-up on the regular medical floor. He is currently sitting up in a chair at the bedside. Awake and alert in no acute distress. Feeling better today compared to yesterday. Chest x-ray continues to show a left upper lobe infiltrate. Procalcitonin was 0.15. He is continued on Rocephin and azithromycin. Maintaining good O2 saturations in the 90s on 2 L/m per nasal cannula. Continue on his heparin for DVT prophylaxis. Continued on oral diuretics. White count 5.4. Hemoglobin 13.4. Platelets 104. Sodium 138. Potassium 3.5. Bicarb 25. BUN 15. Creatinine 0.9. AST 76. ALT 70. Legionella antigen was negative. The patient is seen today 08/16/2022 in follow-up on the regular medical floor. He is awake and alert in no acute distress. Up ambulating in his room. Feeling nearly back to his baseline. Maintaining good O2 saturations in the 90s on room air. He's afebrile. Hemodynamically stable. Chest x-rays showing improved aeration in the left upper lobe infiltrate. Improved atelectasis. The cultures reveal no growth. He is continued on ceftriaxone, bronchodilators, Mucinex. Heparin for DVT prophylaxis. Objective - Vital Signs Vital signs: Vital Signs Temp 97.5 F L 08/16/22 13:26 Pulse 64 08/16/22 13:26 Resp 17 08/16/22 13:26 BP 156/79 08/16/22 13:26 Pulse Ox 96 08/16/22 12:18 FiO2 Intake & Output 08/15/22 08/16/22 08/16/22 18:59 06:59 18:59 Intake Total 50 400 Balance 50 400 Intake: Intake, IV Titration 50 Amount cefTRIAXone 1 gm In 50 Sodium Chloride 0.9% 50 ml @ 100 mls/hr IVPB Q24HR [facility] Rx#:[id number] Oral 400 Other: Voiding Method Toilet Toilet Urinal Urinal Incontinent Incontinent # Voids 2 - Exam GENERAL EXAM: Alert, very pleasant 66-year-old male patient, on room air, comfortable in no apparent distress. HEAD: Normocephalic. EYES: Normal reaction of pupils, equal size. NOSE: Clear with pink turbinates. THROAT: No erythema or exudates. NECK: No masses, no JVD. CHEST: No chest wall deformity. LUNGS: Equal air entry with scattered rhonchi in the left lung. CVS: S1 and S2 normal with no audible murmur, regular rhythm. ABDOMEN: No hepatosplenomegaly, normal bowel sounds, no guarding or rigidity. SPINE: No scoliosis or deformity SKIN: No rashes CENTRAL NERVOUS SYSTEM: No focal deficits, tone is normal in all 4 extremities. EXTREMITIES: There is no peripheral edema. No clubbing, no cyanosis. Peripheral pulses are intact. - Labs CBC & Chem 7: 08/15/22 06:19 08/15/22 06:19 Labs: Microbiology - Last 24 Hours (Table) 08/12/22 21:00 Blood Culture - Preliminary Blood 08/12/22 20:45 Blood Culture - Preliminary Blood Assessment and Plan Assessment: Acute hypoxemic respiratory failure secondary to community-acquired left lung p neumonia procalcitonin 0.15. Generalized fatigue and weakness secondary to above, recovered Febrile illness secondary to above, recovered Leukocytosis, normalized Coronary artery disease with previous bypass surgery in 2020 Ischemic cardiomyopathy with ejection fraction 40% Hypertension Hyperlipidemia Former smoker Plan: The patient was seen and evaluated Chest x-ray and medications reviewed Cleared for discharge from the pulmonary standpoint Complete a course of Augmentin Follow-up in our office in 1 week I have personally seen and examined the patient, performed the documentation and the assessment and plan as written. Number of minutes spent on the visit: 10.
== END 2022-08-16 14:56 | disposition home or self-care (01) | DRG 871 ==
LOC: EC 15:52 → 5NMEDONC 23:08
PROVIDERS: ADMIT Internal Medicine; ATTEND Internal Medicine
DX: A41.9 Sepsis, unspecified organism (principal); J15.9 Unspecified bacterial pneumonia; J96.01 Acute respiratory failure with hypoxia; E87.1 Hypo-osmolality and hyponatremia; R65.20 Severe sepsis without septic shock; Z20.822 Contact with and (suspected) exposure to COVID-19; I50.22 Chronic systolic (congestive) heart failure; J98.11 Atelectasis; I11.0 Hypertensive heart disease with heart failure; D69.6 Thrombocytopenia, unspecified; E78.5 Hyperlipidemia, unspecified; N40.0 Benign prostatic hyperplasia without lower urinary tract symptoms; Z95.1 Presence of aortocoronary bypass graft; E87.6 Hypokalemia; I25.2 Old myocardial infarction; I25.5 Ischemic cardiomyopathy; I49.3 Ventricular premature depolarization; I83.90 Asymptomatic varicose veins of unspecified lower extremity; R53.83 Other fatigue; Z79.02 Long term (current) use of antithrombotics/antiplatelets; Z79.82 Long term (current) use of aspirin; Z79.899 Other long term (current) drug therapy; Z82.49 Family history of ischemic heart disease and other diseases of the circulatory system; Z87.891 Personal history of nicotine dependence; Z87.19 Personal history of other diseases of the digestive system; I25.10 Atherosclerotic heart disease of native coronary artery without angina pectoris
CPT/HCPCS: 36415; 71045; 71046; 80048; 80053; 81001; 82140; 83605; 83880; 84145; 84484; 85025; 85027; 85610; 85730; 87040; 87449; 87636; 93005; 94640; 96365; 96375; 99285

== ENCOUNTER → 2024-06-29 | Outpatient (CLI) | payer MEDICARE ==
--- NOTE | 2024-06-29 10:53 | US ---
EXAMINATION TYPE: US renal artery duplex complet DATE OF EXAM: 06/29/2024 COMPARISON: NONE CLINICAL INDICATION: Male, 68 years old with history of I10 UNCONTROLLED HTN; uncontrolled HTN, on me ds TECHNIQUE: Grayscale, color Doppler and spectral Doppler imaging of the bilateral renal arteries and kidneys. FINDINGS: MEASUREMENTS: RENAL SIZE: Right Kidney: 13.3x5.2x5.7cm Left Kidney: 14.3x4.9x5.9cm Right Kidney: No hydronephrosis or lesions seen Left Kidney: No hydronephrosis or lesions seen Abd Aorta: No AAA visualized, large areas of calcified plaque mid aorta RESISTANCE INDEX Right: 0.84 Left: 0.79 RA/AO RATIO (< 3.5 ) Right: 0.9 Left: 1.5 RENAL ARTERY VELOCITY ( < 180 cm/s) Right: 125.3 Left: 216.7 Hand Blocker Notes: Borderline elevated RI bilaterally, elevated velocity left proximal renal artery. Arrythmia noted on waveforms Exam limited by bowel gas, body habitus, and difficult deep withheld inspiration. Non-visualization o f the Right proximal renal artery Appropriate color Doppler flow and spectral waveforms to the kidneys bilaterally. Grayscale imaging of the kidneys and show no evidence for hydronephrosis or mass. No renal calculi or cysts visualized. IMPRESSION: Suboptimal study. Elevated renal velocities are seen bilaterally. Cannot exclude hemodynamically sign ificant focal renal artery stenosis. Advise further investigation with CTA or MRA of the abdomen. [facility], , 06/29/2024 10:51 AM
[2024-06-29 17:56] LABS: Basophils # (A) 0.04 X 10*3/uL (0.00-0.10); Basophils % (A) 0.8 %; Eosinophils # (A) 0.01 X 10*3/uL (0.04-0.35); Eosinophils % (A) 0.2 %; HCT 44.7 % (39.6-50.0); HGB 15.4 g/dL (13.0-17.0); Lymphocytes # (A) 0.94 X 10*3/uL (0.90-5.00); MCH 32.6 pg (27.0-32.0); MCHC 34.5 g/dL (32.0-37.0); MCV 94.7 FL (80.0-97.0); Mean Platelet Volume 12.1 FL (9.5-12.2); Monocytes # (A) 0.51 X 10*3/uL (0.20-1.00); Monocytes % (A) 9.8 %; NRBC Per 100 WBC 0 X 10*3/uL (0.00-0.01); Neutrophils # (A) 3.71 X 10*3/uL (1.80-7.70); Platelet Count 106 X 10*3/uL (140-440); RBC 4.72 X 10*6/uL (4.40-5.60); RDW 13.1 % (11.5-14.5); WBC 5.22 X 10*3/uL (4.50-10.00)
[2024-06-29 18:23] LABS: ALT 20 U/L (10-49); AST 18 U/L (14-35); Albumin 4.3 g/dL (3.8-4.9); Albumin/Globulin Ratio 1.95 Ratio (1.60-3.17); Alkaline Phosphatase 72 U/L (41-126); BUN/Creat Ratio 16.78 Ratio (12.00-20.00); Blood Urea Nitrogen 15.1 mg/dL (9.0-27.0); Calcium 9.4 mg/dL (8.7-10.3); Carbon Dioxide 20.2 mmol/L (21.6-31.8); Chloride 106 mmol/L (96-109); Globulin 2.2 g/dL (1.6-3.3); Glucose 138 mg/dL (70-110); Sodium 141 mmol/L (135-145); Total Bilirubin 0.8 mg/dL (0.3-1.2); Total Protein 6.5 g/dL (6.2-8.2)
== END | disposition home or self-care (01) ==
LOC: RADUSWWP 08:55
PROVIDERS: ATTEND Family Medicine
DX: I10 Essential (primary) hypertension (principal); R74.01 Elevation of levels of liver transaminase levels; I87.2 Venous insufficiency (chronic) (peripheral); N40.1 Benign prostatic hyperplasia with lower urinary tract symptoms; E78.5 Hyperlipidemia, unspecified; E66.9 Obesity, unspecified
CPT/HCPCS: 80053; 84443; 85025; 93975

== ENCOUNTER → 2024-07-16 | Outpatient (CLI) | payer MEDICARE ==
--- NOTE | 2024-07-16 13:28 | CT ---
INDICATION: Patient age:Male; 68 years old; Reason for study: R93.421,I10 ESSENTIAL (PRIMARY) HYPERTENSION; [facility]. COMPARISON: Renal artery ultrasound 06/29/2024 TECHNIQUE: Multiple thin slice sub-millimeter images were obtained through the abdomen before and aft er administration of contrast. Patient was given Isovue 370, 75 cc intravenously. 3-D reconstructed images and maximum intensity projection images were obtained of the abdomen. One or more CT dose reduction strategies were utilized during this examination. DLP administered was 1378.90 mGycm. FINDINGS: CTA Abdomen: The abdominal aorta does not demonstrate aneurysmal dilatation. Mild to moderate athero sclerotic plaquing is identified within the abdominal aorta. The origins of the superior mesenteric artery, renal arteries, inferior mesenteric artery, and celiac axis are patent. The celiac axis demon strates no significant stenosis at its origin. There are 2 right renal arteries without significant s tenosis. The left renal artery without stenosis. Moderate short segment stenosis at the origin of the SMA. The bilateral common iliac arteries are patent without significant stenosis. There is mild calc ified plaque identified bilaterally. VISCERA ABDOMEN: Liver: Unremarkable. Gallbladder and Bile ducts: Unremarkable. Pancreas: Unremarkable. Spleen: Unremarkable. Adrenal glands: Unremarkable. Kidneys and Ureters: No hydronephrosis or renal calculus. The kidneys enhance symmetrically. Stomach and Bowel: No evidence of bowel obstruction or bowel wall thickening. Peritoneum: No evidence of pneumoperitoneum, free fluid, or adenopathy. Postsurgical changes from um bilical hernia repair with mesh identified. Musculoskeletal: The osseous structures appear intact. Mild multilevel degenerative disc disease. LOWER CHEST: Cardiomegaly. Median sternotomy wires. The visualized lung bases are clear. Mild coronar y arterial calcifications. No pericardial effusion. Centrilobular emphysematous changes. IMPRESSION: 1. No evidence for renal artery stenosis. 2. Moderate short segment stenosis at the origin of the SMA secondary to calcified and noncalcified p laque. [facility], , 07/16/2024 1:25 PM
== END | disposition home or self-care (01) ==
LOC: RADCTMAIN 11:25
PROVIDERS: ATTEND Family Medicine
DX: Z01.812 Encounter for preprocedural laboratory examination (principal); I10 Essential (primary) hypertension; I70.1 Atherosclerosis of renal artery; R93.421 Abnormal radiologic findings on diagnostic imaging of right kidney
CPT/HCPCS: 74175; Q9967